=== PATIENT | female | born 1970 | race African-American/Black ===

== ENCOUNTER → 2017-01-07 | Outpatient (REF) | payer BC | LOC: M LABDRAW1 15:51 | PROVIDERS: ATTEND Orthopaedic Surgery | DX: M50.30 Other cervical disc degeneration, unspecified cervical region (principal) ==

== ENCOUNTER → 2017-01-21 | Outpatient (CLI) | payer BC ==
[~2017-01-21] MED LIST: BUPR15TA PO; ESTRADIOL TOP; GABA-282 PO; LORA10TA2 PO; SERT25TA PO; VITA100037 PO; ZANA4CAP PO
--- NOTE | 2017-01-22 07:48 | ECGEPIP ---
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
== END ==
LOC: M EKG 16:08
PROVIDERS: ATTEND Anesthesiology
DX: Z01.818 Encounter for other preprocedural examination (principal)

== ENCOUNTER → 2017-01-24 | Outpatient (CLI) | payer BC ==
[~2017-01-24] MED LIST changes: -VITA100037 PO; +VITA100067 PO
[2017-01-24 13:11] LABS: MEAN CORPUSCULAR HGB CONC 31.5 g/dl (32.0-36.5); MEAN CORPUSCULAR VOLUME 82.6 fl (80.0-96.0); RED CELL DISTRIBUTION WIDTH 12.9 % (11.5-14.5); WHITE BLOOD COUNT 7.8 K/mm3 (4.0-10.0)
[2017-01-24 14:25] LABS: ALBUMIN 3.6 GM/DL (3.2-5.2); ALBUMIN/GLOBULIN RATIO 0.97 (1.00-1.93); ALKALINE PHOSPHATASE 111 U/L (45-117); ALT/SGPT 22 U/L (12-78); ANION GAP 7 MEQ/L (8-16); AST/SGOT 13 U/L (15-37); BILIRUBIN,TOTAL 0.4 MG/DL (0.2-1.0); BLOOD UREA NITROGEN 12 MG/DL (7-18); CALCIUM LEVEL 9.2 MG/DL (8.5-10.1); CARBON DIOXIDE LEVEL 25 MEQ/L (21-32); CHLORIDE LEVEL 108 MEQ/L (98-107); CHOLESTEROL LEVEL 250 MG/DL (<200); CREATININE FOR GFR 0.82 MG/DL (0.55-1.02); GLOMERULAR FILTRATION RATE > 60.0 (>58); GLUCOSE, FASTING 81 MG/DL (70-105); POTASSIUM SERUM 4.5 MEQ/L (3.5-5.1); SODIUM LEVEL 140 MEQ/L (136-145); TOTAL PROTEIN 7.3 GM/DL (6.4-8.2); TRIGLYCERIDES LEVEL 153 MG/DL (<150)
== END ==
LOC: M SMT 08:30
PROVIDERS: ATTEND Nurse Practitioner Adult Health
DX: Z00.00 Encounter for general adult medical examination without abnormal findings (principal); E55.9 Vitamin D deficiency, unspecified

== ENCOUNTER 2017-02-03 11:00 | Inpatient (IN) | payer BC ==
--- NOTE | 2017-01-29 18:56 | HPE ---
DATE OF ADMISSION: 02/03/2017 ATTENDING PHYSICIAN: Dr. Acosta CHIEF COMPLAINT: Neck pain, pain radiating to her left upper extremity. HISTORY OF PRESENT ILLNESS: This is a pleasant 46-year-old female patient with progressively worsening neck pain and pain radiating to her left upper extremity. She failed to improve with conservative management to include physical therapy and epidural steroid injections. 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 She has elected for surgery for continued symptoms. She has consented for an anterior cervical decompression and fusion at C4-5 and C5-[address] Acosta. X-rays of her cervical spine notable for degenerative changes most significant at C4-5 and C5-6, lesser degree at C2-3. MRI is notable for cervical spinal stenosis at C4-5 and C5-6. Degenerative changes primarily at C3-4. Medical optimization none. ALLERGIES: Penicillin and sulfa drugs which both cause her to have hives. Aspirin also causing have hives she has troubles with latex, tape and most adhesives as well. MEDICAL HISTORY: Includes the above listed cervical spinal stenosis. She also has seasonal allergies, anxiety, depression and gastric reflux disease. PAST SURGICAL HISTORY: Tubal ligation, partial hysterectomy, , breast biopsies, ganglion cyst removal and the carpal tunnel release on the left side. CURRENT MEDICATIONS: - gabapentin 300 mg 1 tablet three times a day - Zanaflex 4 mg 1 tablet bedtime - Zoloft 75 mg 1 tablet in the evening - Wellbutrin XL 150 mg 1 tablet twice a day - Claritin 10 mg as needed - Prilosec 20 mg 1 tablet as needed She was counseled to discontinue anti-inflammatories 5 days prior to the surgery. FAMILY HISTORY: Noncontributory. REVIEW OF SYSTEMS: Denies fever or chills. Denies chest pain, shortness breath or cough. Denies difficulty breathing. Denies abdominal pain. Denies nausea or vomiting. Has persistent pain with driving activities and activities of daily living with pain radiating into her left arm. Denies nausea or vomiting. Denies recent upper respiratory infection or urinary tract infection symptoms. PHYSICAL EXAMINATION: Physical exam today reveals a well-nourished, well-developed alert female patient. She walks with a normal gait. Her gait is not wide-based does not use assistive devices. Spurling's is positive with increased symptoms of the left upper extremity. Deep tendon reflexes are trace at the biceps on the left, one at the right biceps, one at both triceps, and one at the brachial radialis. Foster's is negative. Clonus is negative. Neck, the skin is intact. No erythema, edema or ecchymosis. No adenopathy. Lungs are clear to auscultation without rales or wheeze. Heart, regular rate and rhythm. Abdomen, bowel sounds present. Height 63 inches, weight 175 pounds, temperature 97.6, body mass index (BMI) is 33.6. LABORATORY DATA: Her sickle cell is negative. EKG is notable for sinus rhythm. IMPRESSION: Symptomatic cervical spinal stenosis and left upper extremity radiculopathy. PLAN: She has consented for anterior cervical decompression and fusion at C4-5, C5-[address] Acosta. NIRMAL
[~2017-02-03] VITALS: Ht 160 cm; Wt 80.7 kg
[2017-02-03] MEDS ORDERED: LR 1,000 ML IV ONE (12:00)
[2017-02-03] MEDS ORDERED: PERCOCET 5MG/325MG TAB PO ONE (12:00)
[2017-02-03] MEDS ORDERED: VANCOMYCIN HCL 1,000 MG, VIAL MATE ADAPTER 1 EACH in D5W 250 ML IV ONE (12:30)
[2017-02-03] MEDS ORDERED: PREGABALIN 75 MG CAP(LYRICA) PO ONE (12:30)
[2017-02-03] MEDS ORDERED: THROMBIN SOLN 20,000 UNITS KIT As Ordered ONE (14:46)
[2017-02-03] MEDS ORDERED: methylPREDNISolone 500 MG VIAL (J2930) As Ordered ONE (14:46)
[2017-02-03] MEDS ORDERED: LIDOCAINE W/EPINEPHRINE 1% 20ML VIAL As Ordered ONE (14:47)
[2017-02-03] MEDS ORDERED: BACITRACIN PWD 50,000 UNITS VIAL As Ordered ONE (14:47)
[2017-02-03] MEDS ORDERED: LIDOCAINE 2% INJ 100 MG/5 ML SDV (FOR ANES.) As Ordered ONE (18:33)
[2017-02-03] MEDS ORDERED: MIDAZOLAM INJ 2 MG/2 ML VIAL (J2250) As Ordered ONE (18:33)
[2017-02-03] MEDS ORDERED: PROPOFOL 200 MG/20 ML VIAL As Ordered ONE ×2 (18:33→21:20)
[2017-02-03] MEDS ORDERED: ROCURONIUM BROMIDE 50 MG/5 ML VIAL/SYRINGE As Ordered ONE (18:33)
[2017-02-03] MEDS ORDERED: fentaNYL 250 MCG/5 ML INJECTION (J3010) As Ordered ONE (18:33)
[2017-02-03] MEDS ORDERED: dexameTHASONE 4 MG/ML 1ML VIAL (J1100) As Ordered ONE (18:33)
[2017-02-03] MEDS ORDERED: ONDANSETRON 4MG/2ML VIAL (J2405) As Ordered ONE (18:33)
[2017-02-03] MEDS ORDERED: PHENYLephrine HCL 500 MCG/5 ML (100MCG/ML) SYRINGE (J2370) As Ordered ONE (18:34)
[2017-02-03] MEDS ORDERED: ePHEDrine SULFATE 25 MG/5 ML(5MG/ML) SYRINGE As Ordered ONE ×2 (18:34→18:41)
[2017-02-03] MEDS ORDERED: GLYCOPYRROLATE INJ 0.2 MG/ML 2 ML VIAL As Ordered ONE (20:19)
[2017-02-03] MEDS ORDERED: NEOSTIGMINE 1MG/ML 5 ML SYRINGE (J2710) As Ordered ONE (20:19)
[2017-02-03] MEDS: fentaNYL 100 MCG/2 ML INJECTION (J3010) IV PRN ×4 (21:45→22:00)
[2017-02-03] MEDS ORDERED: fentaNYL 100 MCG/2 ML INJECTION (J3010) As Ordered ONE (21:47)
[2017-02-03] MEDS ORDERED: ONDANSETRON 4MG/2ML VIAL (J2405) IV PRN (22:15)
[2017-02-03] MEDS ORDERED: METOCLOPRAMIDE INJ 10MG/2ML VIAL (J2765) IV PRN (22:15)
[2017-02-03] MEDS ORDERED: LR 1,000 ML IV SCH (22:15)
[2017-02-03] MEDS ORDERED: PERCOCET 5MG/325MG TAB PO PRN ×2 (22:15→22:45)
[2017-02-03] MEDS ORDERED: MEPERIDINE INJ 25 MG/ML VIAL (J2175) IV PRN (22:15)
--- NOTE | 2017-02-03 22:44 | REP ---
Clinical: Cervical stenosis. Technique: Two portable cross-table lateral intraoperative views of the cervical spine. Findings: Final images demonstrate the patient to be status post anterior fusion at the C4 - C6 levels. Satisfactory alignment noted. Impression: Status post anterior fusion at C4-C6. Signed by Dimas Rivas MD 02/03/2017 10:30 P
[2017-02-03 22:45] VITALS: BP 130/76
[2017-02-03] MEDS ORDERED: PROMETHAZINE INJ 25 MG/ML VIAL (J2550) IV PRN (22:45)
[2017-02-03] MEDS ORDERED: HYDROmorphone HCL 1 MG/ML SYRINGE (J1170) IV PRN ×2 (22:45)
[2017-02-03] MEDS: D5W/LR 1,000 ML IV SCH (22:45)
[2017-02-03 23:15] VITALS: BP 130/68
[2017-02-04 00:15] VITALS: BP 137/75
[2017-02-04] MEDS: ASCORBIC ACID 500 MG TAB PO SCH ×2 (00:17→08:59)
[2017-02-04 01:15] VITALS: BP 137/76
[2017-02-04 02:15] VITALS: BP 126/68
[2017-02-04] MEDS: PERCOCET 5MG/325MG TAB PO PRN ×2 (06:18→11:33)
[2017-02-04] MEDS ORDERED: VANCOMYCIN HCL 1,000 MG, VIAL MATE ADAPTER 1 EACH in D5W 250 ML IV ONE (07:00)
[2017-02-04 07:15] VITALS: BP 128/75
[2017-02-04] MEDS: D5W/LR 1,000 ML IV SCH (08:45)
[2017-02-04] MEDS ORDERED: MOM 30ML SUSPENSION UDC PO SCH (09:00)
[2017-02-04] MEDS ORDERED: OMEPRAZOLE 20 MG CAP PO SCH (09:00)
[2017-02-04] MEDS ORDERED: SERTRALINE HCL 50 MG TAB PO SCH (09:00)
[2017-02-04] MEDS ORDERED: LORATADINE 10 MG TAB PO SCH (09:00)
[2017-02-04] MEDS ORDERED: VITAMIN D 1,000 INTERNATIONAL UNITS TABLET PO SCH (09:00)
[2017-02-04] MEDS ORDERED: FLUTICASONE PROP 0.05% NASAL SPRAY 16 GM (FLONASE) SCH (09:00)
[2017-02-04 11:15] VITALS: BP 119/64
[2017-02-04] MEDS ORDERED: GABAPENTIN 300 MG CAP PO SCH (21:00)
[2017-02-04] MEDS ORDERED: tiZANidine 4 MG TAB PO SCH (21:00)
--- NOTE | 2017-02-06 08:21 | RO ---
DATE OF PROCEDURE: 02/03/2017 PREOPERATIVE DIAGNOSIS: Cervical spinal stenosis C4-5, C5-6. POSTOPERATIVE DIAGNOSIS: Cervical spinal stenosis C4-5, C5-6. PROCEDURE PERFORMED: Anterior cervical decompression and fusion procedure at C4-5 including decompression of the thecal sac and nerve roots, additional level ACDF at C5-6, anterior cervical instrumentation for spine fusion surgery C4-5, C5-6, use and application of structural allograft for spine surgery reviewed. SURGEON: Dr. Олег Acosta CORRECTION OFFICER PENITENTIARY: Petros Ortiz, physician trust manager assistant. ANESTHESIA: General. ESTIMATED BLOOD LOSS: Less than 50 mL replaced with Crystalloid. COMPLICATIONS: None. COMPONENTS USED: DePuy skyline plate, 30 mm 14 mm screws times six, VG2 structural allograft for spine surgery size 4 x 6 times two grafts. INDICATIONS: 46-year-old female with significant cervical spinal stenosis with radicular component ongoing for months. Not getting better with conservative management and has elected for operative intervention. Consent involved a malina discussion of the pathology involved, procedure proposed, alternatives including doing nothing, risks including but not limited to pain, failure, infection, bleeding, blood loss, incomplete relief, need for additional surgery, hoarseness, swallowing trouble, paralysis, , other problems. She agreed to proceed to surgery. OPERATIVE COURSE: Identified in the holding area, site side verified, brought to the operating room. Once general endotracheal anesthesia was administered, she was positioned for exposure of the cervical spine for anterior cervical decompression and fusion. This was accomplished through a right-sided approach. Once I and the manager radio were comfortable with the patient's positioning, she was then sterilely prepped and draped in usual fashion. Head halter traction 7 pounds was utilized for this case and the shoulders had been gently taped on the table. Mr. Ortiz stood on the patient's left side, Sabine on the patient's right. I conducted the procedure using 3.5 loupe magnification and a headlamp. Next, time-out was accomplished. Incision was outlined with a marking pen infiltrated with 1% lidocaine with epinephrine and made with a 10 blade knife. The incision was based on bony landmarks including the trachea as well as palpation of the clavicle. The incision was three fingerbreadths long developed down through skin and subcuticular tissues to the platysma muscle. Platysma was elevated and I divided it perpendicular to its fibers using the bipolar cautery and tenotomy scissors. There was a large hypertrophied external vein. This was skeletonized and then tied off / ligated using Vicryl Reel stitch. Next, once this was divided, this facilitated continued dissection. The dissection continued medial to the sternocleidomastoid which was identified, identified the omohyoid muscle, elevated it, exposed it and divided the omohyoid to facilitate further exposure. Next, dissection continued. The carotid sheath was identified and protected. We identified the prevertebral fascia which was elevated in several leaves and exposed the C5-6 and C4-5 disc levels. Next, I placed a bayonet spinal needle at the C5-6 level and a cross-table lateral was taken to verify our position. From here, C5-6 level was indelibly marked using the hot knife, including elevation of the longus coli muscle at C5-6 and also continuing dissection superiorly to C4-5. Once this was accomplished, we then placed distraction pins at the most stenotic level C4-5 and distracted across C4-5. Next, C4-5 appeared to be significantly mobile. I opened the annulus with 11 blade knife and then we removed disc osteophyte complex using pituitaries. Mr. Ortiz assisted in securing the retractor and retracting using S retractor throughout the course of this procedure. Next the dissection continued down the PLL level. I then utilized curved curettes to remove cartilaginous end plates followed by use of the oval bur to debride the endplates to allow graft placement including debridement of the uncinate process and posterior osteophyte at the level of the PLL. Interestingly the patient had a larger posterior than anterior osteophyte. Next, once this debridement had been accomplished, I was able to elevate the PLL which seen to be potentially partially calcified with a curved curette and then removed the PLL using the #1 and #2 Kerrison's. This allowed direct visualization of the thecal sac. I accomplished foraminotomies bilaterally. Next, I rasped with a size 4 x 6 rasp which seemed to fit appropriately. I did not feel that a 5 x 7 could be fit at this level. 4 x 6 sound also fit appropriately and then we obtained the 4 x 6 VG2 structural graft. It was coated with some bur millings which had been harvested from debridement of the uncinate processes and this graft was implanted and tamped into place. I removed distraction pin, plugged the hole with bone wax. Next, we then subluxed the retractor anteriorly over the 5-6 level, placed a distraction pin at C6 and distracted across C5-6. I opened C5-6 annulus in a similar fashion and removed disc osteophyte material using pituitaries. Again we removed cartilaginous endplate and then again utilized oval bur to debride down the uncinate processes and further square the endplates. Next, at the level of the PLL, I again appreciated significant posterior osteophyte which was further debrided using the oval bur as well as with the curved curette. Next I obtained access to the PLL, elevated using the #4-0 Urvashi curette and then removed the PLL piecemeal fashion using #1 and #2 carriers exposing the thecal sac. Again foraminotomies were accomplished bilaterally. Next, irrigation had been accomplished. Including irrigation with concentrated bacitracin. Next rasp 4 x 6 followed by 4 x 6 sound again utilized to fit appropriately. 4 x 6 VG2 obtained, tamped into place. Next, once this was accomplished, distraction pins were removed and the pin holes plugged. Next, Mr. Ortiz assisted in exposure using the shadow line retractor as well as S retractors and I utilized the oval bur to remove anterior vertebral osteophytes to facilitate placement of the plate. I sized for a 30 mm plate and a 30 mm plate was obtained and placed. This included drilling for 14 mm screws using the drill guide and the 12 mm drill followed by placement of the 14 mm screws in an alternating fashion at C4, C5 and C6. Once the screws were in place, we locked the plate, irrigated. Next, at this stage, cross-table lateral x-ray was obtained to verify plate placement. Next, once irrigation had been accomplished and we inspected for bleeding, platysma was reapproximated with interrupted stitch, deep dermis with interrupted stitch and running stitch on skin, followed by Dermabond. The patient was placed in a rigid cervical collar. She was extubated, moved to recovery room in good condition moving all four extremities. For further details, please refer to the medical record.
--- NOTE | 2017-02-08 04:45 | DSES ---
DATE OF ADMISSION: 02/03/2017 DATE OF DISCHARGE: 02/04/2017 ATTENDING PHYSICIAN: Олег Acosta MD. ADMITTING DIAGNOSIS: Cervical spinal stenosis at C4-5 and C5-6 with radiculopathy. OTHER DIAGNOSES: 1. Seasonal allergies. 2. Anxiety. 3. Depression. 4. Gastroesophageal reflux disease. DISCHARGE DIAGNOSIS: Cervical spinal stenosis status post anterior cervical decompression and fusion at C4-5 and C5-6. HISTORY OF PRESENT ILLNESS: The patient is a 46-year-old female with significant spinal stenosis with radiculopathy. Symptoms have been ongoing for months despite conservative management. She has elected for an anterior cervical decompression and fusion at C4-5 and C5-[address] Acosta. OPERATION PERFORMED: Anterior cervical decompression and fusion at C4-5 including decompression of the thecal sac and nerve roots. Anterior cervical decompression and fusion procedure at C5-6 with anterior cervical instrumentation for spine fusion surgery at C4-5 and C5-6 with structural allograft. HOSPITAL COURSE: The patient underwent an anterior cervical decompression and fusion at C4-5 and C5-6 under general anesthesia. Surgery was uneventful and hospital course was without complication. She was discharged on oral pain medications and instructed to resume her preoperative medications and diet. Patient will followup in our office in approximately 3 days for reevaluation. She does agree to return to our clinic sooner if there is any increased pain, drainage, bleeding, numbness, tingling or radiating pain, fever greater than 101 degrees or any concerns. Please see medical record for additional details. [email or web address]
== END 2017-02-04 12:15 | disposition home or self-care (01) | DRG 321 ==
LOC: M OR 11:46 → M MS5PR 22:42
PROVIDERS: ADMIT Orthopaedic Surgery; ATTEND Orthopaedic Surgery
PROC: 0RB30ZZ Excision of Cervical Vertebral Disc, Open Approach (ICD-10-PCS; 2017-02-03)
PROC: 01N10ZZ Release Cervical Nerve, Open Approach (ICD-10-PCS; 2017-02-03)
PROC: 0RG20A0 Fusion of 2 or more Cervical Vertebral Joints with Interbody Fusion Device, Anterior Approach, Anterior Column, Open Approach (ICD-10-PCS; principal; 2017-02-03 14:20)
DX: M48.02 Spinal stenosis, cervical region (principal); F32.9 Major depressive disorder, single episode, unspecified; Z88.0 Allergy status to penicillin; Z88.2 Allergy status to sulfonamides; Z79.899 Other long term (current) drug therapy; K21.9 Gastro-esophageal reflux disease without esophagitis; F41.9 Anxiety disorder, unspecified; Z91.040 Latex allergy status

== ENCOUNTER → 2017-06-16 | Outpatient (CLI) | payer BC ==
--- NOTE | 2017-06-16 11:26 | REPMRS ---
Patient History The patient states she had a clinical breast exam in 05/2017. Family history of colorectal cancer in maternal aunt at age 50 or over. Benign stereotactic cyst aspiration of the left breast, 2008. Took estrogen for 6 months. Digital Woman Screen Mammo: June 16, 2017 - Exam #: [id number] Bilateral CC and MLO view(s) were taken. Technologist: Alee Amaya, Technologist Prior study comparison: June 14, 2016, digital woman screen mammo performed at [facility]. June 16, 2015, digital woman screen mammo performed at [facility]. FINDINGS: The breast tissue is heterogeneously dense. This may lower the sensitivity of mammography. There has been no change in the appearance of the mammogram from the prior studies. There is a moderate amount of residual fibroglandular tissue which is fairly symmetric. There is no interval development of dominant mass, areas of architectural distortion, or clustered microcalcification typical of malignancy. ASSESSMENT: BI-RADS/ACR category 1 mammogram. Negative. Recommendation Routine screening mammogram in 1 year (for women over age 40). This mammogram was interpreted with the aid of an FDA-approved computer-aided dectection system. Electronically Signed By: Boo Sheth MD 06/16/17 [id number]
== END ==
LOC: M WHC 10:12
PROVIDERS: ATTEND Nurse Practitioner Women's Health
DX: Z12.31 Encounter for screening mammogram for malignant neoplasm of breast (principal); Z92.23 Personal history of estrogen therapy; R92.8 Other abnormal and inconclusive findings on diagnostic imaging of breast

== ENCOUNTER → 2017-06-23 | Outpatient (CLI) | payer BC ==
--- NOTE | 2017-06-23 20:30 | REP ---
Head CT without contrast: History: Intractable headache. Vertigo. Comparison study: CT study November 12, 2012. CT findings: Bone window settings demonstrate an intact bony calvarium. There is no evidence of skull fracture or incidental bony calvarial lesion. The visualized paranasal sinuses appear clear. No intraorbital abnormality is seen. On soft tissue window setting images; the lateral, third, and fourth ventricles are normal in size and position. Sheth-white differentiation pattern is normal above and below the tentorium. There are is no evidence of intracranial hemorrhage. No mass, edema, infarction, or midline shift is seen. No extra-axial fluid collection is appreciated. Impression: Negative noncontrast head CT. Signed by Carlo Morejon MD 06/23/2017 08:22 P
== END ==
LOC: M RAD 16:59
PROVIDERS: ATTEND Nurse Practitioner Adult Health
DX: R42 Dizziness and giddiness (principal); R51 Headache

== ENCOUNTER → 2017-07-24 | Outpatient (CLI) | payer BC, OTHER | LOC: M WUC 15:27 | DX: M54.5 Low back pain (principal) | CPT/HCPCS: 72110 ==

== ENCOUNTER → 2017-09-11 | Outpatient (CLI) | payer OTHER ==
[2017-09-11 16:01] LABS: HEMATOCRIT 43.8 % (36.0-47.0); HEMOGLOBIN 13.7 g/dl (12.0-16.0); MEAN CORPUSCULAR HEMOGLOBIN 24.9 pg (27.0-33.0); MEAN CORPUSCULAR HGB CONC 31.3 g/dl (32.0-36.5); MEAN CORPUSCULAR VOLUME 79.6 fl (80.0-96.0); PLATELET COUNT, AUTOMATED 434 10^3/uL (150-450); RED CELL DISTRIBUTION WIDTH 13.6 % (11.5-14.5); WHITE BLOOD COUNT 8.5 10^3/uL (4.0-10.0)
[2017-09-11 16:20] LABS: ANION GAP 7 MEQ/L (8-16); BLOOD UREA NITROGEN 13 MG/DL (7-18); CALCIUM LEVEL 9.4 MG/DL (8.5-10.1); CARBON DIOXIDE LEVEL 26 MEQ/L (21-32); CHLORIDE LEVEL 106 MEQ/L (98-107); CREATININE FOR GFR 0.85 MG/DL (0.55-1.30); GLOMERULAR FILTRATION RATE > 60.0 (>58); GLUCOSE, FASTING 81 MG/DL (70-100); POTASSIUM SERUM 4.1 MEQ/L (3.5-5.1); SODIUM LEVEL 139 MEQ/L (136-145)
== END ==
LOC: M LAB 15:23
DX: Z01.818 Encounter for other preprocedural examination (principal)
CPT/HCPCS: 93005

== ENCOUNTER → 2017-10-09 | Outpatient (REF) | payer OTHER ==
[2017-10-09 16:14] LABS: BASO # 0.1 10^3/uL (0.0-0.2); BASO % 0.6 % (0.0-1.0); EOS # 0.2 10^3/uL (0.0-0.50); EOS % 2.7 % (0.0-3.0); HEMATOCRIT 42.4 % (36.0-47.0); HEMOGLOBIN 13.3 g/dl (12.0-16.0); IMMATURE GRANULOCYTE % 0.5 % (0-3.0); LYMPH # 2.1 10^3/uL (1.5-4.5); LYMPH % 24.9 % (24.0-44.0); MEAN CORPUSCULAR HEMOGLOBIN 24.8 pg (27.0-33.0); MEAN CORPUSCULAR HGB CONC 31.4 g/dl (32.0-36.5); MONO # 0.7 10^3/uL (0.0-0.8); MONO % 8.1 % (0.0-5.0); NEUTROPHILS # 5.3 10^3/uL (1.8-7.7); NEUTROPHILS % 63.2 % (36.0-66.0); PLATELET COUNT, AUTOMATED 452 10^3/uL (150-450); RED BLOOD COUNT 5.37 10^6/uL (4.00-5.40); RED CELL DISTRIBUTION WIDTH 13.8 % (11.5-14.5); WHITE BLOOD COUNT 8.3 10^3/uL (4.0-10.0)
[2017-10-09 16:22] LABS: C REACTIVE PROTEIN QUANTITATIV < 0.30 MG/DL (0.00-0.30); RHEUMATOID FACTOR QUANT < 10.0 IU/ML (0-15.0)
[2017-10-09 16:22] LABS: URIC ACID 4.6 MG/DL (2.6-6.0)
[2017-10-09 17:08] LABS: ERYTHROCYTE SEDIMENTATION RATE 9 mm/hr (0-20)
== END ==
LOC: M LAB REF 15:38
DX: M50.320 Other cervical disc degeneration, mid-cervical region, unspecified level (principal)
CPT/HCPCS: 85652

== ENCOUNTER 2017-11-07 11:20 | Outpatient (RCR) | payer OTHER | END 2017-11-24 | LOC: M PT 11:20 | DX: Z51.89 Encounter for other specified aftercare (principal); M25.60 Stiffness of unspecified joint, not elsewhere classified | CPT/HCPCS: 97161 ==

== ENCOUNTER → 2017-11-12 | Outpatient (CLI) | payer OTHER ==
[2017-11-12 16:38] LABS: HEMOGLOBIN 13.4 g/dl (12.0-15.5); MEAN CORPUSCULAR HEMOGLOBIN 24.6 pg (27.0-33.0); MEAN CORPUSCULAR HGB CONC 31.2 g/dl (32.0-36.5); PLATELET COUNT, AUTOMATED 425 10^3/uL (150-450); RED BLOOD COUNT 5.44 10^6/uL (4.00-5.40); RED CELL DISTRIBUTION WIDTH 14.1 % (11.5-14.5); WHITE BLOOD COUNT 9.4 10^3/uL (4.0-10.0)
[2017-11-12 17:04] LABS: ANION GAP 5 MEQ/L (8-16); BLOOD UREA NITROGEN 12 MG/DL (7-18); CALCIUM LEVEL 9.4 MG/DL (8.5-10.1); CARBON DIOXIDE LEVEL 26 MEQ/L (21-32); CHLORIDE LEVEL 109 MEQ/L (98-107); CREATININE FOR GFR 0.94 MG/DL (0.55-1.30); GLOMERULAR FILTRATION RATE > 60.0 (>58); GLUCOSE, FASTING 86 MG/DL (70-100); POTASSIUM SERUM 3.8 MEQ/L (3.5-5.1); SODIUM LEVEL 140 MEQ/L (136-145)
== END ==
LOC: M WUC 11:29
DX: Z01.818 Encounter for other preprocedural examination (principal)
CPT/HCPCS: 80048

== ENCOUNTER → 2017-11-25 | Outpatient (REF) | LOC: M SMT 14:05 | DX: M54.5 Low back pain (principal) ==

== ENCOUNTER 2018-01-07 09:12 | Emergency (ER) | payer OTHER | END 2018-01-07 11:14 | disposition home or self-care (01) | LOC: M ED 09:12 | DX: M65.842 Other synovitis and tenosynovitis, left hand (principal); E78.00 Pure hypercholesterolemia, unspecified; G47.30 Sleep apnea, unspecified; F41.9 Anxiety disorder, unspecified; F32.9 Major depressive disorder, single episode, unspecified; Z79.899 Other long term (current) drug therapy; Z88.6 Allergy status to analgesic agent; Z88.0 Allergy status to penicillin; Z88.2 Allergy status to sulfonamides; Z91.040 Latex allergy status | CPT/HCPCS: 99283 ==

== ENCOUNTER 2018-01-07 13:33 | Outpatient (RCR) | payer OTHER | END 2018-01-24 | LOC: M OT 13:33 | DX: Z47.89 Encounter for other orthopedic aftercare (principal); M79.671 Pain in right foot; M79.672 Pain in left foot; Z98.890 Other specified postprocedural states | CPT/HCPCS: 97110 ==

== ENCOUNTER → 2018-01-09 | Outpatient (CLI) | payer OTHER ==
[2018-01-09 10:07] LABS: ALBUMIN 3.7 GM/DL (3.2-5.2); ALKALINE PHOSPHATASE 163 U/L (45-117); ALT/SGPT 29 U/L (12-78); ANION GAP 7 MEQ/L (8-16); AST/SGOT 19 U/L (7-37); BILIRUBIN,TOTAL 0.2 MG/DL (0.2-1.0); BLOOD UREA NITROGEN 12 MG/DL (7-18); CARBON DIOXIDE LEVEL 27 MEQ/L (21-32); CHLORIDE LEVEL 107 MEQ/L (98-107); CHOLESTEROL LEVEL 279 MG/DL (<200); CHOLESTEROL RISK RATIO 6.804 (<5); CREATININE FOR GFR 0.85 MG/DL (0.55-1.30); GLOMERULAR FILTRATION RATE > 60.0 (>58); GLUCOSE, FASTING 99 MG/DL (70-100); HDL CHOLESTEROL 41 MG/DL (>40); NON-HDL-C 238 MG/DL; POTASSIUM SERUM 4.4 MEQ/L (3.5-5.1); SODIUM LEVEL 141 MEQ/L (136-145); TOTAL PROTEIN 7.4 GM/DL (6.4-8.2); TRIGLYCERIDES LEVEL 449 MG/DL (<150)
[2018-01-09 11:58] LABS: TOTAL 25(OH) VITAMIN D 22.3 NG/ML (30.0-100.0)
== END ==
LOC: M LAB 08:38
DX: E55.9 Vitamin D deficiency, unspecified (principal)
CPT/HCPCS: 73110

== ENCOUNTER → 2018-04-13 | Outpatient (CLI) | payer OTHER | LOC: M SLEEP 20:00 | DX: G47.33 Obstructive sleep apnea (adult) (pediatric) (principal) | CPT/HCPCS: 95811 ==

== ENCOUNTER → 2018-06-17 | Outpatient (CLI) | payer OTHER | LOC: M WHC 10:50 | DX: Z12.31 Encounter for screening mammogram for malignant neoplasm of breast (principal); Z80.0 Family history of malignant neoplasm of digestive organs; N60.31 Fibrosclerosis of right breast; N60.32 Fibrosclerosis of left breast | CPT/HCPCS: 77067 ==

== ENCOUNTER → 2018-06-29 | Outpatient (CLI) | payer OTHER | LOC: M LRY 10:25 | DX: M51.36 Other intervertebral disc degeneration, lumbar region (principal) | CPT/HCPCS: 72110 ==

== ENCOUNTER → 2018-07-10 | Outpatient (CLI) | payer OTHER ==
[2018-07-10 13:51] LABS: ALBUMIN 3.5 GM/DL (3.2-5.2); ALBUMIN/GLOBULIN RATIO 0.97 (1.00-1.93); ALKALINE PHOSPHATASE 163 U/L (45-117); ALT/SGPT 21 U/L (12-78); ANION GAP 4 MEQ/L (8-16); AST/SGOT 16 U/L (7-37); BILIRUBIN,TOTAL 0.4 MG/DL (0.2-1.0); BLOOD UREA NITROGEN 11 MG/DL (7-18); CALCIUM LEVEL 8.7 MG/DL (8.5-10.1); CARBON DIOXIDE LEVEL 28 MEQ/L (21-32); CHLORIDE LEVEL 109 MEQ/L (98-107); CHOLESTEROL LEVEL 186 MG/DL (<200); CHOLESTEROL RISK RATIO 3.795 (<5); CREATININE FOR GFR 0.83 MG/DL (0.55-1.30); GLOMERULAR FILTRATION RATE > 60.0 (>58); GLUCOSE, FASTING 89 MG/DL (70-100); HDL CHOLESTEROL 49 MG/DL (>40); LDL CHOLESTEROL 108 MG/DL (<100); NON-HDL-C 137 MG/DL; POTASSIUM SERUM 4.4 MEQ/L (3.5-5.1); SODIUM LEVEL 141 MEQ/L (136-145); TOTAL PROTEIN 7.1 GM/DL (6.4-8.2); TRIGLYCERIDES LEVEL 143 MG/DL (<150)
[2018-07-10 13:52] LABS: TOTAL 25(OH) VITAMIN D 31.9 NG/ML (30.0-100.0)
== END ==
LOC: M WUC 09:25
DX: E78.2 Mixed hyperlipidemia (principal); F32.9 Major depressive disorder, single episode, unspecified; E55.9 Vitamin D deficiency, unspecified
CPT/HCPCS: 84443

== ENCOUNTER 2018-08-24 09:40 | Emergency (ER) | payer OTHER ==
[~2018-08-24] VITALS: Ht 160 cm; Wt 81.8 kg
[~2018-08-24 09:40] MED LIST changes: -GABA-282 PO; +GABA-843 PO; +INDO50CA PO; +LORA-243 PO; -LORA10TA2 PO; +MOTR200T44 PO; +NORCOTAB PO; +PARO20TA3 PO; +VITA200016 PO
[2018-08-24] MEDS ORDERED: NEUR300C PO (10:07)
[2018-08-24] MEDS ORDERED: CVS20TAB PO (10:09)
[2018-08-24] MEDS ORDERED: ATOR1TAB19 PO (10:09)
[2018-08-24] MEDS ORDERED: ESTR0.059 TD (10:09)
[2018-08-24 10:11] LABS: BASO # 0.1 10^3/uL (0.0-0.2); BASO % 0.8 % (0.0-1.0); EOS # 0.2 10^3/uL (0.0-0.50); EOS % 2.8 % (0.0-3.0); HEMATOCRIT 39.5 % (36.0-47.0); HEMOGLOBIN 12.7 g/dl (12.0-15.5); LYMPH # 2.1 10^3/uL (1.5-4.5); LYMPH % 29.3 % (24.0-44.0); MEAN CORPUSCULAR HGB CONC 32.2 g/dl (32.0-36.5); MEAN CORPUSCULAR VOLUME 77.6 fl (80.0-96.0); MONO # 0.8 10^3/uL (0.0-0.8); MONO % 10.4 % (0.0-5.0); NEUTROPHILS # 4.1 10^3/uL (1.8-7.7); NEUTROPHILS % 56.4 % (36.0-66.0); PLATELET COUNT, AUTOMATED 362 10^3/uL (150-450); RED BLOOD COUNT 5.09 10^6/uL (4.00-5.40); WHITE BLOOD COUNT 7.2 10^3/uL (4.0-10.0)
--- NOTE | 2018-08-24 10:16 | REP ---
Portable chest x-ray: Single view. History: Chest pain. Comparison study: March 17, 2014. Findings: EKG monitoring electrodes overlie the chest. The lungs are well inflated and clear. Pulmonary vasculature is not increased. Heart size is normal. Pleural angles are sharp. The patient is status post ventral discectomy and fusion plating in the lower cervical spine. Impression: No active disease. Electronically Signed by Carlo Morejon MD 08/24/2018 10:07 A
[2018-08-24 10:25] LABS: INR 0.99; PROTHROMBIN TIME 13.2 SECONDS (12.1-14.4)
[2018-08-24 10:26] LABS: PARTIAL THROMBOPLASTIN TIME 28.6 SECONDS (25.4-37.6)
[2018-08-24 10:46] LABS: HCG, SERUM QUALITATIVE NEGATIVE (NEGATIVE)
[2018-08-24 10:54] LABS: ALBUMIN 3.6 GM/DL (3.2-5.2); ALT/SGPT 27 U/L (12-78); BILIRUBIN,DIRECT 0.1 MG/DL (0.0-0.2); BILIRUBIN,TOTAL 0.5 MG/DL (0.2-1.0); BLOOD UREA NITROGEN 11 MG/DL (7-18); CALCIUM LEVEL 8.9 MG/DL (8.5-10.1); CARBON DIOXIDE LEVEL 22 MEQ/L (21-32); CHLORIDE LEVEL 107 MEQ/L (98-107); CPK CREATINE PHOSPHOKINASE 114 U/L (26-192); CREATININE FOR GFR 0.78 MG/DL (0.55-1.30); FREE T4 0.86 NG/DL (0.76-1.46); GLOMERULAR FILTRATION RATE > 60.0 (>51); GLUCOSE, FASTING 98 MG/DL (70-100); LIPASE 173 U/L (73-393); MB/CK RELATIVE INDEX 1.23 (< OR =4); NT-PRO BNP 62 PG/ML (<125); SODIUM LEVEL 139 MEQ/L (136-145); TOTAL PROTEIN 6.8 GM/DL (6.4-8.2); TROPONIN I < 0.02 NG/ML (< 0.10)
[2018-08-24] MEDS ORDERED: ISOVUE-370 76% 100ML VIAL (Q9967) As Ordered ONE (11:26)
[2018-08-24] MEDS ORDERED: NITROGLYCERIN 0.4 MG SUBL TABLET SL PRN (11:30)
--- NOTE | 2018-08-24 12:08 | REP ---
Clinical: Chest pain. Rule out pulmonary embolus. Technique: Axial contrast enhanced images from the thoracic inlet to the upper abdomen using 100 ml Isovue 370 intravenous contrast material with coronal and sagittal re-formations. Findings: Satisfactory enhancement of the pulmonary vasculature is achieved and no filling defects are identified to suggest pulmonary embolus. The bilateral lung figueroa are relatively clear with only minimal posterior basilar dependent changes noted. No consolidation, effusion, or pneumothorax. Tracheobronchial tree is patent. No obvious adenopathy. The mediastinum demonstrates normal thoracic aorta and heart/pericardium. No pericardial effusion. Surrounding musculoskeletal structures are intact. Impression: No pulmonary embolus. No acute mediastinal or pleuroparenchymal process. Electronically Signed by Dimas Rivas MD 08/24/2018 12:00 P
[2018-08-24 16:38] LABS: CPK CREATINE PHOSPHOKINASE 95 U/L (26-192); MB/CK RELATIVE INDEX 1.16 (< OR =4); TROPONIN I < 0.02 NG/ML (< 0.10)
[2018-08-24 17:05] VITALS: BP 129/82
--- NOTE | 2018-08-25 20:56 | ECGEPIP ---
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
--- NOTE | 2018-08-25 21:09 | ECGEPIP ---
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
== END 2018-08-24 17:15 | disposition home or self-care (01) ==
LOC: M ED 09:40
DX: R07.9 Chest pain, unspecified (principal); E78.5 Hyperlipidemia, unspecified; M54.9 Dorsalgia, unspecified; M79.629 Pain in unspecified upper arm; Z79.899 Other long term (current) drug therapy; Z88.8 Allergy status to other drugs, medicaments and biological substances; Z88.0 Allergy status to penicillin; Z88.2 Allergy status to sulfonamides; Z91.040 Latex allergy status
CPT/HCPCS: 36415; 71045; 71275; 80048; 80076; 82550; 82553; 83690; 83880; 84439; 84443; 84703; 85025; 85610; 85730; 93005; 93041; 94760; 99285; Q9967

== ENCOUNTER → 2018-11-06 | Outpatient (REF) | payer OTHER ==
[~2018-11-06] MED LIST changes: +ATOR1TAB19 PO; +ESTR0.059 TD; +HYDR-3715 PO; +NEUR300C PO; -NORCOTAB PO; +OMEP20TA9 PO; -SERT25TA PO; +SERT25TA85 PO
== END ==
LOC: M SFHCLERA 09:36
PROVIDERS: ATTEND Physician Assistant
DX: J02.9 Acute pharyngitis, unspecified (principal)

== ENCOUNTER → 2018-12-02 | Outpatient (CLI) | payer OTHER ==
[~2018-12-02] MED LIST changes: -INDO50CA PO; +INDO50CA11 PO
--- NOTE | 2018-12-02 20:37 | REP ---
Clinical: Neck swelling. Technique: Real time campo scale and color evaluation of the thyroid gland using the linear high frequency and curved array transducers. Findings: The thyroid gland demonstrates relatively homogeneous parenchymal echo texture with few scattered hypoechoic nodules. The right lobe measures 5.1 x 1.9 x 1.5 cm and includes 5 x 3 x 4 mm complex cyst in the midpole and 3 x 1.5 x 1.9 mm hypoechoic nodule in the mid pole. Isthmus measures 1.3 mm in width. Left lobe measures 4.5 x 1.8 x 1.5 cm and includes 4 x 3 x 4 mm hypoechoic nodule in the upper pole and 5 x 4 x 6 mm hypoechoic nodule in the lower pole. Further evaluation of the neck at the site of swelling demonstrates normal left sided lymph nodes measuring up to 17 x 3 x 6 mm. Impression: Few scattered nonspecific nodules and complex cyst. Electronically Signed by Dimas Rivas MD 12/02/2018 08:28 P
== END ==
LOC: M RAD 16:39
PROVIDERS: ATTEND Nurse Practitioner Adult Health
DX: R22.1 Localized swelling, mass and lump, neck (principal); E04.1 Nontoxic single thyroid nodule

== ENCOUNTER → 2018-12-08 | Outpatient (CLI) | payer OTHER ==
[~2018-12-08] MED LIST changes: +CENT1TAB7 PO; +E-Z-GAS II EFFERVESCENT PACKET (SODIUM BICARB./CITRIC ACID/SIMETHICONE) As Ordered ONE; +E-Z-HD 98% w/w 340GM SUSP BTL As Ordered ONE; +E-Z-PAQUE 96% w/w SUSP 176GM BTL As Ordered ONE
--- NOTE | 2018-12-08 17:21 | REP ---
Examination Requested: Esophagram Barium Swallow Reason For Exam/Comment: Dysphasia Esophagram: The procedure was performed CHRIS Teague, under the direct supervision of Dr. Morejon. The images were reviewed with Dr. Morejon. A single PA chest x-ray is submitted as a health insurance adjuster film. The superior mediastinal structures are midline. The heart size is within normal limits. The lungs are clear. Surgical hardware is noted in the cervical spine. Liquid barium and gas producing granules were given in the erect position as well as liquid barium in the prone oblique positions in order to perform a double contrast esophagram examination. Oral and pharyngeal stages of the examination were unremarkable. Esophageal transport is efficient and there is no esophagitis, stricture, or mucosal ring noted. There is no] hiatal hernia noted. Gastroesophageal reflux was not appreciated throughout the course of this exam. Impression: 1. Unremarkable esophagram 0.5 minutes of fluoroscopy time was utilized for this procedure. Reviewed by CHRIS Carr 12/08/2018 04:51 P Electronically Signed by Carlo Morejon MD 12/08/2018 05:10 P
== END ==
LOC: M RAD 10:07
PROVIDERS: ATTEND Surgery
DX: R13.10 Dysphagia, unspecified (principal)

== ENCOUNTER 2018-12-24 08:27 | Day surgery (SDC) | payer OTHER ==
[~2018-12-24] VITALS: Ht 160 cm; Wt 80.7 kg
[~2018-12-24 08:27] MED LIST changes: -E-Z-GAS II EFFERVESCENT PACKET (SODIUM BICARB./CITRIC ACID/SIMETHICONE) As Ordered ONE; -E-Z-HD 98% w/w 340GM SUSP BTL As Ordered ONE; -E-Z-PAQUE 96% w/w SUSP 176GM BTL As Ordered ONE
[2018-12-24] MEDS ORDERED: NS 1,000 ML IV SCH (09:00)
--- NOTE | 2018-12-24 09:30 | ROOR ---
Patient Name: Carmen Burns Procedure Date: 12/24/2018 9:21 AM Date of : 1970 Age: 48 Room: [facility] Gender: Female Note Status: Finalized Procedure: Upper GI endoscopy Indications: Dysphagia Providers: Galen Duenas Jr, MD Referring MD: Silvana BEARDEN NP Requesting Provider: Medicines: Propofol per Anesthesia Complications: No immediate complications. Procedure: Pre-Anesthesia Assessment: - Prior to the procedure, a History and Physical was performed, and patient medications and allergies were reviewed. The patient is competent. The risks and benefits of the procedure and the sedation options and risks were discussed with the patient. All questions were answered and informed consent was obtained. Patient identification and proposed procedure were verified by the physician and the nurse in the pre-procedure area and in the procedure room. Mental Status Examination: alert and oriented. Airway Examination: normal oropharyngeal airway and neck mobility. Respiratory Examination: clear to auscultation. CV Examination: normal. ASA Grade Assessment: II - A patient with mild systemic disease. After reviewing the risks and benefits, the patient was deemed in satisfactory condition to undergo the procedure. The anesthesia plan was to use moderate sedation / analgesia (conscious sedation). Immediately prior to administration of medications, the patient was re-assessed for adequacy to receive sedatives. The heart rate, respiratory rate, oxygen saturations, blood pressure, adequacy of pulmonary ventilation, and response to care were monitored throughout the procedure. The physical status of the patient was re-assessed after the procedure. The Endoscope was introduced through the mouth, and advanced to the second part of duodenum. The upper GI endoscopy was accomplished without difficulty. The patient tolerated the procedure well. Findings: The upper third of the esophagus, middle third of the esophagus, lower third of the esophagus and gastroesophageal junction were normal. The cardia, gastric body, gastric antrum, prepyloric region of the stomach and pylorus were normal. The duodenal bulb, first portion of the duodenum and second portion of the duodenum were normal. Impression: - Normal upper third of esophagus, middle third of esophagus, lower third of esophagus and gastroesophageal junction. - Normal cardia, gastric body, antrum, prepyloric region of the stomach and pylorus. - Normal duodenal bulb, first portion of the duodenum and second portion of the duodenum. - No specimens collected. Recommendation: - Discharge patient to home (ambulatory). - Return to primary care physician as previously scheduled. Galen uDenas MD Galen Duenas Jr, MD 12/24/2018 9:30:24 AM Electronically signed by Galen Duenas Jr, MD Number of Addenda: 0 Note Initiated On: 12/24/2018 9:21 AM Estimated Blood Loss: Estimated blood loss: none.
[2018-12-24] MEDS ORDERED: PROPOFOL 200 MG/20 ML VIAL As Ordered ONE (09:39)
[2018-12-24] MEDS ORDERED: LIDOCAINE 2% INJ 100 MG/5 ML SDV (FOR ANES.) As Ordered ONE (09:39)
--- NOTE | 2018-12-24 09:44 | ROOR ---
Patient Name: Carmen Burns Procedure Date: 12/24/2018 9:21 AM Date of : 1970 Age: 48 Room: [facility] Gender: Female Note Status: Finalized Procedure: Colonoscopy Indications: Constipation Providers: Galen Duenas Jr, MD Referring MD: Silvana BEARDEN NP Requesting Provider: Medicines: Propofol per Anesthesia Complications: No immediate complications. Procedure: Pre-Anesthesia Assessment: - Prior to the procedure, a History and Physical was performed, and patient medications and allergies were reviewed. The patient is competent. The risks and benefits of the procedure and the sedation options and risks were discussed with the patient. All questions were answered and informed consent was obtained. Patient identification and proposed procedure were verified by the physician and the nurse in the pre-procedure area and in the procedure room. Mental Status Examination: alert and oriented. Airway Examination: normal oropharyngeal airway and neck mobility. Respiratory Examination: clear to auscultation. CV Examination: normal. ASA Grade Assessment: II - A patient with mild systemic disease. After reviewing the risks and benefits, the patient was deemed in satisfactory condition to undergo the procedure. The anesthesia plan was to use moderate sedation / analgesia (conscious sedation). Immediately prior to administration of medications, the patient was re-assessed for adequacy to receive sedatives. The heart rate, respiratory rate, oxygen saturations, blood pressure, adequacy of pulmonary ventilation, and response to care were monitored throughout the procedure. The physical status of the patient was re-assessed after the procedure. The Colonoscope was introduced through the anus and advanced to the cecum, identified by appendiceal orifice and ileocecal valve. The quality of the bowel preparation was inadequate. Findings: The rectum, recto-sigmoid colon, sigmoid colon, descending colon, transverse colon, ascending colon, cecum and appendiceal orifice appeared normal. Impression: - Preparation of the colon was inadequate. - The rectum, recto-sigmoid colon, sigmoid colon, descending colon, transverse colon, ascending colon, cecum and appendiceal orifice are normal. - No specimens collected. Recommendation: - Discharge patient to home (ambulatory). - Repeat colonoscopy in 10 years for screening purposes. - Colace capsule(s) orally 200 mg BID daily. Galen Duenas MD Galen Duenas Jr, MD 12/24/2018 9:44:39 AM Electronically signed by Galen Duenas Jr, MD Number of Addenda: 0 Note Initiated On: 12/24/2018 9:21 AM Estimated Blood Loss: Estimated blood loss: none.
[2018-12-24 10:14] VITALS: BP 106/63
== END 2018-12-24 10:16 | disposition home or self-care (01) ==
LOC: M OPP 08:27
PROVIDERS: ATTEND Surgery
DX: K59.00 Constipation, unspecified (principal); R13.10 Dysphagia, unspecified

== ENCOUNTER → 2019-01-12 | Outpatient (REF) | payer OTHER | LOC: M SFHCPLAZ 10:33 | PROVIDERS: ATTEND Nurse Practitioner Adult Health | DX: E55.9 Vitamin D deficiency, unspecified (principal); E78.2 Mixed hyperlipidemia; Z00.00 Encounter for general adult medical examination without abnormal findings; Z83.3 Family history of diabetes mellitus ==

== ENCOUNTER → 2019-01-13 | Outpatient (CLI) | payer OTHER ==
[2019-01-13 13:47] LABS: HEMOGLOBIN A1c 5.5 %
[2019-01-13 13:51] LABS: ALBUMIN 3.6 GM/DL (3.2-5.2); ALT/SGPT 36 U/L (12-78); BILIRUBIN,TOTAL 0.2 MG/DL (0.2-1.0); BLOOD UREA NITROGEN 10 MG/DL (7-18); CALCIUM LEVEL 9.4 MG/DL (8.5-10.1); CARBON DIOXIDE LEVEL 26 MEQ/L (21-32); CHLORIDE LEVEL 108 MEQ/L (98-107); CHOLESTEROL LEVEL 194 MG/DL (<200); CHOLESTEROL RISK RATIO 4.409 (<5); CREATININE FOR GFR 0.85 MG/DL (0.55-1.30); GLOMERULAR FILTRATION RATE > 60.0 (>51); GLUCOSE, FASTING 87 MG/DL (70-100); HDL CHOLESTEROL 44 MG/DL (>40); LDL CHOLESTEROL 109 MG/DL (<100); NON-HDL-C 150 MG/DL; POTASSIUM SERUM 4.8 MEQ/L (3.5-5.1); SODIUM LEVEL 141 MEQ/L (136-145); TOTAL 25(OH) VITAMIN D 29.1 NG/ML (30.0-100.0); TOTAL PROTEIN 7.1 GM/DL (6.4-8.2); TRIGLYCERIDES LEVEL 204 MG/DL (<150)
== END ==
LOC: M WUC 09:03
PROVIDERS: ATTEND Nurse Practitioner Adult Health
DX: Z00.00 Encounter for general adult medical examination without abnormal findings (principal); E78.2 Mixed hyperlipidemia; Z83.3 Family history of diabetes mellitus; E55.9 Vitamin D deficiency, unspecified

== ENCOUNTER 2019-03-08 10:53 | Day surgery (SDC) | payer OTHER ==
[~2019-03-08] VITALS: Ht 160 cm; Wt 80.2 kg
[~2019-03-08 10:53] MED LIST changes: +COLA100C5 PO; -INDO50CA11 PO; +INDO50CA91 PO; +LIDOCAINE 1% MDV 20ML VIAL SQ PRN; +LR 1,000 ML IV ONE; +MOME50SP
[2019-03-08] MEDS ORDERED: EPINEPHrine INJ 1 MG/ML 1ML AMP ONE (12:00)
[2019-03-08] MEDS ORDERED: ROPIvacaine 0.5% 30 ML INJECTION (J2795 PER 1MG) ONE (12:00)
[2019-03-08] MEDS ORDERED: LIDOCAINE 1% MDV 20ML VIAL ONE (12:00)
[2019-03-08] MEDS ORDERED: MIDAZOLAM INJ 2 MG/2 ML VIAL (J2250) As Ordered ONE ×2 (12:17→14:16)
[2019-03-08] MEDS ORDERED: fentaNYL 100 MCG/2 ML INJECTION (J3010) As Ordered ONE (12:17)
[2019-03-08] MEDS ORDERED: EPINEPHrine 1MG/ML INJ 30ML MD-VIAL As Ordered ONE (13:24)
[2019-03-08] MEDS ORDERED: fentaNYL 100 MCG/2 ML INJECTION (J3010) IV PRN ×2 (13:30→16:30)
[2019-03-08] MEDS ORDERED: MIDAZOLAM INJ 2 MG/2 ML VIAL (J2250) IV PRN ×2 (13:30)
[2019-03-08] MEDS ORDERED: LIDOCAINE 2% INJ 100 MG/5 ML SDV (FOR ANES.) As Ordered ONE (14:16)
[2019-03-08] MEDS ORDERED: SUGAMMADEX SODIUM 500 MG/5 ML VIAL (BRIDION) As Ordered ONE (14:16)
[2019-03-08] MEDS ORDERED: ACETAMINOPHEN 1000MG 100ML IV BTL (OFIRMEV) (J0131 PER 10MG) As Ordered ONE (14:16)
[2019-03-08] MEDS ORDERED: PHENYLephrine HCL 500 MCG/5 ML (100MCG/ML) SYRINGE (J2370) As Ordered ONE (14:16)
[2019-03-08] MEDS ORDERED: PROPOFOL 200 MG/20 ML VIAL As Ordered ONE ×2 (14:16→15:44)
[2019-03-08] MEDS ORDERED: ROCURONIUM BROMIDE 50 MG/5 ML VIAL As Ordered ONE (14:16)
[2019-03-08] MEDS ORDERED: fentaNYL 250 MCG/5 ML INJECTION (J3010) As Ordered ONE (14:16)
[2019-03-08] MEDS ORDERED: dexameTHASONE 4 MG/ML 1ML VIAL (J1100) As Ordered ONE (14:16)
[2019-03-08] MEDS ORDERED: ONDANSETRON 4MG/2ML VIAL (J2405) As Ordered ONE (14:16)
[2019-03-08] MEDS ORDERED: ACETAMINOPHEN 650 MG SUPP As Ordered ONE (15:34)
[2019-03-08] MEDS ORDERED: LIDOCAINE 2% W/ EPINEPHRINE 1.7 ML DENTAL INJ As Ordered ONE (15:35)
[2019-03-08] MEDS ORDERED: LIDOCAINE 1% MDV 20ML VIAL As Ordered ONE (16:05)
[2019-03-08] MEDS ORDERED: ONDANSETRON 4MG/2ML VIAL (J2405) IV PRN (16:30)
[2019-03-08] MEDS ORDERED: LR 1,000 ML IV SCH ×2 (16:30)
[2019-03-08] MEDS ORDERED: METOCLOPRAMIDE INJ 10MG/2ML VIAL (J2765) IV PRN (16:30)
[2019-03-08] MEDS ORDERED: PERCOCET 5MG/325MG TAB PO PRN (16:30)
[2019-03-08 17:50] VITALS: BP 138/78
--- NOTE | 2019-03-09 11:23 | RO ---
DATE OF PROCEDURE: 03/08/2019 PREOPERATIVE DIAGNOSES: 1. Left shoulder posterior instability. 2. Left shoulder biceps tendonitis. 3. Left shoulder impingement. 4. Left shoulder acromioclavicular (AC) joint arthritis. POSTOPERATIVE DIAGNOSES: 1. Left shoulder posterior instability. 2. Left shoulder impingement with partial thickness rotator cuff tear. 3. Left shoulder acromioclavicular joint arthritis. PROCEDURE: 1. Left shoulder arthroscopic posterior labral repair. 2. Left shoulder arthroscopic rotator cuff debridement and subacromial decompression. 3. Left shoulder arthroscopic distal clavicle excision. SURGEON: Dr. Neo Catalan BLANKER PRESS OPERATOR: HEMALATHA Arauz ANESTHESIA: Preoperative nerve block, plus general. INTRAVENOUS (IV) FLUIDS: Lactated Ringer's. ESTIMATED BLOOD LOSS: 5 mL. IMPLANTS: Arthrex 2.9 mm PushLock anchors times two with labral tape. CLOSURE: Nylon. DESCRIPTION OF PROCEDURE: Patient identified in the preoperative holding area. The left shoulder was marked by myself. She had an interscalene nerve block by anesthesia. She was brought to the operating room, placed supine on a well-padded operating room (OR) table. General anesthesia was induced. She received appropriate IV antibiotics within 1 hour of incision. Exam under anesthesia revealed 180 degrees of forward flexion, 90 of external rotation with arm at her side, grade 2-2+ posterior load and shift, grade 1 anterior load and shift. The patient was then placed into the right side down lateral decubitus position with an axillary roll and all bony prominences well padded. Bilateral Venodyne boots for deep venous thrombosis (DVT) prophylaxis. The left arm was placed into the Arthrex StaR sleeve lateral decubitus traction [place] with 10 pounds of traction. The left shoulder was then prepped and draped in normal sterile fashion with Chloraprep. She received appropriate IV antibiotics within 1 hour of incision. Time-out was then performed per hospital protocol. Wilmer Grant was present the entire procedure and participated in all essential portions procedure. This included patient positioning and draping, holding the arthroscope, assisting with suture retrieval and loading sutures through anchors and cutting sutures arthroscopically. He also performed wound closure and applied the dressing. The left shoulder was insufflated with lactated Ringer's. Standard posterior viewing portal made with an 11-blade. 30 degree arthroscope was introduced into the joint. Diagnostic arthroscopy revealed no tearing of the anterior or superior labrum. Long head of biceps was unremarkable. The articular surface of the rotator cuff was pristine. There was some tearing at the chondral labral junction of the posterior labrum. Two anterior portals one just above the subscapularis, the other just below the biceps were established through the rotator interval. Two purple Arthrex cannulas were replaced. Arthroscope was then placed through the anterior superior portal giving a better view of the posterior inferior labrum and there was minimal bumper there. The humeral head was also noted to be subluxated posteriorly. A hooked cautery device was then used to develop the plane between articular cartilage and posterior labrum and then labral elevators were used to dissect subperiosteally. I should mention that an accessory posterior lateral portal was made with the percutaneous labral repair kit. A crescent shaped lasso was used to shuttle nitinol wire through the posteroinferior labrum and labral tape was then passed. This was loaded through a 2.9 mm PushLock anchor. The drill was used to create a socket at the 7:30 position. The appropriate drill bit was used to create a socket at the 4:30 position and then the anchor was docked, sutures tensioned anchor inserted by hand then malleted per routine. There is excellent fixation. Sutures cut with arthroscopic leather cutter. This nicely restore the posterior inferior bumper. The same steps were then repeated and a second PushLock was placed. This one was at the 3L30 position. Again, this nicely restored the bumper. I did not feel any additional anchors were necessary. The shoulder was irrigated and drained. Arthroscope was placed in the subacromial space where a moderate bursitis was encountered. There was also a partial thickness bursal-sided rotator cuff tear. Lateral portal established, shaver cautery used to perform a bursectomy. Subacromial decompression completed. A switching stick was used to palpate the supraspinatus. I would estimate this at a 25% partial thickness tear of the bursal-sided fibers; no indication for repair. The shaver was used to remove any loose rotator cuff tissue leaving healthy tissue behind. I then proceeded with an arthroscopic distal clavicle excision. Cautery used to clear soft tissue off in the acromioclavicular (AC) joint and then a bur used to remove approximately 8mm of the distal clavicle. The scope was intermittently placed into the anterior portal to get a direct view and ensure that all posterior-superior bone was removed. The shoulder was then irrigated and drained. Portals closed with nylon suture. Bulky sterile dressing applied. She was then placed into her ARC 2 sling. At the time of dictation, the patient about to be extubated. She was stable throughout the case. All counts correct times two. Complications: None Edited: 03/09/2019 1114 mayco
== END 2019-03-08 17:59 | disposition home or self-care (01) ==
LOC: M SDC 10:53
PROVIDERS: ATTEND Orthopaedic Surgery
DX: M25.312 Other instability, left shoulder (principal); M75.22 Bicipital tendinitis, left shoulder; M75.42 Impingement syndrome of left shoulder; M19.012 Primary osteoarthritis, left shoulder; G25.81 Restless legs syndrome; K21.9 Gastro-esophageal reflux disease without esophagitis; E55.9 Vitamin D deficiency, unspecified; F41.9 Anxiety disorder, unspecified; E78.5 Hyperlipidemia, unspecified; G47.30 Sleep apnea, unspecified; R07.89 Other chest pain; Z79.899 Other long term (current) drug therapy; Z91.040 Latex allergy status; Z88.8 Allergy status to other drugs, medicaments and biological substances; Z88.0 Allergy status to penicillin; Z88.2 Allergy status to sulfonamides
CPT/HCPCS: 29806; 29823; 29824; 29826; 64415; C1713; J0131; J0690; J1100; J2250; J2370; J2405; J2795; J3010

== ENCOUNTER 2019-03-26 09:29 | Outpatient (RCR) | payer OTHER ==
[~2019-03-26 09:29] MED LIST changes: -LIDOCAINE 1% MDV 20ML VIAL SQ PRN; -LR 1,000 ML IV ONE
== END 2019-03-27 ==
LOC: M PT 09:29
PROVIDERS: ATTEND Orthopaedic Surgery
DX: Z47.89 Encounter for other orthopedic aftercare (principal); Z98.890 Other specified postprocedural states; M25.512 Pain in left shoulder

== ENCOUNTER 2019-04-20 10:45 | Outpatient (RCR) | payer OTHER | END 2019-04-26 | LOC: M PT 10:45 | PROVIDERS: ATTEND Orthopaedic Surgery | DX: Z47.89 Encounter for other orthopedic aftercare (principal); Z98.890 Other specified postprocedural states; M25.512 Pain in left shoulder ==

== ENCOUNTER 2019-05-26 14:23 | Outpatient (RCR) | payer OTHER | END 2019-05-27 | LOC: M PT 14:23 | PROVIDERS: ATTEND Orthopaedic Surgery | DX: Z47.89 Encounter for other orthopedic aftercare (principal) ==

== ENCOUNTER 2019-06-08 11:00 | Outpatient (RCR) | payer OTHER | END 2019-06-26 | LOC: M PT 11:00 | PROVIDERS: ATTEND Orthopaedic Surgery | DX: Z47.89 Encounter for other orthopedic aftercare (principal) ==

== ENCOUNTER → 2019-07-06 | Outpatient (CLI) | payer OTHER ==
--- NOTE | 2019-07-06 10:42 | REPMRS ---
Patient History The patient states she had a clinical breast exam in June 2019.Family history of colorectal cancer at age 50 or over in maternal aunt. Benign stereotactic cyst aspiration of the left breast, 2008. Took estrogen for 1 year 6 months. 3D TOMOSYNTHESIS WAS PERFORMED. [facility] lifetime risk for breast cancer is 8.0%. Digital Woman Screen Mammo: July 06, 2019 - Exam #: [id number] Bilateral CC and MLO view(s) were taken. Technologist: Vane Fierro, Technologist Prior study comparison: June 17, 2018, bilateral digital woman screen mammo performed at [facility]. June 16, 2017, digital woman screen mammo performed at [facility]. FINDINGS: The breast tissue is heterogeneously dense. This may lower the sensitivity of mammography. There has been no change in the appearance of the mammogram from the prior studies. There is a moderate amount of residual fibroglandular tissue which is fairly symmetric. There is no interval development of dominant mass, areas of architectural distortion, or clustered microcalcification typical of malignancy. Assessment: BI-RADS/ACR category 1 mammogram. Negative Mammogram. Recommendation Routine screening mammogram in 1 year (for women over age 40). This mammogram was interpreted with the aid of an FDA-approved computer-aided dectection system. Electronically Signed By: Boo Sheth MD 07/06/19 1242
== END ==
LOC: M WHC 09:02
PROVIDERS: ATTEND Nurse Practitioner Women's Health
DX: Z12.31 Encounter for screening mammogram for malignant neoplasm of breast (principal); Z80.0 Family history of malignant neoplasm of digestive organs

== ENCOUNTER → 2020-04-07 | Outpatient (CLI) | payer OTHER, MEDICAID ==
[2020-04-07 14:06] LABS: BASO # 0.1 10^3/uL (0.0-0.2); BASO % 0.8 % (0.0-1.0); EOS # 0.2 10^3/uL (0.0-0.5); EOS % 2.1 % (0.0-3.0); HEMOGLOBIN 13.5 g/dl (12.0-15.5); LYMPH # 2.4 10^3/uL (1.5-5.0); LYMPH % 31.4 % (24.0-44.0); MEAN CORPUSCULAR HEMOGLOBIN 24.8 pg (27.0-33.0); MEAN CORPUSCULAR HGB CONC 30.7 g/dl (32.0-36.5); MEAN CORPUSCULAR VOLUME 80.9 fl (80.0-96.0); MONO # 0.7 10^3/uL (0.0-0.8); MONO % 8.7 % (0.0-5.0); NEUTROPHILS # 4.3 10^3/uL (1.5-8.5); NEUTROPHILS % 56.6 % (36.0-66.0); PLATELET COUNT, AUTOMATED 433 10^3/uL (150-450); RED BLOOD COUNT 5.44 10^6/uL (4.00-5.40); WHITE BLOOD COUNT 7.6 10^3/uL (4.0-10.0)
[2020-04-07 14:30] LABS: C REACTIVE PROTEIN QUANTITATIV < 0.30 MG/DL (0.00-0.30); RHEUMATOID FACTOR QUANT < 10.0 IU/ML (<15.0)
[2020-04-07 14:48] LABS: ERYTHROCYTE SEDIMENTATION RATE 6 mm/hr (0-30)
[2020-04-11 23:07] LABS: ANTINUCLEAR ANTIBODIES DIRECT Negative (Negative); HLA-B27 Negative (.); Lyme Disease IgG/IgM Antibodie <0.91 ISR (0.00-0.90); Lyme Disease IgM Ab Quantitati <0.80 index (0.00-0.79)
== END ==
LOC: M WUC 11:59
PROVIDERS: ATTEND Orthopaedic Surgery
DX: M54.12 Radiculopathy, cervical region (principal)

== ENCOUNTER → 2020-06-03 | Outpatient (CLI) | payer OTHER | LOC: M LABSMTC 10:47 | PROVIDERS: ATTEND Orthopaedic Surgery | DX: Z01.812 Encounter for preprocedural laboratory examination (principal); Z20.828 Contact with and (suspected) exposure to other viral communicable diseases | CPT/HCPCS: C9803; U0003 ==

== ENCOUNTER → 2020-07-05 | Outpatient (CLI) | payer SELFPAY | LOC: M LABSMTC 09:44 | PROVIDERS: ATTEND Orthopaedic Surgery | DX: Z01.812 Encounter for preprocedural laboratory examination (principal); Z20.828 Contact with and (suspected) exposure to other viral communicable diseases ==

== ENCOUNTER → 2020-07-07 | Outpatient (CLI) | payer OTHER | LOC: M LABSMTC 13:09 | PROVIDERS: ATTEND Orthopaedic Surgery | DX: Z01.812 Encounter for preprocedural laboratory examination (principal); Z20.828 Contact with and (suspected) exposure to other viral communicable diseases ==

== ENCOUNTER → 2020-07-11 | Outpatient (CLI) | payer OTHER ==
--- NOTE | 2020-07-11 12:16 | REPMRS ---
Patient History The patient states she had a clinical breast exam in June 2020.Family history of colorectal cancer at age 50 or over in maternal aunt. Benign stereotactic cyst aspiration of the left breast, 2008. Took estrogen for 1 year 6 months. Digital Woman Screen Mammo: July 11, 2020 - Exam #: [id number] Bilateral CC and MLO view(s) were taken. Technologist: Vane Fierro, Technologist Prior study comparison: July 06, 2019, bilateral digital woman screen mammo performed at [facility]. June 17, 2018, bilateral digital woman screen mammo performed at [facility]. June 16, 2017, digital woman screen mammo performed at [facility]. FINDINGS: There are scattered fibroglandular densities. The Volpara volumetric breast density category is:B. There has been no change in the appearance of the mammogram from the prior studies. There is a mild amount of scattered fibroglandular density which is fairly symmetric. There is no interval development of dominant mass, architectural distortion, or grouped microcalcification suggestive of malignancy. 3-D tomosynthesis shows no additional findings. Assessment: BI-RADS/ACR category 1 mammogram. Negative Mammogram. Recommendation Routine screening mammogram of both breasts in 1 year (for women over age 40). This patient's [facility] Lifetime Breast Cancer Risk is estimated at 7.9 %. This mammogram was interpreted with the aid of an FDA-approved computer-aided dectection system. Electronically Signed By: Erasmo Morejon MD 07/11/20 [id number]
== END ==
LOC: M WHC 11:37
PROVIDERS: ATTEND Nurse Practitioner Women's Health
DX: Z12.31 Encounter for screening mammogram for malignant neoplasm of breast (principal)

== ENCOUNTER → 2020-09-18 | Outpatient (CLI) | payer SELFPAY ==
[~2020-09-18] MED LIST changes: +GABA-282 PO; -GABA-843 PO
== END ==
LOC: M LABSMTC 09:52
PROVIDERS: ATTEND Pediatrics
DX: Z20.822 Contact with and (suspected) exposure to COVID-19 (principal)

== ENCOUNTER → 2020-09-28 | Outpatient (CLI) | payer OTHER ==
[2020-09-28 10:42] LABS: HEMATOCRIT 42.4 % (36.0-47.0); HEMOGLOBIN 12.8 g/dl (12.0-15.5); MEAN CORPUSCULAR HEMOGLOBIN 24.8 pg (27.0-33.0); MEAN CORPUSCULAR HGB CONC 30.2 g/dl (32.0-36.5); MEAN CORPUSCULAR VOLUME 82.2 fl (80.0-96.0); PLATELET COUNT, AUTOMATED 423 10^3/uL (150-450); RED BLOOD COUNT 5.16 10^6/uL (4.00-5.40); WHITE BLOOD COUNT 9.6 10^3/uL (4.0-10.0)
[2020-09-28 11:15] LABS: HEMOGLOBIN A1c 5.2 %
[2020-09-28 11:18] LABS: ALBUMIN 3.6 GM/DL (3.2-5.2); ALT/SGPT 24 U/L (12-78); BILIRUBIN,TOTAL 0.3 MG/DL (0.2-1.0); BLOOD UREA NITROGEN 12 MG/DL (7-18); CARBON DIOXIDE LEVEL 26 MEQ/L (21-32); CHLORIDE LEVEL 107 MEQ/L (98-107); CHOLESTEROL LEVEL 200 MG/DL (<200); CHOLESTEROL RISK RATIO 3.508 (<5); CREATININE FOR GFR 0.89 MG/DL (0.55-1.30); FERRITIN 65 NG/ML (8-252); GLOMERULAR FILTRATION RATE > 60.0 (>51); GLUCOSE, FASTING 95 MG/DL (70-100); HDL CHOLESTEROL 57 MG/DL (>40); IRON (FE) 43 UG/DL (50-170); LDL CHOLESTEROL 113 MG/DL (<100); NON-HDL-C 143 MG/DL; POTASSIUM SERUM 4.2 MEQ/L (3.5-5.1); SODIUM LEVEL 139 MEQ/L (136-145); THYROID STIMULATING HORMONE 0.841 uIU/ML (0.358-3.740); TOTAL IRON BINDING CAPACITY 332 UG/DL (250-450); TRIGLYCERIDES LEVEL 152 MG/DL (<150)
[2020-09-28 11:23] LABS: TOTAL 25(OH) VITAMIN D 40.1 NG/ML (30.0-100.0)
== END ==
LOC: M WUC 08:51
PROVIDERS: ATTEND Nurse Practitioner Adult Health
DX: E78.2 Mixed hyperlipidemia (principal); Z83.3 Family history of diabetes mellitus; E55.9 Vitamin D deficiency, unspecified; R53.83 Other fatigue

== ENCOUNTER → 2020-11-15 | Outpatient (CLI) | payer OTHER ==
--- NOTE | 2020-11-15 15:22 | REP ---
INDICATION: SPINAL STENOSIS, CERVICAL REGION. COMPARISON: None. TECHNIQUE: Sagittal T1, T2, STIR, axial T1 and T2 weighted MR images of the cervical spine are obtained. FINDINGS: There is evidence of anterior cervical discectomy and fusion C3 through C6 levels. Hardware limits evaluation in the immediate vicinity of the hardware. On the sagittal T2 weighted images, there is disc-osteophyte complex formation at the C3-4 disc level which narrows the spinal canal and effaces the anterior thecal sac and mildly impinges the cervical cord. The craniovertebral junction is unremarkable. The cervical cord is otherwise normal in its course, caliber and signal characteristics. On the review of axial images, At C2-3 no significant canal or foraminal narrowing. At C3-4 disc-osteophyte complex with at least moderate canal stenosis and hpbtgdlr-jc-puckjn bilateral foraminal narrowing that appears greater on the left. At C4-5 disc-osteophyte complex with shsh-vl-zdmhfcqm canal narrowing and vxsw-oe-xamtljym bilateral foraminal narrowing. At C5-6 no significant canal or foraminal narrowing At C6-7 and C7-T1 no significant canal or foraminal narrowing. IMPRESSION: Anterior cervical discectomy with fusion hardware C4 through C6. Disc-osteophyte complex at the C3-4 disc level with at least moderate canal stenosis and zqalkzzk-xc-szbqga bilateral foraminal narrowing. <Electronically signed by Lauro Lanier > 11/15/20 [id number]
== END ==
LOC: M RAD 12:36
PROVIDERS: ATTEND Orthopaedic Surgery
DX: M48.02 Spinal stenosis, cervical region (principal)

== ENCOUNTER → 2020-12-27 | Outpatient (CLI) | payer OTHER ==
[~2020-12-27] MED LIST changes: +OMEP20TA2 PO; -OMEP20TA9 PO
[2020-12-27 13:46] LABS: ALBUMIN 3.7 GM/DL (3.2-5.2); ALT/SGPT 25 U/L (12-78); BILIRUBIN,TOTAL 0.5 MG/DL (0.2-1.0); BLOOD UREA NITROGEN 11 MG/DL (7-18); CALCIUM LEVEL 9.8 MG/DL (8.5-10.1); CARBON DIOXIDE LEVEL 26 MEQ/L (21-32); CHLORIDE LEVEL 107 MEQ/L (98-107); CREATININE FOR GFR 0.78 MG/DL (0.55-1.30); GLOMERULAR FILTRATION RATE > 60.0 (>51); GLUCOSE, FASTING 93 MG/DL (70-100); POTASSIUM SERUM 4.2 MEQ/L (3.5-5.1); SODIUM LEVEL 139 MEQ/L (136-145); TOTAL PROTEIN 7.1 GM/DL (6.4-8.2)
[2020-12-28 10:09] LABS: SSA SJOGRENS A <0.2 AI (0.0-0.9); SSB SJOGRENS B <0.2 AI (0.0-0.9)
== END ==
LOC: M WUC 08:44
PROVIDERS: ATTEND Nurse Practitioner Adult Health
DX: R68.2 Dry mouth, unspecified (principal)

== ENCOUNTER → 2021-01-05 | Outpatient (CLI) | payer OTHER ==
--- NOTE | 2021-01-05 11:55 | REP ---
INDICATION: LEFT KNEE COMPARISON: 08/26/2006 TECHNIQUE: Five views FINDINGS: Tiny tricompartmental marginal osteophytosis have developed since the prior exam. Once again, the compartments are symmetric and relatively well maintained. There is no acute fracture, dislocation, or subluxation. IMPRESSION: Minimal degenerative changes <Electronically signed by Kingsley Nguyen > 01/05/21 [id number]
== END ==
LOC: M RAD 11:00
PROVIDERS: ATTEND Physician Assistant
DX: M25.562 Pain in left knee (principal)

== ENCOUNTER → 2021-01-10 | Outpatient (CLI) | payer OTHER ==
--- NOTE | 2021-01-10 12:43 | REPVR ---
PROCEDURE INFORMATION: Exam: MR Head Without and With Contrast Exam date and time: 01/10/2021 8:41 AM Age: 50 years old Clinical indication: Pain; Weakness, facial; Headache; Patient HX: Tension h/a shuddered speech, nausea, confusion, memory loss; Additional info: Nonintratable episodic headache TECHNIQUE: Imaging protocol: MR of the head without and with intravenous contrast. Contrast material: PROHANCE; Contrast volume: 16 ml; Contrast route: INTRAVENOUS (IV); COMPARISON: CT Head without contrast 06/23/2017 5:17 PM FINDINGS: Brain: No acute infarct identified on the diffusion-weighted imaging. No parenchymal hemorrhage. No evidence of brain parenchymal edema or intracranial mass effect. The T2 weighted imaging demonstrates a few punctate foci of increased signal intensity in the subcortical white matter, for example right frontal lobe, likely trace chronic small vessel ischemic change. No significant white matter disease for the patient's age. No enhancing intracranial pathology. Cerebral ventricles: No ventriculomegaly. Bones/joints: Unremarkable. Paranasal sinuses: Normal as visualized. No acute sinusitis. Mastoid air cells: Normal as visualized. No mastoid effusion. Orbital cavity: Unremarkable. Soft tissues: Unremarkable. IMPRESSION: Essentially unremarkable MRI brain for age. Electronically signed by: Alee June On 01/10/2021 12:43:28 PM
== END ==
LOC: M PLARAD 08:39
PROVIDERS: ATTEND Nurse Practitioner Adult Health
DX: G44.019 Episodic cluster headache, not intractable (principal)

== ENCOUNTER → 2021-04-09 | Outpatient (CLI) | payer OTHER ==
[2021-04-09 15:37] LABS: CHOLESTEROL RISK RATIO 4.085 (<5); THYROID STIMULATING HORMONE 1.65 uIU/ML (0.358-3.740); TOTAL 25(OH) VITAMIN D 54.8 NG/ML (30.0-100.0)
[2021-04-09 18:56] LABS: HEMOGLOBIN A1c 5.4 %
== END ==
LOC: M WUC 09:01
PROVIDERS: ATTEND Nurse Practitioner Adult Health
DX: E55.9 Vitamin D deficiency, unspecified (principal); Z83.3 Family history of diabetes mellitus; R53.83 Other fatigue; E78.2 Mixed hyperlipidemia

== ENCOUNTER → 2021-04-23 | Outpatient (CLI) | payer OTHER ==
--- NOTE | 2021-04-25 12:03 | REP ---
INDICATION: THYROID DISORDER COMPARISON: 12/02/2018 TECHNIQUE: Sheth scale and color evaluation of the thyroid gland using the linear high frequency transducer. FINDINGS: The thyroid gland is essentially normal in contour, shape, size, and echogenicity. Right thyroid lobe measures 4.6 x 1.9 x 1.8 cm and includes 5 x 4 x 5 mm midpole complex cyst with small internal calcifications. Isthmus measures 2.0 mm in width. Left thyroid lobe measures 3.8 x 1.7 x 1.4 cm and includes relatively stable 5 x 5 x 4 mm upper pole hypoechoic nodule. IMPRESSION: Two small stable indeterminate but likely benign lesions as described above. <Electronically signed by Dimas Rivas > 04/25/21 [id number]
== END ==
LOC: M RAD 12:35
PROVIDERS: ATTEND Otolaryngology
DX: E07.9 Disorder of thyroid, unspecified (principal)

== ENCOUNTER → 2021-05-24 | Outpatient (CLI) | payer OTHER | LOC: M LABSMTC 10:23 | PROVIDERS: ATTEND Pediatrics | DX: Z20.822 Contact with and (suspected) exposure to COVID-19 (principal) ==

== ENCOUNTER 2021-06-12 12:55 | Emergency (ER) | payer OTHER ==
[~2021-06-12] VITALS: Ht 160 cm; Wt 80.9 kg
--- OUTSIDE RECORDS SUMMARY | 2021-06-12 13:05 | CCD ---
Author Author Carmen Garcia Organization Unknown Address [address] [address] Phone Care Team Providers Care Grades 1 Thru 6 Home Teacher Name Role Phone Lacie Garcia PCP Allergies, Adverse Reactions, Alerts No Data in Section Problem List Concept Problem Description Status Start Date Created Date Resolv ed Date Snomed Code F33.1 Major Depressive Disorder, Recurrent episode, Moderate Active 06/11/2021 Medications No Data in Section Social History Social History Element Description Concept Effective Date Smoking Status Unknown if ever smoked [id number] Immunizations No Data in Section Vital Signs No Data in Section Procedures Date Concept Id Description Targeted Site Concept Targeted Site Concept Type 06/11/2021 22682 Extended Individual Psychotherapy - 45 min CPT Patient has no history of implantable de vices Encounters Encounter Start Date End Date Encounter Type Description Diagnosis Di agnosis Desc Location Author First Name Author Last Name Npid Taxonomy Cod e Taxonomy Desc Phone Number Location Addr1 Location Addr2 Location [facility] Location [facility] Location [facility] [id number] 06/11/2021 06/11/2021 54065 Extended Individual Psych otherapy - 45 min F33.1 Major depressive disorder, recurrent, moderate Communi ty [facility] Jose eMdellin [id number] [employer]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
--- OUTSIDE RECORDS SUMMARY | 2021-06-12 13:05 | CCD | Continuity of Care Document ---
Author Author Carmen KNAPP DPM Organization Unknown Address [address] [place] [address], [address] [place] [id number] Phone [phone] Care Team Providers Care Client Relations Representative Name Role Phone Servage Silvana HOWELL AUTM [phone] Problems Active Problems Provider Date Acquired hallux rigidus Neo Knapp DPM Onset: 08/13/19 18 Acquired hallux rigidus Neo Knapp DPM Onset: 08/13/19 18 Bunion Neo Knapp DPM Onset: 08/13/2017 Other synovitis and tenosynovitis, unspecified ankle a nd foot Neo Knapp DPM Onset: 05/20/2018 Social History Type Date Description Comments Sex Unknown ETOH Use Occasionally consumed alcohol in the past Tobacco Use Start: Unknown End: Unknown Patient is a former smoker 22 years ago smoked 1-1 1/2ppd on and off since age 11 quit 1994 Allergies and adverse reactions Active Allergies Criticality Reaction | Severity Comments Date Sulfa Antibiotics Unable to assess criticality jittery bad heartbu rn 08/13/2017 Aspirin Unable to assess criticality jittery bad heartburn 08/13/2017 Latex Unable to assess criticality Contact dermatitis 08/13/2017 Penicillin Unable to assess criticality Ok to have c ephalosporins 08/13/2017 Adhesive Unable to assess criticality 01/26/2021 Medications Active Medications SIG Qnty Indications Ordering Provide r Date Hydrocodone Bitartrate/Acetaminophen 5-325mg Tablets 1-2 tablets by mouth every 6 hours as needed for pain 20tabs Neo Knapp DPM 05/15/2021 Prednisone 10mg Tablets prednisone taper: take 4 tabs for 5 days, 3 tabs for days 6 and 7, 2 tabs for days 8 and 9, and 1 tab days 10 and 11 32tabs Neo Knapp DPM 05/20/20 18 Methylprednisolone 4mg Tablets medrol juan carlos- take as directed 21tabs Neo Knapp DPM 03/12/2018 Fluticasone Propionate Unknown Paroxetine HCL Unknown Meloxicam Unknown Hydrocodone-Acetaminophen 5-325mg Tablets 1 tablets every 6 hours as needed for pain 16tabs Matteo Knapp DPM Gabapentin 300mg Capsules Take One Capsule By Mouth AT Bedtime For One Week Then Take One Capsu Unknown Estradiol 0.05mg/24HR Patches Biwe ek Apply One Patch And Change Twice A Week Unknown Sertraline HCL 25mg Tablets Take Three Tablets By Mouth Every Day Unknown Loratadine 10mg Tablets Take One Tablet By Mouth Every Day Unknown Mometasone Furoate 50mcg/Act Suspe nsion [place] 2 Sprays In Each Nostril Once Daily Unknow n Gabapentin 100mg Capsules Take One Capsule By Mouth Every Morning Maximum Daily Dose 1 Un known Cyclobenzaprine HCL 5mg Tablets Take 1 1 2 Tablets By Mouth Three Times A Day as Needed U nknown Hydrocodone-Acetaminophen 7.5-325mg Tablets Take One Tablet By Mouth Every 6 Hours as Needed For Pain Maximu m Francisco Unknown Tramadol HCL 50mg Tablets Take One Tablet By Mouth Every 4 To 6 Hours as Needed For Pain Maximum Unknown Tizanidine HCL 4mg Tablets Take One Tablet By Mouth Three Times A Day Maximum Daily Dose 3 Unknown Vandazole 0.75% Gel Apply 1 Application Vaginally Once A Day For 5 Days Unknown Sertraline HCL 100mg Tablets Silvana Rothman Bupropion HCL ER (XL) 150mg Tablets ER 24HR Silvana Rothman Omeprazole 20mg Capsules Silvana Fair Medications Administered in Office Medication SIG Qnty Indications Ordering Provider Date Inject Triamcinolone Acetonide 10 ML, ND C 1899-5813-12 Injection Neo thakkar DPM 03/26/2018 Inject Dexamthosone Phosphate 46382-100- 30 Injection Neo Knapp DPM 018 Immunizations Description No Information Available Vital Signs Date Vital Result Comment 01/26/2021 9:25am Height 63 inches 5'3" Weight 188.00 lb BP Systolic 126 mmHg BP Diastolic 84 mmHg Heart Rate 92 /min BMI (Body Mass Index) 33.3 kg/m2 08/13/2017 9:01am Height 63 inches 5'3" Weight 175.00 lb BP Systolic 112 mmHg BP Diastolic 74 mmHg Heart Rate 88 /min BMI (Body Mass Index) 31.0 kg/m2 Results Description No Information Available Procedures Date Code Description Status 05/16/2021 20893 Hallux Rigidus Corre ction W/Cheilectomy,Debride/Cap Release MTP Completed 01/26/2021 18947 Office/Outpatient Established Lo w MDM 20-29 Min Completed 01/26/2021 50751 X-Ray Foot Complete Completed Medical Devices Description No Information Available Encounters Type Date Location Provider Dx Diagnosis Office Visit 01/26/2021 9:15a [facility] Neo Knapp DPM M20.22 Hallux rigidus, left foot M79.675 Pain in left toe(s) Assessments Date Code Description Provider 05/16/2021 M20.22 Hallux rigidus, left foot Neo Knapp DPM 01/26/2021 M20.22 Hallux rigidus, left foot Neo Knapp DPM 01/26/2021 M79.675 Pain in left toe(s) Neo bueno DPM Plan of Treatment Future Appointment(s):* 06/04/2021 9:15 am - Neo Knapp DPM at [facility] Functional Status Description No Information Available Mental Status Description No Information Available Referrals Refer to Reason for Referral Status Appt Date Neo Knapp DPM Created [facility] [address] [place] [address] [phone] Neo Knapp DPM Created [address] [facility] [address] [place] [address] [phone]
--- OUTSIDE RECORDS SUMMARY | 2021-06-12 13:05 | CCD ---
Author Author [facility] Organization [facility] Address Unknown Phone Unavailable Care Team Providers Care Recreation Therapy Aides Teacher Name Role Phone Silvana Montes Unavailable PROBLEMS Type Condition ICD9-CM Code [id number] Code Onset Dates Condition S tatus W/U Status Risk SNOMED Code Notes Problem GERD (gastroesophageal reflux disease) K21.9 A ctive confirmed [id number] She is on omeprazole only as needed. No active issues at present. Last upper endoscopy was in 2019. Problem EZIO (obstructive sleep apnea) G47.33 Active confirm ed 05814604 She apparently is not using her CPAP. She will need to be monitored postoperatively until she recovers from anesthesia. Problem Left shoulder pain, unspecified chronicity M25.512 Active confirmed 74805733 Problem Depression F32.9 Active confirmed 83618308 She is on medication and is doing fairly well. Problem Family history of diabetes mellitus Z83.3 Acti ve confirmed 981719093 Problem BMI 30.0-30.9,adult Z68.30 Active confirmed 495203293 Problem Hx of hysterectomy for benign disease Z90.710 Ac tive confirmed 219704032 Problem Perimenopause N95.1 Active confirmed 046992 756349201 Problem Nasal congestion R09.81 Active confirmed 682 50745 Problem Multilevel degenerative disc disease M53.9 Act julia confirmed 33452031 Problem Mixed hyperlipidemia E78.2 Active confirmed 943896124 She has an elevated cholesterol and is trying to treat that with diet and exercise. Problem Pain of left foot M79.672 Active confirmed 3 [id number] Problem Left maxillary sinusitis J32.0 Active confirmed 96784572 Problem Pain in right foot M79.671 Active confirmed [id number] Problem Anxiety associated with depression F41.8 Activ e confirmed 514666150 Problem Status post hysterectomy Z90.710 Active confirmed 892724144 Problem Wellness examination Z00.00 Active confirmed 487712512 Problem Seasonal allergies J30.2 Active confirmed 3 67222158 Problem Vitamin D deficiency, unspecified E55.9 Active con firmed 22894855 Problem Cervical radiculopathy M54.12 Active confirmed 53273082 She has a history of cervical spine surgery but has some residual discomfort in her left shoulder and left side of her neck. This is likely from her cervical disc disease but further orthopedic evaluation is ongoing. Problem Osteoarthritis, unspecified osteoarthritis type, unspecified site M19.90 Active confirmed 894541726 Problem Constipation, unspecified constipation type K59.00 Active confirmed 32318899 Problem Other chronic pain G89.29 Active confirmed 8 0507548 ALLERGIES Allergen (clinical drug ingredient) Drug/Non Drug Allergy do cumented on EMR Reaction Allergy Type Onset Date Status montelukast Singulair([facility] Code:[address]-76) sleepy Drug Allergy Active Penicillin (For Allergies Use Only) Hives Drug Allerg y Active aspirin Aspirin(ND Code:[address]-44) patient states "Jittery" D rug Allergy Active tapes adhesive Rash Non Drug Allergy Acti ve Sulfasalazine Sulfa Antibiotics Patient states makes her Jittery Drug Allergy Active Latex Latex Hives Drug Allergy 07/06/2019 Active ENCOUNTERS from 1970 to 2021-06-08 Encounter Location Date Provider Diagnosis [place] [id number] [facility] [phone] [place] [address] May, Silvana Byrdage IMMUNIZATIONS Vaccine Route Administration Date Status Influenza 18 yrs & older Flublok IM Intramuscular May 18, 2020 Administered COVID-19 dose #2 given elsewhere Unspecified Unknown Sep Administered COVID-19 dose #1 given elsewhere Unspecified Unknown Aug 22, 2020 Administered Influenza 18 yrs & older Flublok IM Intramuscular Jun 15, 2019 Administered Influenza 6mo & up Fluzone IM Intramuscular May 29, 2018 Admi nistered Influenza 6mo & up Fluzone Unknown Jun 16, 2017 Other s Influenza 6mo & up Fluzone Unknown Apr 29, 2016 Admin istered Influenza 6mo & up Fluzone Unknown Apr 13, 2014 Admin istered SOCIAL HISTORY Sex Assigned At : Social History Observation Description Sex Assigned At Female Audit Question Answer Notes Total Score: 2 Interpretation: Alcohol Education Shinto: Question Answer Notes Shinto 21 Restorationism Sexual Hx: Question Answer Notes Had sex in the last 12 months (vaginal, oral, or anal)? No LMP: hyster Have you ever had an STD? No Drug and Alcohol Question Answer Notes Total Score: 0 Interpretation: No problems reported Alcohol Screening: Question Answer Notes Did you have a drink containing alcohol in the past year? Ye s Points 4 Interpretation Positive How often did you have six or more drinks on one occas ion in the past year? Monthly (2 points) How many drinks did you have on a typica l day when you were drinking in the past year? 3 or 4 (1 point) How often did you have a drink containing alcohol in t he past year? Monthly or less (1 point) BMI Care Goal Follow-Up Question Answer Notes Above Normal BMI Follow-Up Giving encouragement to exercise REASON FOR REFERRAL No Information VITAL SIGNS No information MEDICATIONS Medication SIG (Take, Route, Frequency, Duration) Notes Start Da te End Date Status Atorvastatin Calcium 10 MG take 1 tablet by mouth once daily orally Daily for 30 days Active Omeprazole 20 MG Take 1 capsule by mouth once daily for 30 days for 3 0 Active Tylenol 8 Hour Arthritis Pain 650 MG 2 tablets as needed Orally ramin ry 8 hrs Active Vitamin C 250 MG 1 tablet Orally Once a day for 30 day(s) Not-Taking Cyclobenzaprine HCl 10 MG 1 tablet at bedtime as neede d Orally Once a day for 30 day(s) Active PARoxetine HCl 20 MG 1 tab Orally Once a day for 30 days Active PARoxetine HCl 40 MG Take 1 tablet by mouth once daily for 30 Active Vitamin D 50 MCG (2000 UT) 1 capsule Orally Once a day for 30 day(s) Active Gabapentin 300 MG take 1 capsule by mouth twice daily orally bid for 30 days Active Loratadine 10 MG Take 1 tablet by mouth once daily for 30 Active Meloxicam 15 MG Take 1 tablet by mouth once daily for 30 Active Estradiol 0.075 MG/24HR APPLY 1 PATCH TOPICALLY TO S KIN TWICE A WEEK Transdermal for 84 days Active Ferrous Gluconate 324 (38 Fe) MG TAKE 1 TABLET BY MOUT H ONCE DAILY BETWEEN MEALS WITH WATER OR JUICE for 30 Activ e buPROPion HCl ER (XL) 150 MG take 1 tablet by mouth on ce daily Orally Daily for 30 days Active PROCEDURES No Information RESULTS No Results REASON FOR VISIT Flu shot and Booster MEDICAL (GENERAL) HISTORY Type Description Date Medical History Colonoscopy 2012 Dr. Lema repeat 12/13 with 10 year follow up Medical History EDG 11/2018 no issues Medical History depression/ anxiety Medical History fibrocystic breast disease Medical History rectal pain/bld from hemorrhoids Medical History sleep apnea - not using CPAP Medical History Restless leg syndrome Medical History Chronic headaches Medical History vitamin d def Medical History seasonal allergies Medical History family history of diabetes Medical History 10/23/18 Stress Test thru car diology nation score 7 estimates in annual cardiovascular mortality of 0% and a low probability of any angiographic coronary disease Surgical History C section 07/1988 Surgical History tubal ligation 1991 Surgical History vaginal cyst removal 1991 Surgical History biopsy left breast benign benign 2003 Surgical History hysterectomy vaginal, partial 11/2007 Surgical History Vaginal ganglion cyst 2012 Surgical History colonoscopy, internal hemorrhoids (Dr. Lemuel nugent) 2012 Surgical History carpal tunnel release left h and follwed by right hand with ulnar release on that side 11/23/15 Surgical History Cyst removal 02/2016 Surgical History Epidural in neck 10/2016 Surgical History anterior cervical decompression & fusion of C4-5&C-6 02/03/2017 Surgical History Left first metatarsal surgery-Dr. Mandujano 09/22/2017 Surgical History Bunionectomy bilateral 2017 Surgical History colonoscopy 10 year follow-up recommende d, negative due 202812/24/2018 Surgical History EDG completely normal 12/24/2018 Surgical History Left shoulder arthroplasty-Dr. Catalan 03/08/2019 Surgical History left elbow nerve release 11/01/2020 Hospitalization History related to surgery Goals Section No Information Health Concerns No Information MEDICAL EQUIPMENT No Information MENTAL STATUS No Information FUNCTIONAL STATUS No Information ASSESSMENTS No Information PLAN OF TREATMENT Medication Medication Name Sig Start Date Stop Date Ferrous Gluconate 324 (38 Fe) MG TAKE 1 TABLET BY MOUT H ONCE DAILY BETWEEN MEALS WITH WATER OR JUICE for 30 Omeprazole 20 MG Take 1 capsule by mouth once daily for 30 days for 30 Atorvastatin Calcium 10 MG take 1 tablet by mouth once daily orally Daily for 30 days Loratadine 10 MG Take 1 tablet by mouth once daily for 30 buPROPion HCl ER (XL) 150 MG take 1 tablet by mouth on ce daily Orally Daily for 30 days PARoxetine HCl 20 MG 1 tab Orally Once a day for 30 days PARoxetine HCl 40 MG Take 1 tablet by mouth once daily for 30 Gabapentin 300 MG take 1 capsule by mouth twice daily orally bid for 30 days Meloxicam 15 MG Take 1 tablet by mouth once daily for 30 Next Appt Details Provider Name:Silvana Wallis Jyoti, 10:00:00 AM, [address] [place] [address], , [place], [address], Provider Name:Silvana Kadi Montes, 10:00:00 AM, [address] [place] [address] , [place], [address], Insurance Providers Payer Name Payer Address Payer Phone Insured Name Patient Relati onship to Insured Coverage Start Date Coverage End Date [facility] CLAIM[facility] DEPT [address] [facility] [phone] EMANUEL AGUILAR self
--- OUTSIDE RECORDS SUMMARY | 2021-06-12 13:05 | CCD ---
Author Author JoseCarmen quinn Organization Unknown Address [address] [address] Phone Care Team Providers Care Spa Director/Finance Name Role Phone Lacie Garcia PCP Allergies, Adverse Reactions, Alerts No Data in Section Problem List Concept Problem Description Status Start Date Created Date Resolv ed Date Snomed Code F33.1 Major Depressive Disorder, Recurrent episode, Moderate Active 05/28/2021 Medications No Data in Section Social History Social History Element Description Concept Effective Date Smoking Status Unknown if ever smoked [id number] Immunizations No Data in Section Vital Signs No Data in Section Procedures Date Concept Id Description Targeted Site Concept Targeted Site Concept Type 05/28/2021 31557 Extended Individual Psychotherapy - 45 min CPT Patient has no history of implantable de vices Encounters Encounter Start Date End Date Encounter Type Description Diagnosis Di agnosis Desc Location Author First Name Author Last Name Npid Taxonomy Cod e Taxonomy Desc Phone Number Location Addr1 Location Addr2 Location [facility] Location [facility] Location [facility] [id number] 05/28/2021 05/28/2021 09393 Extended Individual Psych otherapy - 45 min F33.1 Major depressive disorder, recurrent, moderate Communi ty [facility] Jose Medellin [id number] Sales Negotiator [id number] [address] [address] Plan of Treatment No Data in Section Lab Results No Data in Section Instructions No Data in Section Insurance Providers Insurance Id Policy Effective Date Policy Thru Date Company N ben [id number] 2018 [employer] - MEDICA ID MANAGED
--- OUTSIDE RECORDS SUMMARY | 2021-06-12 13:05 | CCD | Continuity of Care Document ---
Author Author Carmen So Organization Unknown Address [address] [place] [address] Phone [phone] Care Team Providers Care Etymology Professor Name Role Phone Silvana Montes DANTE AUTM [phone] Problems Active Problems Provider Date Spondylolysis Iliana Lee MBBS Onset: 10/28/2017 Low back pain Iliana Lee MBBS Onset: 10/28/2017 Brachial neuritis Iliana Lee MBBS Onset: 10/28/2017 Spondylolysis of cervical spine Iliana Lee MBBS Onset: 0 10/28/2017 Neck pain Iliana Lee MBBS Onset: 10/28/2017 Bilateral carpal tunnel syndrome Iliana Lee MBBS Onset: 10/28/2017 Social History Type Date Description Comments Sex Unknown ETOH Use Occasionally consumes alcohol Tobacco Use Start: Unknown End: Unknown Patient is a former smoker Smoking Status Reviewed: 05/21/19 Patient is a former smoker Allergies and adverse reactions Active Allergies Criticality Reaction | Severity Comments Date Penicillin Unable to assess criticality 11/06/2015 Aspirin Unable to assess criticality 11/06/2015 sulfa drugs Unable to assess criticality 11/06/2015 Latex Unable to assess criticality 11/06/2015 Sulfa Antibiotics Unable to assess criticality 10/28/2017 Adhesives Unable to assess criticality 05/16/2017 Medications Active Medications SIG Qnty Indications Ordering Provide r Date Meloxicam 15mg Tablets 1 by mouth every day with food or milk 30tabs M50.31 Олег Acosta MD 020 Medrol 4mg Tablets dose juan carlos, take as directed on sheet 1tabs M48.02 Neo Catalan MD 019 Paroxetine HCL 20mg Tablets D aily Unknown Gabapentin 300mg Capsules 1 tab po bid Unknown Atorvastatin Calcium 10mg Tablets 1 by mouth every day Unknown Bupropion Hydrochloride ER (XL) 150mg Tablets ER 24HR Take 1 Tablet By Mouth Once Daily Unknown Omeprazole 20mg Capsules Silvana Carmen, DANTE Fluconazole 150mg Tablets Silvana Montes ANP Fluticasone Propionate 50mcg/Act Suspension Silvana Montes, [facility] 000 Loratadine 10mg Tablets Take 1 Tablet By Mouth Once Daily Unknown Tramadol HCL 50mg Tablets Take 1 Tablet By Mouth Every 8 Hours as Needed For Pain . DO Not Exceed 3 Per 24 Hours Unknown Estradiol 0.075mg/24HR Patches Biw tlingit & haida Apply 1 Patch Topically To Skin Twice A Week Unk nown Immunizations Description No Information Available Vital Signs Date Vital Result Comment 01/12/2021 9:11am Body Temperature 96.7 F Height 63 inches 5'3" Weight 184.19 lb BMI (Body Mass Index) 32.6 kg/m2 10/30/2020 11:35am Body Temperature 97.1 F Results Test Acquired Date Facility Test Result H/L Range Note Laboratory test finding 05/10/2021 In House Covid Rapid Testing NEGATIVE 1 1 [facility] START COVID-19 ANTIGEN LOT #[id number] 05/16/21 9:13 A.M. Procedures Date Code Description Status 01/19/2021 72279 Office/Outpatient Established SF MDM 10-19 Min Completed 01/12/2021 83177 Office/Outpatient Established Mo d MDM 30-39 Min Completed 12/07/2020 01915 Physical Therapy Eval - Low Comp lexity Completed 11/22/2020 44024 Office/Outpatient Established Mo d MDM 30-39 Min Completed 11/22/2020 31333 Inject/Drain Joint/Bursa Major C ompleted Medical Devices Description No Information Available Encounters Type Date Location Provider Dx Diagnosis Office Visit 01/19/2021 8:15a Dawit Acosta MD M25.512 Pain in left shoulder M50.30 Other cervical disc degenera tion, unsp cervical region M48.02 Spinal stenosis, cervical re gion Office Visit 01/12/2021 8:45a Zap Alvino Shrestha MD M17.12 Unilateral primary osteoarthritis, left knee M16.12 Unilateral primary osteoarth ritis, left hip Office Visit 11/22/2020 9:00a Zap Олег Acosta MD M50.30 Other cervical disc degeneration, unsp cervical region M48.02 Spinal stenosis, cervical re gion M25.512 Pain in left shoulder Assessments Date Code Description Provider 05/16/2021 Z01.818 Encounter for other preprocedura l examination Олег Acosta MD 05/16/2021 Z01.818 Encounter for other preprocedura l examination Lab 05/16/2021 Z20.828 Contact with and (artis spected) exposure to other viral communicable diseases Олег Acosta MD 05/16/2021 Z20.828 Contact with and (artis spected) exposure to other viral communicable diseases Lab 05/15/2021 Z01.818 Encounter for other preprocedura l examination Lab 05/15/2021 Z20.828 Contact with and (artis spected) exposure to other viral communicable diseases Lab 01/19/2021 M25.512 Pain in left shoulder Олег au MD 01/19/2021 M50.30 Other cervical disc degeneration , unspecified cervical region Олег Acosta MD 01/19/2021 M48.02 Spinal stenosis, cervical region Олег Acosta MD 01/12/2021 M17.12 Unilateral primary osteoarthriti s, left knee Alvino Shrestha MD 01/12/2021 M16.12 Unilateral primary osteoarthriti s, left hip Alvino Shrestha MD 12/07/2020 M25.512 Pain in left shoulder [facility] Bourne, [facility] 11/22/2020 M50.30 Other cervical disc degeneration , unspecified cervical region Олег Acosta MD 11/22/2020 M48.02 Spinal stenosis, cervical region Олег Acosta MD 11/22/2020 M25.512 Pain in left shoulder Олег au MD Plan of Treatment 01/19/2021 - Олег Acosta MD* M25.512 Pain in left shoulder* Follow up:* prn * M50.30 Other cervical disc degeneration, unspecified cervical region * M48.02 Spinal stenosis, cervical region Functional Status Description No Information Available Mental Status Description No Information Available Referrals Refer to Dr Reason for Referral Status Appt Date Олег Acosta MD PT - 8 VISITS OK'D FOR Kadi DORMAN DR FROM 12/07-03/07/21, AUTH# [id number], RES# [id number]. SS Created [address] [place] [address] [phone] Олег Acosta MD PT ALLOWED EVAL THEN NEEDS AUTH TO PT DEPT. N T Created [address] [place] [address] [phone]
--- OUTSIDE RECORDS SUMMARY | 2021-06-12 13:05 | CCD | Continuity of Care Document ---
Author Author Carmen KNAPP DPM Organization Unknown Address [address] [place] [address], [address] [place] [id number] Phone [phone] Care Team Providers Care Transformer Builder Name Role Phone Servage Silvana HOWELL AUTM [phone] Problems Active Problems Provider Date Acquired hallux [...] Day Unknown Mometasone Furoate 50mcg/Act Suspe nsion [place] 2 Sprays In Each Nostril Once Daily [...] Inject Triamcinolone Acetonide 10 ML, ND C 2309-2780-67 Injection Neo thakkar DPM 03/26/2018 Inject Dexamthosone Phosphate 01822-648- 30 Injection Neo Knapp DPM 018 Immunizations [...] Information Available Procedures Date Code Description Status 01/26/2021 16152 Office/Outpatient Established Lo w MDM 20-29 Min Completed 01/26/2021 45217 X-Ray Foot Complete Completed Medical Devices Description No Information Available Encounters Type Date Location Provider Dx Diagnosis Office Visit 01/26/2021 9:15a [facility] Neo Knapp DPM M20.22 Hallux rigidus, left foot M79.675 Pain in left toe(s) Assessments Date Code Description Provider 01/26/2021 M20.22 Hallux rigidus, left foot Neo Knapp DPM 01/26/2021 M79.675 Pain in left toe(s) Neo bueno DPM Plan of Treatment Future Appointment(s):* 06/04/2021 9:15 am - Neo Knapp DPM at [facility] Functional Status Description No Information Available Mental Status Description No Information Available Referrals Refer to Reason for Referral Status Appt Date Neo Knapp DPM Created [address] [facility] [address] [place] [address] [phone]
--- OUTSIDE RECORDS SUMMARY | 2021-06-12 13:05 | CCD | Continuity of Care Document ---
Author Author Carmen So Organization Unknown Address [address] [place] [address] Phone [phone] Care Team Providers Care Instructional Developer Name Role Phone Silvana Montes DANTE AUTM [phone] Problems Active Problems Provider Date Spondylolysis Iliana [...] ANP Fluticasone Propionate 50mcg/Act Suspension Silvana Montes, [facility] 000 Loratadine 10mg Tablets Take 1 Tablet By Mouth Once Daily Unknown Tramadol HCL 50mg Tablets Take 1 Tablet By Mouth Every 8 Hours as Needed For Pain . DO Not Exceed 3 Per 24 Hours Unknown Estradiol 0.075mg/24HR Patches Biw [place] Apply 1 Patch Topically To Skin Twice [...] 1 1 [facility] START COVID-19 ANTIGEN LOT #[id number] 05/16/21 9:13 A.M. Procedures Date Code Description Status 01/19/2021 54143 Office/Outpatient Established SF MDM 10-19 Min Completed 01/12/2021 77065 Office/Outpatient Established Mo d MDM 30-39 Min Completed 12/07/2020 81792 Physical Therapy Eval - Low Comp lexity Completed 11/22/2020 11280 Office/Outpatient Established Mo d MDM 30-39 Min Completed 11/22/2020 44316 Inject/Drain Joint/Bursa Major C ompleted Medical Devices Description No Information Available Encounters Type Date Location Provider Dx Diagnosis Office Visit 01/19/2021 8:15a Dawit Acosta MD M25.512 Pain in left shoulder M50.30 Other cervical disc degenera tion, unsp cervical region M48.02 Spinal stenosis, cervical re gion Office Visit 01/12/2021 8:45a [place] Alvino Shrestha MD M17.12 Unilateral primary osteoarthritis, left knee M16.12 Unilateral primary osteoarth ritis, left hip Office Visit 11/22/2020 9:00a Coronadean Acosta MD M50.30 Other cervical disc degeneration, unsp cervical region M48.02 Spinal stenosis, cervical re gion M25.512 Pain in left shoulder Assessments Date Code Description Provider 05/15/2021 Z01.818 Encounter for other preprocedura l [...] M25.512 Pain in left shoulder [facility] Bour[facility], [facility] 11/22/2020 M50.30 Other cervical disc [...] to Reason for Referral Status Appt Date Олег Acosta MD PT - 8 VISITS OK'D FOR Kadi DORMAN DR FROM 12/07-03/07/21, AUTH# [id number], RES# [id number]. SS Created [address] [place] [address], [place] [address] [phone] Олег Acosta MD PT ALLOWED EVAL THEN NEEDS AUTH TO PT DEPT. N T Created [address] [place], [place] [address] [phone]
--- OUTSIDE RECORDS SUMMARY | 2021-06-12 13:05 | CCD | Continuity of Care Document ---
Author Author Carmen KENYON [facility] Organization Unknown Address [address] [facility] [address] [facility], [address] [place] [address] Phone [phone] Care Team Providers Care [employer] Mechanical Name Role Phone Silvana Montes R.N. AUTM [phone] AUTM Unavailable Gonzalo Bowen M.D. AUTM [phone] Problems Active Problems Provider Date Gastroesophageal reflux disease Gonzalo Bowen MD Onset: 0 04/11/2021 Cough Gonzalo Bowen MD Onset: 04/11/2021 Speech and language disorder Gonzalo Bowen MD Onset: 03/28 Disorder of thyroid gland Gonzalo Bowen MD Onset: 021 Social History Type Date Description Comments Sex Unknown ETOH Use Occasionally consumes alcohol Tobacco Use Start: Unknown End: Unknown Patient is a former smoker hx: 1ppd since age 12, quit 1995 Recreational Drug Use Denies Drug Use Smoking Status Reviewed: 06/11/18 Patient is a former smoker hx : 1ppd since age 12, quit 1995 Allergies and adverse reactions Active Allergies Criticality Reaction | Severity Comments Date Aspirin Unable to assess criticality jittery 03/16/2018 Latex Unable to assess criticality hives 03/16/2018 Penicillin Unable to assess criticality hives 03/16/2018 Sulfa Unable to assess criticality jittery 03/16/2018 Singulair Unable to assess criticality sleepiness 03/16/2018 Adhesives Unable to assess criticality Hives 06/11/2018 Medications Active Medications SIG Qnty Indications Ordering Provide r Date Dulcolax 5mg Tablets DR take 4 tabs by mouth prior to procedure per instructions. 4tabs Z12.11 Gonzalo Carmichael MD 06/01/2021 Miralax 17GM/Scoop Powder take 17 grams by mouth once daily. 510units K59.00 Gonzalo Carmichael MD 06/01/2021 Miralax 17GM/Scoop Powder use as instructed by doctor for bowel prep 510gm Z12.11 Gonzalo Carmichael MD 06/01/2021 CPAP 7cm na Shell M.D. 04/15/2018 Tylenol 8 Hour Arthritis Pain 650mg Tablets ER 2 by mouth every morning Unknown Iron 325(65Fe) mg Tablets 1 tab by mouth every day with dinner Unknown Meloxicam 15mg Tablets 1 by mouth every day Unknown Cyclobenzaprine HCL 10mg Tablets 1 by mouth at bedtime Unknown Omeprazole 40mg Capsules DR Alejo carvalho Unknown Nasacort Allergy 24HR 55mcg/Act Ae rosol two sprays to each nostril daily Unknown Atorvastatin Calcium 10mg Tablets 1 by mouth every day Unknown Estradiol 0.5mg Tablets 1 by mouth twice a week Unknown Paroxetine HCL 40mg Tablets 1 by mouth every day Unknown Wellbutrin SR 150mg Tablets ER 12H R 1 by mouth every day Unknown Gabapentin 300mg Capsules 1 by mouth twice a day 60caps Unknown Claritin 10mg Tablets 1 by mouth every day Unknown Vitamin D 2000Unit Tablets 1 by mouth every day Unknown Immunizations Description No Information Available Vital Signs Date Vital Result Comment 06/01/2021 10:05am BP Systolic 122 mmHg BP Diastolic 84 mmHg Height 63.5 inches 5'3.50" Weight 185.00 lb BMI (Body Mass Index) 32.3 kg/m2 [place] Body Weight 115 lb Weight 83.916 kg BSA (Body Surface Area) 1.88 m2 05/01/2021 10:53am BP Systolic 112 mmHg BP Diastolic 70 mmHg Heart Rate 85 /min O2 % BldC Oximetry 100 % Height 63.5 inches 5'3.50" Weight 184.00 lb BMI (Body Mass Index) 32.1 kg/m2 [place] Body Weight 115 lb Weight 83.462 kg BSA (Body Surface Area) 1.88 m2 Results Description No Information Available Procedures Date Code Description Status 05/01/2021 73917 Office/Outpatient Established Mo d MDM 30-39 Min Completed 04/11/2021 58168 Office/Outpatient New Moderate M DM 45-59 Minutes Completed 04/11/2021 20940 Laryngoscopy Flexible Fiberoptic Diagnostic Completed Medical Devices Description No Information Available Encounters Type Date Location Provider Dx Diagnosis Office Visit 05/01/2021 11:00a [facility] Vasyl Ellis R49.8 Other voice and resonance disorders K21.9 Gastro-esophageal reflux dis ease without esophagitis E07.9 Disorder of thyroid, unspeci fied Office Visit 04/11/2021 10:45a [facility] Vasyl Ellis R49.8 Other voice and resonance disorders E07.9 Disorder of thyroid, unspeci fied Assessments Date Code Description Provider 06/01/2021 K21.9 Gastro-esophageal reflux disease without esophagitis Ana Kenyon, RPA-C 06/01/2021 R13.10 Dysphagia, unspecified Ana A Annia RPA-C 06/01/2021 K59.00 Constipation, unspecified Meliss a A Bruceboreina, RPA-C 06/01/2021 Z12.11 Encounter for screening for tristen gnant neoplasm of colon Ana Kenyon RPA-C 05/01/2021 R49.8 Other voice and resonance disord ers Gonzalo Bowen MD 05/01/2021 K21.9 Gastro-esophageal reflux disease without esophagitis Gonzalo Bowen MD 05/01/2021 E07.9 Disorder of thyroid, unspecified Gonzalo Bowen MD 04/11/2021 R49.8 Other voice and resonance disord ers Gonzalo Bowen MD 04/11/2021 E07.9 Disorder of thyroid, unspecified Gonzalo Bowen MD Plan of Treatment 06/01/2021 - Anasara Kenyon RPA-C* K21.9 Gastro-esophageal reflux disease without esophagitis * R13.10 Dysphagia, unspecified * K59.00 Constipation, unspecified * Z12.11 Encounter for screening for malignant neoplasm of colon * * New Xrays:* RF Barium Swallow Esophagus Double Contrast, Ordered: 06/01/21 * Comments:* Will arrange for upper endoscopy and colonoscopy. Reviewed risks and benefits of the procedures, as well as other options, with the patient. Prep for this procedure was discussed with patient, including risks and side effects associated with the prep. Patient verbalized understanding of all of the above and is in agreement to proceed. Patient will seek medical attention for any acute changes. Will monitor. * Follow up:* As scheduled, sooner if needed. Functional Status Functional Condition Comment Date Status Independent with all ADL's Activ e Independent with all IADL's Acti ve Mental Status Mental Condition Comment Date Status Cognitive ability not impaired A ctive Referrals Refer to Reason for Referral Status Appt Date Gonzalo Carmichael M.D. Reflux Sent 06/01/2021 [facility], Gastroenterology [address] [place] [address] [phone] Gonzalo Bowen M.D. R.49.0 - Hoarseness of voice. Closed 04/11/[address] [place] [address] [address] [place] [address] [phone]
--- OUTSIDE RECORDS SUMMARY | 2021-06-12 13:05 | CCD | Continuity of Care Document ---
Author Author Carmen FIORE MD Organization Unknown Address [address] [address] Phone [phone] Care Team Providers Care Survey And Mapping Technician Name Role Phone Silvana Montes DANTE AUTM [phone] Problems Active Problems Provider Date Spondylolysis Iliana [...] with food or milk 30tabs M50.31 Олег Fiore MD 020 Medrol 4mg Tablets dose juan [...] Montes ANP Fluticasone Propionate 50mcg/Act Suspension Silvana Montes [facility] 000 Loratadine 10mg Tablets Take 1 Tablet By Mouth Once Daily Unknown Tramadol HCL 50mg Tablets Take 1 Tablet By Mouth Every 8 Hours as Needed For Pain . DO Not Exceed 3 Per 24 Hours Unknown Estradiol 0.075mg/24HR Patches Biw campo Apply 1 Patch Topically To Skin Twice [...] 1 1 CARE START COVID-19 ANTIGEN LOT #[id number] 05/16/21 9:13 A.M. Procedures Date Code Description Status 01/19/2021 80522 Office/Outpatient Established SF MDM 10-19 Min Completed 01/12/2021 24875 Office/Outpatient Established Mo d MDM 30-39 Min Completed 12/07/2020 54230 Physical Therapy Eval - Low Comp lexity Completed 11/22/2020 73376 Office/Outpatient Established Mo d MDM 30-39 Min Completed 11/22/2020 02394 Inject/Drain Joint/Bursa Major C ompleted Medical Devices Description No Information Available Encounters Type Date Location Provider Dx Diagnosis Office Visit 01/19/2021 8:15a [place] Олег Fiore MD M25.512 Pain in left shoulder M50.30 Other cervical disc degenera tion, unsp cervical region M48.02 Spinal stenosis, cervical re gion Office Visit 01/12/2021 8:45a [place] Alvino Shrestha MD M17.12 Unilateral primary osteoarthritis, left knee M16.12 Unilateral primary osteoarth ritis, left hip Office Visit 11/22/2020 9:00a [place] Олег Fiore MD M50.30 Other cervical disc degeneration, unsp [...] disc degeneration , unspecified cervical region Олег Fiore MD 01/19/2021 M48.02 Spinal stenosis, cervical region Олег Fiore MD 01/12/2021 M17.12 Unilateral primary osteoarthriti s, left knee Alvino Shrestha MD 01/12/2021 M16.12 Unilateral primary osteoarthriti s, left hip Alvino Shrestha MD 12/07/2020 M25.512 Pain in left shoulder Elizabeth Bourne, MSPT 11/22/2020 M50.30 Other cervical disc degeneration , unspecified cervical region Олег Fiore MD 11/22/2020 M48.02 Spinal stenosis, cervical region Олег Fiore MD 11/22/2020 M25.512 Pain in left shoulder Олег au MD Plan of Treatment 01/19/2021 - Олег Fiore MD* M25.512 Pain in left shoulder* Follow up:* prn * M50.30 Other cervical disc degeneration, unspecified cervical region * M48.02 Spinal stenosis, cervical region Functional Status Description No Information Available Mental Status Description No Information Available Referrals Refer to Reason for Referral Status Appt Date Олег Fiore MD PT - 8 VISITS OK'D FOR L JADONL FROM 12/07-03/07/21, AUTH# [id number], RES# [id number]. SS Created [address] [place] [address] [phone] Олег Fiore MD PT ALLOWED EVAL THEN NEEDS AUTH TO PT DEPT. N T Created [address] [place] [address] [phone]
--- OUTSIDE RECORDS SUMMARY | 2021-06-12 13:05 | CCD | Continuity of Care Document ---
Author Author Carmen KNAPP DPM Organization Unknown Address [address] [place] [address], [address] [place] [id number] Phone [phone] Care Team Providers Care Bacteriologist Medical Name Role Phone Servage Silvana HOWELL AUTM [phone] Problems Active Problems Provider Date Acquired hallux [...] Day Unknown Mometasone Furoate 50mcg/Act Suspe nsion [place] 2 Sprays In Each Nostril Once Daily [...] Inject Triamcinolone Acetonide 10 ML, ND C 9769-1363-61 Injection Neo thakkar DPM 03/26/2018 Inject Dexamthosone Phosphate 25452-294- 30 Injection Neo Knapp DPM 018 Immunizations [...] Available Procedures Date Code Description Status 05/16/2021 00650 Hallux Rigidus Corre ction W/Cheilectomy,Debride/Cap Release MTP Completed 01/26/2021 93576 Office/Outpatient Established Lo w MDM 20-29 Min Completed 01/26/2021 05562 X-Ray Foot Complete Completed Medical Devices Description No Information Available Encounters Type Date Location Provider Dx Diagnosis Office Visit 05/21/2021 9:00a [place] [facility] Neo Knapp DPM Z48.89 Encounter for other specified surgical aftercare Office Visit 01/26/2021 9:15a [place] [facility] Neo Knapp DPM M20.22 Hallux rigidus, left foot M79.675 Pain in left toe(s) Assessments Date Code Description Provider 05/21/2021 Z48.89 Encounter for other specified artis rgical aftercare Neo Knapp DPM 05/16/2021 M20.22 Hallux rigidus, left foot Neo Knapp DPM 01/26/2021 M20.22 Hallux rigidus, left foot Neo Knapp DPM 01/26/2021 M79.675 Pain in left toe(s) Neo bueno DPM Plan of Treatment Future Appointment(s):* 06/04/2021 9:15 am - Neo Knapp DPM at [place] [facility] Functional Status Description No Information Available Mental Status Description No Information Available Referrals Refer to Dr Reason for Referral Status Appt Date Neo Knapp DPM Created [address] [address] [phone] Neo Knapp DPM Created [address] [address] [phone]
--- OUTSIDE RECORDS SUMMARY | 2021-06-12 13:06 | CCD ---
"Continuity of Care Document (CCD) Created on: 04/30/2021 Carmen Burns External Reference #: [id number] : [id number] Sex: Female Author Author Carmen CHAPA M.D. Organization Unknown Address [facility] [address] [place] [address] Phone [phone] Care Team Providers Care Patient Account Representative Name Role Phone [facility] Tristan AUTM [phone] ServSilvana farrar NP AUTM [phone] Problems Active Problems Provider Date Pure hypercholesterolemia Onset: 021 Lesion of ulnar nerve Demi Chapa M.D. Onset: 10/18/2020 Neck pain Demi Chapa M.D. Onset: 10/02/2020 Disorder of bursa of shoulder region JOSÉ Dang Ons et: 08/18/2020 Bicipital tenosynovitis JOSÉ Dang Onset: 1 Shoulder joint unstable JOSÉ Dang Onset: 1 Social History Type Date Description Comments Sex Unknown ETOH Use Occasionally consumes alcohol Tobacco Use Start: Unknown Patient has never smoked Recreational Drug Use Denies Drug Use Allergies, Adverse Reactions, Alerts Active Allergies Criticality Reaction | Severity Comments Date Penicillin V Unable to assess criticality Rash 08/18/2020 Sulfa Antibiotics Unable to assess criticality 08/18/2020 Latex Unable to assess criticality 08/18/2020 Aspirin Unable to assess criticality 08/18/2020 Adhesives Unable to assess criticality 08/18/2020 Medications Active Medications SIG Qnty Indications Ordering Provide r Date Meloxicam 15mg Tablets Unknown Cyclobenzaprine HCL 10mg Tablets 1 by mouth three times a day as needed Unknown Medrol 4mg Tablets Unknown Estradiol 0.075mg/24HR Patches Biweek Unknown Tramadol HCL 50mg Tablets Unknown Loratadine 10mg Tablets 1 by mouth every day Unknown Fluticasone Propionate 50mcg/Act Suspension Unknown Omeprazole 20mg Capsules DR 1 by mouth every day Unknown Bupropion Hydrochloride ER (SR) 150mg Tablets ER 12HR 1 by mouth once daily Unknown Atorvastatin Calcium 10mg Tablets 1 by mouth every day Unknown Gabapentin 300mg Capsules Unknown Paroxetine HCL 20mg Tablets 1 by mouth every day Unknown Ferrous Gluconate 324(38Fe) mg Tab lets Take One Tablet By Mouth With Water Or Juice Between Meals Once Daily Unknown Immunizations Description No Information Available Vital Signs Date Vital Result Comment 04/30/2021 9:43am Body Temperature 97.3 F 04/23/2021 10:11am Body Temperature 97.4 F Results Description No Information Available Procedures Date Code Description Status 04/30/2021 11625 Office/Outpatient Established Lo w MDM 20-29 Min Completed 04/23/2021 27212 Office/Outpatient Established Lo w MDM 20-29 Min Completed 04/06/2021 21245 Office/Outpatient Established Lo w MDM 20-29 Min Completed 12/29/2020 23207 Office/Outpatient Established Lo w MDM 20-29 Min Completed Medical Devices Description No Information Available Encounters Type Date Location Provider Dx Diagnosis Office Visit 04/30/2021 9:40a [facility] Demi conley M.D. M75.52 Bursitis of left shoulder M75.22 Bicipital tendinitis, left s [facility] Assessments Date Code Description Provider 04/30/2021 M75.52 Bursitis of left shoulder Demi Chapa M.D. 04/30/2021 M75.22 Bicipital tendinitis, left shoul maria elena Demi Chapa M.D. 04/23/2021 M75.52 Bursitis of left shoulder Demi Chapa M.D. 04/23/2021 M75.22 Bicipital tendinitis, left shoul maria elena Demi Chapa M.D. 04/06/2021 M54.2 Cervicalgia Ernie Delgado, FN P 04/06/2021 M75.52 Bursitis of left shoulder Ernie martínez, [employer] 04/06/2021 M75.22 Bicipital tendinitis, left shoul maria elena Ernie Delgado, P[employer] STE[employer]TER [employer] INST[employer]ER 12/29/2020 M54.2 Cervicalgia Ernie Delgado, FN P 12/29/2020 M75.52 Bursitis of left shoulder Ernie Breanna martínez, P[employer] STE[employer]TER [employer] INST[employer]ER 12/29/2020 M75.22 Bicipital tendinitis, left shoul maria elena Ernie Delgado, [facility] Plan of Treatment 04/30/2021 - Demi Chapa M.D.* M75.52 Bursitis of left shoulder * M75.22 Bicipital tendinitis, left shoulder* Follow up:* 3 months * Instructions:* Keep doing self stretching and strengthening. In any deterioration contact my clinic. Physical Therapy as instructed. Functional Status Functional Condition Comment Date Status Glasses Active Mental Status Description No Information Available Referrals Description No Information Available"
--- OUTSIDE RECORDS SUMMARY | 2021-06-12 13:06 | CCD | Continuity of Care Document ---
Author Author Carmen BOWEN MD Organization Unknown Address [address] [facility] [address], [address] [place] [address] Phone [phone] Care Team Providers Care Services Advisor Name Role Phone Silvana Montes Kadi Martini AUTM [phone] AUTM Unavailable Problems Active Problems Provider Date Disorder of thyroid gland Gonzalo Bowen MD Onset: 021 Speech and language disorder Gonzalo Bowen MD Onset: 03/28 Cough Gonzalo Bowen MD Onset: 04/11/2021 Gastroesophageal reflux disease Gonzalo Bowen MD Onset: 0 04/11/2021 Social History Type Date Description Comments Sex [...] SIG Qnty Indications Ordering Provide r Date CPAP 7cm na Shell M.D. 04/15/2018 Vitamin D 2000Unit Tablets 1 by mouth every day Unknown Claritin 10mg Tablets 1 by mouth every day Unknown Gabapentin 300mg Capsules 1 by mouth twice a day 60caps Unknown Wellbutrin SR 150mg Tablets ER 12H R 1 by mouth every day Unknown Paroxetine HCL 40mg Tablets 1 by mouth every day Unknown Estradiol 0.5mg Tablets 1 by mouth twice a week Unknown Atorvastatin Calcium 10mg Tablets 1 by mouth every day Unknown Nasacort Allergy 24HR 55mcg/Act Ae rosol two sprays to each nostril daily Unknown Omeprazole 20mg Capsules DR 2 by mouth every morning Unknown Cyclobenzaprine HCL 10mg Tablets 1 by mouth at bedtime Unknown Meloxicam 15mg Tablets 1 by mouth every day Unknown Iron 325(65Fe) mg Tablets 1 tab by mouth every day with dinner Unknown Tylenol 8 Hour Arthritis Pain 650mg Tablets ER 2 by mouth every morning Unknown Immunizations Description No Information Available Vital Signs Date Vital Result Comment 05/01/2021 10:53am BP Systolic 112 mmHg BP Diastolic 70 mmHg Heart Rate 85 /min O2 % BldC Oximetry 100 % Height 63.5 inches 5'3.50" Weight 184.00 lb BMI (Body Mass Index) 32.1 kg/m2 [place] Body Weight 115 lb Weight 83.462 kg BSA (Body Surface Area) 1.88 m2 04/11/2021 10:52am BP Systolic 102 mmHg BP Diastolic 70 mmHg Heart Rate 91 /min O2 % BldC Oximetry 98 % Height 63.5 inches 5'3.50" Weight 187.00 lb BMI (Body Mass Index) 32.6 kg/m2 [place] Body Weight 115 lb Weight 84.823 kg BSA (Body Surface Area) 1.89 m2 Results Description No Information Available Procedures Date Code Description Status 05/01/2021 36202 Office/Outpatient Established Mo d MDM 30-39 Min Completed 04/11/2021 50412 Office/Outpatient New Moderate M DM 45-59 Minutes Completed 04/11/2021 55685 Laryngoscopy Flexible Fiberoptic Diagnostic Completed Medical Devices Description No Information Available Encounters Type Date Location Provider Dx Diagnosis Office Visit 05/01/2021 11:00a [facility] Vasyl Ellis R49.8 Other voice and resonance disorders K21.9 Gastro-esophageal reflux dis ease without esophagitis E07.9 Disorder of thyroid, unspeci fied Office Visit 04/11/2021 10:45a [facility] Vasyl Ellis R49.8 Other voice and resonance disorders E07.9 Disorder of thyroid, unspeci fied Assessments Date Code Description Provider 05/01/2021 R49.8 Other voice and resonance disord ers Gonzalo Bowen MD 05/01/2021 K21.9 Gastro-esophageal reflux disease without esophagitis Gonzalo Bowen MD 05/01/2021 E07.9 Disorder of thyroid, unspecified Gonzalo Bowen MD 04/11/2021 R49.8 Other voice and resonance disord ers Gonzalo Bowen MD 04/11/2021 E07.9 Disorder of thyroid, unspecified Gonzalo Bowen MD Plan of Treatment No Information Available Functional Status Functional Condition Comment Date Status Independent with all ADL's Activ e Independent with all IADL's Acti ve Mental Status Mental Condition Comment Date Status Cognitive ability not impaired A ctive Referrals Refer to Dr Reason for Referral Status Appt Date Gonzalo Carmichael M.D. Reflux Sent [facility], Gastroenterology [address] [place] [address] [phone] Gonzalo Bowen M.D. R.49.0 - Hoarseness of voice. Closed 04/11/[address] [place] [address] [address] [place] [address] [phone]
--- OUTSIDE RECORDS SUMMARY | 2021-06-12 13:06 | CCD ---
Author Author [facility] Organization [facility] Address Unknown Phone Unavailable Care Team Providers Care Comprehensive Ophthalmologist Name Role Phone Silvana Montes Unavailable PROBLEMS Type Condition ICD9-CM Code LEC09-VF Code Onset Dates Condition S tatus W/U Status Risk SNOMED Code Notes Problem GERD (gastroesophageal reflux disease) K21.9 A ctive confirmed [id number] She is on omeprazole only as needed. No active issues at present. Last upper endoscopy was in 2019. Problem EZIO (obstructive sleep apnea) G47.33 Active confirm ed 50536508 She apparently is not using her CPAP. She will need to be monitored postoperatively until she recovers from anesthesia. Problem Left shoulder pain, unspecified chronicity M25.512 Active confirmed 35935477 Problem Depression F32.9 Active confirmed 25856614 She is on medication and is doing fairly well. Problem Family history of diabetes mellitus Z83.3 Acti ve confirmed 920322806 Problem BMI 30.0-30.9,adult Z68.30 Active confirmed 760859759 Problem Hx of hysterectomy for benign disease Z90.710 Ac tive confirmed 292956792 Problem Perimenopause N95.1 Active confirmed 787494 671900941 Problem Nasal congestion R09.81 Active confirmed 682 69046 Problem Multilevel degenerative disc disease M53.9 Act julia confirmed 25290973 Problem Mixed hyperlipidemia E78.2 Active confirmed 574241560 She has an elevated cholesterol and is trying to treat that with diet and exercise. Problem Pain of left foot M79.672 Active confirmed 3 [id number] Problem Left maxillary sinusitis J32.0 Active confirmed 28034978 Problem Pain in right foot M79.671 Active confirmed [id number] Problem Anxiety associated with depression F41.8 Activ e confirmed 932898778 Problem Status post hysterectomy Z90.710 Active confirmed 046834978 Problem Wellness examination Z00.00 Active confirmed 722232799 Problem Seasonal allergies J30.2 Active confirmed 3 63750568 Problem Vitamin D deficiency, unspecified E55.9 Active con firmed 35642172 Problem Cervical radiculopathy M54.12 Active confirmed 03206383 She has a history of cervical spine surgery but has some residual discomfort in her left shoulder and left side of her neck. This is likely from her cervical disc disease but further orthopedic evaluation is ongoing. Problem Osteoarthritis, unspecified osteoarthritis type, unspecified site M19.90 Active confirmed 719381667 Problem Constipation, unspecified constipation type K59.00 Active confirmed 96579919 Problem Other chronic pain G89.29 Active confirmed 8 2010393 ALLERGIES Allergen (clinical drug ingredient) Drug/Non Drug Allergy do cumented on EMR Reaction Allergy Type Onset Date Status Sulfa (for allergy use only) Patient states makes her Jitt yaima Drug Allergy Active Penicillin (For Allergies Use Only) Hives Drug Allerg y Active aspirin Aspirin([facility] Code:[address]-88) patient states "Jittery" D rug Allergy Active tapes adhesive Rash Non Drug Allergy Acti ve Latex (for allergy use only) Hives Drug Allergy 07/06 Active montelukast Singulair([facility] Code:[address]-95) sleepy Drug Allergy Active ENCOUNTERS from 1970 to 2021-05-01 Encounter Location Date Provider Diagnosis [address] [phone] [place] [address] 07 Mar, 2021 Silvana Servage Mixed hyperlipidemia E78.2 ; GERD (gastroesophageal reflux disease) K21.9 ; EZIO (obstructive sleep apnea) G47.33 ; Perimenopause N95.1 ; Pain in left shoulder M25.512 ; Vitamin D deficiency, unspecified E55.9 ; Depression F32.9 ; Seasonal allergies J30.2 ; Anxiety associated with depression F41.8 ; Hx of hysterectomy for benign disease Z90.710 ; Family history of diabetes mellitus Z83.3 ; Constipation, unspecified constipation type K59.00 ; Fatigue, unspecified type R53.83 and Hoarseness of voice R49.0 IMMUNIZATIONS Vaccine Route Administration Date Status Influenza 18 yrs & older Flublok IM Intramuscular May 18, 2020 Administered Toradol 30mg/1mL Ketorolac IM Intramuscular Jul 24, 2017 Admi nistered COVID-19 dose #2 given elsewhere Unspecified Unknown [...] Notes Total Score: 2 Interpretation: Alcohol Education Taoism: Question Answer Notes Taoism 21 Yarsanism Sexual Hx: Question Answer Notes Had sex [...] Giving encouragement to exercise REASON FOR REFERRAL from 1970 to 2021-05-01 Reason please eval and treat pt who has hoarseness of voice with cough for a few months Diagnosis 1 Hoarseness of voice (R49.0) Referral Organization [facility] Rubina Referring Provider First Name Silvana Referring Provider Last Name Servage Referring Provider Specialty Family Medicine Referred Provider [facility] ([facility]) Referred Provider Specialty Otolaryngology Referral Priority Routine General Notes Neisha Salas 04/03/2021 10:4 3:31 AM > referral faxed VITAL SIGNS Weight 187.4 lbs 07 Mar, 2021 Weight-kg 85 kg Mar, Height 62.75 in Mar, BMI 33.46 kg/m2 Mar, Heart Rate 93 /min Mar, Respiratory Rate 18 /min Mar, Temperature 97.4 degrees Fahrenheit Mar, Oximetry 100 Mar, Blood pressure systolic 132 mm Hg Mar, Blood pressure diastolic 78 mm Hg Mar, MEDICATIONS Medication SIG (Take, Route, Frequency, Duration) Notes Start Da te End Date Status Vitamin D 50 MCG (1999) 1 capsule Orally Once a day for 30 day(s) Active Tylenol 8 Hour Arthritis Pain 650 MG 2 tablets as needed Orally ramin ry 8 hrs Active PARoxetine HCl 40 MG Take 1 tablet by mouth once daily for 30 Active Cyclobenzaprine HCl 10 MG 1 tablet at bedtime as neede d Orally Once a day for 30 day(s) Active Meloxicam 15 MG 1 tablet Orally Once a day for 30 day(s) Active Atorvastatin Calcium 10 MG take 1 tablet by mouth once daily orally Daily for 30 days Active Loratadine 10 MG Take 1 tablet by mouth once daily for 30 Active Vitamin C 250 MG 1 tablet Orally Once a day for 30 day(s) Not-Taking Gabapentin 300 MG take 1 capsule by mouth twice daily orally bid for 30 days Active Omeprazole 20 MG Take 1 capsule by mouth once daily for 30 days for 3 0 Active PARoxetine HCl 20 MG 1 tab Orally Once a day for 30 days Active Estradiol 0.075 MG/24HR APPLY 1 PATCH TOPICALLY TO S KIN TWICE A WEEK Transdermal for 84 days Active Ferrous Gluconate 324 (38 Fe) MG TAKE 1 TABLET BY MOUT H ONCE DAILY BETWEEN MEALS WITH WATER OR JUICE for 30 Active buPROPion HCl ER (XL) 150 MG take 1 tablet by mouth on ce daily Orally Daily for 30 days Active PROCEDURES No Information RESULTS Component Value Reference Range HEMOGLOBIN A1c Reviewed date:04/22/2021 20:55:13 Interpretation: Performing Lab:Replaced By [facility], [facility] [address] [address] , ,[place] [address] HEMOGLOBIN A1c 5.4 ESTIMATED AVERAGE GLUCOSE 108 60-110 LIPID PANEL (CARDIAC RISK) Reviewed date:04/22/2021 20:55:42 Interpretation: Performing Lab:[facility] [address] [facility] [address] , ,[place] [address] TRIGLYCERIDES LEVEL 137 <150 CHOLESTEROL LEVEL 192 <200 HDL CHOLESTEROL 47 >40 LDL CHOLESTEROL 118 <100 NON-HDL-C 145 CHOLESTEROL RISK RATIO 4.085 <5 MAGNESIUM LEVEL Reviewed date:04/22/2021 20:55:21 Interpretation: Performing Lab:[facility] [address] [facility] [address] , ,[place] [address] MAGNESIUM LEVEL 2.0 1.8-2.4 TSH Reviewed date:04/22/2021 20:55:33 Interpretation: Performing Lab:[facility] [address] [facility] [address] , ,[place] [address] THYROID STIMULATING HORMONE 1.650 0.358-3.740 VITAMIN D 25-HYDROXY Reviewed date:04/22/2021 20:55:18 Interpretation: Performing Lab:[facility] [address] [facility] [address] , ,[place] [address] TOTAL 25(OH) VITAMIN D 54.8 30.0-100.0 REASON FOR VISIT Silvana 6 months MEDICAL (GENERAL) HISTORY Type Description Date Medical [...] Surgical History biopsy left breast benign benign 2004 Surgical History hysterectomy vaginal, partial 11/2007 Surgical [...] No Information FUNCTIONAL STATUS No Information ASSESSMENTS Encounter Date Diagnosis Assessment Notes Treatment Notes Treatm ent Clinical Notes Mar, Mixed hyperlipidemia (ICD-10 - E78.2) seen by cardiology evaluation negative stress test notes in chart Mar, GERD (gastroesophageal reflux disease) (ICD-10 - K21.9) no issues today controlled with omeprazole Mar, EZIO (obstructive sleep apnea) (ICD-10 - G47.33) states she is not using her cpap. was re-referred to pulmonary services states she does not like the mask cannot tolerate it. Mar, Perimenopause (ICD-10 - N95.1) following with [facility] Mar, Pain in left shoulder (ICD-10 - M25.512) was following with ortho, Dr. Catalan, was waiting for left shoulder surgery he left the area, now she is with Dr. Chapa in [place]. Dr. Catalan increased her dose of neurontin to tid. ordered thru our service since he left 04/03/2027, states she just deals with it now Mar, Vitamin D deficiency, unspecified (ICD-10 - E55. 9) encouraged to take vitamin D 2000 mcgs daily Mar, Depression (ICD-10 - F32.9) Currently on Wellbutrin XL 150 mg daily, and paroxetine. Feels that they are working well would like to continue, denies suuicidal thought Mar, Seasonal allergies (ICD-10 - J30.2) suggested AYR nasal gel spray in addition to nasal spray Mar, Anxiety associated with depression (ICD-10 - F41 .8) improved with current meds Mar, Hx of hysterectomy for benign disease (ICD-10 - Z90.710) [facility] with [facility] Mar, Family history of diabetes mellitus (ICD-10 - Z8 3.3) assessing level today Mar, Constipation, unspecified constipation type (ICD -10 - K59.00) Screening colonoscopy performed , 12/24/2018. Everything was completely normal. No specimens collected. Patient was recommended to have a colonoscopy in 10 years for screening purposes. An was suggested that she take Colace 200 mg twice a day. Patient states she does not remember him telling her that. She has not been taking that medication but she does admit to constipation Mar, Fatigue, unspecified type (ICD-10 - R53.83) states she is tired all the time discussed with pt it could be her sleep apnea Iron studies were acceptable Mar, Hoarseness of voice (ICD-10 - R49.0) States her voice is hoarse all the time, worried with all the surgeries have happened to her throat wants to be checked out PLAN OF TREATMENT Medication Medication Name Sig Start Date Stop Date Loratadine 10 MG Take 1 tablet by mouth once daily for 30 Omeprazole 20 MG Take 1 capsule by mouth once daily for 30 days for 30 PARoxetine HCl 20 MG 1 tab Orally Once a day for 30 days Atorvastatin Calcium 10 MG take 1 tablet by mouth once daily orally Daily for 30 days buPROPion HCl ER (XL) 150 MG take 1 tablet by mouth on ce daily Orally Daily for 30 days Gabapentin 300 MG take 1 capsule by mouth twice daily orally bid for 30 days Treatment Notes Assessment Notes Clinical Notes Hoarseness of voice States her voice is hoarse all the time, worried with all the surgeries have happened to her throat wants to be checked out Mixed hyperlipidemia seen by cardiology evaluation negative stress test notes in chart Fatigue, unspecified type states she is tired all the timediscussed with pt it could be her sleep apneaIron studies were acceptable GERD (gastroesophageal reflux disease) n o issues today controlled with omeprazole EZIO (obstructive sleep apnea) states she is not using her cpap. was re- referred to pulmonary servicesstates she does not like the mask cannot tolerate it. Perimenopause following with [facility] Pain in left shoulder was following with ortho, Dr. Catalan, was waiting for left shoulder surgery he left the area, now she is with Dr. Chapa in [place].Dr. Catalan increased her dose of neurontin to tid. ordered thru our service since he left04/03/2027, states she just deals with it now Vitamin D deficiency, unspecified encour aged to take vitamin D 2000 mcgs daily Depression Currently on Wellbut rin XL 150 mg daily, and paroxetine. Feels that they are working well would like to continue, denies suuicidal thought Constipation, unspecified constipation type Screening colonoscopy performed , 12/24/2018. Everything was completely normal. No specimens collected. Patient was recommended to have a colonoscopy in 10 years for screening purposes. An was suggested that she take Colace 200 mg twice a day. Patient states she does not remember him telling her that. She has not been taking that medication but she does admit to constipation Family history of diabetes mellitus asse ssing level today Seasonal allergies suggested AYR nasal gel spray in addition to nasal spray Anxiety associated with depression impro desmond with current meds Hx of hysterectomy for benign disease fo llows with [facility] Referrals Referral Date Details please eval and treat pt who has hoarseness of voice with cough for a few months, ENT ([facility]) [facility] Next Appt Details September yearly well exam Reason: Provider Name:Silvana Kadi Byrdcharan, 10:00:00 AM, [address] [facility], , [place], [address], Insurance Providers Payer Name Payer Address Payer Phone Insured Name Patient Relati onship to Insured Coverage Start Date Coverage End Date [employer] CLAIMS DEPT [address] [place] [phone] EMANUEL AGUILAR self
--- OUTSIDE RECORDS SUMMARY | 2021-06-12 13:06 | CCD ---
Author Author Carmen Garcia Organization Unknown Address [address] [address] Phone Care Team Providers Care Airplane Pilot Photogrammetry Name Role Phone Lacie Garcia PCP Allergies, Adverse Reactions, Alerts No Data in Section Problem List Concept Problem Description Status Start Date Created Date Resolv ed Date Snomed Code F33.1 Major Depressive Disorder, Recurrent episode, Moderate Active 05/15/2021 Medications No Data in Section Social History Social History Element Description Concept Effective Date Smoking Status Unknown if ever smoked [id number] Immunizations No Data in Section Vital Signs No Data in Section Procedures Date Concept Id Description Targeted Site Concept Targeted Site Concept Type 05/15/2021 70886 Extended Individual Psychotherapy - 45 min CPT Patient has no history of implantable de vices Encounters Encounter Start Date End Date Encounter Type Description Diagnosis Di agnosis Desc Location Author First Name Author Last Name Npid Taxonomy Cod e Taxonomy Desc Phone Number Location Addr1 Location Addr2 Location [facility] Location [facility] Location [facility] [id number] 05/15/2021 05/15/2021 07045 Extended Individual Psych otherapy - 45 min F33.1 Major depressive disorder, recurrent, moderate Communi ty [facility] Jose Medellin [id number] [id number] Cutter Out [id number] [address] [address] Plan of Treatment No Data in Section Lab Results No Data in Section Instructions No Data in Section Insurance Providers Insurance Id Policy Effective Date Policy Thru Date Company N ben [id number] 2018 [employer] - MEDICA ID MANAGED
--- OUTSIDE RECORDS SUMMARY | 2021-06-12 13:06 | CCD ---
Author Author Carmen Garcia Organization Unknown Address [address] [address] Phone Care Team Providers Care Bowling Ball Assembler Name Role Phone Lacie Garcia PCP Allergies, Adverse Reactions, Alerts No Data in Section Problem List Concept Problem Description Status Start Date Created Date Resolv ed Date Snomed Code F33.1 Major Depressive Disorder, Recurrent episode, Moderate Active 04/24/2021 Medications No Data in Section Social History Social History Element Description Concept Effective Date Smoking Status Unknown if ever smoked [id number] 82539915 Immunizations No Data in Section Vital Signs No Data in Section Procedures Date Concept Id Description Targeted Site Concept Targeted Site Concept Type 04/24/2021 50951 Brief Individual Psychotherapy - 30 min CPT Patient has no history of implantable de vices Encounters Encounter Start Date End Date Encounter Type Description Diagnosis Di agnosis Desc Location Author First Name Author Last Name Npid Taxonomy Cod e Taxonomy Desc Phone Number Location Addr1 Location Addr2 Location [facility] Location [facility] Location [facility] [id number] 04/24/2021 04/24/2021 82874 Brief Individual Psychoth erapy - 30 min F33.1 Major depressive disorder, recurrent, moderate Communi ty [facility] Jose Medellin [phone] [id number] Asic Engineer [phone] [address] [address] Plan of Treatment No Data in Section Lab Results No Data in Section Instructions No Data in Section Insurance Providers Insurance Id Policy Effective Date Policy Thru Date Company N ben [id number] 2018 [employer] - MEDICA ID MANAGED
--- OUTSIDE RECORDS SUMMARY | 2021-06-12 13:06 | CCD | Continuity of Care Document ---
Author Author Carmen BOWEN MD Organization Unknown Address [address] [facility], [address] [place] [address] Phone [phone] Care Team Providers Care Motorcycle Service Technician Name Role Phone Silvana Montes Kadi Martini AUTM [phone] AUTM Unavailable Problems Active Problems Provider Date [...] lb BMI (Body Mass Index) 32.1 kg/m2 [place] Body Weight 115 lb Weight 83.462 kg BSA (Body Surface Area) 1.88 m2 04/11/2021 10:52am BP Systolic 102 mmHg BP Diastolic 70 mmHg Heart Rate 91 /min O2 % BldC Oximetry 98 % Height 63.5 inches 5'3.50" Weight 187.00 lb BMI (Body Mass Index) 32.6 kg/m2 [place] Body Weight 115 lb Weight 84.823 kg BSA (Body Surface Area) 1.89 m2 Results Description No Information Available Procedures Date Code Description Status 05/01/2021 27041 Office/Outpatient Established Mo d MDM 30-39 Min Completed 04/11/2021 69851 Office/Outpatient New Moderate M DM 45-59 Minutes Completed 04/11/2021 51812 Laryngoscopy Flexible Fiberoptic Diagnostic Completed Medical Devices Description No Information Available Encounters Type Date Location Provider Dx Diagnosis Office Visit 05/01/2021 11:00a [facility] Vasyl Ellis R49.8 Other voice and resonance disorders K21.9 Gastro-esophageal reflux dis ease without esophagitis E07.9 Disorder of thyroid, unspeci fied Office Visit 04/11/2021 10:45a [facility] Vasyl Ellis R49.8 Other voice [...] Appt Date Gonzalo Carmichael M.D. Reflux Sent [facility], Gastroenterology [address] [place] [address] [phone] Gonzalo Bowen M.D. R.49.0 - Hoarseness of voice. Closed 04/11/[address] [place] [address] [address] [place] [address] [phone]
--- OUTSIDE RECORDS SUMMARY | 2021-06-12 13:06 | CCD | Continuity of Care Document ---
Author Author Carmen BOWEN MD Organization Unknown Address [address] [facility], [address] [place] [address] Phone [phone] Care Team Providers Care Automobile Parker Name Role Phone Silvana Montes Kadi Martini AUTM [phone] AUTM Unavailable Problems Active Problems Provider Date [...] lb BMI (Body Mass Index) 32.1 kg/m2 [place] Body Weight 115 lb Weight 83.462 kg BSA (Body Surface Area) 1.88 m2 04/11/2021 10:52am BP Systolic 102 mmHg BP Diastolic 70 mmHg Heart Rate 91 /min O2 % BldC Oximetry 98 % Height 63.5 inches 5'3.50" Weight 187.00 lb BMI (Body Mass Index) 32.6 kg/m2 [place] Body Weight 115 lb Weight 84.823 kg BSA (Body Surface Area) 1.89 m2 Results Description No Information Available Procedures Date Code Description Status 05/01/2021 62049 Office/Outpatient Established Mo d MDM 30-39 Min Completed 04/11/2021 94240 Office/Outpatient New Moderate M DM 45-59 Minutes Completed 04/11/2021 77462 Laryngoscopy Flexible Fiberoptic Diagnostic Completed Medical Devices Description No Information Available Encounters Type Date Location Provider Dx Diagnosis Office Visit 05/01/2021 11:00a [facility] Vasyl Ellis R49.8 Other voice and resonance disorders K21.9 Gastro-esophageal reflux dis ease without esophagitis E07.9 Disorder of thyroid, unspeci fied Office Visit 04/11/2021 10:45a [facility] Vasyl Ellis R49.8 Other [...] Appt Date Gonzalo Carmichael M.D. Reflux Sent [facility], Gastroenterology [address] [place] [address] [phone] Gonzalo Bowen M.D. R.49.0 - Hoarseness of voice. Closed 04/11/[address] [place] [address] [address] [place] [address] [phone]
--- OUTSIDE RECORDS SUMMARY | 2021-06-12 13:06 | CCD | Continuity of Care Document ---
Author Author Carmen CHAPA M.D. Organization Unknown Address [facility] [address] [place] [address] Phone [phone] Care Team Providers Care Regulatory Affairs Internship Name Role Phone [facility] Tristan AUTM ServSilvana farrar NP AUTM [phone] Problems Active Problems Provider Date Pure hypercholesterolemia [...] Available Vital Signs Date Vital Result Comment 04/23/2021 10:11am Body Temperature 97.4 F 04/06/2021 9:26am Body Temperature 97.2 F Results Description No Information Available Procedures Date Code Description Status 04/23/2021 71239 Office/Outpatient Established Lo w MDM 20-29 Min Completed 04/06/2021 71502 Office/Outpatient Established Lo w MDM 20-29 Min Completed 12/29/2020 74837 Office/Outpatient Established Lo w MDM 20-29 Min Completed Medical Devices Description No Information Available Encounters Type Date Location Provider Dx Diagnosis Office Visit 04/23/2021 10:20a [facility] Demi conley M.D. M75.52 Bursitis of left shoulder M75.22 Bicipital tendinitis, left s [facility] Date Code Description Provider 04/23/2021 M75.52 Bursitis of left shoulder Demi Chapa M.D. 04/23/2021 M75.22 Bicipital tendinitis, left osiris Nelson M.D. 04/06/2021 M54.2 Cervicalgia Ernie Delgado, TIMA Carlos 04/06/2021 M75.52 Bursitis of left shoulder JOSÉ Leon 04/06/2021 M75.22 Bicipital tendinitis, left shoul maria elena Ernie Delgado, JOSÉ 12/29/2020 M54.2 Cervicalgia TIMA Dang 12/29/2020 M75.52 Bursitis of left shoulder JOSÉ Leon 12/29/2020 M75.22 Bicipital tendinitis, left shoul maria elena JOSÉ Dang Plan of Treatment Future Appointment(s):* 04/30/2021 9:40 am - Ortho Group Schedule Resource Only at [facility] 04/23/2021 - Demi Chapa M.D.* M75.52 Bursitis of left shoulder * M75.22 Bicipital tendinitis, left shoulder* Follow up:* 1 week. * Instructions:* Keep doing self stretching and strengthening. In any deterioration contact my clinic. Physical Therapy as instructed. Functional Status Functional Condition Comment Date Status Glasses Active Mental Status Description No Information Available Referrals Description No Information Available"
--- OUTSIDE RECORDS SUMMARY | 2021-06-12 13:06 | CCD | Continuity of Care Document ---
Author Author Carmen BOWEN MD Organization Unknown Address [address], [address] [place] [address] Phone [phone] Care Team Providers Care Stamp Maker Name Role Phone Silvana Montes Kadi Martini AUTM [phone] AUTM Unavailable Problems Active Problems Provider Date [...] lb BMI (Body Mass Index) 32.1 kg/m2 [place] Body Weight 115 lb Weight 83.462 kg BSA (Body Surface Area) 1.88 m2 04/11/2021 10:52am BP Systolic 102 mmHg BP Diastolic 70 mmHg Heart Rate 91 /min O2 % BldC Oximetry 98 % Height 63.5 inches 5'3.50" Weight 187.00 lb BMI (Body Mass Index) 32.6 kg/m2 [place] Body Weight 115 lb Weight 84.823 kg BSA (Body Surface Area) 1.89 m2 Results Description No Information Available Procedures Date Code Description Status 05/01/2021 48444 Office/Outpatient Established Mo d MDM 30-39 Min Completed 04/11/2021 77397 Office/Outpatient New Moderate M DM 45-59 Minutes Completed 04/11/2021 55141 Laryngoscopy Flexible Fiberoptic Diagnostic Completed Medical Devices Description No Information Available Encounters Type Date Location Provider Dx Diagnosis Office Visit 05/01/2021 11:00a [facility] Vasyl Ellis R49.8 Other voice and resonance disorders K21.9 Gastro-esophageal reflux dis ease without esophagitis E07.9 Disorder of thyroid, unspeci fied Office Visit 04/11/2021 10:45a [facility] Vasyl Ellis R49.8 Other voice [...] Appt Date Gonzalo Carmichael M.D. Reflux Sent [facility], Gastroenterology [address] [place] [phone] Gonzalo Bowen M.D. R.49.0 - Hoarseness of voice. Closed 04/11/[address] [place] [address] [address] [place] [id number] [phone]
--- OUTSIDE RECORDS SUMMARY | 2021-06-12 13:06 | CCD | Continuity of Care Document ---
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 Name Role Phone Silvana Montes Kadi Martini AUTM [phone] AUTM Unavailable Problems Active Problems Provider Date [...] lb BMI (Body Mass Index) 32.1 kg/m2 [place] Body Weight 115 lb Weight 83.462 kg BSA (Body Surface Area) 1.88 m2 04/11/2021 10:52am BP Systolic 102 mmHg BP Diastolic 70 mmHg Heart Rate 91 /min O2 % BldC Oximetry 98 % Height 63.5 inches 5'3.50" Weight 187.00 lb BMI (Body Mass Index) 32.6 kg/m2 [place] Body Weight 115 lb Weight 84.823 kg BSA (Body Surface Area) 1.89 m2 Results Description No Information Available Procedures Date Code Description Status 05/01/2021 16565 Office/Outpatient Established Mo d MDM 30-39 Min Completed 04/11/2021 29707 Office/Outpatient New Moderate M DM 45-59 Minutes Completed 04/11/2021 00564 Laryngoscopy Flexible Fiberoptic Diagnostic Completed Medical Devices Description No Information Available Encounters Type Date Location Provider Dx Diagnosis Office Visit 05/01/2021 11:00a [facility] Vasyl Ellis 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 Reflux Sent [facility], Gastroenterology [address] [place] [address] [phone] Gonzalo Bowen M.D. R.49.0 - Hoarseness of voice. Closed 04/11/[address] [place] [address] [address] [place] [phone]
--- OUTSIDE RECORDS SUMMARY | 2021-06-12 13:07 | CCD ---
Author Author [facility] Organization [facility] Address Unknown Phone Unavailable Support Name Relationship Address Phone JESSY BALTAZAR Next Of Kin Unknown [phone] Jatin Macario DDS Next Of Kin [address] [place] [address] FIRST STUDENT Next Of Kin [id number] [place] [address] [employer] Next Of Kin [id number] [place] [address] DISABLED Next Of Kin Unknown Unavailable ZARA VALENTINO Next Of Kin [address] [place] [address] [facility] Next Of Kin [address] [place] [address] [facility]* Next Of Kin [address] [place] [address] [employer] Next Of Kin [address] [place] [address] 1ST STUDENT Next Of Kin [address] [place] [address] KURT VALENTINO Next Of Kin [address] [place] [address] DELANEY GONZALES Next Of Kin [address] [place] [address] [employer] Next Of Kin [address] [place] [address] M [place] [address] UE Next Of Kin Unknown Unavailable LIRA BUS Next Of Kin [address] [place] [address] CHRISTIAN BALTAZAR Next Of Kin [address] [place] [address] CHRISTIAN ARIAS Next Of Kin [address] [facility] [place] [address] MILAD BURNS Next Of Kin Unknown CARMEN BERGMAN Next Of Kin [address] [facility] [address] [place] [address] CARL VALENTINO ECON [address] [place] [address] Christian Baltazar ECON [address] [place] [address] Unavailable Christian Arias ECON Unknown [phone] Care Team Providers Care [facility] Paraprofessional Name Role Phone Sara Stinson Unavailable Wilda KNAPPW DPM Unavailable Unavailable MAJAK, R KRYSTAL DPM Unavailable Unavailable MAJAK, R KRYSTAL DPM Unavailable Unavailable MAJAK, R KRYSTAL DPM Unavailable Unavailable MAJAK, R KRYSTAL DPM Unavailable Unavailable MAJAK, R KRYSTAL DPM Unavailable Unavailable MAJAK, R KRYSTAL DPM Unavailable Unavailable MAJAK, R KRYSTAL DPM Unavailable Unavailable MAJAK, R KRYSTAL DPM Unavailable Unavailable MAJAK, R KRYSTAL DPM Unavailable Unavailable MAJAK, R KRYSTAL DPM Unavailable Unavailable MAJAK, R KRYSTAL DPM Unavailable Unavailable MAJAK, R KRYSTAL DPM Unavailable Unavailable MAJAK, R KRYSTAL DPM Unavailable Unavailable MAJAK, R KRYSTAL DPM Unavailable Unavailable MAJAK, R KRYSTAL DPM Unavailable Unavailable MAJAK, R KRYSTAL DPM Unavailable Unavailable MAJAK, R KRYSTAL DPM Unavailable Unavailable MAJAK, R KRYSTAL DPM Unavailable Unavailable MAJAK, R KRYSTAL DPM Unavailable Unavailable MAJAK, R KRYSTAL DPM Unavailable Unavailable MAJAK, R KRYSTAL DPM Unavailable Unavailable MAJAK, R KRYSTAL DPM Unavailable Unavailable MAJAK, R KRYSTAL DPM Unavailable Unavailable MAJAK, R KRYSTAL DPM Unavailable Unavailable MAJAK, R KRYSTAL DPM Unavailable Unavailable MAJAK, R KRYSTAL DPM Unavailable Unavailable MAJAK, R KRYSTAL DPM Unavailable Unavailable MAJAK, R KRYSTAL DPM Unavailable Unavailable MAJAK, R KRYSTAL DPM Unavailable Unavailable MAJAK, R KRYSTAL DPM Unavailable Unavailable MAJAK, R KRYSTAL DPM Unavailable Unavailable Kadi Acosta MD Unavailable Unavailable Acosta, Kadi Denney MD Unavailable Unavailable Acosta, Kadi Denney MD Unavailable Unavailable Acosta, L Олег LITTLE Unavailable Unavailable Acosta, L Олег LITTLE Unavailable Unavailable Acosta, Kadi Denney MD Unavailable Unavailable Acosta, L Олег LITTLE Unavailable Unavailable Acosta, Kadi Denney MD Unavailable Unavailable Acosta, Kadi Denney MD Unavailable Unavailable Acosta, Kadi Denney MD Unavailable Unavailable Acosta, Kadi Denney MD Unavailable Unavailable Acosta, L Олег LITTLE Unavailable Unavailable Acosta, Kadi Denney MD Unavailable Unavailable Acosta, Kadi Denney MD Unavailable Unavailable Acosta, L Олег LITTLE Unavailable Unavailable Acosta, L Олег LITTLE Unavailable Unavailable Acosta, L Олег LITTLE Unavailable Unavailable Acosta, L Олег LITTLE Unavailable Unavailable Acosta, L Олег LITTLE Unavailable Unavailable Acosta, L Олег LITTLE Unavailable Unavailable Acosta, Kadi Denney MD Unavailable Unavailable Acosta, L Олег LITTLE Unavailable Unavailable Acosta, L Олег LITTLE Unavailable Unavailable Acosta, Kadi Denney MD Unavailable Unavailable Acosta, Kadi Denney MD Unavailable Unavailable Acosta, Kadi Denney MD Unavailable Unavailable Acosta, Kadi Denney MD Unavailable Unavailable Acosta, Kadi Denney MD Unavailable Unavailable Acosta, Kadi Denney MD Unavailable Unavailable Acosta, L Олег LITTLE Unavailable Unavailable Acosta, Kadi Denney MD Unavailable Unavailable Acosta, Kadi Denney MD Unavailable Unavailable Acosta, Kadi Denney MD Unavailable Unavailable Acosta, Kadi Denney MD Unavailable Unavailable Acosta, Kadi Denney MD Unavailable Unavailable Acosta, Kadi Denney MD Unavailable Unavailable Acosta, Kadi Denney MD Unavailable Unavailable Acosta, Kadi Denney MD Unavailable Unavailable Acosta, Kadi Denney MD Unavailable Unavailable Acosta, Kadi Denney MD Unavailable Unavailable Acosta, Kadi Denney MD Unavailable Unavailable Acosta, Kadi Denney MD Unavailable Unavailable Acosta, Kadi Denney MD Unavailable Unavailable Acosta, Kadi Denney MD Unavailable Unavailable Acosta, Kadi Denney MD Unavailable Unavailable Acosta, Kadi Denney MD Unavailable Unavailable Acosta, Kadi Denney MD Unavailable Unavailable Acosta, Kadi Denney MD Unavailable Unavailable Acosta, Kadi Denney MD Unavailable Unavailable Acosta, Kadi Denney MD Unavailable Unavailable Nazanin, D Ernie CEMENT PRODUCTION PLANT OPERATOR Unavailable Unavailable Nazanin, D Ernie CEMENT PRODUCTION PLANT OPERATOR Unavailable Unavailable Nazanin, D Ernie CEMENT PRODUCTION PLANT OPERATOR Unavailable Unavailable Nazanin, D Ernie CEMENT PRODUCTION PLANT OPERATOR Unavailable Unavailable Nazanin, D Ernie CEMENT PRODUCTION PLANT OPERATOR Unavailable Unavailable Nazanin, D Ernie CEMENT PRODUCTION PLANT OPERATOR Unavailable Unavailable Nazanin, D Ernie CEMENT PRODUCTION PLANT OPERATOR Unavailable Unavailable Nazanin, D Ernie CEMENT PRODUCTION PLANT OPERATOR Unavailable Unavailable Nazanin, D Ernie CEMENT PRODUCTION PLANT OPERATOR Unavailable Unavailable Nazanin, D Ernie CEMENT PRODUCTION PLANT OPERATOR Unavailable Unavailable Nazanin, D Ernie CEMENT PRODUCTION PLANT OPERATOR Unavailable Unavailable Nazanin, D Ernie CEMENT PRODUCTION PLANT OPERATOR Unavailable Unavailable Nazanin, D Ernie CEMENT PRODUCTION PLANT OPERATOR Unavailable Unavailable Nazanin, D Ernie CEMENT PRODUCTION PLANT OPERATOR Unavailable Unavailable Nazanin, D Ernie CEMENT PRODUCTION PLANT OPERATOR Unavailable Unavailable Nazanin, D Ernie CEMENT PRODUCTION PLANT OPERATOR Unavailable Unavailable Nazanin, D Ernie CEMENT PRODUCTION PLANT OPERATOR Unavailable Unavailable Nazanin, D Ernie CEMENT PRODUCTION PLANT OPERATOR Unavailable Unavailable Nazanin, D Ernie CEMENT PRODUCTION PLANT OPERATOR Unavailable Unavailable Nazanin, D Ernie CEMENT PRODUCTION PLANT OPERATOR Unavailable Unavailable Nazanin, D Ernie CEMENT PRODUCTION PLANT OPERATOR Unavailable Unavailable Nazanin, D Ernie CEMENT PRODUCTION PLANT OPERATOR Unavailable Unavailable Nazanin, D Ernie CEMENT PRODUCTION PLANT OPERATOR Unavailable Unavailable Nazanin, D Ernie CEMENT PRODUCTION PLANT OPERATOR Unavailable Unavailable Nazanin, D Ernie CEMENT PRODUCTION PLANT OPERATOR Unavailable Unavailable Nazanin, D Ernie CEMENT PRODUCTION PLANT OPERATOR Unavailable Unavailable Nazanin, D Ernie CEMENT PRODUCTION PLANT OPERATOR Unavailable Unavailable Nazanin, D Ernie CEMENT PRODUCTION PLANT OPERATOR Unavailable Unavailable Nazanin, D Ernie CEMENT PRODUCTION PLANT OPERATOR Unavailable Unavailable Nazanin, D Ernie CEMENT PRODUCTION PLANT OPERATOR Unavailable Unavailable Nazanin, D Ernie CEMENT PRODUCTION PLANT OPERATOR Unavailable Unavailable Nazanin, D Ernie CEMENT PRODUCTION PLANT OPERATOR Unavailable Unavailable Nazanin, D Ernie CEMENT PRODUCTION PLANT OPERATOR Unavailable Unavailable Nazanin, D Ernie CEMENT PRODUCTION PLANT OPERATOR Unavailable Unavailable Nazanin, D Ernie CEMENT PRODUCTION PLANT OPERATOR Unavailable Unavailable Nazanin, D Ernie CEMENT PRODUCTION PLANT OPERATOR Unavailable Unavailable Nazanin, D Ernie CEMENT PRODUCTION PLANT OPERATOR Unavailable Unavailable Nazanin, D Ernie CEMENT PRODUCTION PLANT OPERATOR Unavailable Unavailable Nazanin, D Ernie CEMENT PRODUCTION PLANT OPERATOR Unavailable Unavailable Nazanin, D Ernie CEMENT PRODUCTION PLANT OPERATOR Unavailable Unavailable Nazanin, D Ernie CEMENT PRODUCTION PLANT OPERATOR Unavailable Unavailable Nazanin, D Ernie CEMENT PRODUCTION PLANT OPERATOR Unavailable Unavailable Nazanin, D Ernie CEMENT PRODUCTION PLANT OPERATOR Unavailable Unavailable Nazanin, D Ernie CEMENT PRODUCTION PLANT OPERATOR Unavailable Unavailable Nazanin, D Ernie CEMENT PRODUCTION PLANT OPERATOR Unavailable Unavailable Nazanin, D Ernie CEMENT PRODUCTION PLANT OPERATOR Unavailable Unavailable Nazanin, D Ernie CEMENT PRODUCTION PLANT OPERATOR Unavailable Unavailable Nazanin, D Ernie CEMENT PRODUCTION PLANT OPERATOR Unavailable Unavailable Nazanin, D Ernie CEMENT PRODUCTION PLANT OPERATOR Unavailable Unavailable Nazanin, D Ernie CEMENT PRODUCTION PLANT OPERATOR Unavailable Unavailable Nazanin, D Ernie CEMENT PRODUCTION PLANT OPERATOR Unavailable Unavailable Nazanin, D Ernie CEMENT PRODUCTION PLANT OPERATOR Unavailable Unavailable Nazanin, D Ernie CEMENT PRODUCTION PLANT OPERATOR Unavailable Unavailable Nazanin, D Ernie CEMENT PRODUCTION PLANT OPERATOR Unavailable Unavailable Nazanin, D Ernie CEMENT PRODUCTION PLANT OPERATOR Unavailable Unavailable Nazanin, D Ernie CEMENT PRODUCTION PLANT OPERATOR Unavailable Unavailable Nazanin, D Ernie CEMENT PRODUCTION PLANT OPERATOR Unavailable Unavailable Nazanin, D Ernie CEMENT PRODUCTION PLANT OPERATOR Unavailable Unavailable Nazanin, D Ernie CEMENT PRODUCTION PLANT OPERATOR Unavailable Unavailable Nazanin, D Ernie CEMENT PRODUCTION PLANT OPERATOR Unavailable Unavailable Nazanin, D Ernie CEMENT PRODUCTION PLANT OPERATOR Unavailable Unavailable Nazanin, D Ernie CEMENT PRODUCTION PLANT OPERATOR Unavailable Unavailable Nazanin, D Ernie CEMENT PRODUCTION PLANT OPERATOR Unavailable Unavailable Nazanin, D Ernie CEMENT PRODUCTION PLANT OPERATOR Unavailable Unavailable Nazanin, D Ernie CEMENT PRODUCTION PLANT OPERATOR Unavailable Unavailable Nazanin, D Ernie CEMENT PRODUCTION PLANT OPERATOR Unavailable Unavailable Nazanin, D Ernie CEMENT PRODUCTION PLANT OPERATOR Unavailable Unavailable Nazanin, D Ernie CEMENT PRODUCTION PLANT OPERATOR Unavailable Unavailable Nazanin, D Ernie CEMENT PRODUCTION PLANT OPERATOR Unavailable Unavailable Nazanin, D Ernie CEMENT PRODUCTION PLANT OPERATOR Unavailable Unavailable Nazanin, D Ernie CEMENT PRODUCTION PLANT OPERATOR Unavailable Unavailable Nazanin, D Ernie CEMENT PRODUCTION PLANT OPERATOR Unavailable Unavailable Lacie Garcia Unavailable Servage, L Silvana CEMENT PRODUCTION PLANT OPERATOR Unavailable Unavailable Servage, L Silvana CEMENT PRODUCTION PLANT OPERATOR Unavailable Unavailable Servage, L Silvana CEMENT PRODUCTION PLANT OPERATOR Unavailable Unavailable Servage, L Silvana CEMENT PRODUCTION PLANT OPERATOR Unavailable Unavailable Servage, L Silvana CEMENT PRODUCTION PLANT OPERATOR Unavailable Unavailable Servage, L Silvana CEMENT PRODUCTION PLANT OPERATOR Unavailable Unavailable Servage, L Silvana CEMENT PRODUCTION PLANT OPERATOR Unavailable Unavailable Servage, L Silvana CEMENT PRODUCTION PLANT OPERATOR Unavailable Unavailable Servage, L Silvana CEMENT PRODUCTION PLANT OPERATOR Unavailable Unavailable Servage, L Silvana CEMENT PRODUCTION PLANT OPERATOR Unavailable Unavailable Servage, L Silvana CEMENT PRODUCTION PLANT OPERATOR Unavailable Unavailable Servage, L Silvana CEMENT PRODUCTION PLANT OPERATOR Unavailable Unavailable Servage, L Silvana CEMENT PRODUCTION PLANT OPERATOR Unavailable Unavailable Servage, L Silvana CEMENT PRODUCTION PLANT OPERATOR Unavailable Unavailable Servage, L Silvana CEMENT PRODUCTION PLANT OPERATOR Unavailable Unavailable Servage, L Silvana CEMENT PRODUCTION PLANT OPERATOR Unavailable Unavailable Servage, L Silvana CEMENT PRODUCTION PLANT OPERATOR Unavailable Unavailable Servage, L Silvana CEMENT PRODUCTION PLANT OPERATOR Unavailable Unavailable Servage, L Silvana CEMENT PRODUCTION PLANT OPERATOR Unavailable Unavailable Servage, L Silvana CEMENT PRODUCTION PLANT OPERATOR Unavailable Unavailable Servage, L Silvana CEMENT PRODUCTION PLANT OPERATOR Unavailable Unavailable Servage, L Silvana CEMENT PRODUCTION PLANT OPERATOR Unavailable Unavailable Servage, L Silvana CEMENT PRODUCTION PLANT OPERATOR Unavailable Unavailable Servage, L Silvana CEMENT PRODUCTION PLANT OPERATOR Unavailable Unavailable Servage, L Silvana CEMENT PRODUCTION PLANT OPERATOR Unavailable Unavailable Servage, L Silvana CEMENT PRODUCTION PLANT OPERATOR Unavailable Unavailable Servage, L Silvana CEMENT PRODUCTION PLANT OPERATOR Unavailable Unavailable Servage, L Silvana CEMENT PRODUCTION PLANT OPERATOR Unavailable Unavailable Servage, L Silvana CEMENT PRODUCTION PLANT OPERATOR Unavailable Unavailable Servage, L Silvana CEMENT PRODUCTION PLANT OPERATOR Unavailable Unavailable Servage, L Silvana CEMENT PRODUCTION PLANT OPERATOR Unavailable Unavailable Servage, L Silvana CEMENT PRODUCTION PLANT OPERATOR Unavailable Unavailable Servage, L Silvana CEMENT PRODUCTION PLANT OPERATOR Unavailable Unavailable Servage, L Silvana CEMENT PRODUCTION PLANT OPERATOR Unavailable Unavailable Servage, L Silvana CEMENT PRODUCTION PLANT OPERATOR Unavailable Unavailable Servage, L Silvana CEMENT PRODUCTION PLANT OPERATOR Unavailable Unavailable Servage, L Silvana CEMENT PRODUCTION PLANT OPERATOR Unavailable Unavailable Servage, L Silvana CEMENT PRODUCTION PLANT OPERATOR Unavailable Unavailable Servage, L Silvana CEMENT PRODUCTION PLANT OPERATOR Unavailable Unavailable Servage, L Silvana CEMENT PRODUCTION PLANT OPERATOR Unavailable Unavailable Servage, L Silvana CEMENT PRODUCTION PLANT OPERATOR Unavailable Unavailable Servage, L Silvana CEMENT PRODUCTION PLANT OPERATOR Unavailable Unavailable Servage, L Silvana CEMENT PRODUCTION PLANT OPERATOR Unavailable Unavailable Servage, L Silvana CEMENT PRODUCTION PLANT OPERATOR Unavailable Unavailable Servage, L Silvana CEMENT PRODUCTION PLANT OPERATOR Unavailable Unavailable Servage, L Silvana CEMENT PRODUCTION PLANT OPERATOR Unavailable Unavailable Servage, L Silvana CEMENT PRODUCTION PLANT OPERATOR Unavailable Unavailable Servage, L Silvana CEMENT PRODUCTION PLANT OPERATOR Unavailable Unavailable Servage, L Silvana CEMENT PRODUCTION PLANT OPERATOR Unavailable Unavailable Servage, L Silvana CEMENT PRODUCTION PLANT OPERATOR Unavailable Unavailable Servage, L Silvana CEMENT PRODUCTION PLANT OPERATOR Unavailable Unavailable Servage, L Silvana CEMENT PRODUCTION PLANT OPERATOR Unavailable Unavailable Servage, L Silvana CEMENT PRODUCTION PLANT OPERATOR Unavailable Unavailable Servage, L Silvana CEMENT PRODUCTION PLANT OPERATOR Unavailable Unavailable Servage, L Silvana CEMENT PRODUCTION PLANT OPERATOR Unavailable Unavailable Servage, L Silvana CEMENT PRODUCTION PLANT OPERATOR Unavailable Unavailable Servage, L Silvana CEMENT PRODUCTION PLANT OPERATOR Unavailable Unavailable Servage, L Silvana CEMENT PRODUCTION PLANT OPERATOR Unavailable Unavailable Servage, L Silvana CEMENT PRODUCTION PLANT OPERATOR Unavailable Unavailable Servage, L Silvana CEMENT PRODUCTION PLANT OPERATOR Unavailable Unavailable Servage, L Silvana CEMENT PRODUCTION PLANT OPERATOR Unavailable Unavailable Servage, L Silvana CEMENT PRODUCTION PLANT OPERATOR Unavailable Unavailable Servage, L Silvana CEMENT PRODUCTION PLANT OPERATOR Unavailable Unavailable Servage, L Silvana CEMENT PRODUCTION PLANT OPERATOR Unavailable Unavailable Servage, L Silvana CEMENT PRODUCTION PLANT OPERATOR Unavailable Unavailable Linn Shrestha MD Unavailable Unavailable Linn Shrestha MD Unavailable Unavailable Linn Shrestha MD Unavailable Unavailable Linn Shrestha MD Unavailable Unavailable Linn Shrestha MD Unavailable Unavailable Linn Shrestha MD Unavailable Unavailable Linn Shrestha MD Unavailable Unavailable Linn Shrestha MD Unavailable Unavailable Linn Shrestha MD Unavailable Unavailable Linn Shrestha MD Unavailable Unavailable Linn Shrestha MD Unavailable Unavailable KRYSTAL ANAYA MD Unavailable Unavailable KRYSTAL ANAYA MD Unavailable Unavailable KRYSTAL ANAYA MD Unavailable Unavailable KRYSTAL ANAYA MD Unavailable Unavailable KRYSTAL ANAYA MD Unavailable Unavailable KRYSTAL ANAYA MD Unavailable Unavailable KRYSTAL ANAYA MD Unavailable Unavailable KRYSTAL ANAYA MD Unavailable Unavailable KRYSTAL ANAYA MD Unavailable Unavailable KRYSTAL ANAYA MD Unavailable Unavailable KRYSTAL ANAYA MD Unavailable Unavailable KRYSTAL ANAYA MD Unavailable Unavailable KRYSTAL ANAYA MD Unavailable Unavailable KRYSTAL NAAYA MD Unavailable Unavailable KRYSTAL ANAYA MD Unavailable Unavailable KRYSTAL ANAYA MD Unavailable Unavailable KRYSTAL ANAYA MD Unavailable Unavailable KRYSTAL ANAYA MD Unavailable Unavailable KRYSTAL ANAYA MD Unavailable Unavailable KRYSTAL ANAYA MD Unavailable Unavailable KRYSTAL ANAYA MD Unavailable Unavailable KRYSTAL ANAYA MD Unavailable Unavailable KRYSTAL ANAYA MD Unavailable Unavailable KRYSTAL ANAYA MD Unavailable Unavailable KRYSTAL ANAYA MD Unavailable Unavailable KRYSTAL ANAYA MD Unavailable Unavailable KRYSTAL ANAYA MD Unavailable Unavailable KRYSTAL ANAYA MD Unavailable Unavailable KRYSTAL ANAYA MD Unavailable Unavailable KRYSTAL ANAYA MD Unavailable Unavailable KRYSTAL ANAYA MD Unavailable Unavailable KRYSTAL ANAYA MD Unavailable Unavailable KRYSTAL ANAYA MD Unavailable Unavailable Tina Larry Unavailable Tina Larry Unavailable Tina Larry Unavailable PARNES, Z REYMUNDO MD Unavailable Unavailable PARNES, Z REYMUNDO MD Unavailable Unavailable PARNES, Z REYMUNDO MD Unavailable Unavailable PARNES, Z REYMUNDO MD Unavailable Unavailable PARNES, Z REYMUNDO MD Unavailable Unavailable PARNES, Z REYMUNDO MD Unavailable Unavailable PARNES, Z REYMUNDO MD Unavailable Unavailable PARNES, Z REYMUNDO MD Unavailable Unavailable PARNES, Z REYMUNDO MD Unavailable Unavailable PARNES, Z REYMUNDO MD Unavailable Unavailable PARNES, Z REYMUNDO MD Unavailable Unavailable PARNES, Z REYMUNDO MD Unavailable Unavailable PARNES, Z REYMUNDO MD Unavailable Unavailable PARNES, Z REYMUNDO MD Unavailable Unavailable PARNES, Z REYMUNDO MD Unavailable Unavailable PARNES, Z REYMUNDO MD Unavailable Unavailable PARNES, Z REYMUNDO MD Unavailable Unavailable PARNES, Z REYMUNDO MD Unavailable Unavailable PARNES, Z REYMUNDO MD Unavailable Unavailable PARNES, Z REYMUNDO MD Unavailable Unavailable PARNES, Z REYMUNDO MD Unavailable Unavailable PARNES, Z REYMUNDO MD Unavailable Unavailable PARNES, Z REYMUNDO MD Unavailable Unavailable PARNES, Z REYMUNDO MD Unavailable Unavailable PARNES, Z REYMUNDO MD Unavailable Unavailable PARNES, Z REYMUNDO MD Unavailable Unavailable PARNES, Z REYMUNDO MD Unavailable Unavailable PARNES, Z REYMUNDO MD Unavailable Unavailable PARNES, Z REYMUNDO MD Unavailable Unavailable PARNES, Z REYMUNDO MD Unavailable Unavailable PARNES, Z REYMUNDO MD Unavailable Unavailable PARNES, Z REYMUNDO MD Unavailable Unavailable PARNES, Z REYMUNDO MD Unavailable Unavailable PARNES, Z REYMUNDO MD Unavailable Unavailable PARNES, Z REYMUNDO MD Unavailable Unavailable PARNES, Z REYMUNDO MD Unavailable Unavailable PARNES, Z REYMUNDO MD Unavailable Unavailable PARNES, Z REYMUNDO MD Unavailable Unavailable PARNES, Z REYMUNDO MD Unavailable Unavailable PARNES, Z REYMUNDO MD Unavailable Unavailable PARNES, Z REYMUNDO MD Unavailable Unavailable PARNES, Z REYMUNDO MD Unavailable Unavailable Jose Bowen PH.D., M.D. Unavailable Unavailable Jose Bowen PH.D., M.D. Unavailable Unavailable Jose Bowen PH.D., M.D. Unavailable Unavailable Jose Bowen PH.D., M.D. Unavailable Unavailable Jose Bowen PH.D., M.D. Unavailable Unavailable Jose Bowen PH.D., M.D. Unavailable Unavailable Andrés, C Gonzalo PH.D., M.D. Unavailable Unavailable Andrés, C Gonzalo PH.D., M.D. Unavailable Unavailable Andrés, C Gonzalo PH.D., M.D. Unavailable Unavailable Andrés, C Gonzalo PH.D., M.D. Unavailable Unavailable Andrés, C Gonzalo PH.D., M.D. Unavailable Unavailable Andrés, C Gonzalo PH.D., M.D. Unavailable Unavailable Andrés, C Gonzalo PH.D., M.D. Unavailable Unavailable Andrés, C Gonzalo PH.D., M.D. Unavailable Unavailable Andrés, C Gonzalo PH.D., M.D. Unavailable Unavailable Andrés, C Gonzalo PH.D., M.D. Unavailable Unavailable Andrés, C Gonzalo PH.D., M.D. Unavailable Unavailable Andrés, C Gonzalo PH.D., M.D. Unavailable Unavailable Andrés, C Gonzalo PH.D., M.D. Unavailable Unavailable Andrés, C Gonzalo PH.D., M.D. Unavailable Unavailable Andrés, C Gonzalo PH.D., M.D. Unavailable Unavailable Andrés, C Gonzalo PH.D., M.D. Unavailable Unavailable Andrés, C Gonzalo PH.D., M.D. Unavailable Unavailable Andrés, C Gonzalo PH.D., M.D. Unavailable Unavailable Andrés, C Gonzalo PH.D., M.D. Unavailable Unavailable Andrés, C Gonzalo PH.D., M.D. Unavailable Unavailable Andrés, C Gonzalo PH.D., M.D. Unavailable Unavailable Andrés, C Gonzalo PH.D., M.D. Unavailable Unavailable Andrés, C Gonzalo PH.D., M.D. Unavailable Unavailable Andrés, C Gonzalo PH.D., M.D. Unavailable Unavailable Andrés, C Gonzalo PH.D., M.D. Unavailable Unavailable Andrés, C Gonzalo PH.D., M.D. Unavailable Unavailable Andrés, C Gonzalo PH.D., M.D. Unavailable Unavailable Andrés, C Gonzalo PH.D., M.D. Unavailable Unavailable Andrés, C Gonzalo PH.D., M.D. Unavailable Unavailable Andrés, C Gonzalo PH.D., M.D. Unavailable Unavailable Andrés, C Gonzalo PH.D., M.D. Unavailable Unavailable Andrés, C Gonzalo PH.D., M.D. Unavailable Unavailable Andrés, C Gonzalo PH.D., M.D. Unavailable Unavailable Andrés, C Gonzalo PH.D., M.D. Unavailable Unavailable Andrés, C Gonzalo PH.D., M.D. Unavailable Unavailable Andrés, C Gonzalo PH.D., M.D. Unavailable Unavailable Andrés, C Gonzalo PH.D., M.D. Unavailable Unavailable Andrés, C Gonzalo PH.D., M.D. Unavailable Unavailable Andrés, C Gonzalo PH.D., M.D. Unavailable Unavailable Andrés, C Gonzalo PH.D., M.D. Unavailable Unavailable Andrés, C Gonzalo PH.D., M.D. Unavailable Unavailable Andrés, C Gonzalo PH.D., M.D. Unavailable Unavailable Andrés, C Gonzalo PH.D., M.D. Unavailable Unavailable Andrés, C Gonzalo PH.D., M.D. Unavailable Unavailable Andrés, C Gonzalo PH.D., M.D. Unavailable Unavailable Andrés, C Gonzalo PH.D., M.D. Unavailable Unavailable Andrés, C Gonzalo PH.D., M.D. Unavailable Unavailable Andrés, C Gonzalo PH.D., M.D. Unavailable Unavailable Andrés, C Gonzalo PH.D., M.D. Unavailable Unavailable Andrés, C Gonzalo PH.D., M.D. Unavailable Unavailable Andrés, C Gonzalo PH.D., M.D. Unavailable Unavailable Andrés, C Gonzalo PH.D., M.D. Unavailable Unavailable Andrés, C Gonzalo PH.D., M.D. Unavailable Unavailable Andrés, C Gonzalo PH.D., M.D. Unavailable Unavailable Andrés, C Gonzalo PH.D., M.D. Unavailable Unavailable Andrés, C Gonzalo PH.D., M.D. Unavailable Unavailable Andrés, C Gonzalo PH.D., M.D. Unavailable Unavailable Andrés, C Gonzalo PH.D., M.D. Unavailable Unavailable Andrés, C Gonzalo PH.D., M.D. Unavailable Unavailable Andrés, C Gonzalo PH.D., M.D. Unavailable Unavailable Andrés, C Gonzalo PH.D., M.D. Unavailable Unavailable Andrés, C Gonzalo PH.D., M.D. Unavailable Unavailable Andrés, C Gonzalo PH.D., M.D. Unavailable Unavailable Andrés, C Gonzalo PH.D., M.D. Unavailable Unavailable Andrés, C Gonzalo PH.D., M.D. Unavailable Unavailable Andrés, C Gonzalo PH.D., M.D. Unavailable Unavailable Andrés, C Gonzalo PH.D., M.D. Unavailable Unavailable Jose Bowen PH.D., M.D. Unavailable Unavailable AndrésJose PH.D., M.D. Unavailable Unavailable Andrés, Jose Sánchez PH.D., M.D. Unavailable Unavailable Andrés, Jose Sánchez PH.D., M.D. Unavailable Unavailable Andrés, Jose Sánchez PH.D., M.D. Unavailable Unavailable Andrés, Jose Sánchez PH.D., M.D. Unavailable Unavailable AndrésJose PH.D., M.D. Unavailable Unavailable AndrésJose PH.D., M.D. Unavailable Unavailable Andrés, Jose Sánchez PH.D., M.D. Unavailable Unavailable NON, PHYSICIAN STAFF Unavailable Unavailable Re-disclosure Warning The records that you are about to access may contain information from federally-assisted alcohol or drug abuse programs. If such information is present, then the following federally mandated warning applies: This information has been disclosed to you from records protected by federal confidentiality rules (42 CFR part 2). The federal rules prohibit you from making any further disclosure of this information unless further disclosure is expressly permitted by the written consent of the person to whom it pertains or as otherwise permitted by 42 CFR part 2. A general authorization for the release of medical or other information is NOT sufficient for this purpose. The Federal rules restrict any use of the information to criminally investigate or prosecute any alcohol or drug abuse patient.The records that you are about to access may contain highly sensitive health information, the redisclosure of which is protected by Article 27-F of the [facility] Public Health law. If you continue you may have access to information: Regarding HIV / AIDS; Provided by facilities licensed or operated by the [facility] Office of Mental Health; or Provided by the [facility] Office for People With Developmental Disabilities. If such information is present, then the following [facility] mandated warning applies: This information has been disclosed to you from confidential records which are protected by state law. State law prohibits you from making any further disclosure of this information without the specific written consent of the person to whom it pertains, or as otherwise permitted by law. Any unauthorized further disclosure in violation of state law may result in a fine or longterm sentence or both. A general authorization for the release of medical or other information is NOT sufficient authorization for further disc losure. Family History Family Member Name Family Member Gender Family Member Status Date o f Status Description Data Source(s) Unknown Male Problem [facility] ([facility]) Encounters Encounter Providers Location Date Indications Data Source(s ) Extended Individual Psychotherapy - 45 min Attender: Ruben j luis Garcia [facility] 06/11/2021 10:00:00 AM EST - 06/11/2021 10:00:00 AM EST [facility] ([facility]) Attender: Lacie Garcia 06/11/2021 12:00:00 AM EST [facility] ([facility]) [place] [address] [facility] [address] 06/07/2021 12:00:00 AM EST eCW1 ([facility]) Extended Individual Psychotherapy - 45 min Attender: Ruben j luis [facility] 05/28/2021 10:00:00 AM EDT - 05/28/2021 10:00:00 AM EDT [facility] ([facility]) Attender: Lacie Garcia 05/28/2021 12:00:00 AM EDT [facility] ([facility]) Office Visit Attender: KRYSTAL KNAPP [facility] 04/28 09:00:00 AM EDT [facility] ([facility] Extended Individual Psychotherapy - 45 min Attender: [facility] 05/15/2021 09:00:00 AM EDT - 05/15/2021 09:00:00 AM EDT [facility] ([facility]) Attender: Lacie Jose 05/15/2021 12:00:00 AM EDT [facility] ([facility]) Outpatient Attender: Gonzalo Bowen PH.D., M.D. Dorie/Cynthia/Paola chacon/Jany 05/01/2021 11:00:00 AM EDT MED[facility] ([facility]) Outpatient Attender: REYMUNDO ALMEIDA MDConsultant: Silvana pham NP 04/30/2021 09:41:00 AM EDT - 04/30/2021 09:41:00 AM EDT [facility] Outpatient Attender: REYMUNDO ALMEIDA MD Family Practice 04/30/2021 09 :40:00 AM EDT MED[facility] ([facility]) Brief Individual Psychotherapy - 30 min Attender: Lacie rollins [facility] 04/24/2021 09:00:00 AM EDT - 04/24/2021 09:00:00 AM EDT [facility] ([facility]) Attender: Lacie Garcia 04/24/2021 12:00:00 AM EDT [facility] ([facility]) Outpatient Attender: REYMUNDO ALMEIDA MD Family Practice 04/23/2021 10 :20:00 AM EDT MED[facility] ([facility]) Outpatient Attender: REYMUNDO ALMEIDA MDConsultant: Silvana pham NP 04/23/2021 10:07:00 AM EDT - 04/23/2021 10:07:00 AM EDT [facility] Outpatient Attender: Gonzalo Bowen PH.D., M.D. Dorie/Cynthia/Paola chacon/Jany 04/11/2021 10:45:00 AM EDT MED[facility] ([facility] [place]) Extended Individual Psychotherapy - 45 min Attender: Ruben Garcia [facility] 04/10/2021 09:00:00 AM EDT - 04/10/2021 09:00:00 AM EDT [facility] ([facility]) Attender: Lacie Garcia 04/10/2021 12:00:00 AM EDT [facility] ([facility]) Outpatient Attender: REYMUNDO ALMEIDA MDConsultant: Silvana pham NP 04/06/2021 09:24:00 AM EDT - 04/06/2021 09:24:00 AM EDT [facility] Outpatient Attender: Ernie Delgado NP Family Practice 04/06/2021 0 9:00:00 AM EDT [facility] ([facility]) Outpatient [facility] [facility] [place] [address] 04/03/2021 12:00:00 AM EDT eCW1 ([facility]) [place] [address] [facility] [address] 03/09/2021 12:00:00 AM EDT eCW1 ([facility]) Brief Individual Psychotherapy - 30 min Attender: Lacie Channing guevaranahed [facility] 02/19/2021 10:00:00 AM EDT - 02/19/2021 10:00:00 AM EDT [facility] ([facility]) Attender: Lacie Saabce 02/19/2021 12:00:00 AM EDT [facility] ([facility]) Outpatient Attender: KRYSTAL KNAPP [facility] 08/2020 09:15:00 AM EDT [facility] ([facility] Extended Individual Psychotherapy - 45 min Attender: Ruben Garcia [facility] 01/24/2021 12:00:00 PM EDT - 01/24/2021 12:00:00 PM EDT [facility] ([facility]) [place] [address] [facility] [address] 01/24/2021 12:00:00 AM EDT eCW1 ([facility]) Attender: Lacie Saabce 01/24/2021 12:00:00 AM EDT [facility] ([facility]) Outpatient Attender: Олег Acosta MD Physical Therapy 01/19/2021 0 8:15:00 AM EDT [facility] ([facility]) [place] [address] [facility] [place] [address] 01/18/2021 12:00:00 AM EDT eCW1 ([facility]) Outpatient Attender: Alvino Shrestha MD Physical Therapy 08:45:00 AM EDT [facility] ([facility]) Extended Individual Psychotherapy - 45 min Attender: Ruben Garcia [facility] 01/08/2021 11:00:00 AM EDT - 01/08/2021 11:00:00 AM EDT [facility] ([facility]) Attender: Lacie Garcia 01/08/2021 12:00:00 AM EDT [facility] ([facility]) Outpatient Attender: Ernie Delgado NP Family Practice 12/29/2020 0 9:40:00 AM EDT MED[facility] ([facility]) Outpatient Attender: REYMUNDO ALMEIDA MDConsultant: Silvana pham NP 12/29/2020 09:34:00 AM EDT - 12/29/2020 09:34:00 AM EDT [facility] Outpatient [address] [facility] [address] 12/21/2020 12:00:00 AM EDT eCW1 ([facility]) [place] [address] [facility] [place] [address] 12/19/2020 12:00:00 AM EDT eCW1 ([facility]) Extended Individual Psychotherapy - 45 min Attender: Ruben Garcia [facility] 12/06/2020 12:00:00 PM EDT - 12/06/2020 12:00:00 PM EDT [facility] ([facility]) Attender: Lacie Garcia 12/06/2020 12:00:00 AM EDT [facility] ([facility]) Outpatient Attender: Олег Acosta MD Physical Therapy 11/22/2020 0 9:00:00 AM EDT [facility] ([facility] ) Extended Individual Psychotherapy - 45 min Attender: Ruben Garcia [facility] 11/14/2020 10:00:00 AM EDT - 11/14/2020 10:00:00 AM EDT [facility] ([facility]) [place] [address] [facility] [place] [address] 11/14/2020 12:00:00 AM EDT eCW1 ([facility]) Attender: Lacie Garcia 11/14/2020 12:00:00 AM EDT [facility] ([facility]) Office Visit Attender: Олег Acosta MD Physical Therapy 2020 08:45:00 AM EDT [facility] ([facility]) Extended Individual Psychotherapy - 45 min Attender: Cadenalex Larry [facility] 11/02/2020 09:00:00 AM EDT - 11/02/2020 09:00:00 AM EDT [facility] ([facility]) Attender: Tina Larry 11/02/2020 12:00:00 AM EDT [facility] ([facility]) Extended Individual Psychotherapy - 45 min Attender: Kirk wallace Laron [facility] 10/19/2020 09:00:00 AM EDT - 10/19/2020 09:00:00 AM EDT [facility] ([facility]) Attender: Tina Larry 10/19/2020 12:00:00 AM EDT [facility] ([facility]) Outpatient Attender: REYMUNDO ALMEIDA MDConsultant: Silvana pham NP 10/18/2020 11:05:00 AM EDT - 10/18/2020 11:05:00 AM EDT [facility] Outpatient Attender: Олег Acosta MD Physical Therapy 10/16/2020 0 2:15:00 PM EDT [facility] ([facility]) [place] [address] [facility] [place] [address] 10/05/2020 12:00:00 AM EST eCW1 ([facility]) Extended Individual Psychotherapy - 45 min Attender: Kirk Larry [facility] 10/03/2020 09:00:00 AM EST - 10/03/2020 09:00:00 AM EST [facility] ([facility]) Attender: Tina Larry 10/03/2020 12:00:00 AM EST [facility] ([facility]) Outpatient Attender: REYMUNDO ALMEIDA MDConsultant: Silvana pham [employer] 10/02/2020 09:09:00 AM EST - 10/02/2020 09:09:00 AM EST [facility] Unknown [address] [facility] [place] [address] 09/28/2020 12:00:00 AM EST eCW1 ([facility]) Out[place] [address] [facility] [place] [address] 09/26/2020 12:00:00 AM EST eCW1 ([facility]) [id number]"Psychotherapy Attender: Tina Larry [facility] 09/19/2020 09:00:00 AM EST - 09/19/2020 09:00:00 AM EST [facility] ([facility]) Attender: Tina Larry 09/19/2020 12:00:00 AM EST [facility] ([facility]) Outpatient Attender: Ernie Delgado NPConsultant: STAFF NON 09/07/2020 09:06:00 AM EST - 09/07/2020 10:06:00 AM EST [facility] ital Patient discharged. [place] [address] [facility] [place] [address] 09/07/2020 12:00:00 AM EST eCW1 ([facility]) Outpatient Attender: Ernie Delgado NPRef errer: Ernie Delgado NPConsultant: Silvana Montes NP 08/31/2020 12:10:00 PM EST - 08/31/2020 01:10:00 PM [facility] Unknown [address] [facility] [place] [address] 08/30/2020 12:00:00 AM EST eCW1 ([facility]) Extended Individual Psychotherapy - 45 min Attender: Kirk Larry [facility] 08/24/2020 10:00:00 AM EST - 08/24/2020 10:00:00 AM EST [facility] ([facility]) Attender: Tina Larry 08/24/2020 12:00:00 AM EST [facility] ([facility]) Outpatient Attender: REYMUNDO ALMEIDA MD 01:15:00 PM EST - 08/18/2020 01:15:00 PM [facility] Outpatient Attender: Ernie Delgado NP Family Practice 08/18/2020 1 2:20:00 PM EST [facility] ([facility]) Extended Individual Psychotherapy - 45 min Attender: Kirk Larry [facility] 08/10/2020 09:00:00 AM EST - 08/10/2020 09:00:00 AM EST [facility] ([facility]) Attender: Tina Larry 08/10/2020 12:00:00 AM EST [facility] ([facility]) OFFICE OUTPATIENT VISIT 15 MINUTES Attender: KRYSTAL ANAYA MD Physical Therapy 08/07/2020 08:45:00 AM EST [facility] ([facility]) Unknown [address] [facility] [place] [address] 08/04/2020 12:00:00 AM EST eCW1 ([facility]) OFFICE OUTPATIENT VISIT 15 MINUTES Attender: Олег Acosta MD Phys ical Therapy 07/31/2020 12:45:00 PM EST [facility] ([facility]) [place] [address] [facility] [place] [address] 07/24/2020 12:00:00 AM EST [facility] [place] [address] [facility] [place] [address] 07/17/2020 12:00:00 AM EST [facility]CW1 ([facility]) Unknown [address] [facility] [place] [address] 07/14/2020 12:00:00 AM EST eCW1 ([facility]) Outpatient [address] [facility] [place] [address] 07/11/2020 12:00:00 AM EST eCW1 ([facility]) Extended Individual Psychotherapy - 45 min Attender: Kirk Larry [facility] 07/04/2020 11:00:00 AM EST - 07/04/2020 11:00:00 AM EST [facility] ([facility]) Attender: Tina Larry 07/04/2020 12:00:00 AM EST [facility] ([facility]) Extended Individual Psychotherapy - 45 min Attender: Kirk Larry [facility] 06/27/2020 10:00:00 AM EST - 06/27/2020 10:00:00 AM EST [facility] ([facility]) Attender: Tina Larry 06/27/2020 12:00:00 AM EST [facility] ([facility]) [place] [address] [facility] [place] [address] 06/03/2020 12:00:00 AM EST eCW1 ([facility]) Extended Individual Psychotherapy - 45 min Attender: iKrk Larry [facility] 06/01/2020 11:00:00 AM EST - 06/01/2020 11:00:00 AM EST [facility] ([facility]) Attender: Tina Larry 06/01/2020 12:00:00 AM EST [facility] ([facility]) Outpatient [address] [facility] [place] [address] 05/30/2020 12:00:00 AM EST eCW1 ([facility]) Unknown [address] [facility] [place] [address] 05/30/2020 12:00:00 AM EST eCW1 ([facility]) Outpatient [facility] 05/25/2020 11:44:02 AM EDT [facility] Outpatient [facility] 05/25/2020 11:43:01 AM EDT [facility] Outpatient [facility] 05/25/2020 10:23:01 AM EDT [facility] Outpatient [facility] 05/25/2020 09:45:01 AM EDT [facility] Extended Individual Psychotherapy - 45 min Attender: Kirk Larry [facility] 05/23/2020 10:00:00 AM EDT - 05/23/2020 10:00:00 AM EDT [facility] ([facility]) Attender: Tina Larry 05/23/2020 12:00:00 AM EDT [facility] ([facility]) [place] [address] [facility] [place] [address] 05/18/2020 12:00:00 AM EDT eCW1 ([facility]) Psychiatric Diagnostic Evaluation (Non-Medical) Attender: Caden christianjean claude Laron [facility] Longterm 05/11/2020 09:00:00 AM EDT - 05/11/2020 09:00:00 AM EDT [facility] ([facility]) Attender: Tinajean claude Larry 05/11/2020 12:00:00 AM EDT [facility] ([facility]) Office Visit Attender: Олег Acosta MD Physical Therapy 2019 11:00:00 AM EDT [facility] ([facility]) Brief Individual Psychotherapy - 30 min Attender: Sara mays [facility] 04/14/2020 09:15:00 AM EDT - 04/14/2020 09:15:00 AM EDT [facility] ([facility]) Attender: Sara Stinson 04/14/2020 12:00:00 AM EDT [facility] ([facility]) Immunizations Vaccine Date Status Description Data Source(s) COVID-19 dose #2 given elsewhere Unspecified 09/27/2020 12:1 7:00 PM EST completed eCW1 ([facility]) COVID-19 dose #2 given elsewhere Unspecified 09/27/2020 12:1 7:00 PM EST completed eCW1 ([facility]) COVID-19 dose #2 given elsewhere Unspecified 09/27/2020 12:1 7:00 PM EST completed eCW1 ([facility]) COVID-19 dose #2 given elsewhere Unspecified 09/27/2020 12:1 7:00 PM EST completed eCW1 ([facility]) COVID-19 dose #2 given elsewhere Unspecified 09/27/2020 12:1 7:00 PM EST completed eCW1 ([facility]) COVID-19 dose #2 given elsewhere Unspecified 09/27/2020 12:1 7:00 PM EST completed eCW1 ([facility]) COVID-19 VACCINE Pfizer 09/27/2020 12:00:00 AM EST completed NYSIIS Vaccine Series Complete: YESThis Data wa s Submitted to [facility] Via [employer]. COVID-19 dose #1 given elsewhere Unspecified 08/22/2020 12:5 1:00 PM EST completed eCW1 ([facility]) COVID-19 dose #1 given elsewhere Unspecified 08/22/2020 12:5 1:00 PM EST completed eCW1 ([facility]) COVID-19 dose #1 given elsewhere Unspecified 08/22/2020 12:5 1:00 PM EST completed eCW1 ([facility]) COVID-19 dose #1 given elsewhere Unspecified 08/22/2020 12:5 1:00 PM EST completed eCW1 ([facility]) COVID-19 dose #1 given elsewhere Unspecified 08/22/2020 12:5 1:00 PM EST completed eCW1 ([facility]) COVID-19 dose #1 given elsewhere Unspecified 08/22/2020 12:5 1:00 PM EST completed eCW1 ([facility]) COVID-19 dose #1 given elsewhere Unspecified 08/22/2020 12:5 1:00 PM EST completed eCW1 ([facility]) COVID-19 dose #1 given elsewhere Unspecified 08/22/2020 12:5 1:00 PM EST completed eCW1 ([facility]) COVID-19 dose #1 given elsewhere Unspecified 08/22/2020 12:5 1:00 PM EST completed eCW1 ([facility]) COVID-19 dose #1 given elsewhere Unspecified 08/22/2020 12:5 1:00 PM EST completed eCW1 ([facility]) COVID-19 dose #1 given elsewhere Unspecified 08/22/2020 12:5 1:00 PM EST completed eCW1 ([facility]) COVID-19 VACCINE Pfizer 08/22/2020 12:00:00 AM EST completed NYSIIS Vaccine Series Complete: NOThis Data was Submitted to [facility] [employer]. influenza, recombinant, quadrIvalent,injectable, prese rvative free 05/18/2020 09:34:00 AM EDT completed eCW1 ([facility]) influenza, recombinant, quadrIvalent,injectable, prese rvative free 05/18/2020 09:34:00 AM EDT completed eCW1 ([facility]) influenza, recombinant, quadrIvalent,injectable, prese rvative free 05/18/2020 09:34:00 AM EDT completed eCW1 ([facility]) influenza, recombinant, quadrIvalent,injectable, prese rvative free 05/18/2020 09:34:00 AM EDT completed eCW1 ([facility]) influenza, recombinant, quadrIvalent,injectable, prese rvative free 05/18/2020 09:34:00 AM EDT completed eCW1 ([facility]) influenza, recombinant, quadrIvalent,injectable, prese rvative free 05/18/2020 09:34:00 AM EDT completed eCW1 ([facility]) influenza, recombinant, quadrIvalent,injectable, prese rvative free 05/18/2020 09:34:00 AM EDT completed eCW1 ([facility]) influenza, recombinant, quadrIvalent,injectable, prese rvative free 05/18/2020 09:34:00 AM EDT completed eCW1 ([facility]) influenza, recombinant, quadrIvalent,injectable, prese rvative free 05/18/2020 09:34:00 AM EDT completed eCW1 ([facility]) influenza, recombinant, quadrIvalent,injectable, prese rvative free 05/18/2020 09:34:00 AM EDT completed eCW1 ([facility]) influenza, recombinant, quadrIvalent,injectable, prese rvative free 05/18/2020 09:34:00 AM EDT completed eCW1 ([facility]) influenza, recombinant, quadrIvalent,injectable, prese rvative free 05/18/2020 09:34:00 AM EDT completed eCW1 ([facility]) influenza, recombinant, quadrIvalent,injectable, prese rvative free 05/18/2020 09:34:00 AM EDT completed eCW1 ([facility]) influenza, recombinant, quadrIvalent,injectable, prese rvative free 05/18/2020 09:34:00 AM EDT completed eCW1 ([facility]) influenza, recombinant, quadrIvalent,injectable, prese rvative free 05/18/2020 09:34:00 AM EDT completed eCW1 ([facility]) influenza, recombinant, quadrIvalent,injectable, prese rvative free 05/18/2020 09:34:00 AM EDT completed eCW1 ([facility]) influenza, recombinant, quadrIvalent,injectable, prese rvative free 05/18/2020 09:34:00 AM EDT completed eCW1 ([facility]) influenza, recombinant, quadrIvalent,injectable, prese rvative free 05/18/2020 09:34:00 AM EDT completed eCW1 ([facility]) influenza, recombinant, quadrIvalent,injectable, prese rvative free 05/18/2020 09:34:00 AM EDT completed eCW1 ([facility]) influenza, recombinant, quadrIvalent,injectable, prese rvative free 05/18/2020 09:34:00 AM EDT completed eCW1 ([facility]) influenza, recombinant, quadrIvalent,injectable, prese rvative free 05/18/2020 09:34:00 AM EDT completed eCW1 ([facility]) influenza, recombinant, quadrIvalent,injectable, prese rvative free 05/18/2020 09:34:00 AM EDT completed eCW1 ([facility]) Medications Medication Brand Name Start Date Product Form Dose Route Admi nistrative Instructions Pharmacy Instructions Status Indications Reaction Description Data Source(s) POLYETHYLENE GLYCOL 3350 142 MG/ML Oral Solution [Miralax] M iralax 06/01/2021 12:00:00 AM [facility] POLYETHYLENE GLYCOL 3350 142 MG/ML Oral Solution [Miralax] M iralax 06/01/2021 12:00:00 AM EDT [facility] Bisacodyl 5 MG Delayed Release Oral Tablet [Dulcolax] Dulcol ax 06/01/2021 12:00:00 AM EDT ORAL active M EDENT ([facility], ) Acetaminophen 325 MG / Hydrocodone Bitartrate 5 MG Ora l Tablet Hydrocodone Bitartrate/Acetaminophen 05/15/2021 12:00:00 AM EDT ORAL active [facility] ([facility] Acetaminophen 325 MG / Hydrocodone Bitartrate 5 MG Ora l Tablet Hydrocodone-Acetaminophen 10/04/2020 12:00:00 AM EST ORAL completed MEDENT ([facility] ferrous gluconate 324 MG Oral Tablet Ferrous Gluconate 324 (38 Fe) MG Ferrous Gluconate 324 (38 Fe) MG 09/28/2020 12:00:00 AM EST active Ferrous Gluconate 324 (38 Fe) MG eCW1 ([facility]) ferrous gluconate 324 MG Oral Tablet Ferrous Gluconate 324 (38 Fe) MG Ferrous Gluconate 324 (38 Fe) MG 09/28/2020 12:00:00 AM EST active Ferrous Gluconate 324 (38 Fe) MG eCW1 ([facility]) ferrous gluconate 324 MG Oral Tablet Ferrous Gluconate 324 (38 Fe) MG Ferrous Gluconate 324 (38 Fe) MG 09/28/2020 12:00:00 AM EST active Ferrous Gluconate 324 (38 Fe) MG eCW1 ([facility]) ferrous gluconate 324 MG Oral Tablet Ferrous Gluconate 324 (38 Fe) MG Ferrous Gluconate 324 (38 Fe) MG 09/28/2020 12:00:00 AM EST active Ferrous Gluconate 324 (38 Fe) MG eCW1 ([facility]) ferrous gluconate 324 MG Oral Tablet Ferrous Gluconate 324 (38 Fe) MG Ferrous Gluconate 324 (38 Fe) MG 09/28/2020 12:00:00 AM EST active Ferrous Gluconate 324 (38 Fe) MG eCW1 ([facility]) ferrous gluconate 324 MG Oral Tablet Ferrous Gluconate 324 (38 Fe) MG Ferrous Gluconate 324 (38 Fe) MG 09/28/2020 12:00:00 AM EST active Ferrous Gluconate 324 (38 Fe) MG eCW1 ([facility]) Cefuroxime 250 MG Oral Tablet Cefuroxime Axetil 250 MG Cefur oxime Axetil 250 MG 07/17/2020 12:00:00 AM EST 1.0 {tablet} active Cefuroxime Axetil 250 MG eCW1 ([facility]) Cefuroxime 250 MG Oral Tablet Cefuroxime Axetil 250 MG Cefur oxime Axetil 250 MG 07/17/2020 12:00:00 AM EST 1.0 {tablet} active Cefuroxime Axetil 250 MG eCW1 ([facility]) Fluconazole 150 MG Oral Tablet [Diflucan] Diflucan 150 MG Di flucan 150 MG 05/30/2020 12:00:00 AM EST 1.0 {tablet} active Diflucan 150 MG eCW1 ([facility]) Fluconazole 150 MG Oral Tablet [Diflucan] Diflucan 150 MG Di flucan 150 MG 05/30/2020 12:00:00 AM EST 1.0 {tablet} active Diflucan 150 MG eCW1 ([facility]) Doxycycline Monohydrate 100 MG Oral Tablet Doxycycline Monoh ydrate 100 MG 05/30/2020 12:00:00 AM EST 1.0 {tablet} active Doxycycline Monohydrate 100 MG eCW1 ([facility]) Doxycycline Monohydrate 100 MG Oral Tablet Doxycycline Monoh ydrate 100 MG 05/30/2020 12:00:00 AM EST 1.0 {tablet} suspende d Doxycycline Monohydrate 100 MG eCW1 ([facility]) Doxycycline Monohydrate 100 MG Oral Tablet Doxycycline Monoh ydrate 100 MG 05/30/2020 12:00:00 AM EST 1.0 {tablet} active Doxycycline Monohydrate 100 MG eCW1 ([facility]) Doxycycline Monohydrate 100 MG Oral Tablet Doxycycline Monoh ydrate 100 MG 05/30/2020 12:00:00 AM EST 1.0 {tablet} suspende d Doxycycline Monohydrate 100 MG eCW1 ([facility]) Fluconazole 150 MG Oral Tablet [Diflucan] Diflucan 150 MG Di flucan 150 MG 05/30/2020 12:00:00 AM EST 1.0 {tablet} suspended Diflucan 150 MG eCW1 ([facility]) Fluconazole 150 MG Oral Tablet [Diflucan] Diflucan 150 MG Di flucan 150 MG 05/30/2020 12:00:00 AM EST 1.0 {tablet} suspended Diflucan 150 MG eCW1 ([facility]) Fluconazole 150 MG Oral Tablet [Diflucan] Diflucan 150 MG Di flucan 150 MG 05/30/2020 12:00:00 AM EST 1.0 {tablet} active Diflucan 150 MG eCW1 ([facility]) Doxycycline Monohydrate 100 MG Oral Tablet Doxycycline Monoh ydrate 100 MG 05/30/2020 12:00:00 AM EST 1.0 {tablet} active Doxycycline Monohydrate 100 MG eCW1 ([facility]) Insurance Providers Payer name Policy type / Coverage type Policy ID Covered republican ID Covered republican's relationship to [place] Policy [place] Plan Information BS [facility] Part B [id number] ..[id number].0 Self [id number] [facility] Part B [id number] 2..687123.3.227.99.991.258932.0 Self [id number] BS [facility] Part B [id number] .1.249107.3.227.99.991.549672.0 Self [id number] [facility] Part B [id number] .1.057879.3.227.99.991.612931.0 Self [id number] [facility] Part B [id number] .1.695353.3.227.99.991.959658.0 Self [id number] BS [facility] Part B [id number] 2.1.187526.3.227.99.991.294625.0 Self [id number] [facility] [place] [id number] 2.840.1.936778.3.227.99.991.506202.0 Self [id number] [facility] [place] [id number] 2.840.1.078982.3.227.99.991.027929.0 Self [id number] [facility] [place] [id number] 2.0.1.981568.3.227.99.991.883205.0 Self [id number] [facility] [place] [id number] 2.0.1.888890.3.227.99.991.105161.0 Self [id number] [facility] [place] [facility] [id number] 2.0.1.044684.3.227.99.991.024265.0 Self [id number] BS [place] Commercial [id number] 2.0.1.294443.3.227.99.991.821154.0 Self [id number] BS [place] Commercial [id number] 2.840.1.077739.3.227.99.991.033096.0 Self [id number] BS [place] Commercial [id number] 2.840.1.855924.3.227.99.991.394406.0 Self [id number] [facility] [place] [facility] [id number] 2.840.1.139756.3.227.99.991.611917.0 Self [id number] [facility] [place] [id number] 2.840.1.619142.3.227.99.991.508196.0 Self [id number] BS [facility] Part B [id number] 2.16840.1.444933.3.227.99.991.560059.0 Self [id number] BS [facility] Part B [id number] MRN.991.[id number] Self [id number] BS [place] Commercial [id number] Self [id number] BS [place] Commercial [id number] 2.0.1.201620.3.227.99.991.352298.0 Self [id number] BS [place] Commercial [id number] 2.0..002775.3.227.99.991.187571.0 Self [id number] BS [facility] Part B [id number] MRN.991.[id number] Self [id number] BS [place] Commercial [id number] 2.0.1.364185.3.227.99.991.504586.0 Self [id number] BS [place] Commercial [id number] 2.0.1.457324.3.227.99.991.178107.0 Self [id number] BS [place] Commercial [id number] 2.0.1.744001.3.227.99.991.078754.0 Self [id number] BS [facility] Part B [id number] MRN.991.[id number] Self [id number] BS [place] Commercial [id number] 2.16840.1.179104.3.227.99.991.114474.0 Self [id number] BS [place] Commercial [id number] 2.16840.1.414111.3.227.99.991.567522.0 Self [id number] BS [place] Commercial [id number] 2.16840.1.396334.3.227.99.991.494063.0 Self [id number] [facility] [id number] 2.840.1.194787.3.227.99.991.670074.0 Self [id number] BS [place] Commercial [id number] 2.840.1.263920.3.227.99.991.237296.0 Self [id number] BS [place] Med[facility] Part B [id number] 2.840.1.622770.3.227.99.991.822404.0 Self [id number] [facility] [id number] 2.840.1.616992.3.227.99.991.863241.0 Self [id number] BS [place] Medigap Part B [id number] 2.840.1.608230.3.227.99.991.629508.0 Self [id number] BS [place] Commercial [id number] 2.840.1.324446.3.227.99.991.961841.0 Self [id number] [facility] [id number] 2.840.1.094704.3.227.99.991.277502.0 Self [id number] [facility] [place] [facility] [id number] 2.840.1.561339.3.227.99.991.920883.0 Self [id number] [facility] [place] [facility] [id number] 2.840.1.611601.3.227.99.991.114396.0 Self [id number] BS [place] Commercial [id number] 2.840.1.948511.3.227.99.991.829126.0 Self [id number] [facility] [place] [facility] [id number] 2.0.1.143597.3.227.99.991.613234.0 Self [id number] [facility] [place] [facility] [id number] 2.0.1.974828.3.227.99.991.753363.0 Self [id number] BS [place] Commercial [id number] 2.840.1.691925.3.227.99.991.964124.0 Self [id number] [facility] [place] [facility] [id number] 2.840.1.787132.3.227.99.991.961593.0 Self [id number] BS [place] [facility] [id number] 2.840.1.489610.3.227.99.991.839597.0 Self [id number] [facility] [place] [facility] [id number] 2.840.1.837626.3.227.99.991.000065.0 Self [id number] [facility] [place] [facility] [id number] 2.0.1.734190.3.227.99.991.024217.0 Self [id number] BS [place] Commercial [id number] 2.0.1.675957.3.227.99.991.377340.0 Self [id number] BS [place] Medigap Part B [id number] 2.0.1.722325.3.227.99.991.663454.0 Self [id number] BS [place] Medigap Part B [id number] 2.0.1.824389.3.227.99.991.192719.0 Self [id number] BS [place] Commercial [id number] 2..1.758882.3.227.99.991.794492.0 Self [id number] BCBS [place] 302/307 [id number] SP [id number] Blue Cross Blue Shield P [id number] SELF [id number] BCBS [place] PPO 302/307 [id number] SP [id number] Medicaid [place] Med[place] Part [place] [id number] 2..1.666604.3.227.99 .991.959586.0 Self [id number] [place] [id number] MRN.991.[id number] Self [id number] [place] [id number] MRN.991.[id number] Self [id number] [place] [id number] MRN.991.[id number] Self [id number] [place] [id number] .1.341469.3.227.99 .991.115702.0 Self [id number] Medicaid [place] Med[place] Part [place] [id number] 2.16.840.1.703324.3.227.99 .991.810225.0 Self [id number] [place] [id number] 2.16.840.1.513944.3.227.99 .991.228363.0 Self [id number] [place] [id number] 2.16.840.1.973441.3.227.99 .991.395621.0 Self [id number] [place] [id number] 2.16.840.1.014192.3.227.99 .991.637338.0 Self [id number] [place] [id number] 2.16.840.1.515981.3.227.99 .991.873628.0 Self [id number] [place] [id number] 2.16.840.1.212910.3.227.99 .991.999666.0 Self [id number] [place] [id number] 2.16.840.1.714363.3.227.99 .991.709281.0 Self [id number] [place] [id number] 2.16.840.1.765402.3.227.99 .991.489895.0 Self [id number] [place] [id number] 2.16.840.1.355814.3.227.99 .991.229244.0 Self [id number] [place] [id number] 2.16.840.1.053641.3.227.99 .991.667102.0 Self [id number] [place] [id number] 2.16.840.1.039098.3.227.99 .991.899694.0 Self [id number] [place] [id number] 2.16.840.1.131151.3.227.99 .991.106280.0 Self [id number] [place] [id number] 2.16.840.1.821726.3.227.99 .991.261787.0 Self [id number] [place] [id number] 2.16.840.1.993165.3.227.99 .991.237915.0 Self [id number] [place] [id number] 2.16.840.1.793206.3.227.99 .991.628989.0 Self [id number] [place] [id number] 2.16.840.1.182817.3.227.99 .991.365832.0 Self [id number] [place] [id number] 2.16.840.1.016057.3.227.99 .991.117542.0 Self [id number] [place] [id number] 2.16.840.1.426386.3.227.99 .991.788835.0 Self [id number] [place] [id number] 2.16.840.1.891907.3.227.99 .991.325482.0 Self [id number] [place] [id number] 2.16.840.1.053448.3.227.99 .991.289739.0 Self [id number] [place] [id number] 2.16.840.1.034416.3.227.99 .991.838188.0 Self [id number] [place] [id number] 2.16.840.1.216960.3.227.99 .991.361074.0 Self [id number] [place] [id number] 2.16.840.1.564175.3.227.99 .991.337358.0 Self [id number] [place] [id number] 2.16.840.1.826638.3.227.99 .991.266669.0 Self [id number] [place] [id number] 2.16.840.1.514391.3.227.99 .991.146539.0 Self [id number] [place] [id number] 2.16.840.1.870553.3.227.99 .991.181463.0 Self [id number] [place] [id number] 2.0.1.179246.3.227.99 .991.182734.0 Self [id number] [facility] [id number] SP [id number] [place] Medicaid/CHP/FHP Commercial [id number] MRN.991.[id number] Self [id number] [place] Medicaid/CHP/FHP Commercial [id number] 2.1.373395.3.227.99.991.787170.0 Self [id number] [place] Medicaid/CHP/F[place] Commercial [id number] MRN.991.[id number] Self [id number] [place] Medicaid/CHP/FHP Commercial [id number] 2..1.008776.3.227.99.991.455828.0 Self [id number] [place]/CHP/FHP Commercial [id number] MRN.991.[id number] Self [id number] [place]/CHP/FHP Commercial [id number] 2.16.840.1.145077.3.227.99.991.390246.0 Self [id number] [place] Medicaid/CHP/FHP Commercial [id number] 2.0.1.228621.3.227.99.991.476952.0 Self [id number] [place] Medicaid/CHP/FHP Commercial [id number] 2.0.1.602164.3.227.99.991.696334.0 Self [id number] [place]/CHP/F[place] Commercial [id number] 2.0.1.665289.3.227.99.991.298569.0 Self [id number] [place]/CHP/F[place] Commercial [id number] 2.0.1.565383.3.227.99.991.760104.0 Self [id number] [place] Medicaid/CHP/FHP Commercial [id number] 2.0.1.061527.3.227.99.991.752529.0 Self [id number] [place] Medicaid/CHP/FHP Commercial [id number] 2.0.1.787732.3.227.99.991.440720.0 Self [id number] [place]/CHP/FHP Commercial [id number] 2.0.1.658775.3.227.99.991.420656.0 Self [id number] [place]/CHP/F[place] Commercial [id number] 2..1.084953.3.227.99.991.904671.0 Self [id number] [place]/CHP/F[place] Commercial [id number] 2.0.1.283053.3.227.99.991.435790.0 Self [id number] [place]/CHP/FHP Commercial [id number] 2.0.1.347069.3.227.99.991.315333.0 Self [id number] [place]/CHP/F[place] Commercial [id number] 2.840.1.297061.3.227.99.991.062439.0 Self [id number] [place]/CHP/FHP Commercial [id number] 2.0.1.608523.3.227.99.991.952021.0 Self [id number] [place] Medicaid/CHP/FHP Commercial [id number] 2.0.1.298091.3.227.99.991.374520.0 Self [id number] [place] Medicaid/CHP/FHP Commercial [id number] 2.0.1.858471.3.227.99.991.156237.0 Self [id number] [place] Medicaid/CHP/FHP Commercial [id number] 2.0.1.959097.3.227.99.991.728998.0 Self [id number] [place] Medicaid/CHP/FHP Commercial [id number] 2.0.1.660308.3.227.99.991.041320.0 Self [id number] [facility] Medicaid [id number] 2.0.1.786711.3.227.99.8646.578043.0 Self [id number] [place] Medicaid/CHP/FHP Commercial [id number] 2.0.1.152919.3.227.99.991.953866.0 Self [id number] [place] Medicaid/CHP/FHP Commercial [id number] 2.0.1.197356.3.227.99.991.073254.0 Self [id number] KVNG I [id number] Self [id number] [place] Medicaid/CHP/FHP Commercial [id number] .0.1.844712.3.227.99.991.286711.0 Self [id number] [facility] I [id number] Self [id number] [place] Medicaid/CHP/FHP Commercial [id number] .0.1.344191.3.227.99.991.612620.0 Self [id number] [place] Medicaid/CHP/FHP Commercial [id number] .0.1.996230.3.227.99.991.796525.0 Self [id number] [place] Medicaid/CHP/FHP Commercial [id number] .1.956707.3.227.99.991.513393.0 Self [id number] KVNG [id number] SP [id number] [place] Medicaid/CHP/FHP Commercial [id number] .1.583406.3.227.99.991.419206.0 Self [id number] [place] Medicaid/CHP/FHP Commercial [id number] 09.12.830.1.548226.3.227.99.991.916321.0 Self [id number] [place] Medicaid/CHP/FHP Commercial [id number] .1.820256.3.227.99.991.589223.0 Self [id number] [facility] Medicaid/CHP/FHP Commercial [id number] .1.186954.3.227.99.991.444847.0 Self [id number] [facility] [id number] SP [id number] 700 [facility] [id number] SP [id number] 700 MEDICAID [id number] SP [id number] BLUE CROSS BLUE SHIELD-O/P [id number] 18 [id number] ANSI-Commercial [id number]-w7bv-[id number] c19469c6-1tf9-0961-r6sg-[id number] EXCELLUS BCBS B [id number] S VYS [id number] [place] 306/806 [id number] SP [id number] [place] 306/806 [id number] SP [id number] ANSI-Commercial [id number] [id number] ANSI-Commercial 07x8h04q-8v62-3247-128i-wk6972w70kvc 51o7q60v-8v92-5932-675a-to2564u74esw ANSI-Commercial fo1w69h3-9fg3-98gz-v9ku-01j5052hz2d2 cy7c66f1-4zx8-39lz-l6rd-67n1627hu1f8 [place] [id number] SP [id number] Medicaid S UNAVAILABLE S UNAVAILA BLE Managed Care [place] P UNAVAILABLE S UNAVAILABLE [place] [id number] S [id number] SELF PAY ONLY [id number] SP [id number] [facility] [id number] 18 [id number] [facility] C[facility] OF [facility] [id number] 18 [id number] MEDICAID -PHYSICIAN [id number] [facility] CARE OF [facility] [place] [id number] 18 [id number] UNAVAILABLE UNAVAILA BLE ANSI-Commercial [id number]-5d4d-[id number] [place] [id number] 18 74 [id number] ANSI-Commercial 0x34i485-0dh5-84by-g967-0ndd989ur7p4 3z65i302-5wz5-71vf-[id number] MED[place]ID [place] [id number] 18 [id number] [place] [id number] ..840.1.192018.3.2 27.99.936.80078.0 [facility] [id number] ANSI-Commercial 45xp65d5-r0f2-08j3-[id number] 72ph23a0-i2g2-51n7-z674-3491g0dx6478 ANSI-Commercial 8bw41d2s-o3wq-823c-0i1c-4d9938an4q49 2tt44n4m-o4fi-581j-6y6n-5z6346zn6y76 [place] 306/806 [id number] SP [id number] ANSI-Commercial 51l9u2zn-798e-0579-1hu6-0dw728sgd99n 30a7m7na-572k-4237-3pl9-6tk952atl69x ANSI-Commercial 6q0r06ep-534v-38yj-95qr-[id number] 2p9e31ti-904k-77nz-75oi-n76023588wc4 ANSI-Commercial 3zps5442-y4u4-7bb8-n65v-c978663nv1vd 3fcb8395-k2h7-4ex6-w96h-n296818tb7tj ANSI-Commercial zr18557l-222y-2u07-7164-452c12128v39 fd07159p-412r-[id number] [facility] [id number] SP [id number] ANSI-Commercial e958333c-t664-3djc-1533-d7esg78tw002 u234719n-z108-7agp-6802-i1zxx29ws556 [facility] [id number] 84.1.782728.3.2 27.99.936.41179.0 Self [id number] EXCELLUS BS B [id number] S VYT [id number] [facility] Commercial [id number] 840.1.375943.3.2 27.99.936.35873.0 Self [id number] ANSI-Commercial t4d56lu3-2toz-0947-sej7-[id number] h0p12at9-3zft-8827-rjd7-t7fgn2672452 ANSI-Commercial bz2cka43-n0vs-607q-h732-25l29796w7nm po3nsb79-p8lj-706m-o781-39o50504i9sg SELF PAY UNAVAILABLE SP UNAVAILA BLE ANSI-Commercial 321scf53-9y50-4699-d229-uv5aab4539rq 395aci49-2t11-2813-v901-zw3emn5756qg ANSI-Commercial 14g8q349-ee26-523j-94b6-11i4604d4x8u 83w7d119-np45-806f-54s6-29j6106g2b8p BLUE CROSS CABAN PLAN [id number] SP [id number] ANSI-Commercial 6692u2x7-90oo-88as-5r77-25svs9r94rpe 9387s8s8-95kt-67xf-3g66-37kjc4g80uhu [facility] [id number] SP [id number] 700 ANSI-Commercial fvxn8qz9-gh47-5700-8109-0gm00dzwirop lgsz5ve2-xd38-4361-4186-9ga98xemcutb O BLUE [id number] SP [id number] [facility] Commercial [id number] 840.1.500024.3.2 27.99.936.48864.0 Self [id number] [place] - Medicaid o Health Maintenance Organization (HMO) [id number] 09.12.830.1.576578.3.227.99.572.50202.0 Self [id number] HMO BLUE [id number] SP [id number] [place] - Medicaid Hmo Health Maintenance Organization (HMO) [id number] 2..1.163124.3.227.99.572.42423.0 Self [id number] [facility] PLUS [id number] SP [id number] [employer] [id number] 2.1.982780.3.2 27.99.936.03877.0 Self [id number] ANSI-Commercial z286hv64-v409-64p3-123w-2s071f2f218l f018be51-s253-86j9-225q-4n821a7r021s MEDICAID [id number] SP [id number] [employer] [id number] .1.108991.3.2 27.99.936.65096.0 Self [id number] ANSI-Commercial w42o06n3-97x8-473n-f7jn-22z350gr2976 t97j50p4-41f6-157l-r4xw-38o363mu8313 [facility] [id number] MEDICAID M [id number] C [id number] [employer] [id number] .1.667839.3.2 27.99.936.52644.0 Self [id number] [employer] [id number] 2.1.167378.3.2 27.99.936.37296.0 Self [id number] [employer] [id number] 2.1.334308.3.2 27.99.936.96121.0 Self [id number] [employer] [id number] 2.1.513103.3.2 27.99.936.39142.0 Self [id number] [facility] Commercial [id number] 2.16.840.1.699057.3.2 27.99.936.94437.0 Self [id number] [facility] Commercial [id number] 2.16.840.1.752630.3.2 27.99.936.47106.0 Self [id number] ANSI-Commercial [id number] Problems, Conditions, and Diagnoses Code Display Name Description Problem Type Effective Dates Data Source(s) M7522 Bicipital tendinitis, left shoulder Bicipital te ndinitis, left shoulder Diagnosis [facility] of left shoulder Bursitis of left shoulder Di agnosis 04/23/2021 10:07:00 AM [facility] M542 Cervicalgia Cervicalgia Diagnosis 04/06/2021 09:24:00 AM [facility] M5412 Radiculopathy, cervical region Radiculopathy, cervical region Diagnosis 10/02/2020 09:09:00 AM [facility] [id number] Unspecified rotator cuff tea r or rupture of left shoulder, not specified as traumatic Unspecified rotator cuff tear or rupture of left shoulder, not specified as traumatic Diagnosis 09/07/2020 09:06:00 AM [facility] [id number] Other instability, left shoulder Other instabili ty, left shoulder Diagnosis 09/07/2020 09:06:00 AM [facility] F33.1 Major depressive disorder, recurrent, mo derate Major Depressive Disorder, Recurrent episode, Moderate Condition 06/11/2021 12:00:00 AM EST Ricky garcia ([facility]) E07.9 Disorder of thyroid gland Disorder of thyroid gland Pr oblem 04/11/2021 12:00:00 AM EDT AMY ([facility], ) R49.8 Speech and language disorder Speech and language disor maria elena Problem 04/11/2021 12:00:00 AM EDT [facility] ([facility], ) R05 Cough Cough Problem 04/11/2021 12:00:00 AM ED T [facility] ([facility], ) K21.9 Gastroesophageal reflux disease Gastroesophageal reflu x disease Problem 04/11/2021 12:00:00 AM EDT [facility] ([facility], ) G56.22 Lesion of ulnar nerve Lesion of ulnar nerve Problem 10/18/2020 12:00:00 AM EDT [facility] ([facility]) M54.2 Neck pain Neck pain Problem 10/02/2020 12:00:00 AM ES T [facility] ([facility]) M25.312 Shoulder joint unstable Shoulder joint unstable Proble m 08/18/2020 12:00:00 AM EST [facility] ([facility]) M75.22 Bicipital tenosynovitis Bicipital tenosynovitis Proble m 08/18/2020 12:00:00 AM EST [facility] ([facility]) M75.52 Disorder of bursa of shoulder region Dis order of bursa of shoulder region Problem 08/18/2020 12:00:00 AM EST [facility] ([facility]) [id number] Pure hypercholesterolemia Pure hypercholesterolemia Pr oblem 08/18/2020 12:00:00 AM EST [facility] ([facility]) Z90.710 [id number] Status post hysterectomy Problem 07/11/2020 12:00:00 AM EST [email or web address] ([facility]) 521.00 Dental caries Dental caries 05/25/2020 11:42:17 AM EDT [facility] Surgeries/Procedures Procedure Description Date Indications Data Source(s) Extended Individual Psychotherapy - 45 min 06/11/2021 12:00:00 AM EST - 06/11/2021 12:00:00 AM EST [facility] ([facility]) Extended Individual Psychotherapy - 45 min 12:00:00 AM EST [facility] ([facility]) Extended Individual Psychotherapy - 45 min 05/28/2021 12:00:00 AM EDT - 05/28/2021 12:00:00 AM EDT [facility] ([facility]) Extended Individual Psychotherapy - 45 min 12:00:00 AM EDT [facility] ([facility]) Hallux Rigidus Correction W/Cheilectomy,Debride/Cap Release MTP 05/16/2021 12:00:00 AM EDT [facility] ([facility] Extended Individual Psychotherapy - 45 min 05/15/2021 12:00:00 AM EDT - 05/15/2021 12:00:00 AM EDT [facility] ([facility]) Extended Individual Psychotherapy - 45 min 12:00:00 AM EDT [facility] ([facility]) OFFICE OUTPATIENT VISIT 25 MINUTES 05/01/2021 12:00:00 AM EDT [facility] ([facility], ) OFFICE OUTPATIENT VISIT 15 MINUTES 04/30/2021 12:00:00 AM EDT [facility] ([facility]) Brief Individual Psychotherapy - 30 min 04/24/2021 12:00:00 AM EDT - 04/24/2021 12:00:00 AM EDT [facility] ([facility]) Brief Individual Psychotherapy - 30 min 04/24/2021 12: 00:00 AM EDT [facility] ([facility]) OFFICE OUTPATIENT VISIT 15 MINUTES 04/23/2021 12:00:00 AM EDT [facility] ([facility]) LARYNGOSCOPY FLEXIBLE FIBEROPTIC DIAGNOSTIC 04/11/2021 12:00:00 AM EDT [facility] ([facility], ) OFFICE OUTPATIENT NEW 45 MINUTES 04/11/2021 12:00:00 A M EDT [facility] ([facility], ) Extended Individual Psychotherapy - 45 min 04/10/2021 12:00:00 AM EDT - 04/10/2021 12:00:00 AM EDT [facility] ([facility]) Extended Individual Psychotherapy - 45 min 12:00:00 AM EDT [facility] ([facility]) OFFICE OUTPATIENT VISIT 15 MINUTES 04/06/2021 12:00:00 AM EDT [facility] ([facility]) Brief Individual Psychotherapy - 30 min 02/19/2021 12:00:00 AM EDT - 02/19/2021 12:00:00 AM EDT [facility] ([facility]) Brief Individual Psychotherapy - 30 min 02/19/2021 12: 00:00 AM EDT [facility] ([facility]) RADEX FOOT COMPLETE MINIMUM 3 VIEWS 01/26/2021 12:00:0 0 AM EDT [facility] ([facility] OFFICE OUTPATIENT VISIT 15 MINUTES 01/26/2021 12:00:00 AM EDT [facility] ([facility] Extended Individual Psychotherapy - 45 min 01/24/2021 12:00:00 AM EDT - 01/24/2021 12:00:00 AM EDT [facility] ([facility]) Extended Individual Psychotherapy - 45 min 12:00:00 AM EDT [facility] ([facility]) OFFICE OUTPATIENT VISIT 10 MINUTES 01/19/2021 12:00:00 AM EDT [facility] ([facility]) OFFICE OUTPATIENT VISIT 25 MINUTES 01/12/2021 12:00:00 AM EDT [facility] ([facility]) Extended Individual Psychotherapy - 45 min 01/08/2021 12:00:00 AM EDT - 01/08/2021 12:00:00 AM EDT [facility] ([facility]) Extended Individual Psychotherapy - 45 min 12:00:00 AM EDT [facility] ([facility]) OFFICE OUTPATIENT VISIT 15 MINUTES 12/29/2020 12:00:00 AM EDT [facility] ([facility]) Physical Therapy Eval - Low Complexity 12/07/2020 12:0 0:00 AM EDT [facility] ([facility]) Extended Individual Psychotherapy - 45 min 12/06/2020 12:00:00 AM EDT - 12/06/2020 12:00:00 AM EDT [facility] ([facility]) Extended Individual Psychotherapy - 45 min 12:00:00 AM EDT [facility] ([facility]) ARTHROCENTESIS ASPIR&/INJECTION MAJOR JT/BURSA 021 12:00:00 AM EDT [facility] ([facility] OFFICE OUTPATIENT VISIT 25 MINUTES 11/22/2020 12:00:00 AM EDT [facility] ([facility] Extended Individual Psychotherapy - 45 min 11/14/2020 12:00:00 AM EDT - 11/14/2020 12:00:00 AM EDT [facility] ([facility]) Extended Individual Psychotherapy - 45 min 12:00:00 AM EDT [facility] ([facility]) Extended Individual Psychotherapy - 45 min 11/02/2020 12:00:00 AM EDT - 11/02/2020 12:00:00 AM EDT [facility] ([facility]) Extended Individual Psychotherapy - 45 min 12:00:00 AM EDT [facility] ([facility]) Neuroplasty/Transposition, Ulnar Nerve AT Elbow 2020 12:00:00 AM EDT [facility] ([facility] Extended Individual Psychotherapy - 45 min 10/19/2020 12:00:00 AM EDT - 10/19/2020 12:00:00 AM EDT [facility] ([facility]) Extended Individual Psychotherapy - 45 min 12:00:00 AM EDT [facility] ([facility]) OFFICE OUTPATIENT VISIT 15 MINUTES 10/18/2020 12:00:00 AM EDT [facility] ([facility]) RADEX SPINE CRV COMPL W/OBLQ&FLEX&/XTN STDS 10/16/2020 12:00:00 AM EDT [facility] ([facility] X-Ray Spine Lumbosacral Complete Inc Bending Views Min Of 6 10/16/2020 12:00:00 AM EDT [facility] ([facility]) OFFICE OUTPATIENT VISIT 25 MINUTES 10/16/2020 12:00:00 AM EDT [facility] ([facility]) Extended Individual Psychotherapy - 45 min 10/03/2020 12:00:00 AM EST - 10/03/2020 12:00:00 AM EST [facility] ([facility]) Extended Individual Psychotherapy - 45 min 12:00:00 AM EST [facility] ([facility]) [id number]"Psychotherapy 12:00:00 AM EST - 09/19/2020 12:00:00 AM EST [facility] ([facility]) [id number]"Psychotherapy 09/19/2020 12:00:00 AM EST [facility] ([facility]) Extended Individual Psychotherapy - 45 min 08/24/2020 12:00:00 AM EST - 08/24/2020 12:00:00 AM EST [facility] ([facility]) Extended Individual Psychotherapy - 45 min 12:00:00 AM EST [facility] ([facility]) Extended Individual Psychotherapy - 45 min 08/10/2020 12:00:00 AM EST - 08/10/2020 12:00:00 AM EST [facility] ([facility]) Extended Individual Psychotherapy - 45 min 12:00:00 AM EST [facility] ([facility]) ARTHROCENTESIS ASPIR&/INJECTION INTERM JT/BURSA 2020 12:00:00 AM EST [facility] ([facility]) OFFICE OUTPATIENT VISIT 15 MINUTES 08/07/2020 12:00:00 AM EST [facility] ([facility]) OFFICE OUTPATIENT VISIT 15 MINUTES 07/31/2020 12:00:00 AM EST [facility] ([facility]) Extended Individual Psychotherapy - 45 min 07/04/2020 12:00:00 AM EST - 07/04/2020 12:00:00 AM EST [facility] ([facility]) Extended Individual Psychotherapy - 45 min 12:00:00 AM EST [facility] ([facility]) Extended Individual Psychotherapy - 45 min 06/27/2020 12:00:00 AM EST - 06/27/2020 12:00:00 AM EST [facility] ([facility]) Extended Individual Psychotherapy - 45 min 0 12:00:00 AM EST [facility] ([facility]) Extended Individual Psychotherapy - 45 min 06/01/2020 12:00:00 AM EST - 06/01/2020 12:00:00 AM EST [facility] ([facility]) Extended Individual Psychotherapy - 45 min 0 12:00:00 AM EST [facility] ([facility]) Extended Individual Psychotherapy - 45 min 05/23/2020 12:00:00 AM EDT - 05/23/2020 12:00:00 AM EDT [facility] ([facility]) Extended Individual Psychotherapy - 45 min 0 12:00:00 AM EDT [facility] ([facility]) Immunization: Flublok Quadrivalent (18 years & older) 0.5mL IM (Influenza) 05/18/2020 12:00:00 AM EDT eCW1 ([facility]) Psychiatric Diagnostic Evaluation (Non-Medical) 05/11/2020 12:00:00 AM EDT - 05/11/2020 12:00:00 AM EDT [facility] ([facility]) Psychiatric Diagnostic Evaluation (Non-Medical) 2019 12:00:00 AM EDT [facility] ([facility]) Brief Individual Psychotherapy - 30 min 04/14/2020 12:00:00 AM EDT - 04/14/2020 12:00:00 AM EDT [facility] ([facility]) Brief Individual Psychotherapy - 30 min 04/14/2020 12: 00:00 AM EDT [facility] ([facility]) Results ID Date Data Source [id number] 05/24/2021 10:40:00 AM EDT [facility] Name Value Range Interpretation Code Description Data Jenny rce(s) Supporting Document(s) SARS-CoV-2 (COVID-19) RNA [Presence] in Respiratory specimen by ESTEPHANIA with probe detection Not Detected [facility] This lab was ordered by [facility] and reported by [employer] ID Date Data Source [id number] 05/16/2021 12:00:00 AM EDT [facility] Name Value Range Interpretation Code Description Data Jenny rce(s) Supporting Document(s) Covid Rapid Testing Negative [facility] This lab was ordered by [place] and re ported by [facility]. ID Date Data Source [id number] 05/10/2021 01:35:00 PM EDT [facility] ([facility]) Name Value Range Interpretation Code Description Data Jenny rce(s) Supporting Document(s) Covid Rapid Testing Laboratory test result [facility] ([facility]) CARE START COVID-19 ANTIGEN LOT #[id number] 05/16/21 9:13 A.M. ID Date Data Source VITAMIN [id number] 04/09/2021 12:00:00 AM EDT eCW1 ([facility]) Name Value Range Interpretation Code Description Data Jenny rce(s) Supporting Document(s) 54.8 30.0-100.0 TOTAL 25(OH) VITAMIN D eC W1 ([facility]) ID Date Data Source TSH 04/09/2021 12:00:00 AM EDT eCW1 ([facility]) Name Value Range Interpretation Code Description Data Jenny rce(s) Supporting Document(s) 1.650 0.358-3.740 THYROID STIMULATING HORM ONE eCW1 ([facility]) ID Date Data Source MAGNESIUM LEVEL 04/09/2021 12:00:00 AM EDT eCW1 ([facility]) Name Value Range Interpretation Code Description Data Jenny rce(s) Supporting Document(s) 2.0 1.8-2.4 MAGNESIUM LEVEL eCW1 ([facility]) ID Date Data Source LIPID PANEL (CARDIAC RISK) 04/09/2021 12:00:00 AM EDT eCW1 ( [facility]) Name Value Range Interpretation Code Description Data Jenny rce(s) Supporting Document(s) Cholesterol in LDL [Mass/volume] in Serum or Plasma by calculation 118 <100 LDL CHOLESTEROL eCW1 ([facility]) 145 NON-HDL-C eCW1 ([facility]) Cholesterol [Moles/volume] in Serum or Plasma 192 <200 CHOLESTEROL LEVEL eCW1 ([facility]) Cholesterol in HDL [Moles/volume] in Serum or Plasma 47 >40 HDL CHOLESTEROL eC ([facility]) Triglyceride [Mass/volume] in Serum or Plasma by calculation 137 <150 TRIGLYCERIDES LEVEL [facility] ([facility]) 4.085 <5 CHOLESTEROL RISK RATIO [facility] ([facility]) ID Date Data Source [id number] 04/09/2021 12:00:00 AM EDT eCW1 ([facility]) Name Value Range Interpretation Code Description Data Jenny rce(s) Supporting Document(s) Hemoglobin A1c/Hemoglobin.total in Blood 5.4 HEMOGLOBIN A1c [facility] ([facility]) ID Date Data Source [id number] 10/05/2020 11:45:00 AM EST [facility] ([facility]) Name Value Range Interpretation Code Description Data Jenny rce(s) Supporting Document(s) Covid Rapid Testing Laboratory test result [facility] ([facility]) ID Date Data Source [id number] 10/05/2020 12:00:00 AM EST [facility] Name Value Range Interpretation Code Description Data Jenny rce(s) Supporting Document(s) Covid Rapid Testing negative [facility] This lab was ordered by [place] and re ported by [facility]. ID Date Data Source [id number] 09/28/2020 08:58:00 AM EST [facility] ([facility]) Name Value Range Interpretation Code Description Data Jenny rce(s) Supporting Document(s) Thyrotropin [Units/volume] in Serum or Plasma 0.841 uIU/ML 0. 358-3.740 Normal (applies to non-numeric results) [facility] Calcidiol [Mass/volume] in Serum or Plasma 40.1 ng/mL 30.0- 100.0 Normal (applies to non-numeric results) [facility] ([facility]) Ferritin [Mass/volume] in Serum or Plasma 65 ng/mL 8-252 Normal (applies to non- numeric results) [facility] ([facility]) ID Date Data Source [id number] 09/28/2020 08:58:00 AM EST [facility] ([facility]) Name Value Range Interpretation Code Description Data Jenny rce(s) Supporting Document(s) Iron (Fe) 43 ug/dL 50-170 Below low [facility] Total Iron Binding Capacity 332 ug/dL 250-450 Norm al (applies to non-numeric results) [facility] ([facility]) Percent Saturation 13.0 % 13.2-45.0 Below low normal [facility] ([facility]) ID Date Data Source [id number] 09/28/2020 08:58:00 AM EST [facility] ([facility]) Name Value Range Interpretation Code Description Data Jenny rce(s) Supporting Document(s) Triglycerides Level 152 mg/dL Above high normal [facility] Cholesterol Level 200 mg/dL Normal (applies to non-numeri c results) [facility] ([facility]) LDL Cholesterol 113 mg/dL Above high normal [facility] ([facility]) HDL Cholesterol 57 mg/dL Normal (applies to non-numeric results) [facility] ([facility]) Cholesterol Risk Ratio 3.508 Normal (applies to non-n umeric results) [facility] ([facility]) Non-HDL-C 143 mg/dL Normal (applies to non-numeric resul ts) [facility] ([facility]) ID Date Data Source [id number] 09/28/2020 08:58:00 AM EST [facility] ([facility]) Name Value Range Interpretation Code Description Data Jenny rce(s) Supporting Document(s) Glucose, Fasting 95 mg/dL 70-100 Normal (applies to non-numeric results) [facility] ([facility]) Glomerular Filtration Rate Laboratory test result Normal (applies to non- numeric results) [facility] ([facility]) <content>Units are mL/min/1.73 m2</content>
<content></content>
<content>Chronic Kidney Disease Staging per NKF:</content>
<content></content>
<content>Stage I & II GFR >=60 Normal to Mildly Decreased</content>
<content>Stage III GFR 30- 59 Moderately Decreased</content>
<content>Stage IV GFR 15-29 Severely Decreased</content>
<content>Stage V GFR <15 Very Little GFR Left</content>
<content>ESRD GFR <15 on TRASH TRUCK DRIVER</content>
<content></content> Blood Urea Nitrogen 12 mg/dL 7-18 Normal (applies to non-nume dayo results) [facility] ([facility]) Creatinine For GFR 0.89 mg/dL 0.55-1.30 Normal (applies to non -numeric results) [facility] ([facility]) Potassium Serum 4.2 meq/L 3.5-5.1 Normal (applies to non-numeric results) [facility] ([facility]) Sodium Level 139 meq/L 136-145 Normal (applies to non-numeric res ults) [facility] ([facility]) Chloride Level 107 meq/L 98-107 Normal (applies to non-numeric r esults) [facility] ([facility]) Anion Gap 6 meq/L 8-16 Below low normal [facility] ( [facility]) Carbon Dioxide Level 26 meq/L 21-32 Normal (applies to non-num erma results) [facility] ([facility]) Calcium Level 9.0 mg/dL 8.5-10.1 Normal (applies to non-numeric re sults) [facility] ([facility]) Ast/Sgot 13 U/L 7-37 Normal (applies to non-numeric resul ts) [facility] ([facility]) Alt/SGPT 24 U/L 12-78 Normal (applies to non-numeric resul ts) [facility] ([facility]) Alkaline Phosphatase 157 U/L 45-117 Above high normal [facility] ([facility]) Bilirubin,Total 0.3 mg/dL 0.2-1.0 Normal (applies to non-numeric results) [facility] ([facility]) Total Protein 7.0 GM/DL 6.4-8.2 Normal (applies to non-numeric re sults) [facility] ([facility]) Albumin 3.6 GM/DL 3.2-5.2 Normal (applies to non-numeric resul ts) [facility] ([facility]) Albumin/Globulin Ratio 1.1 1.2-2.2 Below low normal [facility] ([facility]) ID Date Data Source [id number] 09/28/2020 08:58:00 AM EST [facility] ([facility]) Name Value Range Interpretation Code Description Data Jenny rce(s) Supporting Document(s) Estimated Average Glucose 103 mg/dL 60-110 Normal (applies to non-numeric results) [facility] ([facility]) Hemoglobin A1c 5.2 % Normal (applies to non-numeric r esults) [facility] ([facility]) <content>REFERENCE RANGES:</content><br/ ><content></content>
<content><=5.6% NORMAL</content>
<content>5.7-6.4% SUGGESTS IMPAIRED GLUCOSE METABOLISM/PREDIABETIC</content>
<content>>= 6.5% ABNORMAL</content>
<content></content> ID Date Data Source [id number] 09/28/2020 08:58:00 AM EST [facility] ([facility]) Name Value Range Interpretation Code Description Data Jenny rce(s) Supporting Document(s) Hemoglobin 12.8 g/dL 12.0-15.5 Normal (applies to non-numeric resul ts) [facility] ([facility]) White Blood Count 9.6 10 4.0-10.0 Normal (applies to non-numeri c results) [facility] ([facility]) Red Blood Count 5.16 10 4.00-5.40 Normal (applies to non-numeric results) [facility] ([facility]) Mean Corpuscular Volume 82.2 fl 80.0-96.0 Normal ( applies to non-numeric results) [facility] ([facility]) Hematocrit 42.4 % 36.0-47.0 Normal (applies to non-numeric resul ts) [facility] ([facility]) Mean Corpuscular HGB Conc 30.2 g/dL 32.0-36.5 Below low normal [facility] ([facility]) Red Cell Distribution Width 14.1 % 11.5-14.5 Norm al (applies to non-numeric results) [facility]) Mean Corpuscular Hemoglobin 24.8 pg 27.0-33.0 Below low normal [facility] ([facility]) Nucleated Red Blood Cell % 0.0 % 0-0 Normal (applies to n on-numeric results) [facility] ([facility]) Platelet Count, Automated 423 10 150-450 Normal (applies to non-numeric results) [facility] ([facility]) ID Date Data Source TOTAL IRON BINDING CAPACIT 09/28/2020 12:00:00 AM EST eCW1 ( [facility]) Name Value Range Interpretation Code Description Data Jenny rce(s) Supporting Document(s) 43 50-170 IRON (FE) eCW1 ([facility]) 332 250-450 TOTAL IRON BINDING CAPACI TY eCW1 ([facility]) 13.0 13.2-45.0 PERCENT SATURATION eCW1 ([facility]) ID Date Data Source FERRITIN 09/28/2020 12:00:00 AM EST eCW1 ([facility]) Name Value Range Interpretation Code Description Data Jenny rce(s) Supporting Document(s) 65 0-227 FERRITIN eCW1 ([facility]) ID Date Data Source Comprehensive Metabolic Profile (CMP) 09/28/2020 12:00:00 AM EST eCW1 ([facility]) Name Value Range Interpretation Code Description Data Jenny rce(s) Supporting Document(s) > 60.0 >51 GLOMERULAR FILTRATION RATE eCW 1 ([facility]) 95 70-100 GLUCOSE, FASTING eCW1 ([facility]) 12 7-18 BLOOD UREA NITROGEN eCW1 (On license of [facility]) 0.89 0.55-1.30 CREATININE FOR GFR eCW1 ([facility]) 26 21-32 CARBON DIOXIDE LEVEL eCW1 ([facility]) 139 136-145 SODIUM LEVEL eCW1 ([facility]) 107 98-107 CHLORIDE LEVEL eCW1 ([facility]) 4.2 3.5-5.1 POTASSIUM SERUM eCW1 ([facility]) 9.0 8.5-10.1 CALCIUM LEVEL eCW1 ([facility]) 24 12-78 ALT/SGPT eCW1 ([facility]) 13 7-37 AST/SGOT eCW1 ([facility]) 0.3 0.2-1.0 BILIRUBIN,TOTAL eCW1 ([facility]) 157 45-117 ALKALINE PHOSPHATASE eCW1 ([facility]) 1.1 1.2-2.2 ALBUMIN/GLOBULIN RATIO eCW1 ([facility]) 3.6 3.2-5.2 ALBUMIN eCW1 ([facility]) 7.0 6.4-8.2 TOTAL PROTEIN eCW1 ([facility]) ID Date Data Source CBC - Complete Blood Count 09/28/2020 12:00:00 AM EST eCW1 ( [facility]) Name Value Range Interpretation Code Description Data Jenny rce(s) Supporting Document(s) 9.6 4.0-10.0 WHITE BLOOD COUNT eCW1 ([facility]) 5.16 4.00-5.40 RED BLOOD COUNT eCW1 ([facility]) 82.2 80.0-96.0 MEAN CORPUSCULAR VOLUME e CW1 ([facility]) 12.8 12.0-15.5 HEMOGLOBIN eCW1 ([facility]) 42.4 36.0-47.0 HEMATOCRIT eCW1 ([facility]) 24.8 27.0-33.0 MEAN CORPUSCULAR HEMOGLOB IN eCW1 ([facility]) 14.1 11.5-14.5 RED CELL DISTRIBUTION WID TH eCW1 ([facility]) 30.2 32.0-36.5 MEAN CORPUSCULAR HGB CONC eCW1 ([facility]) 423 150-450 PLATELET COUNT, AUTOMATED eCW1 ([facility]) ID Date Data Source [id number] 09/18/2020 12:00:00 AM EST [facility] Name Value Range Interpretation Code Description Data Jenny rce(s) Supporting Document(s) SARS-CoV-2 (COVID-19) RNA [Presence] in Respiratory specimen by ESTEPHANIA with probe detection Not Detected [facility] This lab was ordered by [facility] and reported by [employer]. ID Date Data Source [id number] 09/08/2020 09:52:00 AM EST [facility] [address] [place] [address] PHONE: [phone] FAX: [phone] Name .................. : JEFF CARMEN Esteves Acct Number.................. : [id number] ROOM. ................. : Number ................... : [id number] Stay type ............. : O/P Discharge Date......... ... : 09/07/20 Admit Date ......... : 09/07/20 [facility] .................... [facility] ....... : 1970 Family Phys ................... : NON STAFF Phone .................. : [phone] Age ................................ : 50 Film# .................. .:[id number] Sex ................................. : F Unsigned transcriptions are preliminary reports and do not represent a medical or legal document MRI [place] [id number] COMPLETE:09/07/20 12:44 [facility] 4126 (REASON FOR PROCESS: PAIN MRI OF THE LEFT SHOULDER WITH CONTRAST: FINDINGS: There is intermediate signal intensity of the supraspinatus tendon from tendinosis. There are some small linear defects with increased signal intensity on the T2-weighted images of the supraspinatus tendon with partial/intrasubstance tears. There is a small linear defect of the anterior superior labrum from a labral tear. The biceps tendon is intact. Contrast is seen within the glenohumeral joint status post earlier intra-articular contrast injection. No fracture or dislocation is identified. A type 1 acromion process is present. There is a some metallic susceptibility artifact at the level of the AC joint. The patient appears to be status post resection of the distal long head of the clavicle. IMPRESSION: Tendinosis with partial/intrasubstance tears at the supraspinatus tendon. Tear at the anterior superior labrum. Electronically Reviewed and Signed By Kike Heaton MD , 09/08/20 09:53, TDS Transcribe Initials: MOSES , Transcribe Date: 09/08/20 03:06, Dictation Date: Copy for: NAZANIN Dhillon via fax Copy for: [address] [place] [address] Page 1 of 1 Name Value Range Interpretation Code Description Data Jenny rce(s) Supporting Document(s) ID Date Data Source [id number] 09/08/2020 09:52:00 AM EST [facility] [address] [place] [address] PHONE: [phone] FAX: [phone] Name .................. : JEFF Esteves Acct Number.................. : [id number] ROOM. ................. : MR Number ................... : [id number] Stay type ............. : O/P Discharge Date......... ... : 09/07/20 Admit Date ......... : 09/07/20 Admit Phys .................... : PERRINEJEF Date of ....... : 1970 Family Phys ................... : NON STAFF Phone .................. : [phone] Age ................................ : 50 Film# .................. .:[id number] Sex ................................. : F Unsigned transcriptions are preliminary reports and do not represent a medical or legal document INJECTION FOR SHOULDER ARTHRO [id number] COMPLETE:09/07/20 10:06 ROCIO 4081 (REASON FOR PROCESS: PAIN SHOULDER [address] [place] [id number] COMPLETE:09/07/20 10:06 ROCIO 4080 (REASON FOR PROCESS: PAIN FLUOROSCOPIC EXAMINATION OF THE LEFT SHOULDER FOR ARTHROGRAM: INDICATION: Pain. FINDINGS: The nursing home assistant administrator film shows no acute findings. Examination dictated by HEMALATHA Chand. Examination was reviewed with Luis Heaton MD, radiologist at the time of this dictation. PROCEDURE: The benefits and risks of the examination were discussed with the patient. The patient has given informed consent for the procedure. A time out was performed confirming the left shoulder is the proper shoulder for today's examination. The skin surface was marked using fluoroscopic guidance. The skin was prepped and dressed in normal sterile fashion. Superficial and deep Lidocaine administration was performed with a 25-gauge needle. A 22- gauge spinal needle was then placed and advanced under fluoroscopic guidance. The needle was passed into the joint space at which time iodinated contrast was administered to confirm proper placement. Approximately 5 cc of iodinated contrast was administered. Once the proper placement was confirmed, approximately 7 cc of 1:200 Gadolinium solution was administered. The needle was then removed. The skin was cleansed and bandaged. No complications were experienced during the procedure. Page 1 of 2 [facility] [address] [place] [address] [place] [address] PHONE: [phone] FAX: [phone] Name .................. : JEFF Esteves Acct Number.................. : [id number] ROOM. ................. : Number ................... : [id number] Stay type ............. : O/P Discharge Date......... ... : 09/07/20 Admit Date ......... : 09/07/20 [facility] .................... [facility] Date of ....... : 1970 Family Phys ................... : NON STAFF Phone .................. : [phone] Age ................................ : 50 Film# .................. .:[id number] Sex ................................. : F Unsigned transcriptions are preliminary reports and do not represent a medical or legal document INJECTION FOR SHOULDER ARTHRO [id number] COMPLETE:09/07/20 10:06 ROCIO 408 (REASON FOR PROCESS: PAIN SHOULDER 1 [place] LT [id number] COMPLETE:09/07/20 10:06 ROCIO 4080 (REASON FOR PROCESS: PAIN Two seconds of fluoroscopy and three images are obtained. Examination dictated by HEMALATHA Chand. Examination was reviewed with Luis Heaton MD, radiologist at the time of this dictation. Electronically Reviewed and Signed By Kike Heaton MD , 09/08/20 09:52, TDS Transcribe Initials: DZ , Transcribe Date: 09/07/20 21:40, Dictation Date: Copy for: NAZANIN Dhillon via fax Copy for: [facility] REC Page 2 of 2 Name Value Range Interpretation Code Description Data Jenny rce(s) Supporting Document(s) ID Date Data Source [id number] 09/08/2020 09:52:00 [place] [address] PHONE: [phone] FAX: [phone] Name .................. : JEFF Esteves Acct Number.................. : [id number] ROOM. ................. : Number ................... : [id number] Stay type ............. : O/P Discharge Date......... ... : 09/07/20 Admit Date ......... : 09/07/20 Admit Phys .................... : JAVIER Date of ....... : 1970 Family Phys ................... : NON STAFF Phone .................. : [phone] Age ................................ : 50 Film# .................. .:[id number] Sex ................................. : F Unsigned transcriptions are preliminary reports and do not represent a medical or legal document INJECTION FOR SHOULDER ARTHRO [id number] COMPLETE:09/07/20 10:06 ROCIO 4081 (REASON FOR PROCESS: PAIN SHOULDER [address] [place] [place] [id number] COMPLETE:09/07/20 10:06 ROCIO 4080 (REASON FOR PROCESS: PAIN FLUOROSCOPIC EXAMINATION OF THE LEFT SHOULDER FOR ARTHROGRAM: INDICATION: Pain. FINDINGS: The nursing home assistant administrator film shows no acute findings. Examination dictated by HEMALATHA Chand. Examination was reviewed with Luis Heaton MD, radiologist at the time of this dictation. PROCEDURE: The benefits and risks of the examination were discussed with the patient. The patient has given informed consent for the procedure. A time out was performed confirming the left shoulder is the proper shoulder for today's examination. The skin surface was marked using fluoroscopic guidance. The skin was prepped and dressed in normal sterile fashion. Superficial and deep Lidocaine administration was performed with a 25-gauge needle. A 22- gauge spinal needle was then placed and advanced under fluoroscopic guidance. The needle was passed into the joint space at which time iodinated contrast was administered to confirm proper placement. Approximately 5 cc of iodinated contrast was administered. Once the proper placement was confirmed, approximately 7 cc of 1:200 Gadolinium solution was administered. The needle was then removed. The skin was cleansed and bandaged. No complications were experienced during the procedure. Page 1 of 2 [place] [address] PHONE: [phone] FAX: [phone] Name .................. : JEFF Esteves Acct Number.................. : [id number] ROOM. ................. : Number ................... : [id number] Stay type ............. : O/P Discharge Date......... ... : 09/07/20 Admit Date ......... : 09/07/20 Admit Phys .................... : JAVIER Date of ....... : 1970 Family Phys ................... : NON STAFF Phone .................. : [phone] Age ................................ : 50 Film# .................. .:[id number] Sex ................................. : F Unsigned transcriptions are preliminary reports and do not represent a medical or legal document INJECTION FOR SHOULDER ARTHRO [id number] COMPLETE:09/07/20 10:06 ROCIO 4081 (REASON FOR PROCESS: PAIN SHOULDER 1 [place] [id number] COMPLETE:09/07/20 10:06 ROCIO 4080 (REASON FOR PROCESS: PAIN Two seconds of fluoroscopy and three images are obtained. Examination dictated by HEMALATHA Chand. Examination was reviewed with Luis Heaton MD, radiologist at the time of this dictation. Electronically Reviewed and Signed By Kike Heaton MD , 09/08/20 09:52, TDS Transcribe Initials: MOSES , Transcribe Date: 09/07/20 21:40, Dictation Date: Copy for: NAZANIN Dhillon via fax Copy for: 710 [facility] REC Page 2 of 2 Name Value Range Interpretation Code Description Data Jenny rce(s) Supporting Document(s) ID Date Data Source [id number] 09/04/2020 10:15:00 AM EST [facility] [address] [place] [address] PHONE: [phone] FAX: [phone] Name .................. : JEFF Esteves Acct Number.................. : [id number] ROOM. ................. : Number ................... : [id number] Stay type ............. : CLINIC Discharge Date......... ... : 08/31/20 Admit Date ......... : 08/31/20 Admit Phys .................... : PERRINEJEF Date of ....... : 1970 Family Phys ................... : SERVAGE RODRIGO Phone .................. : [phone] Age ................................ : 50 Film# .................. .:[id number] Sex ................................. : F Unsigned transcriptions are preliminary reports and do not represent a medical or legal document INJECTION FOR SHOULDER ARTHRO 50051 COMPLETE:08/31/20 13:47 BEM 3740 (REASON FOR PROCESS: LEFT SHOULDER PAIN AFTER LABRAL REPAIR & REINJURY FLUOROSCOPIC EXAMINATION OF THE LEFT SHOULDER FOR ARTHROGRAM: PROCEDURE: The right glenohumeral joint was identified using fluoroscopy. The skin over the joint was marked, prepped and draped in the usual fashion and anesthetized with 1% lidocaine. A 22- gauge Chiba needle was then placed into the joint. Confirmation of the needle position within the joint was obtained by injecting a small amount of Isovue 370. Once the needle was in the joint, approximately 20 cc of a combination of saline, radiographic contrast and Gadolinium were injected. The needle was removed. IMPRESSION: Successful CT- guided arthrogram. Electronically Reviewed and Signed By Petros Fung MD , 09/04/20 10:15, MRA Transcribe Initials: DZ , Transcribe Date: 08/31/20 21:56, Dictation Date: Page 1 of 1 Name Value Range Interpretation Code Description Data Jenny rce(s) Supporting Document(s) ID Date Data Source [id number] 09/04/2020 10:14:00 [place] [address] PHONE: [phone] FAX: [phone] Name .................. : JEFF Esteves Acct Number.................. : [id number] ROOM. ................. : Number ................... : [id number] Stay type ............. : CLINIC Discharge Date......... ... : 08/31/20 Admit Date ......... : 08/31/20 Admit Phys .................... : PERRINEWENDY Date of ....... : 1970 Family Phys ................... : SERVAGE RODRIGO Phone .................. : [phone] Age ................................ : 50 Film# .................. .:[id number] Sex ................................. 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 No fractures are seen. Bone mineralization is intact. The soft tissues are unremarkable. IMPRESSION: Amputation of the distal left clavicle. Electronically Reviewed and Signed By Petros Fung MD , 09/04/20 10:14, [facility] Transcribe Initials: MOSES , Transcribe Date: 08/31/20 21:54, Dictation Date: Page 1 of 1 Name Value Range Interpretation Code Description Data Jenny rce(s) Supporting Document(s) ID Date Data Source [id number] 07/07/2020 01:13:00 PM EST [facility] Name Value Range Interpretation Code Description Data Jenny rce(s) Supporting Document(s) Laboratory test finding (navigational concept) Laboratory test result [facility] ([facility] ) This nucleic acid amplification test was developed and its performance characteristics determined by [facility]. Nucleic acid amplification tests include PCR and TMA. This test has not been FDA cleared or approved. This test has been authorized by FDA under an Emergency Use Authorization (EUA). This test is only authorized for the duration of time the declaration that circumstances exist justifying the authorization of the emergency use of in vitro diagnostic tests for detection of SARS-CoV-2 virus and/or diagnosis of COVID-19 infection under section 564(b)(1) of the Act, 21 U.S.C. 360bbb-3 (b) (1), unless the authorization is terminated or revoked sooner. When diagnostic testing is negative, the possibility of a false negative result should be considered in the context of a patient's recent exposures and the presence of clinical signs and symptoms consistent with COVID-19. An individual without symptoms of COVID-19 and who is not shedding SARS-CoV-2 virus would expect to have a negative (not detected) result in this assay. Performed at: [facility] [place] [id number] [place] Counselor: Renetta Forbes PhD, Phone: [phone] Not Detected ID Date Data Source [id number] 07/07/2020 01:13:00 PM EST [facility] Name Value Range Interpretation Code Description Data Jenny rce(s) Supporting Document(s) SARS coronavirus 2 RNA [facility] This lab was ordered by [facility] and reported by [facility]. ID Date Data Source [id number] 07/05/2020 10:00:00 AM EST [facility] ([facility]) Name Value Range Interpretation Code Description Data Jenny rce(s) Supporting Document(s) Coronavirus 2019 Nasopharygeal Laboratory test result [facility] ([facility]) This nucleic acid amplification test was developed and its performance characteristics determined by [facility]. Nucleic acid amplification tests include PCR and TMA. This test has not been FDA cleared or approved. This test has been authorized by FDA under an Emergency Use Authorization (EUA). This test is only authorized for the duration of time the declaration that circumstances exist justifying the authorization of the emergency use of in vitro diagnostic tests for detection of SARS-CoV-2 virus and/or diagnosis of COVID-19 infection under section 564(b)(1) of the Act, 21 U.S.C. 360bbb-3 (b) (1), unless the authorization is terminated or revoked sooner. When diagnostic testing is negative, the possibility of a false negative result should be considered in the context of a patient's recent exposures and the presence of clinical signs and symptoms consistent with COVID-19. An individual without symptoms of COVID-19 and who is not shedding SARS-CoV-2 virus would expect to have a negative (not detected) result in this assay. Performed at: [facility], [place] [id number] [place] Counselor: Renetta Forbes PhD, Phone: [phone] Not Detected ID Date Data Source [id number] 07/05/2020 10:00:00 AM EST [facility] Name Value Range Interpretation Code Description Data Jenny rce(s) Supporting Document(s) SARS coronavirus 2 RNA [facility] This lab was ordered by [facility] and reported by [facility]. ID Date Data Source [id number] 06/03/2020 12:00:00 PM EST [facility] ([facility]) Name Value Range Interpretation Code Description Data Jenny rce(s) Supporting Document(s) Coronavirus 2019 Nasopharygeal Laboratory test result [facility] ([facility]) This nucleic acid amplification test was developed and its performance characteristics determined by [facility]. Nucleic acid amplification tests include PCR and TMA. This test has not been FDA cleared or approved. This test has been authorized by FDA under an Emergency Use Authorization (EUA). This test is only authorized for the duration of time the declaration that circumstances exist justifying the authorization of the emergency use of in vitro diagnostic tests for detection of SARS-CoV-2 virus and/or diagnosis of COVID-19 infection under section 564(b)(1) of the Act, 21 U.S.C. 360bbb-3 (b) (1), unless the authorization is terminated or revoked sooner. When diagnostic testing is negative, the possibility of a false negative result should be considered in the context of a patient's recent exposures and the presence of clinical signs and symptoms consistent with COVID-19. An individual without symptoms of COVID-19 and who is not shedding SARS-CoV-2 virus would expect to have a negative (not detected) result in this assay. Performed at: [facility] [address] [id number] [place] Counselor: Gwendolyn Neal MD, Phone: [phone] Not Detected ID Date Data Source [id number] 06/03/2020 12:00:00 PM EST [facility] Name Value Range Interpretation Code Description Data Jenny rce(s) Supporting Document(s) SARS coronavirus 2 RNA [facility] This lab was ordered by [facility] and reported by [facility]. ID Date Data Source [id number] 05/25/2020 10:04:07 AM EDT [facility] Current Problems: Dental caries (ICD-521 .00) (ISK47-A05.9)Current Medications: * VITAMIN D * OMEPRAZOLE * PAROXETINE * GABAPENTIN * ATORVASTATIN * BUPROPION * LORATADINE * FLUTICASONE Current Allergies: * ASPIRIN (Mild)* LATEX (Mild)* SULFA (Mild) Dental Chart: Procedures:Type - CDT Code - Description B - (D2392) Resin-based composite, 2 surfaces, posterior on Tooth # 28 on Tooth Surface DO (Performed by Jatin Macario DDS) Chart Notes:josr (May 25 2020 11:42AM): Rmhx(-) CC: I am bitting on my pradeep, a previous dentist said that a crown could be done to prevent that. explaind to pt that a CRN may help stop bitting her tongue but her bite will be off and her teeth may not come togther correctly as the existing natural crown is in contact with the opposing occlusion and if a crown is placed her VDO will increaseTemperature: 96.8Operative: #28-DO decay removed with highspeed bur, acid etching gel applied/rinsed/dried, self etching Futurabond M+ (Voco) placed and light-cured, A2 flowable and packable Grandioso (Voco) composite placed and light-cured. Bite occlusion checked, adjusted, and polished.Anesthesia: 20% Benzocaine topical, 1 carp 4% Septocainew/ 1:100,000 epi (lower right Inflitration)Additional PPE were used due to COVID-19. This included a minimum of a N95, a surgical mask, a hair covering, a face shield, proctective eyewear, and a gown.No complications. POI. Assisted by MT . Pt was cooperative.[place]: Jatin Iniguez DDS by josr (05/25/2020 11:42 AM): Tooth Notes and Watches:- Tooth 29 Note: Remove overhang during valerie apt. per Sweta Pritchard RDH by liudmila (04/06/2020 9:50 AM): - Tooth 30 Note: Remove overhang during valerie apt. per Sweta Pritchard RDH by johnsonatson (04/06/2020 9:50 AM): Assessment & Plan Problems:Added: Dental caries (ICD- 521.00) (NKX39-J46.9)Medications:VITAMIN DOMEPRAZOLEPAROXETINEGABAPENTINATORVASTATINBUPROPIONLORATADINEFLUTICASONEAllergi es:* ASPIRIN (Mild)* LATEX (Mild)* SULFA (Mild) Name Value Range Interpretation Code Description Data Jenny rce(s) Supporting Document(s) ID Date Data Source [id number] 04/13/2020 02:10:00 PM EDT [facility] ([facility]) Name Value Range Interpretation Code Description Data Jenny rce(s) Supporting Document(s) Laboratory test finding (navigational concept) Laboratory test result [facility] ([facility]) Procedure Social History Code Duration Value Status Description Data Source(s ) Smoking 06/11/2021 12:00:00 AM EST Unknown if ever smoked comp leted Unknown if ever smoked [facility] ([facility]) Smoking 05/28/2021 12:00:00 AM EDT Unknown if ever smoked comp leted Unknown if ever smoked [facility] ([facility]) Smoking 05/15/2021 12:00:00 AM EDT Unknown if ever smoked comp leted Unknown if ever smoked [facility] ([facility]) Smoking 04/24/2021 12:00:00 AM EDT Unknown if ever smoked comp leted Unknown if ever smoked [facility] ([facility]) Smoking 04/10/2021 12:00:00 AM EDT Unknown if ever smoked comp leted Unknown if ever smoked [facility] ([facility]) Smoking 02/19/2021 12:00:00 AM EDT Unknown if ever smoked comp leted Unknown if ever smoked [facility] ([facility]) Smoking 01/24/2021 12:00:00 AM EDT Unknown if ever smoked comp leted Unknown if ever smoked [facility] ([facility]) Smoking 01/08/2021 12:00:00 AM EDT Unknown if ever smoked comp leted Unknown if ever smoked [facility] ([facility]) Smoking 12/06/2020 12:00:00 AM EDT Unknown if ever smoked comp leted Unknown if ever smoked [facility] ([facility]) Smoking 11/14/2020 12:00:00 AM EDT Unknown if ever smoked comp leted Unknown if ever smoked [facility] ([facility]) Smoking 11/02/2020 12:00:00 AM EDT Unknown if ever smoked comp leted Unknown if ever smoked [facility] ([facility]) Smoking 10/19/2020 12:00:00 AM EDT Unknown if ever smoked comp leted Unknown if ever smoked [facility] ([facility]) Smoking 10/03/2020 12:00:00 AM EST Unknown if ever smoked comp leted Unknown if ever smoked [facility] ([facility]) Smoking 09/19/2020 12:00:00 AM EST Unknown if ever smoked comp leted Unknown if ever smoked [facility] ([facility]) Smoking 08/24/2020 12:00:00 AM EST Unknown if ever smoked comp leted Unknown if ever smoked [facility] ([facility]) Smoking 08/10/2020 12:00:00 AM EST Unknown if ever smoked comp leted Unknown if ever smoked [facility] ([facility]) Smoking 07/04/2020 12:00:00 AM EST Unknown if ever smoked comp leted Unknown if ever smoked [facility] ([facility]) Smoking 06/27/2020 12:00:00 AM EST Unknown if ever smoked comp leted Unknown if ever smoked [facility] ([facility]) Smoking 06/01/2020 12:00:00 AM EST Unknown if ever smoked comp leted Unknown if ever smoked [facility] ([facility]) Smoking 05/23/2020 12:00:00 AM EDT Unknown if ever smoked comp leted Unknown if ever smoked [facility] ([facility]) Smoking 05/11/2020 12:00:00 AM EDT Unknown if ever smoked comp leted Unknown if ever smoked [facility] ([facility]) Smoking 04/14/2020 12:00:00 AM EDT Unknown if ever smoked comp leted Unknown if ever smoked [facility] ([facility]) Vital Signs ID Date Data Source UNK Name Value Range Interpretation Code Description Data Source(s) Systolic blood pressure 122 mm[Hg] 122 mm[Hg] M [facility] ([facility]) Diastolic blood pressure 84 mm[Hg] 84 mm[Hg] [facility] ([facility]) Body height 63.5 [in_i] 63.5 [in_i] [facility] ([facility]) 5'3.50" Body weight 185.00 [lb_av] 185.00 [lb_av] [facility] ([facility]) Body mass index (BMI) [Ratio] 32.3 kg/m2 32.3 k g/m2 [facility] ([facility]) [place] body weight 115 [lb_av] 115 [lb_av] [facility] ([facility]) Body weight 83.916 kg 83.916 kg [facility] ([facility]) Body surface area Derived from formula 1.88 m2 1.88 m2 [facility] ([facility]) Systolic blood pressure 112 mm[Hg] 112 mm[Hg] [facility] Diastolic blood pressure 70 mm[Hg] 70 mm[Hg] [facility] ([facility]) Heart rate 85 /min 85 /min [facility] ([facility]) Oxygen saturation in Arterial blood by Pulse oximetry 100 % 100 % [facility] ([facility]) Body height 63.5 [in_i] 63.5 [in_i] [facility] ([facility]) 5'3.50" Body weight 184.00 [lb_av] 184.00 [lb_av] [facility] ([facility]) Body mass index (BMI) [Ratio] 32.1 kg/m2 32.1 k g/m2 [facility] ([facility]) [place] body weight 115 [lb_av] 115 [lb_av] [facility] ([facility]) Body weight 83.462 kg 83.462 kg [facility] ([facility]) Body surface area Derived from formula 1.88 m2 1.88 m2 [facility] ([facility]) Body temperature 97.3 [degF] 97.3 [degF] [facility] ([facility]) Body temperature 97.4 [degF] 97.4 [degF] [facility] ([facility]) Body weight 187.00 [lb_av] 187.00 [lb_av] [facility] ([facility]) Body mass index (BMI) [Ratio] 32.6 kg/m2 32.6 k g/m2 [facility] ([facility]) [place] body weight 115 [lb_av] 115 [lb_av] [facility] ([facility]) Body weight 84.823 kg 84.823 kg [facility] ([facility]) Body surface area Derived from formula 1.89 m2 1.89 m2 [facility] ([facility]) Systolic blood pressure 102 mm[Hg] 102 mm[Hg] [facility] ([facility]) Diastolic blood pressure 70 mm[Hg] [facility] Heart rate 91 /min 91 /min [facility] ([facility]) Oxygen saturation in Arterial blood by Pulse oximetry 98 % 98 % [facility] ([facility]) Body height 63.5 [in_i] 63.5 [in_i] [facility] ([facility]) 5'3.50" Body temperature 97.2 [degF] 97.2 [degF] [facility] ([facility]) Body weight 187.4 [lb_av] 187.4 [lb_av] eCW1 ([facility]) Body weight 85 kg 85 kg eCW1 ([facility]) Body height 62.75 [in_i] 62.75 [in_i] eCW1 ([facility]) Body mass index (BMI) [Ratio] 33.46 kg/m2 33.46 kg/m2 eCW1 ([facility]) Heart rate 93 /min 93 /min eCW1 ([facility]) Respiratory rate 18 /min 18 /min eCW1 ([facility]) Body temperature 97.4 [degF] 97.4 [degF] eCW1 ( [facility]) Systolic blood pressure 132 mm[Hg] 132 mm[Hg] e CW1 ([facility]) Diastolic blood pressure 78 mm[Hg] 78 mm[Hg] eCW1 ([facility]) Body height 63 [in_i] 63 [in_i] [facility] ([facility] 5'3" Body weight 188.00 [lb_av] 188.00 [lb_av] [facility] T ([facility] Systolic blood pressure 126 mm[Hg] 126 mm[Hg] M ED[facility] ([facility] Diastolic blood pressure 84 mm[Hg] 84 mm[Hg] [facility] ([facility] Heart rate 92 /min 92 /min [facility] ([facility] Body mass index (BMI) [Ratio] 33.3 kg/m2 33.3 k g/m2 [facility] ([facility] Body temperature 96.7 [degF] 96.7 [degF] [facility] ([facility]) Body height 63 [in_i] 63 [in_i] [facility] ([facility]) 5'3" Body weight 184.19 [lb_av] 184.19 [lb_av] [facility] T ([facility]) Body mass index (BMI) [Ratio] 32.6 kg/m2 32.6 k g/m2 [facility] ([facility]) Body temperature 97.8 [degF] 97.8 [degF] [facility] ([facility]) Body weight 190 [lb_av] 190 [lb_av] eCW1 ([facility]) Body height 62.75 [in_i] 62.75 [in_i] eCW1 ([facility]) Body mass index (BMI) [Ratio] 33.92 kg/m2 33.92 kg/m2 eCW1 ([facility]) Heart rate 100 /min 100 /min eCW1 ([facility]) Respiratory rate 18 /min 18 /min eCW1 ([facility]) Body temperature 98 [degF] 98 [degF] eCW1 ([facility]) Systolic blood pressure 138 mm[Hg] 138 mm[Hg] e CW1 ([facility]) Diastolic blood pressure 78 mm[Hg] 78 mm[Hg] eCW1 ([facility]) Body temperature 97.1 [degF] 97.1 [degF] [facility] ([facility]) Body temperature 97.2 [degF] 97.2 [degF] [facility] ([facility]) Body temperature 97.0 [degF] 97.0 [degF] [facility] ([facility]) Body weight 186.8 [lb_av] 186.8 [lb_av] eCW1 ([facility]) Body height 62.75 [in_i] 62.75 [in_i] eCW1 ([facility]) Body mass index (BMI) [Ratio] 33.35 kg/m2 33.35 kg/m2 eCW1 ([facility]) Heart rate 88 /min 88 /min eCW1 ([facility]) Respiratory rate 18 /min 18 /min eCW1 ([facility]) Body temperature 98.9 [degF] 98.9 [degF] eCW1 ( [facility]) Systolic blood pressure 130 mm[Hg] 130 mm[Hg] e CW1 ([facility]) Diastolic blood pressure 86 mm[Hg] 86 mm[Hg] eCW1 ([facility]) Body temperature 97.5 [degF] 97.5 [degF] MEDENT ([facility]) Body temperature 96.2 [degF] 96.2 [degF] MEDENT ([facility]) Body height 62.5 [in_i] 62.5 [in_i] MEDENT ([facility]) 5'2.50" Body weight 180.50 [lb_av] 180.50 [lb_av] MEDEN T ([facility]) Body mass index (BMI) [Ratio] 32.5 kg/m2 32.5 k g/m2 MEDENT ([facility]) Body temperature 97.1 [degF] 97.1 [degF] MEDENT ([facility]) Body weight 181 [lb_av] 181 [lb_av] eCW1 ([facility]) Body height 62.75 [in_i] 62.75 [in_i] eCW1 ([facility]) Body mass index (BMI) [Ratio] 32.32 kg/m2 32.32 kg/m2 eCW1 ([facility]) Heart rate 90 /min 90 /min eCW1 ([facility]) Respiratory rate 18 /min 18 /min eCW1 ([facility]) Body temperature 99.4 [degF] 99.4 [degF] eCW1 ( [facility]) Systolic blood pressure 138 mm[Hg] 138 mm[Hg] e CW1 ([facility]) Diastolic blood pressure 80 mm[Hg] 80 mm[Hg] eCW1 ([facility]) Body weight 179 [lb_av] 179 [lb_av] eCW1 ([facility]) Body weight 81.19 kg 81.19 kg eCW1 ([facility]) Body height 62.75 [in_i] 62.75 [in_i] eCW1 ([facility]) Body mass index (BMI) [Ratio] 31.96 kg/m2 31.96 kg/m2 eCW1 ([facility]) Systolic blood pressure 126 mm[Hg] 126 mm[Hg] e CW1 ([facility]) Diastolic blood pressure 88 mm[Hg] 88 mm[Hg] eCW1 ([facility]) Body weight 178 [lb_av] 178 [lb_av] eCW1 ([facility]) Body height 62.75 [in_i] 62.75 [in_i] eCW1 ([facility]) Body mass index (BMI) [Ratio] 31.78 kg/m2 31.78 kg/m2 eCW1 ([facility]) Heart rate 90 /min 90 /min eCW1 ([facility]) Respiratory rate 18 /min 18 /min eCW1 ([facility]) Body temperature 98.4 [degF] 98.4 [degF] eCW1 ( [facility]) Systolic blood pressure 120 mm[Hg] 120 mm[Hg] e CW1 ([facility]) Diastolic blood pressure 64 mm[Hg] 64 mm[Hg] eCW1 ([facility]) Patient Treatment Plan of Care Planned Activity Planned Date Details Description Data Source (s) ferrous gluconate 324 MG Oral Tablet 09/28/2020 12:00:00 AM EST eCW1 ([facility]) ferrous gluconate 324 MG Oral Tablet 09/28/2020 12:00:00 AM EST eCW1 ([facility]) ferrous gluconate 324 MG Oral Tablet 09/28/2020 12:00:00 AM EST eCW1 ([facility]) ferrous gluconate 324 MG Oral Tablet 09/28/2020 12:00:00 AM EST eCW1 ([facility]) ferrous gluconate 324 MG Oral Tablet 09/28/2020 12:00:00 AM EST eCW1 ([facility]) Cefuroxime 250 MG Oral Tablet 07/17/2020 12:00:00 AM EST eCW1 ([facility]) Cefuroxime 250 MG Oral Tablet 07/17/2020 12:00:00 AM EST eCW1 ([facility]) Fluconazole 150 MG Oral Tablet [Diflucan] 05/30/2020 12:00:00 AM ES T eCW1 ([facility]) Doxycycline Monohydrate 100 MG Oral Tablet 05/30/2020 12:00:[address] eCW1 ([facility]) Fluconazole 150 MG Oral Tablet [Diflucan] 05/30/2020 12:00:00 AM ES T eCW1 ([facility]) Doxycycline Monohydrate 100 MG Oral Tablet 05/30/2020 12:00:[address] eCW1 ([facility]) Fluconazole 150 MG Oral Tablet [Diflucan] 05/30/2020 12:00:00 AM ES T eCW1 ([facility]) Doxycycline Monohydrate 100 MG Oral Tablet 05/30/2020 12:00:[address] eCW1 ([facility])
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
--- OUTSIDE RECORDS SUMMARY | 2021-06-12 14:18 | CCD ---
Author Author [facility] Organization [facility] Address Unknown Phone Unavailable Support Name Relationship Address Phone JESSY BALTAZAR Next Of Kin Unknown [phone] Jatin Macario DDS Next Of Kin [address] [place] [address] [employer] Next Of Kin [address] [place] [address] [employer] Next Of Kin [address] [place] [address] DISABLED Next Of Kin Unknown Unavailable ZARA VALENTINO Next Of Kin [address] [place] [address] [facility] Next Of Kin [address] [place] [address] [facility] Next Of Kin [address] [place] [address] [employer] Next Of Kin [address] [place] [address] 1ST STUDENT Next Of Kin [address] [place] [address] KURT VALENTINO Next Of Kin [address] [place] [address] DELANEY GONZALES Next Of Kin [address] [place] [address] [employer] Next Of Kin [address] [place] [address] M [place] [address] UE Next Of Kin Unknown Unavailable LIRA BUS Next Of Kin [address] [place] [address] CHRISTIAN BALTAZAR Next Of Kin [address] [place] [address] CHRISTIAN ARIAS Next Of Kin [address] [facility] [facility] [address] MILAD BURNS Next Of Kin Unknown [phone] CARMEN BERGMAN Next Of Kin [address] [facility] [address] [place] [address] CARL VALENTINO ECON [address] [place] [address] Christian Baltazar ECON [address] [place] [address] Unavailable Christian Arias ECON Unknown Care Team Providers Care Insole Buffer Name Role Phone Sara Stinson Unavailable Wilda [...] Unavailable Acosta, Kadi Denney MD Unavailable Unavailable Caosta, Kadi Denney MD Unavailable Unavailable Acosta, Kadi Denney MD Unavailable Unavailable Acosta, Kadi Denney MD Unavailable Unavailable Acosta, Kadi Denney MD Unavailable Unavailable Acosta, Kadi Denney MD Unavailable Unavailable Acosta, Kadi Denney MD Unavailable Unavailable Acosta, Kadi Denney MD Unavailable Unavailable Acosta, Kadi Denney MD Unavailable Unavailable Acosta, Kadi Denney MD Unavailable Unavailable Acosta, Kadi Denney MD Unavailable Unavailable Nazanin, D Ernie [facility] Unavailable Unavailable Nazanin, D Ernie [facility] Unavailable Unavailable Nazanin, D Ernie [facility] Unavailable Unavailable Nazanin, D Ernie [facility] Unavailable Unavailable Nazanin, D Ernie [facility] Unavailable Unavailable Nazanin, D Ernie [facility] Unavailable Unavailable Nazanin, D Ernie [facility] Unavailable Unavailable Nazanin, D Ernie [facility] Unavailable Unavailable Nazanin, D Ernie [facility] Unavailable Unavailable Nazanin, D Ernie [facility] Unavailable Unavailable Nazanin, D Ernie [facility] Unavailable Unavailable Nazanin, D Ernie [facility] Unavailable Unavailable Nazanin, D Ernie [facility] Unavailable Unavailable Nazanin, D Ernie [facility] Unavailable Unavailable Nazanin, D Ernie [facility] Unavailable Unavailable Nazanin, D Ernie [facility] Unavailable Unavailable Nazanin, D Ernie [facility] Unavailable Unavailable Nazanin, D Ernie [facility] Unavailable Unavailable Nazanin, D Ernie [facility] Unavailable Unavailable Nazanin, D Ernie [facility] Unavailable Unavailable Anzanin, D Ernie [facility] Unavailable Unavailable Nazanin, D Ernie [facility] Unavailable Unavailable Nazanin, D Ernie [facility] Unavailable Unavailable Nazanin, D Ernie [facility] Unavailable Unavailable Nazanin, D Ernie [facility] Unavailable Unavailable Nazanin, D Ernie [facility] Unavailable Unavailable Nazanin, D Ernie [facility] Unavailable Unavailable Nazanin, D Ernie [facility] Unavailable Unavailable Nazanin, D Ernie [facility] Unavailable Unavailable Nazanin, D Ernie [facility] Unavailable Unavailable Nazanin, D Ernie [facility] Unavailable Unavailable Nazanin, D Ernie [facility] Unavailable Unavailable Nazanin, D Ernie [facility] Unavailable Unavailable Nazanin, D Ernie [facility] Unavailable Unavailable Nazanin, D Ernie [facility] Unavailable Unavailable Nazanin, D Ernie [facility] Unavailable Unavailable Nazanin, D Ernie [facility] Unavailable Unavailable Nazanin, D Ernie [facility] Unavailable Unavailable Nazanin, D Ernie [facility] Unavailable Unavailable Nazanin, D Ernie [facility] Unavailable Unavailable Nazanin, D Ernie [facility] Unavailable Unavailable Nazanin, D Ernie [facility] Unavailable Unavailable Nazanin, D Ernie [facility] Unavailable Unavailable Nazanin, D Ernie [facility] Unavailable Unavailable Nazanin, D Ernie [facility] Unavailable Unavailable Nazanin, D Ernie [facility] Unavailable Unavailable Nazanin, D Ernie [facility] Unavailable Unavailable Nazanin, D Ernie [facility] Unavailable Unavailable Nazanin, D Ernie [facility] Unavailable Unavailable Nazanin, D Ernie [facility] Unavailable Unavailable Nazanin, D Ernie [facility] Unavailable Unavailable Nazanin, D Ernie [facility] Unavailable Unavailable Nazanin, D Ernie [facility] Unavailable Unavailable Nazanin, D Ernie [facility] Unavailable Unavailable Nazanin, D Ernie [facility] Unavailable Unavailable Nazanin, D Ernie [facility] Unavailable Unavailable Nazanin, D Ernie [facility] Unavailable Unavailable Nazanin, D Ernie [facility] Unavailable Unavailable Nazanin, D Ernie [facility] Unavailable Unavailable Nazanin, D Ernie [facility] Unavailable Unavailable Nazanin, D Ernie [facility] Unavailable Unavailable Nazanin, D Ernie [facility] Unavailable Unavailable Nazanin, D Ernie [facility] Unavailable Unavailable Nazanin, D Ernie [facility] Unavailable Unavailable Nazanin, D Ernie [facility] Unavailable Unavailable Nazanin, D Ernie [facility] Unavailable Unavailable Nazanin, D Ernie [facility] Unavailable Unavailable Nazanin, D Ernie [facility] Unavailable Unavailable Nazanin, D Ernie [facility] Unavailable Unavailable Nazanin, D Ernie [facility] Unavailable Unavailable Nazanin, D Ernie [facility] Unavailable Unavailable Nazanin, D Ernie [facility] Unavailable Unavailable Lacie Garcia Unavailable Servage, L Silvana [facility] Unavailable Unavailable Servage, L Silvana [facility] Unavailable Unavailable Servage, L Silvana [facility] Unavailable Unavailable Servage, L Silvana [facility] Unavailable Unavailable Servage, L Silvana [facility] Unavailable Unavailable Servage, L Silvana [facility] Unavailable Unavailable Servage, L Silvana [facility] Unavailable Unavailable Servage, L Silvana [facility] Unavailable Unavailable Servage, L Silvana [facility] Unavailable Unavailable Servage, L Silvana [facility] Unavailable Unavailable Servage, L Silvana [facility] Unavailable Unavailable Servage, L Silvana [facility] Unavailable Unavailable Servage, L Silvana [facility] Unavailable Unavailable Servage, L Silvana [facility] Unavailable Unavailable Servage, L Silvana [facility] Unavailable Unavailable Servage, L Silvana [facility] Unavailable Unavailable Servage, L Silvana [facility] Unavailable Unavailable Servage, L Silvana [facility] Unavailable Unavailable Servage, L Silvana [facility] Unavailable Unavailable Servage, L Silvana [facility] Unavailable Unavailable Servage, L Silvana [facility] Unavailable Unavailable Servage, L Silvana [facility] Unavailable Unavailable Servage, L Silvana [facility] Unavailable Unavailable Servage, L Silvana [facility] Unavailable Unavailable Servage, L Silvana [facility] Unavailable Unavailable Servage, L Silvana [facility] Unavailable Unavailable Servage, L Silvana [facility] Unavailable Unavailable Servage, L Silvana [facility] Unavailable Unavailable Servage, L Silvana [facility] Unavailable Unavailable Servage, L Silvana [facility] Unavailable Unavailable Servage, L Silvana [facility] Unavailable Unavailable Servage, L Silvana [facility] Unavailable Unavailable Servage, L Silvana [facility] Unavailable Unavailable Servage, L Silvana [facility] Unavailable Unavailable Servage, L Silvana [facility] Unavailable Unavailable Servage, L Silvana [facility] Unavailable Unavailable Servage, L Silvana [facility] Unavailable Unavailable Servage, L Silvana [facility] Unavailable Unavailable Servage, L Silvana [facility] Unavailable Unavailable Servage, L Silvana [facility] Unavailable Unavailable Servage, L Silvana [facility] Unavailable Unavailable Servage, L Silvana [facility] Unavailable Unavailable Servage, L Silvana [facility] Unavailable Unavailable Servage, L Silvana [facility] Unavailable Unavailable Servage, L Silvana [facility] Unavailable Unavailable Servage, L Silvana [facility] Unavailable Unavailable Servage, L Silvana [facility] Unavailable Unavailable Servage, L Silvana [facility] Unavailable Unavailable Servage, L Silvana [facility] Unavailable Unavailable Servage, L Silvana [facility] Unavailable Unavailable Servage, L Silvana [facility] Unavailable Unavailable Servage, L Silvana [facility] Unavailable Unavailable Servage, L Silvana [facility] Unavailable Unavailable Servage, L Silvana [facility] Unavailable Unavailable Servage, L Silvana [facility] Unavailable Unavailable Servage, L Silvana [facility] Unavailable Unavailable Servage, L Silvana [facility] Unavailable Unavailable Servage, L Silvana [facility] Unavailable Unavailable Servage, L Silvana [facility] Unavailable Unavailable Servage, L Silvana [facility] Unavailable Unavailable Servage, L Silvana [facility] Unavailable Unavailable Servage, L Silvana [facility] Unavailable Unavailable Servage, L Silvana [facility] Unavailable Unavailable Servage, L Silvana [facility] Unavailable Unavailable Servage, L Silvana [facility] Unavailable Unavailable Linn Shrestha MD Unavailable Unavailable [...] is protected by Article 27-F of the [facility] Public Health law. If you continue you may have access to information: Regarding HIV / AIDS; Provided by facilities licensed or operated by the [facility] Office of Mental Health; or Provided by the [facility] Office for People With Developmental Disabilities. If such information is present, then the following [facility] mandated warning applies: This information has been [...] law may result in a fine or correction sentence or both. A general authorization for [...] 45 min Attender: Ruben j luis Garcia [facility] 06/11/2021 10:00:00 AM EST - 06/11/2021 10:00:00 AM EST [facility] ([facility]) Attender: Lacie Garcia 06/11/2021 12:00:00 AM EST [facility] ([facility]) [place] [address] [facility] [address] 06/07/2021 12:00:00 AM EST eCW1 ([facility]) Extended Individual Psychotherapy - 45 min Attender: Ruben j luis [facility] 05/28/2021 10:00:00 AM EDT - 05/28/2021 10:00:00 AM EDT [facility] ([facility]) Attender: Lacie Garcia 05/28/2021 12:00:00 AM EDT [facility] ([facility]) Office Visit Attender: KRYSTAL KNAPP [facility] Office 04/28 09:00:00 AM EDT [facility] ([facility] Extended Individual Psychotherapy - 45 min Attender: [facility] 05/15/2021 09:00:00 AM EDT - 05/15/2021 09:00:00 AM EDT [facility] ([facility]) Attender: Lacie Jose 05/15/2021 12:00:00 AM EDT [facility] ([facility]) Outpatient Attender: Gonzalo Bowen PH.D., M.D. Dorie/Cynthia/Paola chacon/Jany 05/01/2021 11:00:00 AM EDT [facility] ([facility] DELFINA ogden) Outpatient Attender: REYMUNDO ALMEIDA MDConsultant: Silvana pham NP 04/30/2021 09:41:00 AM EDT - 04/30/2021 09:41:00 AM EDT [facility] Outpatient Attender: REYMUNDO ALMEIDA MD Family Practice 04/30/2021 09 :40:00 AM EDT [facility] ([facility]) Brief Individual Psychotherapy - 30 min Attender: Lacie rollins [facility] 04/24/2021 09:00:00 AM EDT - 04/24/2021 09:00:00 AM EDT [facility] ([facility]) Attender: Lacie Garcia 04/24/2021 12:00:00 AM EDT [facility] ([facility]) Outpatient Attender: REYMUNDO ALMEIDA MD Family Practice 04/23/2021 10 :20:00 AM EDT [facility] ([facility]) Outpatient Attender: REYMUNDO ALMEIDA MDConsultant: Silvana pham NP 04/23/2021 10:07:00 AM EDT - 04/23/2021 10:07:00 AM EDT [facility] Outpatient Attender: Gonzalo Bowen PH.D., M.D. Dorie/Cynthia/Paola chacon/Jany 04/11/2021 10:45:00 AM EDT [facility] ([facility] DELFINA ogden) Extended Individual Psychotherapy - 45 min Attender: uRben Garcia [facility] 04/10/2021 09:00:00 AM EDT - 04/10/2021 09:00:00 AM EDT [facility] ([facility]) Attender: Lacie Garcia 04/10/2021 12:00:00 AM EDT [facility] ([facility]) Outpatient Attender: REYMUNDO ALMEIDA MDConsultant: Silvana pham NP 04/06/2021 09:24:00 AM EDT - 04/06/2021 09:24:00 AM EDT [facility] Outpatient Attender: Ernie Delgado NP Family Practice 04/06/2021 0 9:00:00 AM EDT [facility] ([facility]) Outpatient [facility] [facility] [address] 04/03/2021 12:00:00 AM EDT eCW1 ([facility]) Unknown [address] [facility] [facility] [address] 03/09/2021 12:00:00 AM EDT eCW1 ([facility]) Brief Individual Psychotherapy - 30 min Attender: Lacie Channing guevaranahed [facility] 02/19/2021 10:00:00 AM EDT - 02/19/2021 10:00:00 AM EDT [facility] ([facility]) Attender: Lacie Saabce 02/19/2021 12:00:00 AM EDT [facility] ([facility]) Outpatient Attender: KRYSTAL KNAPP [facility] 08/2020 09:15:00 AM EDT [facility] ([facility] Extended Individual Psychotherapy - 45 min Attender: Ruben Garcia [facility] 01/24/2021 12:00:00 PM EDT - 01/24/2021 12:00:00 PM EDT [facility] ([facility]) [place] [address] [facility] [address] 01/24/2021 12:00:00 AM EDT eCW1 ([facility]) Attender: Lacie Saabce 01/24/2021 12:00:00 AM EDT [facility] ([facility]) Outpatient Attender: Олег Acosta MD Physical Therapy 01/19/2021 0 8:15:00 AM EDT [facility] ([facility]) Unknown [address] [facility] [address] 01/18/2021 12:00:00 AM EDT eCW1 ([facility]) Outpatient Attender: Alvino Shrestha MD Physical Therapy 08:45:00 AM EDT [facility] ([facility]) Extended Individual Psychotherapy - 45 min Attender: Ruben Garcia [facility] 01/08/2021 11:00:00 AM EDT - 01/08/2021 11:00:00 AM EDT [facility] ([facility]) Attender: Lacie Garcia 01/08/2021 12:00:00 AM EDT [facility] ([facility]) Outpatient Attender: Ernie Delgado NP Family Practice 12/29/2020 0 9:40:00 AM EDT [facility] ([facility]) Outpatient Attender: REYMUNDO ALMEIDA MDConsultant: Silvana pham NP 12/29/2020 09:34:00 AM EDT - 12/29/2020 09:34:00 AM EDT [facility] Outpatient [address] [facility] [address] 12/21/2020 12:00:00 AM EDT eCW1 ([facility]) Unknown [address] [facility] [address] 12/19/2020 12:00:00 AM EDT eCW1 ([facility]) Extended Individual Psychotherapy - 45 min Attender: Ruben Garcia [facility] 12/06/2020 12:00:00 PM EDT - 12/06/2020 12:00:00 PM EDT [facility] ([facility]) Attender: Lacie Garcia 12/06/2020 12:00:00 AM EDT [facility] ([facility]) Outpatient Attender: Олег Acosta MD Physical Therapy 11/22/2020 0 9:00:00 AM EDT [facility] ([facility] Extended Individual Psychotherapy - 45 min Attender: Ruben Garcia [facility] 11/14/2020 10:00:00 AM EDT - 11/14/2020 10:00:00 AM EDT [facility] ([facility]) [place] [address] [facility] [address] 11/14/2020 12:00:00 AM EDT eCW1 ([facility]) Attender: Lacie Garcia 11/14/2020 12:00:00 AM EDT [facility] ([facility]) Office Visit Attender: Олег Acosta MD Physical Therapy 2020 08:45:00 AM EDT [facility] ([facility]) Extended Individual Psychotherapy - 45 min Attender: Cadenalex Larry [facility] 11/02/2020 09:00:00 AM EDT - 11/02/2020 09:00:00 AM EDT [facility] ([facility]) Attender: Tina Larry 11/02/2020 12:00:00 AM EDT [facility] ([facility]) Extended Individual Psychotherapy - 45 min Attender: Kirk wallace Laron [facility] 10/19/2020 09:00:00 AM EDT - 10/19/2020 09:00:00 AM EDT [facility] ([facility]) Attender: Tina Larry 10/19/2020 12:00:00 AM EDT [facility] ([facility]) Outpatient Attender: REYMUNDO ALMEIDA MDConsultant: Silvana pham NP 10/18/2020 11:05:00 AM EDT - 10/18/2020 11:05:00 AM EDT [facility] Outpatient Attender: Олег Acosta MD Physical Therapy 10/16/2020 0 2:15:00 PM EDT [facility] ([facility]) Unknown [address] [facility] [address] 10/05/2020 12:00:00 AM EST eCW1 ([facility]) Extended Individual Psychotherapy - 45 min Attender: Kirk Larry [facility] 10/03/2020 09:00:00 AM EST - 10/03/2020 09:00:00 AM EST [facility] ([facility]) Attender: Tina Larry 10/03/2020 12:00:00 AM EST [facility] ([facility]) Outpatient Attender: REYMUNDO ALMEIDA MDConsultant: Silvana pham [facility] 10/02/2020 09:09:00 AM EST - 10/02/2020 09:09:00 AM EST [facility] Unknown [address] [facility] [address] 09/28/2020 12:00:00 AM EST eCW1 ([facility]) Outpatient [address] [facility] [address] 09/26/2020 12:00:00 AM EST eCW1 ([facility]) [id number]"Psychotherapy Attender: Tina Larry [facility] 09/19/2020 09:00:00 AM EST - 09/19/2020 09:00:00 AM EST [facility] ([facility]) Attender: Tina Larry 09/19/2020 12:00:00 AM EST [facility] ([facility]) Outpatient Attender: Ernie Delgado NPConsultant: STAFF NON 09/07/2020 09:06:00 AM EST - 09/07/2020 10:06:00 AM EST [facility] ital Patient discharged. [place] [address] [facility] [address] 09/07/2020 12:00:00 AM EST eCW1 ([facility]) Outpatient Attender: Ernie Delgado NPRef errer: Ernie Delgado NPConsultant: Silvana Montes NP 08/31/2020 12:10:00 PM EST - 08/31/2020 01:10:00 PM [facility] Unknown [address] [facility] [address] 08/30/2020 12:00:00 AM EST eCW1 ([facility]) Extended Individual Psychotherapy - 45 min Attender: Kirk Larry [facility] 08/24/2020 10:00:00 AM EST - 08/24/2020 10:00:00 AM EST [facility] ([facility]) Attender: Tina Larry 08/24/2020 12:00:00 AM EST [facility] ([facility]) Outpatient Attender: REYMUNDO ALMEIDA MD 01:15:00 PM EST - 08/18/2020 01:15:00 PM [facility] Outpatient Attender: Ernie Delgado NP Family Practice 08/18/2020 1 2:20:00 PM EST [facility] ([facility]) Extended Individual Psychotherapy - 45 min Attender: Kirk Larry [facility] 08/10/2020 09:00:00 AM EST - 08/10/2020 09:00:00 AM EST [facility] ([facility]) Attender: Tina Larry 08/10/2020 12:00:00 AM EST [facility] ([facility]) OFFICE OUTPATIENT VISIT 15 MINUTES Attender: KRYSTAL ANAYA MD Physical Therapy 08/07/2020 08:45:00 AM EST [facility] ([facility]) Unknown [address] [facility] [place] [address] 08/04/2020 12:00:00 AM EST eCW1 [facility]) OFFICE OUTPATIENT VISIT 15 MINUTES Attender: Олег Acosta MD Phys ical Therapy 07/31/2020 12:45:00 PM EST [facility] ([facility]) Unknown [address] [facility] [address] 07/24/2020 12:00:00 AM EST [facility] [place]patient [address] [facility] [address] 07/17/2020 12:00:00 AM EST [facility]CW1 [facility] Unknown [address] [facility] [place] [address] 07/14/2020 12:00:00 AM EST eCW1 [facility] Outpatient [address] [facility] [place] [address] 07/11/2020 12:00:00 AM EST eCW1 [facility] Extended Individual Psychotherapy - 45 min Attender: Kirk Larry [facility] 07/04/2020 11:00:00 AM EST - 07/04/2020 11:00:00 AM EST [facility] ([facility]) Attender: Tina Larry 07/04/2020 12:00:00 AM EST [facility] ([facility]) Extended Individual Psychotherapy - 45 min Attender: Kirk Larry [facility] 06/27/2020 10:00:00 AM EST - 06/27/2020 10:00:00 AM EST [facility] ([facility]) Attender: Tina Larry 06/27/2020 12:00:00 AM EST [facility] ([facility]) [place] [address] [facility] [address] 06/03/2020 12:00:00 AM EST eCW1 ([facility]) Extended Individual Psychotherapy - 45 min Attender: Kirk Larry [facility] 06/01/2020 11:00:00 AM EST - 06/01/2020 11:00:00 AM EST [facility] ([facility]) Attender: Tina Larry 06/01/2020 12:00:00 AM EST [facility] ([facility]) Outpatient [address] [facility], [place] [address] 05/30/2020 12:00:00 AM EST eCW1 ([facility]) Unknown [address] [place] [address] 05/30/2020 12:00:00 AM EST eCW1 ([facility]) Outpatient [facility] 05/25/2020 11:44:02 AM EDT [facility] Outpatient [facility] 05/25/2020 11:43:01 AM EDT [facility] Outpatient [facility] 05/25/2020 10:23:01 AM EDT [facility] Outpatient [facility] 05/25/2020 09:45:01 AM EDT [facility] Extended Individual Psychotherapy - 45 min Attender: Kirk Larry [facility] 05/23/2020 10:00:00 AM EDT - 05/23/2020 10:00:00 AM EDT [facility] ([facility]) Attender: Tina Larry 05/23/2020 12:00:00 AM EDT [facility] ([facility]) Outpatient [address] [address] 05/18/2020 12:00:00 AM EDT eCW1 ([facility]) Psychiatric Diagnostic Evaluation (Non-Medical) Attender: Caden christianjean claude Laron [facility] 05/11/2020 09:00:00 AM EDT - 05/11/2020 09:00:00 AM EDT [facility] ([facility]) Attender: Tinajean claude Larry 05/11/2020 12:00:00 AM EDT [facility] ([facility]) Office Visit Attender: Олег Acosta MD Physical Therapy 2019 11:00:00 AM EDT [facility] ([facility]) Brief Individual Psychotherapy - 30 min Attender: Sara mays [facility] 04/14/2020 09:15:00 AM EDT - 04/14/2020 09:15:00 AM EDT [facility] ([facility]) Attender: Sara Stinson 04/14/2020 12:00:00 AM EDT [facility] ([facility]) Immunizations Vaccine Date Status Description Data Source(s) COVID-19 dose #2 given elsewhere Unspecified 09/27/2020 12:1 7:00 PM EST completed eCW1 ([facility]) COVID-19 dose #2 given elsewhere Unspecified 09/27/2020 12:1 7:00 PM EST completed eCW1 ([facility]) COVID-19 dose #2 given elsewhere Unspecified 09/27/2020 12:1 7:00 PM EST completed eCW1 ([facility]) COVID-19 dose #2 given elsewhere Unspecified 09/27/2020 12:1 7:00 PM EST completed eCW1 ([facility]) COVID-19 dose #2 given elsewhere Unspecified 09/27/2020 12:1 7:00 PM EST completed eCW1 ([facility]) COVID-19 dose #2 given elsewhere Unspecified 09/27/2020 12:1 7:00 PM EST completed eCW1 ([facility]) COVID-19 VACCINE Pfizer 09/27/2020 12:00:00 AM EST completed [place] Vaccine Series Complete: YESThis Data wa s Submitted to [facility] Via [employer]. COVID-19 dose #1 given elsewhere Unspecified 08/22/2020 12:5 1:00 PM EST completed eCW1 ([facility]) COVID-19 dose #1 given elsewhere Unspecified 08/22/2020 12:5 1:00 PM EST completed eCW1 ([facility]) COVID-19 dose #1 given elsewhere Unspecified 08/22/2020 12:5 1:00 PM EST completed eCW1 ([facility]) COVID-19 dose #1 given elsewhere Unspecified 08/22/2020 12:5 1:00 PM EST completed eCW1 ([facility]) COVID-19 dose #1 given elsewhere Unspecified 08/22/2020 12:5 1:00 PM EST completed eCW1 ([facility]) COVID-19 dose #1 given elsewhere Unspecified 08/22/2020 12:5 1:00 PM EST completed eCW1 ([facility]) COVID-19 dose #1 given elsewhere Unspecified 08/22/2020 12:5 1:00 PM EST completed eCW1 ([facility]) COVID-19 dose #1 given elsewhere Unspecified 08/22/2020 12:5 1:00 PM EST completed eCW1 ([facility]) COVID-19 dose #1 given elsewhere Unspecified 08/22/2020 12:5 1:00 PM EST completed eCW1 ([facility]) COVID-19 dose #1 given elsewhere Unspecified 08/22/2020 12:5 1:00 PM EST completed eCW1 ([facility]) COVID-19 dose #1 given elsewhere Unspecified 08/22/2020 12:5 1:00 PM EST completed eCW1 ([facility]) COVID-19 VACCINE Pfizer 08/22/2020 12:00:00 AM EST completed [place] Vaccine Series Complete: NOThis Data was Submitted to [facility] Via [employer]. influenza, recombinant, quadrIvalent,injectable, prese rvative free 05/18/2020 09:34:00 AM EDT completed eCW1 ([facility]) influenza, recombinant, quadrIvalent,injectable, prese rvative free 05/18/2020 09:34:00 AM EDT completed eCW1 ([facility]) influenza, recombinant, quadrIvalent,injectable, prese rvative free 05/18/2020 09:34:00 AM EDT completed eCW1 ([facility]) influenza, recombinant, quadrIvalent,injectable, prese rvative free 05/18/2020 09:34:00 AM EDT completed eCW1 ([facility]) influenza, recombinant, quadrIvalent,injectable, prese rvative free 05/18/2020 09:34:00 AM EDT completed eCW1 ([facility]) influenza, recombinant, quadrIvalent,injectable, prese rvative free 05/18/2020 09:34:00 AM EDT completed eCW1 ([facility]) influenza, recombinant, quadrIvalent,injectable, prese rvative free 05/18/2020 09:34:00 AM EDT completed eCW1 ([facility]) influenza, recombinant, quadrIvalent,injectable, prese rvative free 05/18/2020 09:34:00 AM EDT completed eCW1 ([facility]) influenza, recombinant, quadrIvalent,injectable, prese rvative free 05/18/2020 09:34:00 AM EDT completed eCW1 ([facility]) influenza, recombinant, quadrIvalent,injectable, prese rvative free 05/18/2020 09:34:00 AM EDT completed eCW1 ([facility]) influenza, recombinant, quadrIvalent,injectable, prese rvative free 05/18/2020 09:34:00 AM EDT completed eCW1 ([facility]) influenza, recombinant, quadrIvalent,injectable, prese rvative free 05/18/2020 09:34:00 AM EDT completed eCW1 ([facility]) influenza, recombinant, quadrIvalent,injectable, prese rvative free 05/18/2020 09:34:00 AM EDT completed eCW1 ([facility]) influenza, recombinant, quadrIvalent,injectable, prese rvative free 05/18/2020 09:34:00 AM EDT completed eCW1 ([facility]) influenza, recombinant, quadrIvalent,injectable, prese rvative free 05/18/2020 09:34:00 AM EDT completed eCW1 ([facility]) influenza, recombinant, quadrIvalent,injectable, prese rvative free 05/18/2020 09:34:00 AM EDT completed eCW1 ([facility]) influenza, recombinant, quadrIvalent,injectable, prese rvative free 05/18/2020 09:34:00 AM EDT completed eCW1 ([facility]) influenza, recombinant, quadrIvalent,injectable, prese rvative free 05/18/2020 09:34:00 AM EDT completed eCW1 ([facility]) influenza, recombinant, quadrIvalent,injectable, prese rvative free 05/18/2020 09:34:00 AM EDT completed eCW1 ([facility]) influenza, recombinant, quadrIvalent,injectable, prese rvative free 05/18/2020 09:34:00 AM EDT completed eCW1 ([facility]) influenza, recombinant, quadrIvalent,injectable, prese rvative free 05/18/2020 09:34:00 AM EDT completed eCW1 ([facility]) influenza, recombinant, quadrIvalent,injectable, prese rvative free 05/18/2020 09:34:00 AM EDT completed eCW1 ([facility]) Medications Medication Brand Name Start Date Product Form Dose Route Admi nistrative Instructions Pharmacy Instructions Status Indications Reaction Description Data Source(s) POLYETHYLENE GLYCOL 3350 142 MG/ML Oral Solution [Miralax] M iralax 06/01/2021 12:00:00 AM [place], ) POLYETHYLENE GLYCOL 3350 142 MG/ML Oral Solution [Miralax] M iralax 06/01/2021 12:00:00 AM EDT ORAL active [place], ) Bisacodyl 5 MG Delayed Release Oral Tablet [Dulcolax] Dulcol ax 06/01/2021 12:00:00 AM EDT ORAL active M [facility] ([facility], ) Acetaminophen 325 MG / Hydrocodone Bitartrate 5 MG Ora l Tablet Hydrocodone Bitartrate/Acetaminophen 05/15/2021 12:00:00 AM EDT ORAL active [facility] ([facility] Acetaminophen 325 MG / Hydrocodone Bitartrate 5 MG Ora l Tablet Hydrocodone-Acetaminophen 10/04/2020 12:00:00 AM EST ORAL completed [facility] ([facility] ) ferrous gluconate 324 MG Oral Tablet Ferrous Gluconate 324 (38 Fe) MG Ferrous Gluconate 324 (38 Fe) MG 09/28/2020 12:00:00 AM EST active Ferrous Gluconate 324 (38 Fe) MG eCW1 ([facility]) ferrous gluconate 324 MG Oral Tablet Ferrous Gluconate 324 (38 Fe) MG Ferrous Gluconate 324 (38 Fe) MG 09/28/2020 12:00:00 AM EST active Ferrous Gluconate 324 (38 Fe) MG eCW1 ([facility]) ferrous gluconate 324 MG Oral Tablet Ferrous Gluconate 324 (38 Fe) MG Ferrous Gluconate 324 (38 Fe) MG 09/28/2020 12:00:00 AM EST active Ferrous Gluconate 324 (38 Fe) MG eCW1 ([facility]) ferrous gluconate 324 MG Oral Tablet Ferrous Gluconate 324 (38 Fe) MG Ferrous Gluconate 324 (38 Fe) MG 09/28/2020 12:00:00 AM EST active Ferrous Gluconate 324 (38 Fe) MG eCW1 ([facility]) ferrous gluconate 324 MG Oral Tablet Ferrous Gluconate 324 (38 Fe) MG Ferrous Gluconate 324 (38 Fe) MG 09/28/2020 12:00:00 AM EST active Ferrous Gluconate 324 (38 Fe) MG eCW1 ([facility]) ferrous gluconate 324 MG Oral Tablet Ferrous Gluconate 324 (38 Fe) MG Ferrous Gluconate 324 (38 Fe) MG 09/28/2020 12:00:00 AM EST active Ferrous Gluconate 324 (38 Fe) MG eCW1 ([facility]) Cefuroxime 250 MG Oral Tablet Cefuroxime Axetil 250 MG Cefur oxime Axetil 250 MG 07/17/2020 12:00:00 AM EST 1.0 {tablet} active Cefuroxime Axetil 250 MG eCW1 ([facility]) Cefuroxime 250 MG Oral Tablet Cefuroxime Axetil 250 MG Cefur oxime Axetil 250 MG 07/17/2020 12:00:00 AM EST 1.0 {tablet} active Cefuroxime Axetil 250 MG eCW1 ([facility]) Fluconazole 150 MG Oral Tablet [Diflucan] Diflucan 150 MG Di flucan 150 MG 05/30/2020 12:00:00 AM EST 1.0 {tablet} active Diflucan 150 MG eCW1 ([facility]) Fluconazole 150 MG Oral Tablet [Diflucan] Diflucan 150 MG Di flucan 150 MG 05/30/2020 12:00:00 AM EST 1.0 {tablet} active Diflucan 150 MG eCW1 ([facility]) Doxycycline Monohydrate 100 MG Oral Tablet Doxycycline Monoh ydrate 100 MG 05/30/2020 12:00:00 AM EST 1.0 {tablet} active Doxycycline Monohydrate 100 MG eCW1 ([facility]) Doxycycline Monohydrate 100 MG Oral Tablet Doxycycline Monoh ydrate 100 MG 05/30/2020 12:00:00 AM EST 1.0 {tablet} suspende d Doxycycline Monohydrate 100 MG eCW1 ([facility]) Doxycycline Monohydrate 100 MG Oral Tablet Doxycycline Monoh ydrate 100 MG 05/30/2020 12:00:00 AM EST 1.0 {tablet} active Doxycycline Monohydrate 100 MG eCW1 ([facility]) Doxycycline Monohydrate 100 MG Oral Tablet Doxycycline Monoh ydrate 100 MG 05/30/2020 12:00:00 AM EST 1.0 {tablet} suspende d Doxycycline Monohydrate 100 MG eCW1 ([facility]) Fluconazole 150 MG Oral Tablet [Diflucan] Diflucan 150 MG Di flucan 150 MG 05/30/2020 12:00:00 AM EST 1.0 {tablet} suspended Diflucan 150 MG eCW1 ([facility]) Fluconazole 150 MG Oral Tablet [Diflucan] Diflucan 150 MG Di flucan 150 MG 05/30/2020 12:00:00 AM EST 1.0 {tablet} suspended Diflucan 150 MG eCW1 ([facility]) Fluconazole 150 MG Oral Tablet [Diflucan] Diflucan 150 MG Di flucan 150 MG 05/30/2020 12:00:00 AM EST 1.0 {tablet} active Diflucan 150 MG eCW1 ([facility]) Doxycycline Monohydrate 100 MG Oral Tablet Doxycycline Monoh ydrate 100 MG 05/30/2020 12:00:00 AM EST 1.0 {tablet} active Doxycycline Monohydrate 100 MG eCW1 ([facility]) Insurance Providers Payer name Policy type / Coverage type Policy ID Covered democrat ID Covered democrat's relationship to [place] Policy [place] Plan Information [place] [facility] Part [place] [id number] Self [id number] [facility] Part [place] [id number]..[id number] Self [id number] [facility] Part [place] [id number] .[id number]8.0 Self [id number] [facility] Part B [id number] .[id number] Self [id number] [facility] Part B [id number] .[id number]15.0 Self [id number] [facility] Part B [id number] 2.1.456032.3.227.99.991.544092.0 Self [id number] [facility] [id number] 2.840.1.276393.3.227.99.991.129629.0 Self [id number] [facility] [id number] 2.840.1.325779.3.227.99.991.271907.0 Self [id number] [facility] [id number] 2.0.1.671433.3.227.99.991.986151.0 Self [id number] [facility] [id number] 2.0.1.478767.3.227.99.991.322873.0 Self [id number] [facility] [id number] 2.0.1.343220.3.227.99.991.745142.0 Self [id number] [facility] [place] [employer] [id number] 2.0.1.282302.3.227.99.991.513538.0 Self [id number] [facility] [place] [employer] [id number] 2.840.1.115474.3.227.99.991.753662.0 Self [id number] [facility] [place] [employer] [id number] 2.840.1.874632.3.227.99.991.991588.0 Self [id number] [facility] [id number] 2.840.1.124583.3.227.99.991.610999.0 Self [id number] [facility] [id number] 2.840.1.093515.3.227.99.991.921022.0 Self [id number] [facility] Part B [id number] 2.16840.1.416270.3.227.99.991.944327.0 Self [id number] [facility] Part B [id number].[id number] Self [id number] [facility] [place] Commercial [id number] Self [id number] [facility] [employer] [id number] 2.0.1.395131.3.227.99.991.772506.0 Self [id number] [facility] [place] [employer] [id number] 2.0..766323.3.227.99.991.034490.0 Self [id number] [facility] Part [facility] [id number].[id number] Self [id number] [facility] Commercial [id number] 2.0.1.026695.3.227.99.991.905776.0 Self [id number] [facility] [place] [employer] [id number] 2.0.1.521117.3.227.99.991.863180.0 Self [id number] [facility] [place] [employer] [id number] 2.0.1.907303.3.227.99.991.435482.0 Self [id number] [facility] Part B [id number].[id number] Self [id number] [facility] [employer] [id number] 2.16840.1.841979.3.227.99.991.886847.0 Self [id number] [facility] [employer] [id number] 2.16840.1.770036.3.227.99.991.483082.0 Self [id number] [facility] [place] [employer] [id number] 2.16840.1.132972.3.227.99.991.097784.0 Self [id number] [facility] [id number] 2.840.1.392407.3.227.99.991.927939.0 Self [id number] [facility] [place] [employer] [id number] 2.840.1.460560.3.227.99.991.269990.0 Self [id number] [facility] [employer] Part B [id number] 2.840.1.761195.3.227.99.991.862236.0 Self [id number] [facility] [id number] 2.840.1.745325.3.227.99.991.236638.0 Self [id number] [facility] [employer] Part B [id number] 2.840.1.110907.3.227.99.991.648713.0 Self [id number] [facility] Commercial [id number] 2.840.1.474576.3.227.99.991.567550.0 Self [id number] [facility] [id number] 2.840.1.261680.3.227.99.991.717330.0 Self [id number] [facility] [id number] 2.840.1.162797.3.227.99.991.096937.0 Self [id number] [facility] [id number] 2.840.1.881249.3.227.99.991.127101.0 Self [id number] [facility] [employer] [id number] 2.840.1.552128.3.227.99.991.597371.0 Self [id number] [facility] [id number] 2.0.1.084436.3.227.99.991.470915.0 Self [id number] [facility] [id number] 2.0.1.807689.3.227.99.991.337312.0 Self [id number] [facility] [employer] [id number] 2.840.1.944482.3.227.99.991.222175.0 Self [id number] [facility] [id number] 2.840.1.083643.3.227.99.991.229871.0 Self [id number] [facility] [id number] 2.840.1.653222.3.227.99.991.270690.0 Self [id number] [facility] [id number] 2.840.1.797359.3.227.99.991.174099.0 Self [id number] [facility] [id number] 2.0.1.087151.3.227.99.991.520622.0 Self [id number] [facility] Commercial [id number] 2.0.1.962654.3.227.99.991.021440.0 Self [id number] [facility] [employer] Part B [id number] 2.0.1.403744.3.227.99.991.065826.0 Self [id number] [facility] [employer] Part B [id number] 2.0.1.754772.3.227.99.991.059098.0 Self [id number] [facility] [employer] [id number] 2..1.367413.3.227.99.991.230201.0 Self [id number] [place] 302/307 [id number] SP [id number] Blue Cross Blue Shield P [id number] SELF [id number] [place] P[place] 302/307 [id number] SP [id number] [place] [id number] 2..1.205942.3.227.99 .991.950446.0 Self [id number] [place] [id number] MRN.[id number] Self [id number] [place] [id number] MRN.[id number] Self [id number] [place] [id number] MRN.991.[id number] Self [id number] [place] [id number] .1.792705.3.227.99 .991.140141.0 Self [id number] [place] [id number] 2.16.840.1.365846.3.227.99 .991.468796.0 Self [id number] [place] [id number] 2.16.840.1.667960.3.227.99 .991.001883.0 Self [id number] [place] [id number] 2.16.840.1.849793.3.227.99 .991.711996.0 Self [id number] [place] [id number] 2.16.840.1.740109.3.227.99 .991.522216.0 Self [id number] [place] [id number] 2.16.840.1.996121.3.227.99 .991.747951.0 Self [id number] [place] [id number] 2.16.840.1.157153.3.227.99 .991.148391.0 Self [id number] [place] [id number] 2.16.840.1.949645.3.227.99 .991.451378.0 Self [id number] [place] [id number] 2.16.840.1.046739.3.227.99 .991.229534.0 Self [id number] [place] [id number] 2.16.840.1.656292.3.227.99 .991.492556.0 Self [id number] [place] [id number] 2.16.840.1.032884.3.227.99 .991.672336.0 Self [id number] [place] [id number] 2.16.840.1.142472.3.227.99 .991.253414.0 Self [id number] [place] [id number] 2.16.840.1.853744.3.227.99 .991.447636.0 Self [id number] [place] [id number] 2.16.840.1.871061.3.227.99 .991.296720.0 Self [id number] [place] [id number] 2.16.840.1.803604.3.227.99 .991.078690.0 Self [id number] [place] [id number] 2.16.840.1.781624.3.227.99 .991.041206.0 Self [id number] [place] [id number] 2.16.840.1.524140.3.227.99 .991.969761.0 Self [id number] [place] [id number] 2.16.840.1.037900.3.227.99 .991.534954.0 Self [id number] [place] [id number] 2.16.840.1.259477.3.227.99 .991.198153.0 Self [id number] [place] [id number] 2.16.840.1.762238.3.227.99 .991.169860.0 Self [id number] [place] [id number] 2.16.840.1.173475.3.227.99 .991.044248.0 Self [id number] [place] [id number] 2.16.840.1.131030.3.227.99 .991.825431.0 Self [id number] [place] [id number] 2.16.840.1.569093.3.227.99 .991.096687.0 Self [id number] [place] [id number] 2.16.840.1.750008.3.227.99 .991.894372.0 Self [id number] [place] [id number] 2.16.840.1.163371.3.227.99 .991.667445.0 Self [id number] [place] [id number] 2.16.840.1.210090.3.227.99 .991.531836.0 Self [id number] [place] [id number] 2.16.840.1.457145.3.227.99 .991.104103.0 Self [id number] [place] [id number] 2.0.1.992799.3.227.99 .991.402877.0 Self [id number] [facility] [id number] SP [id number] [place] Medicaid/CHP/FHP Commercial [id number] MRN.[id number] Self [id number] [place]P/F[place] Commercial [id number] 2.1.096349.3.227.99.991.844762.0 Self [id number] [place]/[employer] Commercial [id number] MRN.[id number] Self [id number] [place] Medicaid/[place]P/F[employer] Commercial [id number] 2..1.519127.3.227.99.991.661418.0 Self [id number] [place]/F[place] Commercial [id number] MRN.[id number] Self [id number] [place]/CHP/F[place] Commercial [id number] 2.16.840.1.610654.3.227.99.991.272664.0 Self [id number] [place]/[employer] Commercial [id number] 2.0.1.488783.3.227.99.991.748596.0 Self [id number] [place]P/F[employer] Commercial [id number] 2.0.1.655497.3.227.99.991.405660.0 Self [id number] [place]/F[place] Commercial [id number] 2.0.1.664931.3.227.99.991.515202.0 Self [id number] [place]/F[place] Commercial [id number] 2.0.1.959832.3.227.99.991.822609.0 Self [id number] [place]P/F[employer] Commercial [id number] 2.0.1.999278.3.227.99.991.578304.0 Self [id number] [place] Medicaid/CHP/F[employer] Commercial [id number] 2.0.1.436823.3.227.99.991.068555.0 Self [id number] [place]/F[place] Commercial [id number] 2.0.1.054175.3.227.99.991.604398.0 Self [id number] [place]/F[place] Commercial [id number] 2..1.327639.3.227.99.991.140521.0 Self [id number] [place]/F[place] Commercial [id number] 2.0.1.058478.3.227.99.991.227410.0 Self [id number] [place] Commercial [id number] 2.0.1.238860.3.227.99.991.997252.0 Self [id number] [place] Commercial [id number] 2.840.1.778262.3.227.99.991.035384.0 Self [id number] [place] Commercial [id number] 2.0.1.683595.3.227.99.991.561953.0 Self [id number] [place] Commercial [id number] 2.0.1.489576.3.227.99.991.204167.0 Self [id number] [place] Commercial [id number] 2.0.1.031132.3.227.99.991.460296.0 Self [id number] [place]/[employer] Commercial [id number] 2.0.1.266243.3.227.99.991.135307.0 Self [id number] [place]/[employer] Commercial [id number] 2.0.1.763919.3.227.99.991.121789.0 Self [id number] [facility] Medicaid [id number] 2.0.1.265121.3.227.99.8646.363250.0 Self [id number] [place]/[employer] Commercial [id number] 2.0.1.399486.3.227.99.991.762812.0 Self [id number] [place]/[employer] Commercial [id number] 2.0.1.773420.3.227.99.991.494855.0 Self [id number] [facility] I [id number] Self [id number] [place]/[employer] Commercial [id number] .0.1.059035.3.227.99.991.563009.0 Self [id number] [facility] I [id number] Self [id number] [place]/[employer] Commercial [id number] .0.1.448902.3.227.99.991.685565.0 Self [id number] [place] Commercial [id number] .0.1.846951.3.227.99.991.948307.0 Self [id number] [place]/[employer] Commercial [id number] .1.650778.3.227.99.991.977116.0 Self [id number] [facility] [id number] SP [id number] [place]/[employer] Commercial [id number] .1.650556.3.227.99.991.236506.0 Self [id number] [place]/[employer] Commercial [id number] 09.12.830.1.611253.3.227.99.991.709997.0 Self [id number] [place] Commercial [id number] .1.053813.3.227.99.991.782287.0 Self [id number] [place]/[employer] Commercial [id number] .1.499797.3.227.99.991.811861.0 Self [id number] [facility] [id number] SP [id number] [facility] [id number] SP [id number] 700 MEDICAID [id number] SP [id number] BLUE CROSS BLUE SHIELD-O/P [id number] ANSI-Commercial [id number] [employer] BCBS B [id number] S VYS [id number] [place] 306/806 [id number] SP [id number] [place] 306/806 [id number] SP [id number] ANSI-Commercial [id number] ANSI-Commercial [id number] ANSI-Commercial [id number] [place]ANET[place] [id number] SP [id number] Medicaid S UNAVAILABLE S UNAVAILA BLE Managed Care [place] P UNAVAILABLE S [place]IL[place] [id number] S [id number] SELF PAY ONLY [id number] SP [id number] [facility] [id number] 18 [id number] [facility] [id number] 18 [id number] MEDICAID -PHYSICIAN [id number] KVNG CARE OF [facility] [place] [id number] 18 [id number] UNAVAILABLE UNAVAILA BLE ANSI-Commercial [id number] [place] [id number] 18 74 [id number] ANSI-Commercial [id number] [id number] [employer] [id number] [facility] [id number] ANSI-Commercial [id number] ANSI-Commercial [id number] [place] 306/806 [id number] SP [id number] ANSI-Commercial [id number] ANSI-Commercial [id number] ANSI-Commercial [id number] ANSI-Commercial [id number] [facility] [id number] SP [id number] ANSI-Commercial [id number] [facility] OneCard [id number] Self [id number] EXCELLUS BS B [id number] S VYT [id number] [facility] Commercial [id number] Self [id number] ANSI-Commercial [id number] ANSI-Commercial [id number] SELF PAY UNAVAILABLE SP UNAVAILA BLE ANSI-Commercial [id number] ANSI-Commercial [id number] BLUE CROSS CABAN PLAN [id number] SP [id number] ANSI-Commercial [id number] [facility] [id number] SP [id number] ANSI-Commercial [id number] O BLUE [id number] SP [id number] [facility] Commercial [id number] Self [id number] [place] - Medicaid o Health Maintenance Organization (HMO) [id number] Self [id number] HMO BLUE [id number] SP [id number] [place] - Medicaid Hmo Health Maintenance Organization (HMO) [id number] Self [id number] [employer] [id number] SP [id number] [employer] [id number] Self [id number] ANSI-Commercial [id number] MEDICAID [id number] SP [id number] [employer] [id number] Self [id number] ANSI-Commercial [id number] [facility] [id number] MEDICAID M [id number] C [id number] [employer] [id number] Self [id number] [employer] [id number] Self [id number] [employer] [id number] Self [id number] [employer] [id number] Self [id number] [facility] Commercial [id number] Self [id number] [facility] Commercial [id number] Self [id number] ANSI-Commercial [id number] Problems, Conditions, and Diagnoses Code Display Name Description Problem Type Effective Dates Data Source(s) M7522 Bicipital tendinitis, left shoulder Bicipital te ndinitis, left shoulder Diagnosis [facility] of left shoulder Bursitis of left shoulder Di agnosis 04/23/2021 10:07:00 AM [facility] M542 Cervicalgia Cervicalgia Diagnosis 04/06/2021 09:24:00 AM [facility] M5412 Radiculopathy, cervical region Radiculopathy, cervical region Diagnosis 10/02/2020 09:09:00 AM [facility] N88764 Unspecified rotator cuff tea r or rupture of left shoulder, not specified as traumatic Unspecified rotator cuff tear or rupture of left shoulder, not specified as traumatic Diagnosis 09/07/2020 09:06:00 AM [facility] E90229 Other instability, left shoulder Other instabili ty, left shoulder Diagnosis 09/07/2020 09:06:00 AM [facility] F33.1 Major depressive disorder, recurrent, mo derate Major Depressive Disorder, Recurrent episode, Moderate Condition 06/11/2021 12:00:00 AM EST Ricky garcia ([facility]) E07.9 Disorder of thyroid gland Disorder of thyroid gland Pr oblem 04/11/2021 12:00:00 AM EDT AMY ([facility], ) R49.8 Speech and language disorder Speech and language disor maria elena Problem 04/11/2021 12:00:00 AM EDT [facility] ([facility], ) R05 Cough Cough Problem 04/11/2021 12:00:00 AM ED T [facility] ([facility], ) K21.9 Gastroesophageal reflux disease Gastroesophageal reflu x disease Problem 04/11/2021 12:00:00 AM EDT [facility] ([facility], ) G56.22 Lesion of ulnar nerve Lesion of ulnar nerve Problem 10/18/2020 12:00:00 AM EDT [facility] ([facility]) M54.2 Neck pain Neck pain Problem 10/02/2020 12:00:00 AM ES T [facility] ([facility]) M25.312 Shoulder joint unstable Shoulder joint unstable Proble m 08/18/2020 12:00:00 AM EST [facility] ([facility]) M75.22 Bicipital tenosynovitis Bicipital tenosynovitis Proble m 08/18/2020 12:00:00 AM EST [facility] ([facility]) M75.52 Disorder of bursa of shoulder region Dis order of bursa of shoulder region Problem 08/18/2020 12:00:00 AM EST [facility] ([facility]) [id number] Pure hypercholesterolemia Pure hypercholesterolemia Pr oblem 08/18/2020 12:00:00 AM EST [facility] ([facility]) Z90.710 [id number] Status post hysterectomy Problem 07/11/2020 12:00:00 AM EST eCW1 ([facility]) 521.00 Dental caries Dental caries 05/25/2020 11:42:17 AM EDT [facility] Surgeries/Procedures Procedure Description Date Indications Data Source(s) Extended Individual Psychotherapy - 45 min 06/11/2021 12:00:00 AM EST - 06/11/2021 12:00:00 AM EST [facility] ([facility]) Extended Individual Psychotherapy - 45 min 12:00:00 AM EST [facility] ([facility]) Extended Individual Psychotherapy - 45 min 05/28/2021 12:00:00 AM EDT - 05/28/2021 12:00:00 AM EDT [facility] ([facility]) Extended Individual Psychotherapy - 45 min 12:00:00 AM EDT [facility] ([facility]) Hallux Rigidus Correction W/Cheilectomy,Debride/Cap Release MTP 05/16/2021 12:00:00 AM EDT [facility] ([facility] Extended Individual Psychotherapy - 45 min 05/15/2021 12:00:00 AM EDT - 05/15/2021 12:00:00 AM EDT [facility] ([facility]) Extended Individual Psychotherapy - 45 min 12:00:00 AM EDT [facility] ([facility]) OFFICE OUTPATIENT VISIT 25 MINUTES 05/01/2021 12:00:00 AM EDT [facility] ([facility], ) OFFICE OUTPATIENT VISIT 15 MINUTES 04/30/2021 12:00:00 AM EDT [facility] ([facility]) Brief Individual Psychotherapy - 30 min 04/24/2021 12:00:00 AM EDT - 04/24/2021 12:00:00 AM EDT [facility] ([facility]) Brief Individual Psychotherapy - 30 min 04/24/2021 12: 00:00 AM EDT [facility] ([facility]) OFFICE OUTPATIENT VISIT 15 MINUTES 04/23/2021 12:00:00 AM EDT [facility] ([facility]) LARYNGOSCOPY FLEXIBLE FIBEROPTIC DIAGNOSTIC 04/11/2021 12:00:00 AM EDT [facility] ([facility], ) OFFICE OUTPATIENT NEW 45 MINUTES 04/11/2021 12:00:00 A M EDT [facility] ([facility], ) Extended Individual Psychotherapy - 45 min 04/10/2021 12:00:00 AM EDT - 04/10/2021 12:00:00 AM EDT [facility] ([facility]) Extended Individual Psychotherapy - 45 min 12:00:00 AM EDT [facility] ([facility]) OFFICE OUTPATIENT VISIT 15 MINUTES 04/06/2021 12:00:00 AM EDT [facility] ([facility]) Brief Individual Psychotherapy - 30 min 02/19/2021 12:00:00 AM EDT - 02/19/2021 12:00:00 AM EDT [facility] ([facility]) Brief Individual Psychotherapy - 30 min 02/19/2021 12: 00:00 AM EDT [facility] ([facility]) RADEX FOOT COMPLETE MINIMUM 3 VIEWS 01/26/2021 12:00:0 0 AM EDT [facility] ([facility] OFFICE OUTPATIENT VISIT 15 MINUTES 01/26/2021 12:00:00 AM EDT [facility] ([facility] Extended Individual Psychotherapy - 45 min 01/24/2021 12:00:00 AM EDT - 01/24/2021 12:00:00 AM EDT [facility] ([facility]) Extended Individual Psychotherapy - 45 min 12:00:00 AM EDT [facility] ([facility]) OFFICE OUTPATIENT VISIT 10 MINUTES 01/19/2021 12:00:00 AM EDT [facility] ([facility]) OFFICE OUTPATIENT VISIT 25 MINUTES 01/12/2021 12:00:00 AM EDT [facility] ([facility]) Extended Individual Psychotherapy - 45 min 01/08/2021 12:00:00 AM EDT - 01/08/2021 12:00:00 AM EDT [facility] ([facility]) Extended Individual Psychotherapy - 45 min 12:00:00 AM EDT [facility] ([facility]) OFFICE OUTPATIENT VISIT 15 MINUTES 12/29/2020 12:00:00 AM EDT [facility] ([facility]) Physical Therapy Eval - Low Complexity 12/07/2020 12:0 0:00 AM EDT [facility] ([facility]) Extended Individual Psychotherapy - 45 min 12/06/2020 12:00:00 AM EDT - 12/06/2020 12:00:00 AM EDT [facility] ([facility]) Extended Individual Psychotherapy - 45 min 12:00:00 AM EDT [facility] ([facility]) ARTHROCENTESIS ASPIR&/INJECTION MAJOR JT/BURSA 021 12:00:00 AM EDT [facility] ([facility] OFFICE OUTPATIENT VISIT 25 MINUTES 11/22/2020 12:00:00 AM EDT [facility] ([facility] ) Extended Individual Psychotherapy - 45 min 11/14/2020 12:00:00 AM EDT - 11/14/2020 12:00:00 AM EDT [facility] ([facility]) Extended Individual Psychotherapy - 45 min 12:00:00 AM EDT [facility] ([facility]) Extended Individual Psychotherapy - 45 min 11/02/2020 12:00:00 AM EDT - 11/02/2020 12:00:00 AM EDT [facility] ([facility]) Extended Individual Psychotherapy - 45 min 12:00:00 AM EDT [facility] ([facility]) Neuroplasty/Transposition, Ulnar Nerve AT Elbow 2020 12:00:00 AM EDT [facility] ([facility] ) Extended Individual Psychotherapy - 45 min 10/19/2020 12:00:00 AM EDT - 10/19/2020 12:00:00 AM EDT [facility] ([facility]) Extended Individual Psychotherapy - 45 min 12:00:00 AM EDT [facility] ([facility]) OFFICE OUTPATIENT VISIT 15 MINUTES 10/18/2020 12:00:00 AM EDT [facility] ([facility]) RADEX SPINE CRV COMPL W/OBLQ&FLEX&/XTN STDS 10/16/2020 12:00:00 AM EDT [facility] ([facility] ) X-Ray Spine Lumbosacral Complete Inc Bending Views Min Of 6 10/16/2020 12:00:00 AM EDT [facility] ([facility]) OFFICE OUTPATIENT VISIT 25 MINUTES 10/16/2020 12:00:00 AM EDT [facility] ([facility]) Extended Individual Psychotherapy - 45 min 10/03/2020 12:00:00 AM EST - 10/03/2020 12:00:00 AM EST [facility] ([facility]) Extended Individual Psychotherapy - 45 min 12:00:00 AM EST [facility] ([facility]) [id number]"Psychotherapy 12:00:00 AM EST - 09/19/2020 12:00:00 AM EST [facility] ([facility]) [id number]"Psychotherapy 09/19/2020 12:00:00 AM EST [facility] ([facility]) Extended Individual Psychotherapy - 45 min 08/24/2020 12:00:00 AM EST - 08/24/2020 12:00:00 AM EST [facility] ([facility]) Extended Individual Psychotherapy - 45 min 12:00:00 AM EST [facility] ([facility]) Extended Individual Psychotherapy - 45 min 08/10/2020 12:00:00 AM EST - 08/10/2020 12:00:00 AM EST [facility] ([facility]) Extended Individual Psychotherapy - 45 min 12:00:00 AM EST [facility] ([facility]) ARTHROCENTESIS ASPIR&/INJECTION INTERM JT/BURSA 2020 12:00:00 AM EST [facility] ([facility]) OFFICE OUTPATIENT VISIT 15 MINUTES 08/07/2020 12:00:00 AM EST [facility] ([facility]) OFFICE OUTPATIENT VISIT 15 MINUTES 07/31/2020 12:00:00 AM EST [facility] ([facility]) Extended Individual Psychotherapy - 45 min 07/04/2020 12:00:00 AM EST - 07/04/2020 12:00:00 AM EST [facility] ([facility]) Extended Individual Psychotherapy - 45 min 12:00:00 AM EST [facility] ([facility]) Extended Individual Psychotherapy - 45 min 06/27/2020 12:00:00 AM EST - 06/27/2020 12:00:00 AM EST [facility] ([facility]) Extended Individual Psychotherapy - 45 min 0 12:00:00 AM EST [facility] ([facility]) Extended Individual Psychotherapy - 45 min 06/01/2020 12:00:00 AM EST - 06/01/2020 12:00:00 AM EST [facility] ([facility]) Extended Individual Psychotherapy - 45 min 0 12:00:00 AM EST [facility] ([facility]) Extended Individual Psychotherapy - 45 min 05/23/2020 12:00:00 AM EDT - 05/23/2020 12:00:00 AM EDT [facility] ([facility]) Extended Individual Psychotherapy - 45 min 0 12:00:00 AM EDT [facility] ([facility]) Immunization: Flublok Quadrivalent (18 years & older) 0.5mL IM (Influenza) 05/18/2020 12:00:00 AM EDT eCW1 ([facility]) Psychiatric Diagnostic Evaluation (Non-Medical) 05/11/2020 12:00:00 AM EDT - 05/11/2020 12:00:00 AM EDT [facility] ([facility]) Psychiatric Diagnostic Evaluation (Non-Medical) 2019 12:00:00 AM EDT [facility] ([facility]) Brief Individual Psychotherapy - 30 min 04/14/2020 12:00:00 AM EDT - 04/14/2020 12:00:00 AM EDT [facility] ([facility]) Brief Individual Psychotherapy - 30 min 04/14/2020 12: 00:00 AM EDT [facility] ([facility]) Results ID Date Data Source [id number] 05/24/2021 10:40:00 AM EDT [facility] Name Value Range Interpretation Code Description Data Jenny rce(s) Supporting Document(s) SARS-CoV-2 (COVID-19) RNA [Presence] in Respiratory specimen by ESTEPHANIA with probe detection Not Detected [facility] This lab was ordered by [facility] and reported by [employer] ID Date Data Source [id number] 05/16/2021 12:00:00 AM EDT [facility] Name Value Range Interpretation Code Description Data Jenny rce(s) Supporting Document(s) Covid Rapid Testing Negative [facility] This lab was ordered by [facility] and re ported by [facility]. ID Date Data Source [id number] 05/10/2021 01:35:00 PM EDT [facility] ([facility]) Name Value Range Interpretation Code Description Data Jenny rce(s) Supporting Document(s) Covid Rapid Testing Laboratory test result [facility] ([facility]) CARE START COVID-19 ANTIGEN LOT #[id number] 05/16/21 9:13 A.M. ID Date Data Source VITAMIN D 25-[id number] 04/09/2021 12:00:00 AM EDT eCW1 ([facility]) Name Value Range Interpretation Code Description Data Jenny rce(s) Supporting Document(s) 54.8 30.0-100.0 TOTAL 25(OH) VITAMIN D eC W1 ([facility]) ID Date Data Source TSH 04/09/2021 12:00:00 AM EDT eCW1 ([facility]) Name Value Range Interpretation Code Description Data Jenny rce(s) Supporting Document(s) 1.650 0.358-3.740 THYROID STIMULATING HORM ONE eCW1 ([facility]) ID Date Data Source MAGNESIUM LEVEL 04/09/2021 12:00:00 AM EDT eCW1 ([facility]) Name Value Range Interpretation Code Description Data Jenny rce(s) Supporting Document(s) 2.0 1.8-2.4 MAGNESIUM LEVEL eCW1 ([facility]) ID Date Data Source LIPID PANEL (CARDIAC RISK) 04/09/2021 12:00:00 AM EDT eCW1 ( [facility]) Name Value Range Interpretation Code Description Data Jenny rce(s) Supporting Document(s) Cholesterol in LDL [Mass/volume] in Serum or Plasma by calculation 118 <100 LDL CHOLESTEROL eCW1 ([facility]) 145 NON-HDL-C eCW1 ([facility]) Cholesterol [Moles/volume] in Serum or Plasma 192 <200 CHOLESTEROL LEVEL eCW1 ([facility]) Cholesterol in HDL [Moles/volume] in Serum or Plasma 47 >40 HDL CHOLESTEROL eC ([facility]) Triglyceride [Mass/volume] in Serum or Plasma by calculation 137 <150 TRIGLYCERIDES LEVEL [facility] ([facility]) 4.085 <5 CHOLESTEROL RISK RATIO [facility] ([facility]) ID Date Data Source [id number] 04/09/2021 12:00:00 AM EDT eCW1 ([facility]) Name Value Range Interpretation Code Description Data Jenny rce(s) Supporting Document(s) Hemoglobin A1c/Hemoglobin.total in Blood 5.4 HEMOGLOBIN A1c [facility] ([facility]) ID Date Data Source [id number] 10/05/2020 11:45:00 AM EST [facility] ([facility]) Name Value Range Interpretation Code Description Data Jenny rce(s) Supporting Document(s) Covid Rapid Testing Laboratory test result [facility] ([facility]) ID Date Data Source [id number] 10/05/2020 12:00:00 AM EST [facility] Name Value Range Interpretation Code Description Data Jenny rce(s) Supporting Document(s) Covid Rapid Testing negative [facility] This lab was ordered by [facility] and re ported by [facility]. ID Date Data Source [id number] 09/28/2020 08:58:00 AM EST [facility] ([facility]) Name Value Range Interpretation Code Description Data Jenny rce(s) Supporting Document(s) Thyrotropin [Units/volume] in Serum or Plasma 0.841 uIU/ML 0. 358-3.740 Normal (applies to non-numeric results) [facility] Calcidiol [Mass/volume] in Serum or Plasma 40.1 ng/mL 30.0- 100.0 Normal (applies to non-numeric results) [facility] ([facility]) Ferritin [Mass/volume] in Serum or Plasma 65 ng/mL 8-252 Normal (applies to non- numeric results) [facility] ([facility]) ID Date Data Source [id number] 09/28/2020 08:58:00 AM EST [facility] ([facility]) Name Value Range Interpretation Code Description Data Jenny rce(s) Supporting Document(s) Iron (Fe) 43 ug/dL 50-170 Below low normal [facility] Total Iron Binding Capacity 332 ug/dL 250-450 Norm al (applies to non-numeric results) [facility] ([facility]) Percent Saturation 13.0 % 13.2-45.0 Below low normal [facility] ([facility]) ID Date Data Source [id number] 09/28/2020 08:58:00 AM EST [facility] ([facility]) Name Value Range Interpretation Code Description Data Jenny rce(s) Supporting Document(s) Triglycerides Level 152 mg/dL Above high normal [facility]) Cholesterol Level 200 mg/dL Normal (applies to non-numeri c results) [facility] ([facility]) LDL Cholesterol 113 mg/dL Above high normal [facility] ([facility]) HDL Cholesterol 57 mg/dL Normal (applies to non-numeric results) [facility] ([facility]) Cholesterol Risk Ratio 3.508 Normal (applies to non-n umeric results) [facility] ([facility]) Non-HDL-C 143 mg/dL Normal (applies to non-numeric resul ts) [facility] ([facility]) ID Date Data Source [id number] 09/28/2020 08:58:00 AM EST [facility] ([facility]) Name Value Range Interpretation Code Description Data Jenny rce(s) Supporting Document(s) Glucose, Fasting 95 mg/dL 70-100 Normal (applies to non-numeric results) [facility] ([facility]) Glomerular Filtration Rate Laboratory test result Normal (applies to non- numeric results) [facility] ([facility]) <content>Units are mL/min/1.73 m2</content>
<content></content>
<content>Chronic Kidney Disease Staging per NKF:</content>
<content></content>
<content>Stage I & II GFR >=60 Normal to Mildly Decreased</content>
<content>Stage III GFR 30- 59 Moderately Decreased</content>
<content>Stage IV GFR 15-29 Severely Decreased</content>
<content>Stage V GFR <15 Very Little GFR Left</content>
<content>ESRD GFR <15 on ANIMAL SHELTER MANAGER</content>
<content></content> Blood Urea Nitrogen 12 mg/dL 7-18 Normal (applies to non-nume dayo results) [facility] ([facility]) Creatinine For GFR 0.89 mg/dL 0.55-1.30 Normal (applies to non -numeric results) [facility] ([facility]) Potassium Serum 4.2 meq/L 3.5-5.1 Normal (applies to non-numeric results) [facility] ([facility]) Sodium Level 139 meq/L 136-145 Normal (applies to non-numeric res ults) [facility] ([facility]) Chloride Level 107 meq/L 98-107 Normal (applies to non-numeric r esults) [facility] ([facility]) Anion Gap 6 meq/L 8-16 Below low normal [facility] ( [facility]) Carbon Dioxide Level 26 meq/L 21-32 Normal (applies to non-num erma results) [facility] ([facility]) Calcium Level 9.0 mg/dL 8.5-10.1 Normal (applies to non-numeric re sults) [facility] ([facility]) Ast/Sgot 13 U/L 7-37 Normal (applies to non-numeric resul ts) [facility] ([facility]) Alt/SGPT 24 U/L 12-78 Normal (applies to non-numeric resul ts) [facility] ([facility]) Alkaline Phosphatase 157 U/L 45-117 Above high normal [facility] ([facility]) Bilirubin,Total 0.3 mg/dL 0.2-1.0 Normal (applies to non-numeric results) [facility] ([facility]) Total Protein 7.0 GM/DL 6.4-8.2 Normal (applies to non-numeric re sults) [facility] ([facility]) Albumin 3.6 GM/DL 3.2-5.2 Normal (applies to non-numeric resul ts) [facility] ([facility]) Albumin/Globulin Ratio 1.1 1.2-2.2 Below low normal [facility] ([facility]) ID Date Data Source [id number] 09/28/2020 08:58:00 AM EST [facility] ([facility]) Name Value Range Interpretation Code Description Data Jenny rce(s) Supporting Document(s) Estimated Average Glucose 103 mg/dL 60-110 Normal (applies to non-numeric results) [facility] ([facility]) Hemoglobin A1c 5.2 % Normal (applies to non-numeric r esults) [facility] ([facility]) <content>REFERENCE RANGES:</content><br/ ><content></content>
<content><=5.6% NORMAL</content>
<content>5.7-6.4% SUGGESTS IMPAIRED GLUCOSE METABOLISM/PREDIABETIC</content>
<content>>= 6.5% ABNORMAL</content>
<content></content> ID Date Data Source [id number] 09/28/2020 08:58:00 AM EST [facility] ([facility]) Name Value Range Interpretation Code Description Data Jenny rce(s) Supporting Document(s) Hemoglobin 12.8 g/dL 12.0-15.5 Normal (applies to non-numeric resul ts) [facility] ([facility]) White Blood Count 9.6 10 4.0-10.0 Normal (applies to non-numeri c results) [facility] ([facility]) Red Blood Count 5.16 10 4.00-5.40 Normal (applies to non-numeric results) [facility] ([facility]) Mean Corpuscular Volume 82.2 fl 80.0-96.0 Normal ( applies to non-numeric results) [facility] ([facility]) Hematocrit 42.4 % 36.0-47.0 Normal (applies to non-numeric resul ts) [facility] ([facility]) Mean Corpuscular HGB Conc 30.2 g/dL 32.0-36.5 Below low normal [facility] ([facility]) Red Cell Distribution Width 14.1 % 11.5-14.5 Norm al (applies to non-numeric results) [place] ([facility]) Mean Corpuscular Hemoglobin 24.8 pg 27.0-33.0 Below low normal [place] ([facility]) Nucleated Red Blood Cell % 0.0 % 0-0 Normal (applies to n on-numeric results) [facility] ([facility]) Platelet Count, Automated 423 10 150-450 Normal (applies to non-numeric results) [place] ([facility]) ID Date Data Source TOTAL IRON BINDING CAPACIT 09/28/2020 12:00:00 AM EST eCW1 ( [facility]) Name Value Range Interpretation Code Description Data Jenny rce(s) Supporting Document(s) 43 50-170 IRON (FE) eCW1 ([facility]) 332 250-450 TOTAL IRON BINDING CAPACI TY eCW1 ([facility]) 13.0 13.2-45.0 PERCENT SATURATION eCW1 ([facility]) ID Date Data Source FERRITIN 09/28/2020 12:00:00 AM EST eCW1 ([facility]) Name Value Range Interpretation Code Description Data Jenny rce(s) Supporting Document(s) 65 3-212 FERRITIN eCW1 ([facility]) ID Date Data Source Comprehensive Metabolic Profile (CMP) 09/28/2020 12:00:00 AM EST eCW1 ([facility]) Name Value Range Interpretation Code Description Data Jenny rce(s) Supporting Document(s) > 60.0 >51 GLOMERULAR FILTRATION RATE eCW 1 ([facility]) 95 70-100 GLUCOSE, FASTING eCW1 ([facility]) 12 7-18 BLOOD UREA NITROGEN eCW1 ([facility]) 0.89 0.55-1.30 CREATININE FOR GFR eCW1 ([facility]) 26 21-32 CARBON DIOXIDE LEVEL eCW1 ([facility]) 139 136-145 SODIUM LEVEL eCW1 ([facility]) 107 98-107 CHLORIDE LEVEL eCW1 ([facility]) 4.2 3.5-5.1 POTASSIUM SERUM eCW1 ([facility]) 9.0 8.5-10.1 CALCIUM LEVEL eCW1 ([facility]) 24 12-78 ALT/SGPT eCW1 ([facility]) 13 7-37 AST/SGOT eCW1 ([facility]) 0.3 0.2-1.0 BILIRUBIN,TOTAL eCW1 ([facility]) 157 45-117 ALKALINE PHOSPHATASE eCW1 ([facility]) 1.1 1.2-2.2 ALBUMIN/GLOBULIN RATIO eCW1 ([facility]) 3.6 3.2-5.2 ALBUMIN eCW1 ([facility]) 7.0 6.4-8.2 TOTAL PROTEIN eCW1 ([facility]) ID Date Data Source CBC - Complete Blood Count 09/28/2020 12:00:00 AM EST eCW1 ( [facility]) Name Value Range Interpretation Code Description Data Jenny rce(s) Supporting Document(s) 9.6 4.0-10.0 WHITE BLOOD COUNT eCW1 ([facility]) 5.16 4.00-5.40 RED BLOOD COUNT eCW1 ([facility]) 82.2 80.0-96.0 MEAN CORPUSCULAR VOLUME e CW1 ([facility]) 12.8 12.0-15.5 HEMOGLOBIN eCW1 ([facility]) 42.4 36.0-47.0 HEMATOCRIT eCW1 ([facility]) 24.8 27.0-33.0 MEAN CORPUSCULAR HEMOGLOB IN eCW1 ([facility]) 14.1 11.5-14.5 RED CELL DISTRIBUTION WID TH eCW1 ([facility]) 30.2 32.0-36.5 MEAN CORPUSCULAR HGB CONC eCW1 ([facility]) 423 150-450 PLATELET COUNT, AUTOMATED eCW1 ([facility]) ID Date Data Source [id number] 09/18/2020 12:00:00 AM EST [facility] Name Value Range Interpretation Code Description Data Jenny rce(s) Supporting Document(s) SARS-CoV-2 (COVID-19) RNA [Presence] in Respiratory specimen by ESTEPHANIA with probe detection Not Detected [facility] This lab was ordered by [facility] and reported by [employer]. ID Date Data Source [id number] 09/08/2020 09:52:00 AM EST [facility] [address] [place] [address] PHONE: [phone] FAX: [phone] Name .................. : JEFF CARMEN Esteves Acct Number.................. : [id number] ROOM. ................. : Number ................... : [id number] Stay type ............. : O/P Discharge Date......... ... : 09/07/20 Admit Date ......... : 09/07/20 [facility] .................... [facility] Date of ....... : 1970 Family Phys ................... : NON STAFF Phone .................. : [phone] Age ................................ : 50 Film# .................. .:[id number] Sex ................................. : F Unsigned transcriptions are preliminary reports and do not represent a medical or legal document MRI [place]T [place] W [place] [id number] COMPLETE:09/07/20 12:44 [facility] 4126 (REASON FOR PROCESS: PAIN MRI OF [...] for: NAZANIN Dhillon via fax Copy for: [address] [place] [address] Page 1 of 1 Name Value Range Interpretation Code Description Data Jenny rce(s) Supporting Document(s) ID Date Data Source [id number] 09/08/2020 09:52:00 AM EST [facility] [address] [place] [address] PHONE: [phone] FAX: [phone] Name .................. : JEFF Esteves Acct Number.................. : [id number] ROOM. ................. : MR Number ................... : [id number] Stay type ............. : O/P Discharge Date......... ... : 09/07/20 Admit Date ......... : 09/07/20 Admit Phys .................... : PERRINEJEF Date of ....... : 1970 Family Phys ................... : NON STAFF Phone .................. : [phone] Age ................................ : 50 Film# .................. .:[id number] Sex ................................. : F Unsigned transcriptions are preliminary reports and do not represent a medical or legal document INJECTION FOR SHOULDER ARTHRO [id number] COMPLETE:09/07/20 10:06 [facility] 4081 (REASON FOR PROCESS: PAIN SHOULDER 1 VIEW [place] [id number] COMPLETE:09/07/20 10:06 [facility] 4080 (REASON FOR PROCESS: PAIN FLUOROSCOPIC EXAMINATION OF THE LEFT SHOULDER FOR ARTHROGRAM: INDICATION: Pain. FINDINGS: The clock and watch assembler film shows no acute findings. Examination dictated [...] during the procedure. Page 1 of 2 [facility] [address] [place] [address] [place] [address] PHONE: [phone] FAX: [phone] Name .................. : JEFF Esteves Acct Number.................. : [id number] ROOM. ................. : Number ................... : [id number] Stay type ............. : O/P Discharge Date......... ... : 09/07/20 Admit Date ......... : 09/07/20 [facility] .................... [facility] Date of ....... : 1970 Family Phys ................... : NON STAFF Phone .................. : [phone] Age ................................ : 50 Film# .................. .:[id number] Sex ................................. : F Unsigned transcriptions are preliminary reports and do not represent a medical or legal document INJECTION FOR SHOULDER ARTHRO [id number] COMPLETE:09/07/20 10:06 [facility] 408 (REASON FOR PROCESS: PAIN SHOULDER 1 [place] [id number] COMPLETE:09/07/20 10:06 [facility] 4080 (REASON FOR PROCESS: [...] NAZANIN Dhillon via fax Copy for: [address] [facility] REC Page 2 of 2 Name Value Range Interpretation Code Description Data Jenny rce(s) Supporting Document(s) ID Date Data Source [id number] 09/08/2020 09:52:00 [place] [address] PHONE: [phone] FAX: [phone] Name .................. : JEFF Esteves Acct Number.................. : [id number] ROOM. ................. : Number ................... : [id number] Stay type ............. : O/P Discharge Date......... ... : 09/07/20 Admit Date ......... : 09/07/20 Admit Phys .................... : JAVIER Date of ....... : 1970 Family Phys ................... : NON STAFF Phone .................. : [phone] Age ................................ : 50 Film# .................. .:[id number] Sex ................................. : F Unsigned transcriptions are preliminary reports and do not represent a medical or legal document INJECTION FOR SHOULDER ARTHRO [id number] COMPLETE:09/07/20 10:06 [facility] 4081 (REASON FOR PROCESS: PAIN SHOULDER 1 [place] [id number] COMPLETE:09/07/20 10:06 [facility] 4080 (REASON FOR PROCESS: PAIN FLUOROSCOPIC EXAMINATION OF THE LEFT SHOULDER FOR ARTHROGRAM: INDICATION: Pain. FINDINGS: The clock and watch assembler film shows no acute findings. Examination dictated [...] during the procedure. Page 1 of 2 [place] [address] PHONE: [phone] FAX: [phone] Name .................. : JEFF Esteves Acct Number.................. : [id number] ROOM. ................. : Number ................... : [id number] Stay type ............. : O/P Discharge Date......... ... : 09/07/20 Admit Date ......... : 09/07/20 Admit Phys .................... : JAVIER Date of ....... : 1970 Family Phys ................... : NON STAFF Phone .................. : [phone] Age ................................ : 50 Film# .................. .:[id number] Sex ................................. : F Unsigned transcriptions are preliminary reports and do not represent a medical or legal document INJECTION FOR SHOULDER ARTHRO 60788 COMPLETE:09/07/20 10:06 [facility] 4081 (REASON FOR PROCESS: PAIN SHOULDER 1 [place] [id number] COMPLETE:09/07/20 10:06 [facility] 4080 (REASON FOR PROCESS: [...] rce(s) Supporting Document(s) ID Date Data Source [id number] 09/04/2020 10:15:00 AM EST [facility] [address] [place] [address] PHONE: [phone] FAX: [phone] Name .................. : JEFF Esteves Acct Number.................. : [id number] ROOM. ................. : Number ................... : [id number] Stay type ............. : CLINIC Discharge Date......... ... : 08/31/20 Admit Date ......... : 08/31/20 Admit Phys .................... : PERRINEJEF Date of ....... : 1970 Family Phys ................... : SERVAGE RODRIGO Phone .................. : [phone] Age ................................ : 50 Film# .................. .:[id number] Sex ................................. : F Unsigned transcriptions are preliminary reports and do not represent a medical or legal document INJECTION FOR SHOULDER ARTHRO [id number] COMPLETE:08/31/20 13:47 [facility] 0320 (REASON FOR PROCESS: LEFT SHOULDER PAIN AFTER [...] rce(s) Supporting Document(s) ID Date Data Source [id number] 09/04/2020 10:14:00 [place] [address] PHONE: [phone] FAX: [phone] Name .................. : JEFF Esteves Acct Number.................. : [id number] ROOM. ................. : Number ................... : [id number] Stay type ............. : CLINIC Discharge Date......... ... : 08/31/20 Admit Date ......... : 08/31/20 Admit Phys .................... : PERRINEWENDY Date of ....... : 1970 Family Phys ................... : SERVAGE RODRIGO Phone .................. : [phone] Age ................................ : 50 Film# .................. .:[id number] Sex ................................. 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 No fractures are seen. Bone mineralization is intact. The soft tissues are unremarkable. IMPRESSION: Amputation of the distal left clavicle. Electronically Reviewed and Signed By Petros Fung MD , 09/04/20 10:14, [facility] Transcribe Initials: MOSES , Transcribe Date: 08/31/20 21:54, Dictation Date: Page 1 of 1 Name Value Range Interpretation Code Description Data Jenny rce(s) Supporting Document(s) ID Date Data Source [id number] 07/07/2020 01:13:00 PM EST [place] ([facility] ) Name Value Range Interpretation Code Description Data Jenny rce(s) Supporting Document(s) Laboratory test finding (navigational concept) Laboratory test result [facility] ([facility] ) This nucleic acid amplification test was developed and its performance characteristics determined by [facility]. Nucleic acid amplification tests include PCR and [...] detected) result in this assay. Performed at: [facility] [place] [id number] Audit Practice Intern: Renetta Forbes PhD, Phone: [phone] Not Detected ID Date Data Source [id number] 07/07/2020 01:13:00 PM EST [facility] Name Value Range Interpretation Code Description Data Jenny rce(s) Supporting Document(s) SARS coronavirus 2 RNA [facility] This lab was ordered by [facility] and reported by [facility]. ID Date Data Source [id number] 07/05/2020 10:00:00 AM EST [facility] ([facility]) Name Value Range Interpretation Code Description Data Jenny rce(s) Supporting Document(s) Coronavirus 2019 Nasopharygeal Laboratory test result [facility] ([facility]) This nucleic acid amplification test was developed and its performance characteristics determined by [facility]. Nucleic acid amplification tests include PCR and [...] detected) result in this assay. Performed at: [facility], [place] [id number] Audit Practice Intern: Renetta Forbes PhD, Phone: [phone] Not Detected ID Date Data Source [id number] 07/05/2020 10:00:00 AM EST [facility] Name Value Range Interpretation Code Description Data Jenny rce(s) Supporting Document(s) SARS coronavirus 2 RNA [facility] This lab was ordered by [facility] and reported by [facility]. ID Date Data Source [id number] 06/03/2020 12:00:00 PM EST [facility] ([facility]) Name Value Range Interpretation Code Description Data Jenny rce(s) Supporting Document(s) Coronavirus 2019 Nasopharygeal Laboratory test result [facility] ([facility]) This nucleic acid amplification test was developed and its performance characteristics determined by [facility]. Nucleic acid amplification tests include PCR and [...] detected) result in this assay. Performed at: [facility] [address] [id number] Audit Practice Intern: Gwendolyn Neal MD, Phone: [phone] Not Detected ID Date Data Source [id number] 06/03/2020 12:00:00 PM EST [facility] Name Value Range Interpretation Code Description Data Jenny rce(s) Supporting Document(s) SARS coronavirus 2 RNA [facility] This lab was ordered by [facility] and reported by [facility]. ID Date Data Source [id number] 05/25/2020 10:04:07 AM EDT [facility] Current Problems: Dental caries (ICD-521 .00) (KMN04-T27.9)Current Medications: * VITAMIN D * OMEPRAZOLE * [...] & Plan Problems:Added: Dental caries (ICD- 521.00) (TXB59-S78.9)Medications:VITAMIN DOMEPRAZOLEPAROXETINEGABAPENTINATORVASTATINBUPROPIONLORATADINEFLUTICASONEAllergi es:* ASPIRIN (Mild)* LATEX (Mild)* SULFA (Mild) Name Value Range Interpretation Code Description Data Jenny rce(s) Supporting Document(s) ID Date Data Source [id number] 04/13/2020 02:10:00 PM EDT [facility] ([facility]) Name Value Range Interpretation Code Description Data Jenny rce(s) Supporting Document(s) Laboratory test finding (navigational concept) Laboratory test result [facility] ([facility]) Procedure Social History Code Duration Value Status Description Data Source(s ) Smoking 06/11/2021 12:00:00 AM EST Unknown if ever smoked comp leted Unknown if ever smoked [facility] ([facility]) Smoking 05/28/2021 12:00:00 AM EDT Unknown if ever smoked comp leted Unknown if ever smoked [facility] ([facility]) Smoking 05/15/2021 12:00:00 AM EDT Unknown if ever smoked comp leted Unknown if ever smoked [facility] ([facility]) Smoking 04/24/2021 12:00:00 AM EDT Unknown if ever smoked comp leted Unknown if ever smoked [facility] ([facility]) Smoking 04/10/2021 12:00:00 AM EDT Unknown if ever smoked comp leted Unknown if ever smoked [facility] ([facility]) Smoking 02/19/2021 12:00:00 AM EDT Unknown if ever smoked comp leted Unknown if ever smoked [facility] ([facility]) Smoking 01/24/2021 12:00:00 AM EDT Unknown if ever smoked comp leted Unknown if ever smoked [facility] ([facility]) Smoking 01/08/2021 12:00:00 AM EDT Unknown if ever smoked comp leted Unknown if ever smoked [facility] ([facility]) Smoking 12/06/2020 12:00:00 AM EDT Unknown if ever smoked comp leted Unknown if ever smoked [facility] ([facility]) Smoking 11/14/2020 12:00:00 AM EDT Unknown if ever smoked comp leted Unknown if ever smoked [facility] ([facility]) Smoking 11/02/2020 12:00:00 AM EDT Unknown if ever smoked comp leted Unknown if ever smoked [facility] ([facility]) Smoking 10/19/2020 12:00:00 AM EDT Unknown if ever smoked comp leted Unknown if ever smoked [facility] ([facility]) Smoking 10/03/2020 12:00:00 AM EST Unknown if ever smoked comp leted Unknown if ever smoked [facility] ([facility]) Smoking 09/19/2020 12:00:00 AM EST Unknown if ever smoked comp leted Unknown if ever smoked [facility] ([facility]) Smoking 08/24/2020 12:00:00 AM EST Unknown if ever smoked comp leted Unknown if ever smoked [facility] ([facility]) Smoking 08/10/2020 12:00:00 AM EST Unknown if ever smoked comp leted Unknown if ever smoked [facility] ([facility]) Smoking 07/04/2020 12:00:00 AM EST Unknown if ever smoked comp leted Unknown if ever smoked [facility] ([facility]) Smoking 06/27/2020 12:00:00 AM EST Unknown if ever smoked comp leted Unknown if ever smoked [facility] ([facility]) Smoking 06/01/2020 12:00:00 AM EST Unknown if ever smoked comp leted Unknown if ever smoked [facility] ([facility]) Smoking 05/23/2020 12:00:00 AM EDT Unknown if ever smoked comp leted Unknown if ever smoked [facility] ([facility]) Smoking 05/11/2020 12:00:00 AM EDT Unknown if ever smoked comp leted Unknown if ever smoked [facility] ([facility]) Smoking 04/14/2020 12:00:00 AM EDT Unknown if ever smoked comp leted Unknown if ever smoked [facility] ([facility]) Vital Signs ID Date Data Source UNK Name Value Range Interpretation Code Description Data Source(s) Systolic blood pressure 122 mm[Hg] 122 mm[Hg] M [facility] ([facility]) Diastolic blood pressure 84 mm[Hg] 84 mm[Hg] [facility] ([facility]) Body height 63.5 [in_i] 63.5 [in_i] [facility] ([facility]) 5'3.50" Body weight 185.00 [lb_av] 185.00 [lb_av] [facility] ([facility]) Body mass index (BMI) [Ratio] 32.3 kg/m2 32.3 k g/m2 [facility] ([facility]) Currie body weight 115 [lb_av] 115 [lb_av] [facility] ([facility]) Body weight 83.916 kg 83.916 kg [facility] ([facility]) Body surface area Derived from formula 1.88 m2 1.88 m2 [facility] ([facility]) Systolic blood pressure 112 mm[Hg] 112 mm[Hg] [place] [facility]) Diastolic blood pressure 70 mm[Hg] 70 mm[Hg] [facility] ([facility]) Heart rate 85 /min 85 /min [facility] ([facility]) Oxygen saturation in Arterial blood by Pulse oximetry 100 % 100 % [facility] ([facility]) Body height 63.5 [in_i] 63.5 [in_i] [facility] ([facility]) 5'3.50" Body weight 184.00 [lb_av] 184.00 [lb_av] [facility] ([facility]) Body mass index (BMI) [Ratio] 32.1 kg/m2 32.1 k g/m2 [facility] ([facility]) Currie body weight 115 [lb_av] 115 [lb_av] [facility] ([facility]) Body weight 83.462 kg 83.462 kg [facility] ([facility]) Body surface area Derived from formula 1.88 m2 1.88 m2 [facility] ([facility]) Body temperature 97.3 [degF] 97.3 [degF] [facility] ([facility]) Body temperature 97.4 [degF] 97.4 [degF] [facility] ([facility]) Body weight 187.00 [lb_av] 187.00 [lb_av] [facility] ([facility]) Body mass index (BMI) [Ratio] 32.6 kg/m2 32.6 k g/m2 [facility] ([facility]) Currie body weight 115 [lb_av] 115 [lb_av] [facility] ([facility]) Body weight 84.823 kg 84.823 kg [facility] ([facility]) Body surface area Derived from formula 1.89 m2 1.89 m2 [facility] ([facility]) Systolic blood pressure 102 mm[Hg] 102 mm[Hg] [facility] ([facility]) Diastolic blood pressure 70 mm[Hg[facility] 70 mm[Hg] [facility] Heart rate 91 /min 91 /min [facility] ([facility]) Oxygen saturation in Arterial blood by Pulse oximetry 98 % 98 % [facility] ([facility]) Body height 63.5 [in_i] 63.5 [in_i] [facility] ([facility]) 5'3.50" Body temperature 97.2 [degF] 97.2 [degF] [facility] ([facility]) Body weight 187.4 [lb_av] 187.4 [lb_av] eCW1 ([facility]) Body weight 85 kg 85 kg eCW1 ([facility]) Body height 62.75 [in_i] 62.75 [in_i] eCW1 ([facility]) Body mass index (BMI) [Ratio] 33.46 kg/m2 33.46 kg/m2 eCW1 ([facility]) Heart rate 93 /min 93 /min eCW1 ([facility]) Respiratory rate 18 /min 18 /min eCW1 ([facility]) Body temperature 97.4 [degF] 97.4 [degF] eCW1 ( [facility]) Systolic blood pressure 132 mm[Hg] 132 mm[Hg] e CW1 ([facility]) Diastolic blood pressure 78 mm[Hg] 78 mm[Hg] eCW1 ([facility]) Body height 63 [in_i] 63 [in_i] [facility] [...] Body temperature 96.7 [degF] 96.7 [degF] [facility] ([facility]) Body height 63 [in_i] 63 [in_i] [facility] ([facility]) 5'3" Body weight 184.19 [lb_av] 184.19 [lb_av] [facility] ([facility]) Body mass index (BMI) [Ratio] 32.6 kg/m2 32.6 k g/m2 [facility] ([facility]) Body temperature 97.8 [degF] 97.8 [degF] [facility] ([facility]) Body weight 190 [lb_av] 190 [lb_av] eCW1 ([facility]) Body height 62.75 [in_i] 62.75 [in_i] eCW1 ([facility]) Body mass index (BMI) [Ratio] 33.92 kg/m2 33.92 kg/m2 eCW1 ([facility]) Heart rate 100 /min 100 /min eCW1 ([facility]) Respiratory rate 18 /min 18 /min eCW1 ([facility]) Body temperature 98 [degF] 98 [degF] eCW1 ([facility]) Systolic blood pressure 138 mm[Hg] 138 mm[Hg] e CW1 ([facility]) Diastolic blood pressure 78 mm[Hg] 78 mm[Hg] eCW1 ([facility]) Body temperature 97.1 [degF] 97.1 [degF] [facility] ([facility]) Body temperature 97.2 [degF] 97.2 [degF] [facility] ([facility]) Body temperature 97.0 [degF] 97.0 [degF] [facility] ([facility]) Body weight 186.8 [lb_av] 186.8 [lb_av] eCW1 ([facility]) Body height 62.75 [in_i] 62.75 [in_i] eCW1 ([facility]) Body mass index (BMI) [Ratio] 33.35 kg/m2 33.35 kg/m2 eCW1 ([facility]) Heart rate 88 /min 88 /min eCW1 ([facility]) Respiratory rate 18 /min 18 /min eCW1 ([facility]) Body temperature 98.9 [degF] 98.9 [degF] eCW1 ( [facility]) Systolic blood pressure 130 mm[Hg] 130 mm[Hg] e CW1 ([facility]) Diastolic blood pressure 86 mm[Hg] 86 mm[Hg] eCW1 ([facility]) Body temperature 97.5 [degF] 97.5 [degF] MEDENT ([facility]) Body temperature 96.2 [degF] 96.2 [degF] MEDENT ([facility]) Body height 62.5 [in_i] 62.5 [in_i] MEDENT ([facility]) 5'2.50" Body weight 180.50 [lb_av] 180.50 [lb_av] MEDEN T ([facility]) Body mass index (BMI) [Ratio] 32.5 kg/m2 32.5 k g/m2 MEDENT ([facility]) Body temperature 97.1 [degF] 97.1 [degF] MEDENT ([facility]) Body weight 181 [lb_av] 181 [lb_av] eCW1 ([facility]) Body height 62.75 [in_i] 62.75 [in_i] eCW1 ([facility]) Body mass index (BMI) [Ratio] 32.32 kg/m2 32.32 kg/m2 eCW1 ([facility]) Heart rate 90 /min 90 /min eCW1 ([facility]) Respiratory rate 18 /min 18 /min eCW1 ([facility]) Body temperature 99.4 [degF] 99.4 [degF] eCW1 ( [facility]) Systolic blood pressure 138 mm[Hg] 138 mm[Hg] e CW1 ([facility]) Diastolic blood pressure 80 mm[Hg] 80 mm[Hg] eCW1 ([facility]) Body weight 179 [lb_av] 179 [lb_av] eCW1 ([facility]) Body weight 81.19 kg 81.19 kg eCW1 ([facility]) Body height 62.75 [in_i] 62.75 [in_i] eCW1 ([facility]) Body mass index (BMI) [Ratio] 31.96 kg/m2 31.96 kg/m2 eCW1 ([facility]) Systolic blood pressure 126 mm[Hg] 126 mm[Hg] e CW1 ([facility]) Diastolic blood pressure 88 mm[Hg] 88 mm[Hg] eCW1 ([facility]) Body weight 178 [lb_av] 178 [lb_av] eCW1 ([facility]) Body height 62.75 [in_i] 62.75 [in_i] eCW1 ([facility]) Body mass index (BMI) [Ratio] 31.78 kg/m2 31.78 kg/m2 eCW1 ([facility]) Heart rate 90 /min 90 /min eCW1 ([facility]) Respiratory rate 18 /min 18 /min eCW1 ([facility]) Body temperature 98.4 [degF] 98.4 [degF] eCW1 ( [facility]) Systolic blood pressure 120 mm[Hg] 120 mm[Hg] e CW1 ([facility]) Diastolic blood pressure 64 mm[Hg] 64 mm[Hg] eCW1 ([facility]) Patient Treatment Plan of Care Planned Activity Planned Date Details Description Data Source (s) ferrous gluconate 324 MG Oral Tablet 09/28/2020 12:00:00 AM EST eCW1 ([facility]) ferrous gluconate 324 MG Oral Tablet 09/28/2020 12:00:00 AM EST eCW1 ([facility]) ferrous gluconate 324 MG Oral Tablet 09/28/2020 12:00:00 AM EST eCW1 ([facility]) ferrous gluconate 324 MG Oral Tablet 09/28/2020 12:00:00 AM EST eCW1 ([facility]) ferrous gluconate 324 MG Oral Tablet 09/28/2020 12:00:00 AM EST eCW1 ([facility]) Cefuroxime 250 MG Oral Tablet 07/17/2020 12:00:00 AM EST eCW1 ([facility]) Cefuroxime 250 MG Oral Tablet 07/17/2020 12:00:00 AM EST eCW1 ([facility]) Fluconazole 150 MG Oral Tablet [Diflucan] 05/30/2020 12:00:00 AM ES T eCW1 ([facility]) Doxycycline Monohydrate 100 MG Oral Tablet 05/30/2020 12:00:[address] eCW1 ([facility]) Fluconazole 150 MG Oral Tablet [Diflucan] 05/30/2020 12:00:00 AM ES T eCW1 ([facility]) Doxycycline Monohydrate 100 MG Oral Tablet 05/30/2020 12:00:[address] eCW1 ([facility]) Fluconazole 150 MG Oral Tablet [Diflucan] 05/30/2020 12:00:00 AM ES T eCW1 ([facility]) Doxycycline Monohydrate 100 MG Oral Tablet 05/30/2020 12:00:[address] eCW1 ([facility])
[2021-06-12 14:37] VITALS: BP 125/69
== END 2021-06-12 14:38 | disposition home or self-care (01) ==
LOC: M ED 12:55
DX: S63.601A Unspecified sprain of right thumb, initial encounter (principal); Y04.0XXA Assault by unarmed brawl or fight, initial encounter; Y92.9 Unspecified place or not applicable; Y93.9 Activity, unspecified; Y99.9 Unspecified external cause status; E78.5 Hyperlipidemia, unspecified; F32.9 Major depressive disorder, single episode, unspecified; F41.9 Anxiety disorder, unspecified; Z88.0 Allergy status to penicillin; Z88.2 Allergy status to sulfonamides; Z88.6 Allergy status to analgesic agent; Z91.040 Latex allergy status; Z79.899 Other long term (current) drug therapy

== ENCOUNTER → 2021-06-15 | Outpatient (CLI) | payer OTHER ==
--- NOTE | 2021-06-20 16:16 | REP ---
INDICATION: PAIN RT FINGER ? STENER LESION VS INTER DERANG. COMPARISON: None. TECHNIQUE: 3T multiplanar MRI imaging of the thumb was obtained using various sequences. The patient just returned today to obtain coronal imaging of the 1st metacarpophalangeal joint to assess for a Stener lesion FINDINGS: There is evidence of a ruptured ulnar collateral ligament of the thumb and the aponeurosis of the abductor pollicis is seen interposed between the ulnar collateral ligament at the site of the insertion at the base of the proximal phalanx. There is significant T2 hyper signal seen surrounding that region and there is fluid at the insertion of the proper ulnar collateral ligament at the base of the proximal phalanx. IMPRESSION: There is a Stener lesion as described above and seen in conjunction with surrounding muscular edema and fluid. <Electronically signed by Kingsley Nguyen > 06/20/21 7502
== END ==
LOC: M RAD 09:29
PROVIDERS: ATTEND Physician Assistant
DX: S63.641A Sprain of metacarpophalangeal joint of right thumb, initial encounter (principal); X58.XXXA Exposure to other specified factors, initial encounter; Y92.9 Unspecified place or not applicable; Y93.9 Activity, unspecified; Y99.9 Unspecified external cause status

== ENCOUNTER → 2021-06-20 | Outpatient (CLI) | payer OTHER | LOC: M RAD 13:48 | PROVIDERS: ATTEND Physician Assistant Medical | DX: M79.644 Pain in right finger(s) (principal); Z53.9 Procedure and treatment not carried out, unspecified reason ==

== ENCOUNTER → 2021-06-27 | Outpatient (CLI) | payer OTHER ==
[~2021-06-27] MED LIST changes: +E-Z-GAS II EFFERVESCENT PACKET (SODIUM BICARB./CITRIC ACID/SIMETHICONE) As Ordered ONE; +E-Z-HD 98% w/w 340GM SUSP BTL As Ordered ONE; +E-Z-PAQUE 96% w/w SUSP 176GM BTL As Ordered ONE; -MOME50SP; +NASO50SP3
== END ==
LOC: M RAD 09:43
PROVIDERS: ATTEND Physician Assistant Medical
DX: R13.10 Dysphagia, unspecified (principal); K21.9 Gastro-esophageal reflux disease without esophagitis; K44.9 Diaphragmatic hernia without obstruction or gangrene

== ENCOUNTER → 2021-07-07 | Outpatient (CLI) | payer OTHER ==
[~2021-07-07] MED LIST changes: -E-Z-GAS II EFFERVESCENT PACKET (SODIUM BICARB./CITRIC ACID/SIMETHICONE) As Ordered ONE; -E-Z-HD 98% w/w 340GM SUSP BTL As Ordered ONE; -E-Z-PAQUE 96% w/w SUSP 176GM BTL As Ordered ONE
== END ==
LOC: M EKG 12:28
PROVIDERS: ATTEND Plastic Surgery Surgery of the Hand
DX: Z01.818 Encounter for other preprocedural examination (principal)

== ENCOUNTER → 2021-08-14 | Outpatient (CLI) | payer OTHER | LOC: M WHC 11:25 | PROVIDERS: ATTEND Nurse Practitioner Women's Health | DX: Z12.31 Encounter for screening mammogram for malignant neoplasm of breast (principal) ==

== ENCOUNTER → 2021-10-22 | Outpatient (CLI) | payer OTHER ==
[2021-10-22 10:04] LABS: HEMOGLOBIN A1c 5.2 %
[2021-10-22 10:10] LABS: ALBUMIN 3.9 GM/DL (3.2-5.2); ALT/SGPT 27 U/L (12-78); BILIRUBIN,TOTAL 0.4 MG/DL (0.2-1.0); BLOOD UREA NITROGEN 9 MG/DL (7-18); CALCIUM LEVEL 9.2 MG/DL (8.5-10.1); CARBON DIOXIDE LEVEL 31 MEQ/L (21-32); CHLORIDE LEVEL 108 MEQ/L (98-107); CHOLESTEROL LEVEL 204 MG/DL (<200); CHOLESTEROL RISK RATIO 3.923 (<5); CREATININE FOR GFR 0.82 MG/DL (0.55-1.30); GLOMERULAR FILTRATION RATE > 60.0 (>51); GLUCOSE, FASTING 92 MG/DL (70-100); HDL CHOLESTEROL 52 MG/DL (>40); LDL CHOLESTEROL 119 MG/DL (<100); NON-HDL-C 152 MG/DL; POTASSIUM SERUM 4.4 MEQ/L (3.5-5.1); SODIUM LEVEL 139 MEQ/L (136-145); TOTAL PROTEIN 7.6 GM/DL (6.4-8.2); TRIGLYCERIDES LEVEL 163 MG/DL (<150)
[2021-10-22 10:21] LABS: TOTAL 25(OH) VITAMIN D 52.9 NG/ML (30.0-100.0)
== END ==
LOC: M LAB 09:08
PROVIDERS: ATTEND Nurse Practitioner Adult Health
DX: E55.9 Vitamin D deficiency, unspecified (principal)

== ENCOUNTER → 2021-10-25 | Outpatient (RCR) | payer OTHER ==
[~2021-10-25] MED LIST changes: +ACET650T61 PO; +CYCL-707; +ESTR1PAT23; +FERR32TA; +LORA-674; +MELO15TA28; +OMEP40CA5; +PARO40TA2 PO; +VITA100093 PO
== END ==
LOC: M OT 10-02 09:17
PROVIDERS: ATTEND Plastic Surgery Surgery of the Hand
DX: S69.91XD Unspecified injury of right wrist, hand and finger(s), subsequent encounter (principal)

== ENCOUNTER → 2021-10-29 | Outpatient (CLI) | payer OTHER | LOC: M RAD 12:46 | PROVIDERS: ATTEND Otolaryngology | DX: E07.9 Disorder of thyroid, unspecified (principal) ==

== ENCOUNTER → 2021-11-12 | Outpatient (CLI) | payer OTHER ==
[~2021-11-12] MED LIST changes: -FERR32TA; +FERR32TA PO
== END ==
LOC: M LABSMTC 11:42
PROVIDERS: ATTEND Anesthesiology
DX: Z01.812 Encounter for preprocedural laboratory examination (principal); Z20.822 Contact with and (suspected) exposure to COVID-19

== ENCOUNTER 2021-11-13 10:00 | Outpatient (RCR) | payer OTHER | END 2021-11-24 | LOC: M OT 10:00 | PROVIDERS: ATTEND Plastic Surgery Surgery of the Hand | DX: S69.91XD Unspecified injury of right wrist, hand and finger(s), subsequent encounter (principal) ==

== ENCOUNTER 2021-11-16 09:34 | Day surgery (SDC) | payer OTHER ==
[~2021-11-16] VITALS: Ht 167.6 cm; Wt 79.8 kg
[~2021-11-16 09:34] MED LIST changes: +NS 1,000 ML IV ONE
[2021-11-16] MEDS ORDERED: fentaNYL 100 MCG/2 ML INJECTION As Ordered ONE (11:46)
[2021-11-16] MEDS ORDERED: LIDOCAINE 2% 100MG/5ML SDV (FOR ANES.) As Ordered ONE (11:46)
[2021-11-16] MEDS ORDERED: propofoL 500 MG/50 ML VIAL As Ordered ONE (11:46)
[2021-11-16 12:36] VITALS: BP 128/74
== END 2021-11-16 12:56 | disposition home or self-care (01) ==
LOC: M OPP 09:34
PROVIDERS: ATTEND Internal Medicine Gastroenterology
DX: Z12.11 Encounter for screening for malignant neoplasm of colon (principal); K62.1 Rectal polyp; K64.8 Other hemorrhoids; K44.9 Diaphragmatic hernia without obstruction or gangrene; K29.70 Gastritis, unspecified, without bleeding; K20.90 Esophagitis, unspecified without bleeding; R13.10 Dysphagia, unspecified; R12 Heartburn; G47.33 Obstructive sleep apnea (adult) (pediatric); Z99.89 Dependence on other enabling machines and devices; Z79.1 Long term (current) use of non-steroidal anti-inflammatories (NSAID); Z79.02 Long term (current) use of antithrombotics/antiplatelets; Z79.899 Other long term (current) drug therapy; Z88.0 Allergy status to penicillin; Z88.2 Allergy status to sulfonamides; Z88.6 Allergy status to analgesic agent; Z91.040 Latex allergy status; Z91.048 Other nonmedicinal substance allergy status
CPT/HCPCS: 43239; 45380; 88305; J3010

== ENCOUNTER → 2022-02-14 | Outpatient (REF) | payer OTHER ==
[~2022-02-14] MED LIST changes: -NS 1,000 ML IV ONE
== END ==
LOC: M SFHCPLAZ 17:04
PROVIDERS: ATTEND Physician Assistant
DX: J02.9 Acute pharyngitis, unspecified (principal)

== ENCOUNTER → 2022-06-26 | Outpatient (CLI) | payer OTHER | LOC: M PLAIMG 11:11 | PROVIDERS: ATTEND Physician Assistant | DX: M47.896 Other spondylosis, lumbar region (principal) ==

== ENCOUNTER → 2022-08-23 | Outpatient (CLI) | payer OTHER | LOC: M WHC 11:12 | PROVIDERS: ATTEND Obstetrics & Gynecology | DX: Z12.31 Encounter for screening mammogram for malignant neoplasm of breast (principal) ==

== ENCOUNTER → 2022-09-09 | Outpatient (CLI) | payer OTHER ==
[2022-09-09 13:58] LABS: BASO # 0.1 10^3/uL (0.0-0.2); BASO % 0.8 % (0.0-1.0); EOS # 0.2 10^3/uL (0.0-0.5); EOS % 2.3 % (0.0-3.0); HEMATOCRIT 42.6 % (36.0-47.0); LYMPH # 3.2 10^3/uL (1.5-5.0); LYMPH % 34.8 % (24.0-44.0); MEAN CORPUSCULAR HEMOGLOBIN 25.4 pg (27.0-33.0); MEAN CORPUSCULAR HGB CONC 30.5 g/dl (32.0-36.5); MEAN CORPUSCULAR VOLUME 83.2 fl (80.0-96.0); MONO # 0.8 10^3/uL (0.0-0.8); MONO % 8.6 % (2.0-8.0); NEUTROPHILS # 4.8 10^3/uL (1.5-8.5); NEUTROPHILS % 53.2 % (36.0-66.0); PLATELET COUNT, AUTOMATED 446 10^3/uL (150-450); RED BLOOD COUNT 5.12 10^6/uL (4.00-5.40); WHITE BLOOD COUNT 9.1 10^3/uL (4.0-10.0)
[2022-09-09 14:22] LABS: ALKALINE PHOSPHATASE 130 U/L (46-116); ALT/SGPT 20 U/L (7.0-40); AST/SGOT 9 U/L (<34); BILIRUBIN,TOTAL 0.8 MG/DL (0.3-1.2); BLOOD UREA NITROGEN 9 MG/DL (9-23); CALCIUM LEVEL 9.6 MG/DL (8.5-10.1); CARBON DIOXIDE LEVEL 29 MMOL/L (20-31); CHLORIDE LEVEL 107 MMOL/L (98-107); CREATININE FOR GFR 0.83 MG/DL (0.55-1.30); GLOMERULAR FILTRATION RATE > 60.0 (>51); GLUCOSE, FASTING 77 MG/DL (60-100); POTASSIUM SERUM 4.3 MMOL/L (3.5-5.1); SODIUM LEVEL 139 MMOL/L (136-145); TOTAL PROTEIN 7.3 G/DL (5.7-8.2)
[2022-09-09 14:47] LABS: APPEARANCE, URINE MANUAL CLEAR (CLEAR); BILIRUBIN, URINE MANUAL NEGATIVE (NEGATIVE); BLOOD URINE MANUAL NEGATIVE (NEGATIVE); COLOR, URINE MANUAL YELLOW (YELLOW); GLUCOSE, URINE (UA) MANUAL NEGATIVE (NEGATIVE); KETONE, URINE MANUAL NEGATIVE (NEGATIVE); LEUKOCYTE ESTERASE, URINE MAN NEGATIVE (NEGATIVE); NITRITE, URINE MANUAL NEGATIVE (NEGATIVE); PROTEIN, URINE MANUAL NEGATIVE (NEGATIVE); UROBILINOGEN, URINE MANUAL NORMAL (NORMAL)
== END ==
LOC: M PLALAB 11:59
PROVIDERS: ATTEND Nurse Practitioner Family
DX: M75.22 Bicipital tendinitis, left shoulder (principal)

== ENCOUNTER → 2022-09-09 | Outpatient (CLI) | payer OTHER ==
[2022-09-09 13:57] LABS: BASO # 0.1 10^3/uL (0.0-0.2); BASO % 0.8 % (0.0-1.0); EOS # 0.2 10^3/uL (0.0-0.5); EOS % 2.4 % (0.0-3.0); HEMATOCRIT 42.9 % (36.0-47.0); HEMOGLOBIN 13.2 g/dl (12.0-15.5); LYMPH # 3.1 10^3/uL (1.5-5.0); LYMPH % 34.9 % (24.0-44.0); MEAN CORPUSCULAR HEMOGLOBIN 25.6 pg (27.0-33.0); MEAN CORPUSCULAR HGB CONC 30.8 g/dl (32.0-36.5); MEAN CORPUSCULAR VOLUME 83.1 fl (80.0-96.0); MONO # 0.7 10^3/uL (0.0-0.8); MONO % 8.2 % (2.0-8.0); NEUTROPHILS # 4.7 10^3/uL (1.5-8.5); NEUTROPHILS % 53.2 % (36.0-66.0); PLATELET COUNT, AUTOMATED 462 10^3/uL (150-450); RED BLOOD COUNT 5.16 10^6/uL (4.00-5.40); WHITE BLOOD COUNT 8.8 10^3/uL (4.0-10.0)
[2022-09-09 14:11] LABS: INR 0.97; PROTHROMBIN TIME 13.1 SECONDS (12.5-14.5)
[2022-09-09 14:12] LABS: PARTIAL THROMBOPLASTIN TIME 27.3 SECONDS (24.8-34.2)
[2022-09-09 14:25] LABS: ALKALINE PHOSPHATASE 131 U/L (46-116); ALT/SGPT 19 U/L (7.0-40); AST/SGOT 9 U/L (<34); BILIRUBIN,TOTAL 0.8 MG/DL (0.3-1.2); BLOOD UREA NITROGEN 9 MG/DL (9-23); CALCIUM LEVEL 9.6 MG/DL (8.5-10.1); CARBON DIOXIDE LEVEL 30 MMOL/L (20-31); CHLORIDE LEVEL 106 MMOL/L (98-107); CREATININE FOR GFR 0.82 MG/DL (0.55-1.30); GLOMERULAR FILTRATION RATE > 60.0 (>51); GLUCOSE, FASTING 77 MG/DL (60-100); POTASSIUM SERUM 4.5 MMOL/L (3.5-5.1); SODIUM LEVEL 139 MMOL/L (136-145); TOTAL PROTEIN 7.2 G/DL (5.7-8.2)
== END ==
LOC: M PLALAB 11:56
PROVIDERS: ATTEND Family Medicine
DX: E78.2 Mixed hyperlipidemia (principal)

== ENCOUNTER 2022-10-23 09:04 | Outpatient (RCR) | payer OTHER | END 2022-10-25 | LOC: M PT 09:04 | PROVIDERS: ATTEND Orthopaedic Surgery | DX: Z47.89 Encounter for other orthopedic aftercare (principal); Z98.890 Other specified postprocedural states; M25.512 Pain in left shoulder ==

== ENCOUNTER → 2022-10-28 | Outpatient (CLI) | payer OTHER ==
[2022-10-28 14:14] LABS: PLATELET COUNT, AUTOMATED 450 10^3/uL (150-450)
[2022-10-28 14:26] LABS: INR 0.89; PROTHROMBIN TIME 12.2 SECONDS (12.5-14.5)
[2022-10-28 14:27] LABS: PARTIAL THROMBOPLASTIN TIME 28.1 SECONDS (24.8-34.2)
== END ==
LOC: M WUC 09:34
PROVIDERS: ATTEND Physician Assistant
DX: Z01.818 Encounter for other preprocedural examination (principal)

== ENCOUNTER → 2023-05-08 | Outpatient (CLI) | payer OTHER ==
[~2023-05-08] MED LIST changes: +LORA-1041; -LORA-674
[2023-05-08 12:33] LABS: CHOLESTEROL RISK RATIO 3.78 (<5); HDL CHOLESTEROL 46.8 MG/DL (>40); LDL CHOLESTEROL 98.2 MG/DL (<100); NON-HDL-C 130.2 MG/DL
== END ==
LOC: M WUC 09:05
PROVIDERS: ATTEND Nurse Practitioner Adult Health
DX: E78.2 Mixed hyperlipidemia (principal); R07.89 Other chest pain

== ENCOUNTER → 2023-08-22 | Outpatient (CLI) | payer OTHER | LOC: M RAD 16:07 | PROVIDERS: ATTEND Physician Assistant Surgical | DX: M75.52 Bursitis of left shoulder (principal) ==

== ENCOUNTER → 2023-08-25 | Outpatient (REF) | payer OTHER ==
[2023-08-25 14:08] LABS: APPEARANCE, URINE CLEAR (CLEAR); BACTERIA, URINE AUTO NEGATIVE (NEGATIVE); BILIRUBIN, URINE AUTO NEGATIVE (NEGATIVE); BLOOD, URINE BLOOD NEGATIVE (NEGATIVE); COLOR, URINE YELLOW (YELLOW); GLUCOSE, URINE (UA) AUTO NEGATIVE (NEGATIVE); KETONE, URINE AUTO NEGATIVE (NEGATIVE); LEUKOCYTE ESTERASE, URINE AUTO NEGATIVE (NEGATIVE); MUCUS, URINE SMALL (NEGATIVE); NITRITE, URINE AUTO NEGATIVE (NEGATIVE); PROTEIN, URINE AUTO 1+ mg/dL (NEGATIVE); RBC, URINE AUTO 0 /HPF (0-3); SQUAMOUS EPITHELIAL CELL UR AU 1 /HPF (0-6); UROBILINOGEN, URINE AUTO 0.2 mg/dL (0.0-2.0); WBC, URINE AUTO 1 /HPF (0-3)
== END ==
LOC: M SFHCWAGY 13:16
PROVIDERS: ATTEND Nurse Practitioner Family
DX: R39.16 Straining to void (principal); N39.0 Urinary tract infection, site not specified

== ENCOUNTER → 2023-08-25 | Outpatient (CLI) | payer OTHER | LOC: M WHC 10:34 | PROVIDERS: ATTEND Nurse Practitioner Family | DX: Z12.31 Encounter for screening mammogram for malignant neoplasm of breast (principal) ==

== ENCOUNTER → 2023-12-26 | Outpatient (REF) | payer OTHER | LOC: M SFHCWAGY 15:08 | PROVIDERS: ATTEND Nurse Practitioner Family | DX: N39.0 Urinary tract infection, site not specified (principal) ==

== ENCOUNTER → 2024-03-16 | Outpatient (CLI) | payer OTHER | LOC: M RAD 13:44 | PROVIDERS: ATTEND Otolaryngology | DX: E04.2 Nontoxic multinodular goiter (principal) ==

== ENCOUNTER → 2024-04-14 | Outpatient (CLI) | payer OTHER ==
[2024-04-14 14:10] LABS: HEMATOCRIT 41.8 % (36.0-47.0); MEAN CORPUSCULAR HEMOGLOBIN 25.7 pg (27.0-33.0); MEAN CORPUSCULAR HGB CONC 31.1 g/dl (32.0-36.5); MEAN CORPUSCULAR VOLUME 82.8 fl (80.0-96.0); PLATELET COUNT, AUTOMATED 455 10^3/uL (150-450); RED BLOOD COUNT 5.05 10^6/uL (4.00-5.40); WHITE BLOOD COUNT 6.6 10^3/uL (4.0-10.0)
[2024-04-14 14:29] LABS: HEMOGLOBIN A1c 4.9 % (4.0-6.0)
[2024-04-14 14:43] LABS: ALBUMIN 3.8 G/DL (3.2-5.2); ALKALINE PHOSPHATASE 134 U/L (46-116); ALT/SGPT 19 U/L (7.0-40); AST/SGOT 18 U/L (<34); BILIRUBIN,TOTAL 0.3 MG/DL (0.3-1.2); BLOOD UREA NITROGEN 9 MG/DL (9-23); CALCIUM LEVEL 9.4 MG/DL (8.5-10.1); CARBON DIOXIDE LEVEL 28 MMOL/L (20-31); CHLORIDE LEVEL 107 MMOL/L (98-107); CHOLESTEROL LEVEL 156 MG/DL (<200); CHOLESTEROL RISK RATIO 3.92 (<5); CREATININE FOR GFR 0.81 MG/DL (0.55-1.30); GLOMERULAR FILTRATION RATE > 60.0 (>51); GLUCOSE, FASTING 92 MG/DL (60-100); HDL CHOLESTEROL 39.7 MG/DL (>40); LDL CHOLESTEROL 84.5 MG/DL (<100); NON-HDL-C 116.3 MG/DL; SODIUM LEVEL 139 MMOL/L (136-145); TRIGLYCERIDES LEVEL 159 MG/DL (<150)
[2024-04-14 14:45] LABS: FREE T4 0.93 NG/DL (0.89-1.76)
[2024-04-14 14:46] LABS: VITAMIN B12 LEVEL 949 PG/ML (211-911)
== END ==
LOC: M WUC 09:16
PROVIDERS: ATTEND Nurse Practitioner Adult Health
DX: E78.2 Mixed hyperlipidemia (principal); R53.83 Other fatigue; Z83.3 Family history of diabetes mellitus; Z13.1 Encounter for screening for diabetes mellitus; E66.9 Obesity, unspecified; Z13.220 Encounter for screening for lipoid disorders; M25.552 Pain in left hip

== ENCOUNTER 2024-05-26 09:56 | Emergency (ER) | payer OTHER ==
[~2024-05-26] VITALS: Ht 160 cm; Wt 76.8 kg
[~2024-05-26 09:56] MED LIST changes: +GABA-1172 PO; -GABA-282 PO
[2024-05-26] MEDS: CETIRIZINE (ZyrTEC) 10 MG TAB PO ONE (12:24)
[2024-05-26] MEDS: FAMOTIDINE 20MG/2ML VIAL IVP ONE (12:24)
[2024-05-26] MEDS: methylPREDNISolone 125MG 2ML VIAL IV ONE (12:24)
[2024-05-26] MEDS ORDERED: PRED20TA PO (15:03)
[2024-05-26] MEDS ORDERED: CETI10CH PO (15:03)
[2024-05-26] MEDS ORDERED: ZITHTAB PO (15:03)
[2024-05-26 15:14] VITALS: BP 118/70; TEMP 99.3; O2SAT 97
== END 2024-05-26 15:15 | disposition home or self-care (01) ==
LOC: M ED 09:56
DX: J18.9 Pneumonia, unspecified organism (principal); L50.9 Urticaria, unspecified; Z79.02 Long term (current) use of antithrombotics/antiplatelets; Z79.1 Long term (current) use of non-steroidal anti-inflammatories (NSAID); Z79.899 Other long term (current) drug therapy; Z79.52 Long term (current) use of systemic steroids; Z88.0 Allergy status to penicillin; Z88.2 Allergy status to sulfonamides; Z88.6 Allergy status to analgesic agent; Z91.040 Latex allergy status
CPT/HCPCS: 71046; 87486; 87581; 87633; 87798; 96374; 99213; 99284; J2919; S0028

== ENCOUNTER 2024-05-29 08:44 | Emergency (ER) | payer OTHER ==
[~2024-05-29] VITALS: Ht 160 cm; Wt 77.5 kg
[~2024-05-29 08:44] MED LIST changes: +CETI10CH PO; +PRED20TA PO; +ZITHTAB PO
[2024-05-29] MEDS ORDERED: MONT10TA97 (08:57)
[2024-05-29] MEDS: methylPREDNISolone 125MG 2ML VIAL IV ONE (09:45)
[2024-05-29] MEDS: FAMOTIDINE 20MG/2ML VIAL IVP ONE (09:46)
[2024-05-29 10:46] VITALS: BP 132/81; TEMP 97.8; O2SAT 98
== END 2024-05-29 10:48 | disposition home or self-care (01) ==
LOC: M ED 08:44
DX: L50.9 Urticaria, unspecified (principal); Z88.0 Allergy status to penicillin; Z88.2 Allergy status to sulfonamides; Z88.6 Allergy status to analgesic agent; Z91.040 Latex allergy status; Z91.048 Other nonmedicinal substance allergy status; Z87.891 Personal history of nicotine dependence; Z79.02 Long term (current) use of antithrombotics/antiplatelets; Z79.899 Other long term (current) drug therapy; Z79.52 Long term (current) use of systemic steroids
CPT/HCPCS: 96374; 96375; 99284; J2919; S0028

== ENCOUNTER → 2024-11-02 | Outpatient (CLI) | payer OTHER ==
[~2024-11-02] MED LIST changes: +MONT10TA97; +OMEP-611 PO; -OMEP20TA2 PO
== END ==
LOC: M WUC 08:59
PROVIDERS: ATTEND Orthopaedic Surgery
DX: M25.512 Pain in left shoulder (principal)

== ENCOUNTER → 2024-11-22 | Outpatient (CLI) | payer OTHER ==
[2024-11-22 13:15] LABS: HEMATOCRIT 41.6 % (36.0-47.0); HEMOGLOBIN 12.8 g/dl (12.0-15.5); MEAN CORPUSCULAR HEMOGLOBIN 25.2 pg (27.0-33.0); MEAN CORPUSCULAR HGB CONC 30.8 g/dl (32.0-36.5); MEAN CORPUSCULAR VOLUME 81.9 fl (80.0-96.0); PLATELET COUNT, AUTOMATED 444 10^3/uL (150-450); RED BLOOD COUNT 5.08 10^6/uL (4.00-5.40); WHITE BLOOD COUNT 7.9 10^3/uL (4.0-10.0)
[2024-11-22 13:24] LABS: THYROID STIMULATING HORMONE 1.611 uIU/ML (0.55-4.78)
[2024-11-22 13:25] LABS: FREE T4 0.95 NG/DL (0.89-1.76)
[2024-11-22 13:28] LABS: ALBUMIN 3.7 G/DL (3.2-5.2); BILIRUBIN,TOTAL 0.5 MG/DL (0.3-1.2); CALCIUM LEVEL 9.5 MG/DL (8.5-10.1); CHOLESTEROL RISK RATIO 4.31 (<5); CREATININE FOR GFR 0.78 MG/DL (0.55-1.30); GLOMERULAR FILTRATION RATE 89.1 (>51); HDL CHOLESTEROL 51.7 MG/DL (>40); LDL CHOLESTEROL 143.5 MG/DL (<100); NON-HDL-C 171.3 MG/DL; POTASSIUM SERUM 4.2 MMOL/L (3.5-5.1); TOTAL PROTEIN 6.8 G/DL (5.7-8.2)
== END ==
LOC: M WUC 09:22
PROVIDERS: ATTEND Nurse Practitioner Adult Health
DX: E78.2 Mixed hyperlipidemia (principal); R53.83 Other fatigue; E55.9 Vitamin D deficiency, unspecified; Z83.3 Family history of diabetes mellitus

== ENCOUNTER → 2024-12-03 | Outpatient (CLI) | payer OTHER ==
[~2024-12-03] MED LIST changes: +ISOVUE-300 61% 100ML VIAL As Ordered ONE; +LIDOCAINE 1% MDV 20ML VIAL As Ordered ONE; +PROHANCE 279.3MG/ML 5ML VIAL As Ordered ONE
== END ==
LOC: M RAD 12:39
PROVIDERS: ATTEND Orthopaedic Surgery
DX: M25.312 Other instability, left shoulder (principal); M19.012 Primary osteoarthritis, left shoulder
CPT/HCPCS: 23350; 73223; 77002; A9576; Q9967

== ENCOUNTER → 2025-02-21 | Outpatient (CLI) | payer OTHER ==
[~2025-02-21] MED LIST changes: -ISOVUE-300 61% 100ML VIAL As Ordered ONE; -LIDOCAINE 1% MDV 20ML VIAL As Ordered ONE; -PROHANCE 279.3MG/ML 5ML VIAL As Ordered ONE
== END ==
LOC: M RAD 07:30
PROVIDERS: ATTEND Pain Medicine Interventional Pain Medicine
DX: M54.16 Radiculopathy, lumbar region (principal); M47.816 Spondylosis without myelopathy or radiculopathy, lumbar region

== ENCOUNTER → 2025-03-21 | Outpatient (CLI) | payer OTHER | LOC: M WHC 08:10 | PROVIDERS: ATTEND Obstetrics & Gynecology | DX: Z12.31 Encounter for screening mammogram for malignant neoplasm of breast (principal); R92.323 Mammographic fibroglandular density, bilateral breasts ==